=== PATIENT | male | born 1970 | race Caucasian/White ===

== ENCOUNTER 2021-05-11 09:50 | Inpatient (IN) | payer MEDICAID, SELFPAY ==
[2021-05-11] VITALS (11 sets, daily range): BP systolic 116; BP diastolic 61; PULSE 71–92; RESP 20–45; TEMP 37.8; O2SAT 86–95; BMI 36.6
--- NOTE | 2021-05-11 10:01 | XRR_ITS ---
PROCEDURE INFORMATION: Exam: XR Chest Exam date and time: 05/11/2021 10:01 AM Age: 50 years old Clinical indication: Dyspnea; Additional info: Resp distress TECHNIQUE: Imaging protocol: XR of the chest. Views: 1 view. Total images: 1 COMPARISON: No relevant prior studies available. FINDINGS: Lungs: Bilateral extensive patchy airspace densities, favoring pneumonia, possibly atypical pneumonia. Pleural spaces: Unremarkable. No pleural effusion. No pneumothorax. Heart/Mediastinum: Upper normal heart size noted. Bones/joints: Unremarkable. XR/XR chest 1V portable [id number] IMPRESSION: Bilateral extensive patchy airspace densities, favoring pneumonia, possibly atypical pneumonia.
[2021-05-11 10:15] LABS: Hematocrit 43.9 % (42.0-52.0); Hemoglobin 15.1 g/dL (11.7-16.6); Lymphocytes # 0.6 10^3/uL (0.8-4.8); Mean Corpuscular HGB Conc 34.4 g/dL (30.0-36.0); Mean Corpuscular Hemoglobin 29.6 pg (28.0-34.0); Mean Corpuscular Volume 86.1 fl (80-94); Mean Platelet Volume 10.2 fL (7.4-10.4); Monocytes # 0.3 10^3/uL (0.2-0.9); Monocytes % 4.6 %; Neutrophils # 5.42 10^3/uL (1.8-7.7); Neutrophils % 85.1 %; Nucleated Red Blood Cells % 0 %; Platelet Count 239 10^3/cmm (130-400); Red Cell Distribution Width 12.7 % (12.1-15.1); White Blood Count 6.4 10^3/uL (4.0-10.0)
--- NOTE | 2021-05-11 10:23 | W.ED.COVID ---
HPI - COVID General: Chief Complaint: ER Hold Stated Complaint: RESP DISTRESS Time Seen by Provider: 05/11/21 09:51 Triage information: Has fever, cough or shortness of breath. Exposure to COVID + person last 14 days History of Present Illness: HPI Narrative: 50-year-old male presents to the emergency room with complaint of shortness of breath with productive cough of yellow sputum. Is been going on for the last 7 days room [facility] reports he was having sats in the 60s. He is not previously been vaccinated for Covid nor is he known to have tested positive for Covid in the past. He denies any vomiting or diarrhea denies any chest pain or abdominal pain. Denies any anosmia he has had myalgias and subjective fever has a temp now of 100. He received IV Solu-Medrol and nebulized Decadron in route. Prior covid testing: no COVID 19 common symptoms: positive fever(s), chills, cough, productive cough, dyspnea, fatigue, body aches, headache(s), nasal congestion, nausea and chest tightness; negative non-productive cough, loss of sense of smell and/or taste, throat pain, vomiting or diarrhea COVID 19 other sytmptoms: positive requiring oxygen; negative chest pain Onset (ago): week(s) (1) Severity: severe Pertinent comorbid conditions: obesity Treatment prior to arrival: steroids, oxygen and breathing treatments COVID Results: SARS-CoV-2 Antigen (Rapid) Positive (Negative) H 05/11/21 10:36 05/11/21 Review of Systems Const: Reports: fever(s), chills, body aches and fatigue ENMT: Reports: nasal congestion; Denies: throat pain Card: Denies: chest pain, edema, dyspnea on exertion or orthopnea Resp: Reports: dyspnea and productive cough; Denies: non-productive cough GI: Reports: nausea; Denies: vomiting or diarrhea : Denies: flank pain, dysuria, urinary frequency or urinary urgency Skin/Breast: Denies: rash or pruritus Neuro: Reports: headache(s) [facility] ED PFSH: Medical History (Updated 05/13/21 @ 07:28 by Mateo Moore DO) CAD (coronary artery disease) Hypertension Surgical History No significant past surgical history Social History (Updated 05/11/21 @ 13:28 by Vicente Zapata MD) Smoking and tobacco status: former smoker Alcohol intake: never Substance/Drug Use: never Lives independently: Yes Household members: spouse Housing: House Marital status: Physical Exam Const: GENERAL APPEARANCE: cooperative ORIENTATION/CONSCIOUSNESS: Yes awake, Yes oriented to person, Yes oriented to place and Yes oriented to time HENMT: COMMON NORMALS: normocephalic, atraumatic and hearing grossly normal bilaterally HEAD & SCALP: normocephalic and atraumatic Resp: EFFORT & INSPECTION: Yes tachypneic AUSCULTATION: crackles and wheezes Cardio: COMMON NORMALS: regular rhythm RATE: tachycardic RHYTHM: regular rhythm GI: COMMON NORMALS: Soft to palpation and No hepatosplenomegaly present AUSCULTATION: Yes normoactive bowel sounds PALPATION: Yes Soft to palpation, No Tenderness to palpation present (GI), No Guarding due to palpation present (GI) and Yes No hepatosplenomegaly present Extremity: COMMON NORMALS: normal to inspection, capillary refill normal, no clubbing, cyanosis or edema, no calf tenderness and no pedal edema Neuro: SENSORIUM/ORIENTATION: Yes oriented to person, Yes oriented to place and Yes oriented to time Skin: COMMON NORMALS: no rashes or lesions noted GENERAL SKIN EXAM: no rashes or lesions noted Course Vital Signs: Vital signs: Vital Signs Temperature 99.5 F 05/13/21 04:00 Pulse Rate 105 H 05/13/21 06:22 Respiratory Rate 32 H 05/13/21 04:44 Blood Pressure 96/57 05/13/21 04:44 Pulse Oximetry 94 05/13/21 06:22 MDM - COVID MDM Narrative: Medical decision making narrative: Labs imaging EKG and ABGs reviewed as found in the chart. Patient presents in severe respiratory distress with rapidly transitioned to heated high flow which did improve his breathing he was also proned in the ER. [facility] did not have any available COVID beds. We will go ahead and admit here discussed with hospitalist orders written. Lab Data: Labs: Lab Results 05/11/21 05/11/21 05/11/21 10:00 10:00 10:00 WBC 6.4 10^3/uL 10^3/ uL (4.0-10.0) RBC 5.10 10^6/uL 10^6 /uL (4.1-5.3) Hgb 15.1 g/dL g/dL (11.7-16.6) Hct 43.9 % % (42.0-52.0) MCV 86.1 fl fl (80-94) MCH 29.6 pg pg (28.0-34.0) MCHC 34.4 g/dL g/dL (30.0-36.0) RDW 12.7 % % (12.1-15.1) Plt Count 239 10^3/cmm 10^3 /cmm (130-400) MPV 10.2 fL fL (7.4-10.4) Neut % (Auto) 85.1 % % Lymph % (Auto) 10.0 % % [place] % (Auto) 4.6 % % Eos % (Auto) 0.0 % % Baso % (Auto) 0.0 % % Neut # (Auto) 5.42 10^3/uL 10^3 /uL (1.8-7.7) Lymph # (Auto) 0.6 10^3/uL L 10^ 3/uL (0.8-4.8) [place] # (Auto) 0.3 10^3/uL 10^3/ uL (0.2-0.9) Eos # (Auto) 0.0 10^3/uL 10^3/ uL (0.0-0.8) Baso # (Auto) 0.0 10^3/uL 10^3/ uL (0.0-0.1) Nucleated RBC % (a uto) 0 % % Nucleated RBCs # 0.0 /100WBC /100W BC ESR D-Dimer 1.69 ug/mIFEU H u g/mIFEU (0-0.59) Sodium 132 mmol/L L mmol /L (136-145) Potassium 3.4 mmol/L L mmol /L (3.5-5.1) Chloride 92 mmol/L L mmol/ L (98-107) Carbon Dioxide 23 mmol/L mmol/L (22-29) Anion Gap 20.4 H (5-19) BUN 10 mg/dL mg/dL (6-20) Creatinine 0.8 mg/dL mg/dL (0.7-1.2) GFR Calculation 101.9 mL/min mL/m in (90-130) Glucose 121 mg/dL H mg/dL (65-115) Calculated Osmolal ity 274 mOsm/kg L mOs m/kg (285-295) Lactic Acid Calcium 7.8 mg/dL L mg/dL (8.5-10.5) Iron TIBC % Saturation Unsat Iron Binding Total Bilirubin 0.6 mg/dL mg/dL (0.15-1.2) AST 127 U/L H U/L (0-40) ALT 84 U/L H U/L (0-41) Alkaline Phosphata se 100 IU/L IU/L (40-130) C-Reactive Protein 107.4 mg/L H mg/L (0.0-4.9) NT-Pro-B Natriuret Pep Total Protein 6.9 g/dL g/dL (6.6-8.7) Albumin 3.2 g/dL L g/dL (3.5-5.2) Globulin 3.7 g/dL g/dL (1.3-4.6) Procalcitonin 0.21 ng/mL ng/mL (0-0.5) TSH SARS-CoV-2 Ag (Rap id) 05/11/21 05/11/21 05/11/21 10:00 10:00 10:00 WBC RBC Hgb Hct MCV MCH MCHC RDW Plt Count MPV Neut % (Auto) Lymph % (Auto) [place] % (Auto) Eos % (Auto) Baso % (Auto) Neut # (Auto) Lymph # (Auto) [place] # (Auto) Eos # (Auto) Baso # (Auto) Nucleated RBC % (a uto) Nucleated RBCs # ESR D-Dimer Sodium Potassium Chloride Carbon Dioxide Anion Gap BUN Creatinine GFR Calculation Glucose Calculated Osmolal ity Lactic Acid 1.3 mmol/L mmol/L (0.5-2.2) Calcium Iron 31 ug/dL L ug/dL (59-158) TIBC 156 mcg/dl mcg/dl % Saturation 19.8 % L % (20-50) Unsat Iron Binding 125 ug/dL ug/dL (112-347) Total Bilirubin AST ALT Alkaline Phosphata se C-Reactive Protein NT-Pro-B Natriuret Pep 264 pg/mL H pg/mL (0-125) Total Protein Albumin Globulin Procalcitonin 0.21 ng/mL ng/mL (0-0.5) TSH 2.08 uIU/mL uIU/m L (0.27-4.20) SARS-CoV-2 Ag (Rap id) 05/11/21 05/11/21 10:00 10:36 WBC RBC Hgb Hct MCV MCH MCHC RDW Plt Count MPV Neut % (Auto) Lymph % (Auto) [place] % (Auto) Eos % (Auto) Baso % (Auto) Neut # (Auto) Lymph # (Auto) [place] # (Auto) Eos # (Auto) Baso # (Auto) Nucleated RBC % (a uto) Nucleated RBCs # ESR 29 mm/hr H mm/hr (0-10) D-Dimer Sodium Potassium Chloride Carbon Dioxide Anion Gap BUN Creatinine GFR Calculation Glucose Calculated Osmolal ity Lactic Acid Calcium Iron TIBC % Saturation Unsat Iron Binding Total Bilirubin AST ALT Alkaline Phosphata se C-Reactive Protein NT-Pro-B Natriuret Pep Total Protein Albumin Globulin Procalcitonin TSH SARS-CoV-2 Ag (Rap id) Positive H (Negative) COVID Results: SARS-CoV-2 Antigen (Rapid) Positive (Negative) H 05/11/21 10:36 05/11/21 Discharge Plan Discharge Patient Disposition: Admitted As Inpatient Admit Provider: Vicente Zapata Clinical Impression: COVID-19, Respiratory failure with hypoxia, Hypertension, CAD (coronary artery disease), Transaminitis Condition: Stable Coding Level of Care Code ED Fuel Verification Technician for Chg Fwd Exam Detailed
[2021-05-11] MEDS: dexamethasone 10 mg/mL INJ 6 MG IVP (10:29)
[2021-05-11] MEDS: remdesivir 200 MG in sodium chloride 0.9% (100 ml) 60 ML 100 MG IV (10:30)
[2021-05-11 10:36] LABS: Lactic Sepsis W/Reflex 1.3 mmol/L (0.5-2.2)
[2021-05-11 10:38] LABS: Alanine Aminotransferase 84 U/L (0-41); Albumin Level 3.2 g/dL (3.5-5.2); Alkaline Phosphatase 100 IU/L (40-130); Anion Gap 20.4 (5-19); Aspartate Amino Transferase 127 U/L (0-40); Blood Urea Nitrogen 10 mg/dL (6-20); C Reactive Protein 107.4 mg/L (0.0-4.9); Calcium 7.8 mg/dL (8.5-10.5); Carbon Dioxide 23 mmol/L (22-29); Chloride 92 mmol/L (98-107); Globulin 3.7 g/dL (1.3-4.6); Glomerular Filtration Rate 101.9 mL/min (90-130); Glucose 121 mg/dL (65-115); Osmolality Calculated 274 mOsm/kg (285-295); Potassium 3.4 mmol/L (3.5-5.1); Sodium 132 mmol/L (136-145); Total Bilirubin 0.6 mg/dL (0.15-1.2); Total Protein 6.9 g/dL (6.6-8.7)
[2021-05-11 10:40] LABS: D Dimer 1.69 ug/mIFEU (0-0.59)
--- NOTE | 2021-05-11 10:42 | PC.NURSE ---
Continuous BP, SpO2 and cardiac monitoring initiated upon arrival into room.
[2021-05-11 10:45] LABS: Procalcitonin 0.21 ng/mL (0-0.5)
--- NOTE | 2021-05-11 10:55 | PC.NURSE ---
This nurse provided one hour of direct critical pt care.
--- NOTE | 2021-05-11 11:18 | ECG_ITS ---
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 Measurements Intervals [place] Rate: 92 P: 42 [place]: 148 QRS: 10 QRSD: 105 T: 3 QT: 366 QTc: 453 Interpretive Statements SINUS RHYTHM WITH OCCASIONAL SUPRAVENTRICULAR PREMATURE COMPLEXES NONSPECIFIC T-WAVE ABNORMALITY No previous ECG available for comparison Electronically Signed On 05-11-2021 14:58:51 [place] MATE by Diony Quarles M.D. [id number]
[2021-05-11 11:21] LABS: SARS Covid-2 Antigen Positive (Negative)
--- NOTE | 2021-05-11 12:18 | USCV_ITS ---
Mike Carvalho Age: 50 Gender: M : 1970 Exam Date: 05/11/2021 12:54 Ordering Phys: Vicente Zapata MD Technologist: HANNAH Exam Location: [facility] [place] Indication: CHF, covid BP: 116 / 61 HR: 80 Rhythm: Sinus Technical Quality: Technically difficult study MEASUREMENTS (Male / Female) Normal Values 2D ECHO LV Diastolic Diameter PLAX 4.9 cm 4.2 - 5.9 / 3.9 - 5.3 cm LV Systolic Diameter PLAX 3.3 cm IVS Diastolic Thickness 1.2 cm 0.6 - 1.0 / 0.6 - 0.9 cm IVS Systolic Thickness 1.6 cm LVPW Diastolic Thickness 1.3 cm 0.6 - 1.0 / 0.6 - 0.9 cm LVPW Systolic Thickness 1.5 cm RV Chamber Size 1.7 cm LVOT Diameter 2.1 cm LV Ejection Fraction 2D Teich 62.2 % LV Ejection Fraction MOD 2C 71.0 % LV Ejection Fraction 2C AL 72.1 % LA Diameter 3.3 cm LA Width 2.9 cm LA Height 5.9 cm RA Width 1.9 cm RA Height 4.9 cm Aorta at Sinotubular Diameter 2.4 cm M-MODE Aortic Annulus Diameter 3.0 cm LA Ao Ratio MM 1.4 MV E Point Septal Separation 0.4 cm DOPPLER AV Peak Velocity 100.0 cm/s LVOT Peak Velocity 67.0 cm/s AV Area Cont Eq vti 3.2 cm squared AV Area Cont Eq pk 2.3 cm squared MV Area PHT 5.0 cm squared Mitral E to A Ratio 1.2 MV E' Velocity 38.5 cm/s Mitral E to MV E' Ratio 7.2 Mitral E to LV E' Lateral Ratio 7.0 Mitral E to LV E' Septal Ratio 7.5 TR Peak Velocity 299.0 cm/s TR Peak Gradient 35.8 mmHg TV Peak E Velocity 73.0 cm/s Right Atrial Pressure 3.0 mmHg Pulmonary Artery Systolic Pressu 38.8 mmHg RV Acceleration Time 0.1 s RV Ejection Time 0.3 s RV AcT/ET 0.2 FINDINGS Left Ventricle Normal left ventricular size and systolic function, EF 69 %. No regional wall motion abnormalities. Mild left ventricular hypertrophy. Right Ventricle The right ventricle is normal in size and function. Right Atrium The right atrium is normal in size. Left Atrium The left atrium is normal in size. Mitral Valve No gross abnormalities noted Aortic Valve No gross abnormalities noted Tricuspid Valve No gross abnormalities noted Pulmonic Valve Not visualized well Pericardium Small pericardial effusion. Aorta Normal ascending aorta dimension. CONCLUSIONS Normal left ventricular size and systolic function, EF 69 %. No regional wall motion abnormalities. Mild left ventricular hypertrophy. Small pericardial effusion. Normal cardiac chamber sizes. No significant stenotic or regurgitant lesions, based on color flow Doppler examination No previous study is available for comparison. Dr Diony Quarles MD FACC (Electronically Signed) Final Date: 12 May 2021 09:36 S
[2021-05-11 13:25] LABS: Erythrocyte Sedimentation Rate 29 mm/hr (0-10)
--- NOTE | 2021-05-11 13:25 | P.HP_ITS ---
Providers/Chief Complaint Admitting Physician: Vicente Zapata MD Chief Complaint: RESP DISTRESS History of Present Illness Mike Carvalho is a 50 year old male with past medical history of hypertension, remote history of CAD no PCI presented to the ER today with having difficulty in breathing, myalgias, abdominal pain getting worse for last 4 days. In the ER was found to be COVID-19 positive. Other blood work showed a white count 6.4, hemoglobin 15,000, D-dimer 1.69, chemistry showing sodium 32, potassium of 3.4, creatinine 0.8, AST/ALT of 127/84, CRP of 107. Review of Systems General: Reports: 10 or more systems reviewed and unremarkable except in HPI and below Const: Denies: fever(s), chills, body aches, change in appetite, change in weight, malaise, night sweats, diaphoresis, change in sleep pattern, daytime sleepiness or snoring Eyes: Denies: change in vision, blurry vision, photophobia, eye discomfort or eye discharge ENMT: Denies: throat pain, enlarged tonsils, hoarseness, mouth pain, oral sores, dry mouth, tinnitus, nasal congestion or post nasal drip Card: Denies: chest pain, palpitations, irregular heart rhythm, edema, swelling of feet/ankles, lightheadedness, syncope, pre-syncope, dyspnea on exertion, orthopnea, leg pain with exertion or acrocyanosis Resp: Denies: dyspnea, productive cough, non-productive cough, wheezing, stridor, pain on inspiration, change in phlegm color, hemoptysis or chest congestion GI: Denies: abdominal pain, nausea, vomiting, hematemesis, coffee ground emesis, dysphagia, heartburn, diarrhea, constipation, bloating, GI cramping, change in bowel habits, pain on defecation, hematochezia or melena : Denies: flank pain, difficulty urinating, dysuria, urinary frequency, urinary urgency, urinary hesitancy, urinary dribbling, difficulty starting urination, change in urine stream, nocturia or hematuria Musc: Denies: neck pain, back pain, extremity pain, joint pain, joint swelling, joint redness, joint stiffness or limited range of motion Neuro: Denies: headache(s), numbness in extremities, weakness in extremities, sensory changes, lack of coordination, difficulty walking, frequent falls, dizziness, vertigo, confusion, Slurred speech present, difficulty communicating thoughts or seizure-like activity Psych: Denies: anxiety, depression, mood swings, panic attacks, hopelessness or irritability Endo: Denies: polyuria, polydipsia, tired all the time, cold intolerance, excessive sweating, flushing or heat intolerance [place]/Lymph: Denies: easy bruising or easy bleeding All/Imm: Denies: tongue swelling, facial swelling or acute wheezing Medications/Allergies Home Medications Medication Instructions Recorded Confirmed Last Taken Type aspirin 81 mg PO DAILY 05/11/21 05/11/21 05/11/21 History bumetanide 1 mg PO DAILY 05/11/21 05/11/21 05/07/21 History clindamycin HCl 300 mg PO TID 05/11/21 05/11/21 05/09/21 History lisinopril 20 mg PO BID 05/11/21 05/11/21 05/11/21 History omeprazole 20 mg PO DAILY 05/11/21 05/11/21 05/11/21 History Allergies Allergy/AdvReac Type Severity Reaction Status Date / Time sildenafil [From Viagra] Allergy ADR-Confusi Verified 05/11/21 10:03 on PFSH Acute PFSH: Medical History (Updated 05/11/21 @ 13:28 by Vicente Zapata MD) CAD (coronary artery disease) Hypertension Surgical History No significant past surgical history Social History (Updated 05/11/21 @ 13:28 by Vicente Zapata MD) Smoking and tobacco status: former smoker Alcohol intake: never Substance/Drug Use: never Lives independently: Yes Household members: spouse Housing: House Marital status: Vitals/I&O/Wt Last Vital Signs Temp 100.0 F H 05/11/21 09:57 Pulse 71 05/11/21 12:06 Resp 25 H 05/11/21 12:06 BP 116/61 05/11/21 12:06 Pulse Ox 94 05/11/21 12:06 Weight last 48 hrs Weight 122.47 kg Physical Exam Narrative: EXAM NARRATIVE: General: Acute distress secondary to difficulty in breathing, tachypneic, AOx3, on heated high flow HEENT: PERRLA, pupils bilaterally equal and reactive Chest: Bilateral bronchial breath sounds, coarse crackles present bilaterally, equal good air entry bilaterally CVS: S1-S2 regular, no murmurs, no tachycardia, no gallops, no rubs Abdomen: Soft, nontender, no organomegaly, bowel sounds present Neuro: No focal deficits, no facial deformity, AO x3, power 5/5 in all limbs Data : 05/11/21 10:00 05/11/21 10:00 Micro: Microbiology 05/11/21 10:19 Blood Culture - Preliminary Blood SPECIMEN COLLECTED 05/11/21 10:00 Blood Culture - Preliminary Blood SPECIMEN COLLECTED A&P Assessment and plan (1) Respiratory failure with hypoxia: Status: Acute (2) COVID-19: Status: Acute (3) Transaminitis: Status: Acute (4) Hypertension: Status: Acute (5) CAD (coronary artery disease): Status: Acute Additional A&P Information Hypoxic respiratory failure secondary to COVID-19 pneumonia: Severe disease. Oxygen supplementation keeping saturation over 88%. Dexamethasone 6 mg daily. Remdesivir to finish a 5-day course. Vitamin C, zinc. DuoNebs every 4 hour, budesonide twice daily. Pulmonary toilet with incentive spirometry flutter valve. We will monitor inflammatory markers including ESR, CRP, D-dimer every 48 hours. If getting elevated will dose Actemra. Patient was made aware of the same and he has given verbal consent. D-dimer elevated. Check CTA to rule out pulmonary embolism. For now we will start patient on full dose anticoagulation with Eliquis 5 mg twice daily as patient is requiring high oxygen supplementation. Will monitor for anemia or blood loss. Check sputum culture, procalcitonin, urine Legionella, bacterial antigen, blood culture. Low suspicion of bacterial pneumonia for now. Will start on Levaquin to finish a 5-day course. Given hypoxia will try to keep patient as negative as possible. Check echocardiogram. IV Lasix 80 mg stat. Strict input output charting, daily weights. Fluid restriction up to 1500 cc. [place] catheterization. Hypertension: Goal blood pressure less than 140/90 mmHg. Takes lisinopril 20 mg twice daily. For now we will hold off and will restart medication as per blood pressures going forward. History of CAD: Start on aspirin 81 mg daily. Check A1c, lipid panel. Full code. Discussed in detail with the patient that he is requiring high oxygen supplementation is at high risk of mechanical ventilation. Patient verbalized understanding and would like to avoid intubation as much as possible but if needed is okay with that. Mechanical soft cardiac diet. Eliquis will help with DVT prophylaxis. Famotidine for PUD prophylaxis. Severely guarded prognosis Attestations Medical Necessity Statement*: Admission for more than 2 midnights for management of respiratory failure secondary COVID-19 pneumonia Critical Care Time: The high probability of a clinically significant, sudden or life threatening deterioration of the patient's [respiratory] system(s) required my full and direct attention, intervention and personal management. The critical care time is as shown. This time is in addition to time spent performing any reported procedures but includes the following: [x] Data and vital sign review and interpretation [x] Patient assessment, examination and intervention [x] Documentation [x] Medication orders and management Critical Care Time (min): 90 Coding Level of Care Code Acute Linux System Administrator for [facility] Diagnoses Respiratory failure with hypoxia J96.91 COVID-19 U07.1 Transaminitis R74.01 Hypertension I10 CAD (coronary artery disease) I25.10
[2021-05-11 13:27] LABS: Thyroid Stimulating Hormone 2.08 uIU/mL (0.27-4.20)
[2021-05-11 13:29] LABS: NT Pro B Type Natriuretic Pept 264 pg/mL (0-125); Procalcitonin 0.21 ng/mL (0-0.5)
[2021-05-11] MEDS: levoFLOXacin 500 mg Tablet PO (13:35)
[2021-05-11] MEDS: potassium chloride ER 20 mEq Tablet 40 MEQ PO ×2 (13:35→19:51)
[2021-05-11] MEDS: zinc gluconate 50 mg Tablet PO (13:35)
[2021-05-11] MEDS: famotidine 20 mg/2 mL INJ IVP (13:36)
[2021-05-11] MEDS: FUROsemide 10 mg/mL SDV 10mL 80 MG IVP (13:37)
[2021-05-11 13:40] LABS: Iron 31 ug/dL (59-158); Percent Saturation 19.8 % (20-50); Total Iron Binding Capacity 156 mcg/dl; Unsaturated Iron Binding 125 ug/dL (112-347)
[2021-05-11 14:20] LABS: Bilirubin Urine Neg (Negative); Blood Urine 3+ (Negative); Glucose Urine UA Norm (Normal); Ketones Urine 1+ (Negative); Nitrate Urine Negative (Negative); Protein Urine 1+ (Negative); Urine Appearance Clear (CLEAR); Urine Color Yellow (Yellow); Urobilinogen Urine 1 mg/dL (Negative); pH Urine 6 (5-7)
[2021-05-11 14:21] LABS: Add Urine Microscopic? YES; Leukocyte Esterase Urine Negative (Negative)
[2021-05-11 14:22] LABS: Bacteria Urine TRACE /hpf; Squamous Epithelial Cell Urine RARE /hpf (0-5); WBC Urine RARE /hpf (0-5)
[2021-05-11 14:24] LABS: Add Urine Culture? No
[2021-05-11 14:45] LABS: ABG PCO2 33.5 mmHg (35-45); ABG PH Result 7.49 (7.35-7.45); Alveolar-Arterial Oxygen Gradi 51.7 mmHg (5-10); Arterial Blood Gas Hematocrit 47.7 % (42-52); Base Excess ABG 2.4 mmol/L (-2.0-2.0); Blood Gas Allen Test Pos; Blood Gas Operator Identificat MONRO; Blood Gas Sample Site Radial, right; Blood Gas Sample Type Arterial; Carboxyhemoglobin 0.4 %THgb (0.4-20.1); HCO3 ABG 25.3 mmol/L (22-26); HGB O2 Sat 96.2 % (95-100); Methemoglobin 0.7 % (0.4-1.5); Oxygen Device HAG; Oxygen Saturation ABG 97.3; PO2 ABG 85.2 mmHg (80.0-100.0); Potassium Level - ABG 3.1 mmol/L (3.5-5.0); Total Hemoglobin 15.6 g/dL (14-18)
[2021-05-11] MEDS: benzonatate 100 mg Capsule PO ×2 (15:26→21:05)
[2021-05-11] MEDS: ipratropium-albuterol 3 mL Neb INHALATION ×2 (15:57→20:03)
[2021-05-11 16:31] LABS: Potassium, Radom Urine 18 mmol/L
[2021-05-11 17:05] LABS: Urine Random Chloride < 10 mmol/L; Urine Random Sodium < 10 mmol/L
[2021-05-11] MEDS: ascorbic acid 500 mg Tablet PO (19:52)
[2021-05-11] MEDS: ferrous gluconate 324 mg Tablet PO (19:52)
[2021-05-11] MEDS: budesonide 0.5 mg/2 mL Neb INHALATION (20:03)
[2021-05-11] MEDS: apixaban 5 mg Tablet PO (21:56)
[2021-05-12] VITALS (23 sets, daily range): BP systolic 95–144; BP diastolic 53–89; PULSE 66–139; RESP 24–42; O2SAT 86–98
[2021-05-12 04:36] LABS: ABG PCO2 38.2 mmHg (35-45); ABG PH Result 7.48 (7.35-7.45); Arterial Blood Gas Hematocrit 46.4 % (42-52); Base Excess ABG 4.4 mmol/L (-2.0-2.0); Blood Gas Allen Test Pos; Blood Gas Sample Site Radial, left; Blood Gas Sample Type Arterial; HCO3 ABG 28.1 mmol/L (22-26); Oxygen Device BIPAP; PO2 ABG 98.6 mmHg (80.0-100.0)
--- NOTE | 2021-05-12 06:00 | XRR_ITS ---
PROCEDURE INFORMATION: Exam: XR Chest Exam date and time: 05/12/2021 6:00 AM Age: 50 years old Clinical indication: Shortness of breath; Additional info: Covid TECHNIQUE: Imaging protocol: XR of the chest. Views: 1 view. COMPARISON: CR (CHEST, ) 05/11/2021 10:09 AM FINDINGS: Lungs: Poor inspiration. Decreased lung volumes. Redemonstration of bilateral airspace disease compatible with COVID-19 pneumonia given the history. In general there has been some improvement of the airspace disease though there is still dominant consolidation with air bronchogram formation in the left lower lobe. Pleural spaces: No pleural effusion or pneumothorax. Heart/Mediastinum: The cardiac silhouette is not enlarged. The mediastinal contours are normal. Bones/joints: No acute osseous abnormality. XR/XR chest 1V portable [id number] IMPRESSION: Some improvement in bilateral, asymmetric pneumonia.
[2021-05-12] MEDS: famotidine 20 mg/2 mL INJ IVP ×2 (06:05→11:48)
[2021-05-12] MEDS: levoFLOXacin 500 mg Tablet PO (06:06)
[2021-05-12 06:47] LABS: C Reactive Protein 108.2 mg/L (0.0-4.9); Chol HDL Ratio 3.71 mg/dL (1.0-5.00); Cholesterol 130 mg/dL (0-200); HDL Cholesterol 35 mg/dL (60-100); LDL Cholesterol Calculated 79 mg/dL (50-129); Triglycerides 82 mg/dL (0-150); VLDL Cholestrol Calculation 16 mg/dL (0-30)
[2021-05-12 06:48] LABS: Alanine Aminotransferase 92 U/L (0-41); Alkaline Phosphatase 106 IU/L (40-130); Anion Gap 19.7 (5-19); Aspartate Amino Transferase 116 U/L (0-40); Blood Urea Nitrogen 16 mg/dL (6-20); Calcium 7.9 mg/dL (8.5-10.5); Carbon Dioxide 22 mmol/L (22-29); Chloride 96 mmol/L (98-107); Globulin 3.6 g/dL (1.3-4.6); Glucose 173 mg/dL (65-115); Osmolality Calculated 283 mOsm/kg (285-295); Potassium 3.7 mmol/L (3.5-5.1); Sodium 134 mmol/L (136-145); Total Bilirubin 0.4 mg/dL (0.15-1.2); Total Protein 6.6 g/dL (6.6-8.7)
[2021-05-12 07:15] LABS: Hematocrit 40.1 % (42.0-52.0); Hemoglobin 13.8 g/dL (11.7-16.6); Lymphocytes # 0.5 10^3/uL (0.8-4.8); Mean Corpuscular HGB Conc 34.4 g/dL (30.0-36.0); Mean Corpuscular Hemoglobin 29.3 pg (28.0-34.0); Mean Corpuscular Volume 85.1 fl (80-94); Mean Platelet Volume 10.3 fL (7.4-10.4); Monocytes # 0.6 10^3/uL (0.2-0.9); Monocytes % 7.8 %; Neutrophils # 6.38 10^3/uL (1.8-7.7); Neutrophils % 85.7 %; Nucleated Red Blood Cells % 0 %; Platelet Count 247 10^3/cmm (130-400); Red Blood Count 4.71 10^6/uL (4.1-5.3); Red Cell Distribution Width 12.8 % (12.1-15.1); White Blood Count 7.5 10^3/uL (4.0-10.0)
[2021-05-12 07:49] LABS: Estmated Average Glucose 137; Hemoglobin A1C 6.4 % (4.0-6.0)
[2021-05-12] MEDS: budesonide 0.5 mg/2 mL Neb INHALATION ×3 (07:56→20:00)
[2021-05-12] MEDS: ipratropium-albuterol 3 mL Neb INHALATION ×6 (07:56→23:31)
[2021-05-12] MEDS: aspirin 81 mg Chew Tablet PO (10:26)
[2021-05-12] MEDS: ferrous gluconate 324 mg Tablet PO ×2 (10:26→21:57)
[2021-05-12] MEDS: ascorbic acid 500 mg Tablet PO ×2 (10:27→21:58)
[2021-05-12] MEDS: zinc gluconate 50 mg Tablet PO (10:27)
[2021-05-12] MEDS: guaiFENesin-dextromethorphan UDC 10 mL 5 ML PO (11:30)
[2021-05-12] MEDS: FUROsemide 10 mg/mL SDV 2mL 20 MG IVP (11:30)
[2021-05-12] MEDS: tocilizumab 800 MG in sodium chloride 0.9% (100 ml) 100 ML 100 MG IV (11:30)
[2021-05-12] MEDS: apixaban 5 mg Tablet PO ×2 (11:30→21:59)
[2021-05-12] MEDS: dexamethasone 4 mg/mL INJ 6 MG IVP (11:48)
--- NOTE | 2021-05-12 12:13 | PM.PN ---
Subjective Subjective: Interval history: Overnight patient was on BiPAP. On examination today patient lying in semiprone position. Currently on therapy planning. 90% saturating 92%. States he is feeling better and more comfortable than yesterday. Still having bouts of cough when he desaturates but comes back up within next 10 minutes. Appetite appropriate. Good urine output overnight and today morning. Vitals/I&O/Wt Last Vital Signs Temp 100.0 F H 05/11/21 09:57 Pulse 97 05/12/21 07:57 Resp 33 H 05/12/21 07:57 BP 116/61 05/11/21 12:06 Pulse Ox 91 05/12/21 07:57 05/11/21 05/12/21 05/12/21 22:59 06:59 14:59 Output Total 3000 / 3000 Balance -3000 / -3000 Weight last 48 hrs Weight 122.47 kg Physical Exam Narrative: EXAM NARRATIVE: General: Acute distress secondary to difficulty in breathing, tachypneic, AOx3, on heated high flow HEENT: PERRLA, pupils bilaterally equal and reactive Chest: Bilateral bronchial breath sounds, coarse crackles present bilaterally, equal good air entry bilaterally CVS: S1-S2 regular, no murmurs, no tachycardia, no gallops, no rubs Abdomen: Soft, nontender, no organomegaly, bowel sounds present Neuro: No focal deficits, no facial deformity, AO x3, power 5/5 in all limbs Urinary Catheter Management^: [place]: Cath Placed During This Visit: yes Reason for Continuing Indwelling Catheter: Accurate Measurement of Urinary Output in Critically Ill Patients Urinary Catheter Date of Insertion: 05/11/21 Urinary Catheter Time of Insertion: 13:39 Data : 05/12/21 06:07 05/12/21 06:07 Micro: Microbiology 05/11/21 10:19 Blood Culture - Preliminary Blood NEGATIVE TO DATE 05/11/21 10:00 Blood Culture - Preliminary Blood NEGATIVE TO DATE 05/12/21 06:14 MRSA Culture - Final Nose 05/11/21 12:11 Legionella Urinary Antigen - Final Urine,Voided 05/11/21 12:11 Bacterial Antigens - Final Urine Kidney A&P Assessment and plan (1) Respiratory failure with hypoxia: Status: Acute (2) COVID-19: Status: Acute (3) Transaminitis: Status: Acute (4) Hypertension: Status: Acute (5) CAD (coronary artery disease): Status: Acute Additional A&P Information Hypoxic respiratory failure secondary to COVID-19 pneumonia: Severe disease. Oxygen supplementation keeping saturation over 88%. Dexamethasone 6 mg daily. Remdesivir to finish a 5-day course. Vitamin C, zinc. DuoNebs every 4 hour, budesonide twice daily. Pulmonary toilet with incentive spirometry flutter valve. Tessalon Perles and Robitussin to decrease barotrauma We will monitor inflammatory markers including ESR, CRP, D-dimer every 48 hours. As his inflammatory markers are worsening today with CRP of 108 from 107 yesterday we will give him 1 dose of Actemra. D-dimer elevated. CTA negative for pulmonary embolism. For now we will start patient on full dose anticoagulation with Eliquis 5 mg twice daily as patient is requiring high oxygen supplementation. Will monitor for anemia or blood loss. Sputum culture pending, MRSA swab, Legionella, bacterial antigen, procalcitonin negative. Blood cultures so far negative. Low suspicion of bacterial pneumonia. For now we will continue with Levaquin to finish a 5-day course. Given hypoxia will try to keep patient as negative as possible. Echocardiogram results appreciated. IV Lasix 20 mg stat. Strict input output charting. Fluid restriction up to 1500 cc. [place] catheterization. Hypertension: Goal blood pressure less than 140/90 mmHg. Takes lisinopril 20 mg twice daily. For now we will hold off and will restart medication as per blood pressures going forward. History of CAD: Aspirin 81 mg daily, A1c 6.4. Lipid panel appreciated. Full code. Discussed in detail with the patient that he is requiring high oxygen supplementation is at high risk of mechanical ventilation. Patient verbalized understanding and would like to avoid intubation as much as possible but if needed is okay with that. Mechanical soft cardiac diet. Eliquis will help with DVT prophylaxis. Famotidine for PUD prophylaxis. Severely guarded prognosis Plan for today: Continue with remdesivir, dexamethasone, add Actemra 1 dose. IV Lasix 20 mg. Transfer to ICU when bed available. Continue with aggressive I-S and Acapella, semiproning when possible. Attestations Medical Necessity Statement*: Requires further hospitalization for management of hypoxic respiratory failure secondary to COVID-19 pneumonia requiring high oxygen supplementation Critical Care Time: The high probability of a clinically significant, sudden or life threatening deterioration of the patient's [respiratory] system(s) required my full and direct attention, intervention and personal management. The critical care time is as shown. This time is in addition to time spent performing any reported procedures but includes the following: [x] Data and vital sign review and interpretation [x] Patient assessment, examination and intervention [x] Documentation [x] Medication orders and management Critical Care Time (min): 90 Coding Level of Care Code Acute Compliance Investigator for [facility] Fwd Diagnoses Respiratory failure with hypoxia J96.91 COVID-19 U07.1 Transaminitis R74.01 Hypertension I10 CAD (coronary artery disease) I25.10
[2021-05-12] MEDS: benzonatate 100 mg Capsule 200 MG PO ×2 (18:00→21:57)
[2021-05-12] MEDS: guaiFENesin-codeine UDC 10 mL 5 ML PO ×2 (18:31→21:59)
[2021-05-12] MEDS: lanolin oint 7 gm 1 APPLIC TOPICAL (21:59)
[2021-05-12] MEDS: remdesivir 100 MG in sodium chloride 0.9% (100 ml) 100 ML IV (22:00)
[2021-05-12] MEDS: metoprolol tartrate 1 mg/1 mL SDV 5 mL 5 MG IVP (23:07)
[2021-05-13] VITALS (53 sets, daily range): BP systolic 86–141; BP diastolic 57–102; PULSE 85–154; RESP 20–37; TEMP 37.1–37.5; O2SAT 86–98
[2021-05-13] MEDS: guaiFENesin-codeine UDC 10 mL 5 ML PO ×2 (02:20→08:13)
[2021-05-13] MEDS: famotidine 20 mg/2 mL INJ IVP ×2 (02:25→11:26)
[2021-05-13 04:13] LABS: Basophils % 0.1 %; Hematocrit 42.4 % (42.0-52.0); Hemoglobin 14.4 g/dL (11.7-16.6); Lymphocytes # 0.6 10^3/uL (0.8-4.8); Lymphocytes % 7.7 %; Mean Corpuscular Volume 85.5 fl (80-94); Mean Platelet Volume 9.8 fL (7.4-10.4); Monocytes # 0.8 10^3/uL (0.2-0.9); Monocytes % 9.8 %; Neutrophils # 6.75 10^3/uL (1.8-7.7); Neutrophils % 81.8 %; Nucleated Red Blood Cells % 0 %; Platelet Count 303 10^3/cmm (130-400); Red Blood Count 4.96 10^6/uL (4.1-5.3); White Blood Count 8.3 10^3/uL (4.0-10.0)
[2021-05-13 04:30] LABS: D Dimer 2.03 ug/mIFEU (0-0.59)
--- NOTE | 2021-05-13 04:39 | PC.NURSE ---
Patient arrived to ICU from ER at approximately 0430. Bipap 80%. Patient alert and orientated. No s/s of distress.
[2021-05-13 04:50] LABS: Alanine Aminotransferase 101 U/L (0-41); Albumin Level 3.1 g/dL (3.5-5.2); Alkaline Phosphatase 110 IU/L (40-130); Anion Gap 19.2 (5-19); Aspartate Amino Transferase 102 U/L (0-40); Blood Urea Nitrogen 13 mg/dL (6-20); Calcium 7.9 mg/dL (8.5-10.5); Carbon Dioxide 21 mmol/L (22-29); Chloride 98 mmol/L (98-107); Globulin 2.7 g/dL (1.3-4.6); Glomerular Filtration Rate 118.9 mL/min (90-130); Glucose 151 mg/dL (65-115); Osmolality Calculated 281 mOsm/kg (285-295); Potassium 4.2 mmol/L (3.5-5.1); Sodium 134 mmol/L (136-145); Total Bilirubin 0.4 mg/dL (0.15-1.2); Total Protein 5.8 g/dL (6.6-8.7)
[2021-05-13 04:57] LABS: Slide Review Slide Review Perform
[2021-05-13] MEDS: ferrous gluconate 324 mg Tablet PO ×2 (08:12→17:57)
[2021-05-13] MEDS: benzonatate 100 mg Capsule 200 MG PO ×3 (08:12→20:48)
[2021-05-13] MEDS: aspirin 81 mg Chew Tablet PO (08:13)
[2021-05-13] MEDS: ascorbic acid 500 mg Tablet PO ×2 (08:13→17:57)
[2021-05-13] MEDS: levoFLOXacin 500 mg Tablet PO (08:13)
[2021-05-13] MEDS: zinc gluconate 50 mg Tablet PO (08:13)
[2021-05-13] MEDS: apixaban 5 mg Tablet PO ×2 (08:14→20:48)
[2021-05-13] MEDS: budesonide 0.5 mg/2 mL Neb INHALATION ×2 (08:41→20:09)
[2021-05-13] MEDS: ipratropium-albuterol 3 mL Neb INHALATION ×6 (08:41→23:40)
--- NOTE | 2021-05-13 09:57 | PC.CHAP ---
Pastoral Care Encounter/Spiritual Assessment Type of Contact [] Declined belting cutter visit [] Patient/Family/Request visit [] Outpatient visit [] Follow-up visit [] Physician referral [] Code/Alert [x] Routine visit [] Staff referral [] Actively dying [] Patient sleeping [] Family support [] [] Out of room [] Palliative care [] [x] Receiving care in room [] Pre-surgical visit [] Trauma [] Long length of stay [x] ICU visit [x] Other: patient having great trouble breathing... Relational/Emotional Strength [] Patient feels connected with others/family/visitors/staff [] Distress [] Loneliness/isolation [] Abandonment Spirituality of Patient [] Person of Jessica [] Attends Buddhist of their Jessica [] Believes in Prayer [] Reads Bible or Hinduism materials [] There are Spiritual issues to be addressed Primary Therapist Interventions [x] Prayer [] Active listening [] Non-anxious presence [] Spiritual/emotional support [] Crisis/trauma care [] Spiritual counseling [] Bereavement support [] Provided bereavement packet [] Provided Bible/devotional materials [] Provided toy/stuffed animal, coloring book to patient or family member [] Provided Communion [] Anointing/[place] [] Salvation [x] Completed spiritual assessment [] Other: Impact on Illness or Injury [] Angry [] Fearful [] Anxious [] Often cries [] Exhaustion [] Unable to work [] Unable to attend judaism [] Unable to walk/stand [] Unable to read [] Unable to drive [] Unable to eat/drink [] Unable to sleep [] Unable to be with family [] Patient intubated [] Other: Summary Time spent with patient
[2021-05-13] MEDS: metoprolol tartrate 25 mg Tablet PO ×3 (11:25→20:50)
[2021-05-13] MEDS: dexamethasone 4 mg/mL INJ 6 MG IVP (11:26)
[2021-05-13] MEDS: guaiFENesin-codeine UDC 10 mL PO ×3 (14:26→20:48)
[2021-05-13] MEDS: bisacodyl 5 mg Tablet 10 MG PO (14:26)
[2021-05-13] MEDS: cetylpyridinium Lozenge 1 EACH MUCOUS MEM (16:24)
[2021-05-13] MEDS: fluticasone nasal spray 16gm Btl 2 SPRAY NASAL (17:57)
[2021-05-13] MEDS: remdesivir 100 MG in sodium chloride 0.9% (100 ml) 100 ML IV (17:59)
--- NOTE | 2021-05-13 18:02 | PM.PN ---
Subjective Subjective: Interval history: Denies chest pain or pressure. Has been coughing quite a bit. Coughing up some phlegm. Complains of postnasal drip. Vitals/I&O/Wt Last Vital Signs Temp 99.5 F 05/13/21 04:00 Pulse 122 H 05/13/21 16:00 Resp 30 H 05/13/21 16:00 BP 107/68 05/13/21 16:00 Pulse Ox 89 L 05/13/21 16:00 05/13/21 05/13/21 05/13/21 06:59 14:59 22:59 Intake Total 160 / 300 480 / 480 Output Total 100 / 100 Balance 60 / 200 480 / 480 Weight last 48 hrs Weight 120.372 kg Physical Exam Const: COMMON NORMALS: no acute distress and patient oriented x3 HENMT: COMMON NORMALS: oropharynx normal Neck/C-Spine: COMMON NORMALS: no JVD Resp: COMMON NORMALS: normal respiratory effort and clear to auscultation bilaterally AUSCULTATION: clear to auscultation bilaterally Cardio: COMMON NORMALS: no JVD, regular rhythm, S1 normal heart sound present, S2 normal heart sound present and No murmurs present (Cardio) RHYTHM: regular rhythm HEART SOUNDS: S1 normal heart sound present and S2 normal heart sound present GI: COMMON NORMALS: Normal to inspection, nondistended, normoactive bowel sounds present, Soft to palpation and non-tender PALPATION: Yes Soft to palpation Extremity: COMMON NORMALS: no joint enlargement and no pedal edema Neuro: COMMON NORMALS: patient oriented x3 and moves all extremities Skin: COMMON NORMALS: no rashes or lesions noted GENERAL SKIN EXAM: no rashes or lesions noted Urinary Catheter Management^: [place]: Cath Placed During This Visit: yes Reason for Continuing Indwelling Catheter: Accurate Measurement of Urinary Output in Critically Ill Patients Urinary Catheter Date of Insertion: 05/11/21 Urinary Catheter Time of Insertion: 13:39 Data : 05/13/21 04:05 05/13/21 04:05 Micro: Microbiology 05/11/21 19:30 Gram Stain - Final Sputum - Expectorated Sputum Sputum Culture - Preliminary A&P Assessment and plan (1) Respiratory failure with hypoxia: He is working with I-S. Recurrent episodes of cough. Increase Robitussin dose to 10 mg. Continue Tessalon as needed. Complains of postnasal drip, added Flonase. Continue to wean off oxygen as tolerating. Continue Decadron, remdesivir for severe COVID-19. Eliquis. Received Actemra Status: Acute (2) COVID-19: Status: Acute (3) Transaminitis: Secondary to COVID-19, monitor CMP. Status: Acute (4) Hypertension: Status: Acute (5) CAD (coronary artery disease): Status: Acute (6) Paroxysmal atrial fibrillation with RVR: New A. fib with RVR, heart rates 120s-130s. Responded well initially starting on metoprolol 500 twice daily. Additional dose 25 mg given. Continue treatment of hypoxic respiratory as above. Cough possibly contributing, as above. Continue Eliquis. Status: Acute Additional A&P Information D-dimer elevated. CTA negative for pulmonary embolism. Continue Eliquis 5 mg twice daily. Will monitor for anemia or blood loss. Sputum culture pending, so far. WBC, rare GPC in pairs, chains and clusters, rare GNR. MRSA swab negative, Legionella, bacterial antigen, procalcitonin negative. Blood cultures so far negative. Low suspicion of bacterial pneumonia. For now continue with Levaquin to finish a 5-day course. Hypertension: Started on metoprolol for atrial fibrillation as above. History of CAD: Aspirin 81 mg daily, A1c 6.4. Lipid panel appreciated. Full code. Severely guarded prognosis Attestations Medical Necessity Statement*: Continue admission for assessment management of hypoxic respiratory secondary to severe COVID-19 pressure Critical Care Time: The high probability of a clinically significant, sudden or life threatening deterioration of the patient's respiratory system(s) required my full and direct attention, intervention and personal management. The critical care time is as shown. This time is in addition to time spent performing any reported procedures but includes the following: x Data and vital sign review and interpretation x Patient assessment, examination and intervention x Documentation x Medication orders and management Critical Care Time (min): 35 Coding Level of Care Code Acute Machine Binder Stripper for [facility] Diagnoses Respiratory failure with hypoxia J96.91 COVID-19 U07.1 Transaminitis R74.01 Hypertension I10 CAD (coronary artery disease) I25.10 Paroxysmal atrial fibrillation with RVR I48.0
[2021-05-14] VITALS (64 sets, daily range): BP systolic 91–141; BP diastolic 60–86; PULSE 80–139; RESP 19–38; TEMP 36.6–37.1; O2SAT 82–99
[2021-05-14] MEDS: famotidine 20 mg/2 mL INJ IVP ×2 (00:53→11:57)
[2021-05-14] MEDS: guaiFENesin-codeine UDC 10 mL PO ×6 (04:18→20:50)
[2021-05-14 04:41] LABS: Alanine Aminotransferase 93 U/L (0-41); Albumin Level 3.1 g/dL (3.5-5.2); Alkaline Phosphatase 106 IU/L (40-130); Anion Gap 18.7 (5-19); Aspartate Amino Transferase 69 U/L (0-40); Blood Urea Nitrogen 12 mg/dL (6-20); C Reactive Protein 24.3 mg/L (0.0-4.9); Calcium 7.8 mg/dL (8.5-10.5); Carbon Dioxide 24 mmol/L (22-29); Chloride 95 mmol/L (98-107); Globulin 3.2 g/dL (1.3-4.6); Glomerular Filtration Rate 118.9 mL/min (90-130); Glucose 145 mg/dL (65-115); Osmolality Calculated 280 mOsm/kg (285-295); Potassium 3.7 mmol/L (3.5-5.1); Sodium 134 mmol/L (136-145); Total Bilirubin 0.4 mg/dL (0.15-1.2); Total Protein 6.3 g/dL (6.6-8.7)
[2021-05-14 04:52] LABS: Hematocrit 43.2 % (42.0-52.0); Hemoglobin 14.5 g/dL (11.7-16.6); Mean Corpuscular HGB Conc 33.6 g/dL (30.0-36.0); Mean Corpuscular Hemoglobin 29.2 pg (28.0-34.0); Mean Corpuscular Volume 86.9 fl (80-94); Mean Platelet Volume 10.2 fL (7.4-10.4); Platelet Count 327 10^3/cmm (130-400); Red Blood Count 4.97 10^6/uL (4.1-5.3)
[2021-05-14] MEDS: levoFLOXacin 500 mg Tablet PO (05:31)
--- NOTE | 2021-05-14 06:00 | XRR_ITS ---
PROCEDURE INFORMATION: Exam: XR Chest Exam date and time: 05/14/2021 6:00 AM Age: 50 years old Clinical indication: Condition or disease; Lung condition and disease; Pneumonia; Additional info: Covid TECHNIQUE: Imaging protocol: XR of the chest. Views: 1 view. COMPARISON: CR (CHEST, ) 05/12/2021 7:52 AM FINDINGS: Lungs: Persistent bilateral airspace opacities, left greater than right. No large pleural effusion or pneumothorax. Pleural spaces: See Lungs finding. Heart/Mediastinum: Stable cardiomediastinal silhouette. Bones/joints: No acute osseous injury identified. XR/XR chest 1V portable [id number] IMPRESSION: Persistent bilateral airspace opacities.
[2021-05-14 07:29] LABS: Slide Review Slide Review Perform
[2021-05-14 07:32] LABS: Lymphocytes 7 %; Platelet Estimate Normal (Normal); Segmented Neutrophils 81 %
[2021-05-14 07:33] LABS: Eosinophils 0 %
[2021-05-14 07:34] LABS: Total Cells Counted 100 (0-100)
[2021-05-14] MEDS: ascorbic acid 500 mg Tablet PO ×2 (07:37→17:28)
[2021-05-14] MEDS: apixaban 5 mg Tablet PO ×2 (07:37→20:48)
[2021-05-14] MEDS: metoprolol tartrate 25 mg Tablet PO ×2 (07:37→12:31)
[2021-05-14] MEDS: zinc gluconate 50 mg Tablet PO (07:37)
[2021-05-14] MEDS: fluticasone nasal spray 16gm Btl 2 SPRAY NASAL ×2 (07:38→17:29)
[2021-05-14] MEDS: benzonatate 100 mg Capsule 200 MG PO ×3 (07:38→20:48)
[2021-05-14] MEDS: ferrous gluconate 324 mg Tablet PO ×2 (07:38→17:28)
[2021-05-14] MEDS: aspirin 81 mg Chew Tablet PO (07:38)
[2021-05-14] MEDS: budesonide 0.5 mg/2 mL Neb INHALATION ×2 (08:32→20:25)
[2021-05-14] MEDS: ipratropium-albuterol 3 mL Neb INHALATION ×5 (08:32→20:25)
--- NOTE | 2021-05-14 10:05 | P.PN_ITS ---
Subjective Subjective: Interval history: Subjectively reports he is feeling much better today. Still having phlegm which he is having difficult time bringing up. Denies chest pain pressure. No headache, nausea vomiting or diarrhea. Vitals/I&O/Wt Last Vital Signs Temp 98.8 F 05/14/21 04:00 Pulse 110 H 05/14/21 08:41 Resp 24 H 05/14/21 08:41 BP 136/72 05/14/21 08:00 Pulse Ox 93 05/14/21 08:41 05/13/21 05/14/21 05/14/21 22:59 06:59 14:59 Intake Total 340 / 820 350 / 1170 240 / 240 Output Total 1999 / 1999 650 / 2650 Balance -1660 / -1180 -300 / -1480 240 / 240 Weight last 48 hrs Weight 122.47 kg Weight 120.372 kg Physical Exam Const: COMMON NORMALS: no acute distress and patient oriented x3 HENMT: COMMON NORMALS: oropharynx normal Neck/C-Spine: COMMON NORMALS: no JVD Resp: COMMON NORMALS: normal respiratory effort and clear to auscultation bilaterally AUSCULTATION: clear to auscultation bilaterally and rales (few LLL) Cardio: COMMON NORMALS: no JVD, S1 normal heart sound present, S2 normal heart sound present and No murmurs present (Cardio) RATE: tachycardic RHYTHM: abnormal rhythm irregularly irregular HEART SOUNDS: S1 normal heart sound present and S2 normal heart sound present GI: COMMON NORMALS: Normal to inspection, nondistended, normoactive bowel sounds present, Soft to palpation and non-tender PALPATION: Yes Soft to palpation Extremity: COMMON NORMALS: no joint enlargement and no pedal edema Neuro: COMMON NORMALS: patient oriented x3 and moves all extremities Skin: COMMON NORMALS: no rashes or lesions noted GENERAL SKIN EXAM: no rashes or lesions noted Urinary Catheter Management^: [place]: Cath Placed During This Visit: yes Reason for Continuing Indwelling Catheter: Accurate Measurement of Urinary Ou tput in Critically Ill Patients Urinary Catheter Date of Insertion: 05/11/21 Urinary Catheter Time of Insertion: 13:39 Data : 05/14/21 02:58 05/14/21 02:58 Micro: Microbiology 05/11/21 19:30 Gram Stain - Final Sputum - Expectorated Sputum Sputum Culture - Preliminary A&P Assessment and plan (1) Respiratory failure with hypoxia: Slight improvement in oxygenation, down to FiO2 80%, and subjectively he is feeling better. Recurrent A. fib with RVR episodes, slightly better, but could do with better control. Reports tenacious secretions. Add Mucinex. Encouraged him to work with flutter valve. Continue I-S. Antitussives. Empiric Levaquin. Complains of postnasal drip, added Flonase. Continue to wean off oxygen as tolerating. Continue Decadron, remdesivir for severe COVID-19. Eliquis. Received Actemra Status: Acute (2) COVID-19: Status: Acute (3) Transaminitis: Secondary to COVID-19, monitor CMP. Status: Acute (4) Hypertension: Status: Acute (5) CAD (coronary artery disease): Status: Acute (6) Paroxysmal atrial fibrillation with RVR: Slight improvement in A. fib with RVR, heart rate still going into 100 teens-120s. Increase metoprolol to 50 mg twice daily. Continue treatment of hypoxic respiratory failure as above. Cough possibly contributing, as above. Continue Eliquis. Status: Acute Additional A&P Information D-dimer elevated. CTA negative for pulmonary embolism. Continue Eliquis 5 mg twice daily. Will monitor for anemia or blood loss. Sputum culture pending, so far. WBC, rare GPC in pairs, chains and clusters, rare GNR. MRSA swab negative, Legionella, bacterial antigen, procalcitonin negative. Blood cultures so far negative. Low suspicion of bacterial pneumonia. For now continue with Levaquin to finish a 5-day course. Hypertension: Started on metoprolol for atrial fibrillation as above. History of CAD: Aspirin 81 mg daily, A1c 6.4. Lipid panel appreciated. Full code. Severely guarded prognosis Attestations Medical Necessity Statement*: Continue depression versus management of hypoxic respiratory secondary severe COVID-19. Coding Level of Care Code Acute [employer] for [facility] Fwd Diagnoses Respiratory failure with hypoxia J96.91 COVID-19 U07.1 Transaminitis R74.01 Hypertension I10 CAD (coronary artery disease) I25.10 Paroxysmal atrial fibrillation with RVR I48.0
[2021-05-14] MEDS: dexamethasone 4 mg/mL INJ 6 MG IVP (11:57)
--- NOTE | 2021-05-14 14:07 | PC.NURSE ---
Back to ICU at 1347 via bed, accompanied by OR staff. Patient alert and oriented. ETT in place. VSS.
[2021-05-14] MEDS: guaiFENesin 600 mg Tablet 1200 MG PO (17:28)
[2021-05-14] MEDS: remdesivir 100 MG in sodium chloride 0.9% (100 ml) 100 ML IV (17:29)
[2021-05-14] MEDS: metoprolol tartrate 50 mg Tablet PO (20:48)
[2021-05-14] MEDS: cetylpyridinium Lozenge 1 EACH MUCOUS MEM (23:21)
[2021-05-15] VITALS (41 sets, daily range): BP systolic 95–138; BP diastolic 65–92; PULSE 89–140; RESP 22–35; TEMP 36.6–36.8; O2SAT 80–98
[2021-05-15] MEDS: famotidine 20 mg/2 mL INJ IVP ×3 (00:18→23:50)
[2021-05-15] MEDS: ipratropium-albuterol 3 mL Neb INHALATION ×6 (00:36→20:07)
[2021-05-15] MEDS: guaiFENesin-codeine UDC 10 mL PO ×6 (01:33→21:03)
[2021-05-15 04:46] LABS: Basophils % 0.1 %; Hematocrit 44.3 % (42.0-52.0); Hemoglobin 14.9 g/dL (11.7-16.6); Lymphocytes # 0.9 10^3/uL (0.8-4.8); Lymphocytes % 8.4 %; Mean Corpuscular HGB Conc 33.6 g/dL (30.0-36.0); Mean Corpuscular Hemoglobin 29.2 pg (28.0-34.0); Mean Corpuscular Volume 86.7 fl (80-94); Mean Platelet Volume 9.7 fL (7.4-10.4); Monocytes # 0.9 10^3/uL (0.2-0.9); Monocytes % 8.8 %; Neutrophils # 8.79 10^3/uL (1.8-7.7); Neutrophils % 81.8 %; Nucleated Red Blood Cells % 0 %; Platelet Count 318 10^3/cmm (130-400); Red Blood Count 5.11 10^6/uL (4.1-5.3); White Blood Count 10.7 10^3/uL (4.0-10.0)
[2021-05-15 05:01] LABS: Alanine Aminotransferase 90 U/L (0-41); Albumin Level 3.1 g/dL (3.5-5.2); Alkaline Phosphatase 112 IU/L (40-130); Aspartate Amino Transferase 67 U/L (0-40); Blood Urea Nitrogen 11 mg/dL (6-20); Calcium 7.7 mg/dL (8.5-10.5); Carbon Dioxide 26 mmol/L (22-29); Chloride 95 mmol/L (98-107); Globulin 2.8 g/dL (1.3-4.6); Glomerular Filtration Rate 118.9 mL/min (90-130); Glucose 115 mg/dL (65-115); Osmolality Calculated 276 mOsm/kg (285-295); Sodium 133 mmol/L (136-145); Total Bilirubin 0.7 mg/dL (0.15-1.2); Total Protein 5.9 g/dL (6.6-8.7)
[2021-05-15 05:05] LABS: Magnesium 2.1 mg/dL (1.7-2.3)
[2021-05-15] MEDS: metoprolol tartrate 25 mg Tablet PO ×2 (05:11→12:06)
[2021-05-15] MEDS: levoFLOXacin 500 mg Tablet PO (05:12)
[2021-05-15 05:13] LABS: D Dimer >= 20.00 ug/mIFEU (0-0.59)
--- NOTE | 2021-05-15 05:14 | PC.NURSE ---
Addendum entered by Osmany Graham RN 05/15/21 05:20: MD notified of elevated ddimer and decreased o2 sats Original Note: Hr up to 159, metoprolol 25mg PO PRN given. Pt coughing up red tinged mucous and desatting into low 80's during coughing spells. Appears very anxious most of the time. Will monitor.
[2021-05-15 06:47] LABS: Glucose Point of Care 191 mg/dL (70-110)
--- NOTE | 2021-05-15 08:35 | USCV_ITS ---
Mike Carvalho Age: 50 Gender: M : 1970 Exam Date: 05/15/2021 08:52 Ordering Phys: Reynaldo Palmer MD Technologist: ELIE [place] [facility] [place]: Very elevated d-dimer, COVID positive, No Hx of DVT HISTORY: Very elevated d-dimer, COVID positive, No Hx of DVT PROCEDURES: The venous duplex Doppler examination of both lower extremities was performed in the standard fashion. The following venous structures were evaluated: common femoral vein, profunda vein, proximal portion of the greater saphenous vein, superficial femoral vein, and the popliteal vein. In addition, the posterior tibial veins were evaluated. FINDINGS: Normal 2-D Doppler and augmentation and compressibility throughout the lower extremity venous structures. Additional imaging through the proximal calf veins also reveals no thrombus. Limited evaluation of the greater saphenous vein is patent with no thrombus.. CONCLUSIONS No DVT bilateral lower extremities. Dr. Veronica Boone DO (Electronically Signed) Final Date: 15 May 2021 11:45 S
[2021-05-15] MEDS: budesonide 0.5 mg/2 mL Neb INHALATION ×2 (08:42→20:07)
[2021-05-15] MEDS: metoprolol tartrate 50 mg Tablet PO (09:12)
[2021-05-15] MEDS: ascorbic acid 500 mg Tablet PO ×2 (09:12→18:15)
[2021-05-15] MEDS: zinc gluconate 50 mg Tablet PO (09:12)
[2021-05-15] MEDS: aspirin 81 mg Chew Tablet PO (09:12)
[2021-05-15] MEDS: ferrous gluconate 324 mg Tablet PO ×2 (09:12→18:15)
[2021-05-15] MEDS: enoxaparin 120 mg/0.8 mL Syringe SUBCUT ×2 (09:13→20:03)
[2021-05-15] MEDS: guaiFENesin 600 mg Tablet 1200 MG PO ×2 (09:13→18:15)
[2021-05-15] MEDS: benzonatate 100 mg Capsule 200 MG PO ×3 (09:13→20:03)
--- NOTE | 2021-05-15 09:16 | PC.CHAP ---
Pastoral Care Encounter/Spiritual Assessment Type of Contact [] Declined card game operator visit [] Patient/Family/Request visit [] Outpatient visit [] Follow-up visit [] Physician referral [] Code/Alert [x] Routine visit [] Staff referral [] Actively dying [] Patient sleeping [] Family support [] [] Out of room [] Palliative care [] [x] Receiving care in room [] Pre-surgical visit [] Trauma [] Long length of stay [x] ICU visit [] Other: Relational/Emotional Strength [] Patient feels connected with others/family/visitors/staff [] Distress [] Loneliness/isolation [] Abandonment Spirituality of Patient [] Person of Jessica [] Attends Church of their Jessica [] Believes in Prayer [] Reads Bible or Temple materials [] There are Spiritual issues to be addressed Title Closer Interventions [x] Prayer [] Active listening [] Non-anxious presence [] Spiritual/emotional support [] Crisis/trauma care [] Spiritual counseling [] Bereavement support [] Provided bereavement packet [] Provided Bible/devotional materials [] Provided toy/stuffed animal, coloring book to patient or family member [] Provided Communion [] Anointing/[place] [] Salvation [x] Completed spiritual assessment [] Other: Impact on Illness or Injury [] Angry [] Fearful [] Anxious [] Often cries [] Exhaustion [] Unable to work [] Unable to attend catholic [] Unable to walk/stand [] Unable to read [] Unable to drive [] Unable to eat/drink [] Unable to sleep [] Unable to be with family [] Patient intubated [] Other: Summary Time spent with patient
[2021-05-15] MEDS: fluticasone nasal spray 16gm Btl 2 SPRAY NASAL ×2 (09:18→18:16)
[2021-05-15] MEDS: dexamethasone 4 mg/mL INJ 6 MG IVP (12:05)
[2021-05-15] MEDS: calcium carbonate 500 mg Chew Tablet PO ×2 (12:06→21:28)
--- NOTE | 2021-05-15 15:56 | PC.RESP ---
RT Shift Note Frequent safety and respiratory rounds continue. Orders completed as indicated. Patient monitored pre and post treatments throughout shift. Patient [Did.] tolerate treatments appropriately. Condition [Improved.]. Patient and/or textile machinery sales representative educated on respiratory treatment and medications. Patient and/or textile machinery sales representative [verbalized understanding]. Will continue to monitor patient progress.
--- NOTE | 2021-05-15 16:24 | P.PN_ITS ---
Subjective Subjective: Interval history: States he is doing about the same, feeling slightly better. Bringing up phlegm. Denies chest pain or pressure. No hemoptysis. No nausea vomiting or diarrhea. He is agreeable to continue arrangements for care continued at [facility]. Discussed with him also regarding significant elevation of D-dimer, discussed transition to Lovenox. Discussed additional assessment with colostomy duplex. Concern for possible VTE, concern for possible microthrombotic disease in setting of COVID-19. Discussed risks of significant deterioration. Vitals/I&O/Wt Last Vital Signs Temp 98.2 F 05/15/21 16:00 Pulse 114 H 05/15/21 16:00 Resp 24 H 05/15/21 16:00 BP 125/90 05/15/21 16:00 Pulse Ox 94 05/15/21 16:00 05/15/21 05/15/21 05/15/21 06:59 14:59 22:59 Intake Total 480 / 1540 1250 / 1250 Output Total 2425 / 5125 Balance -1945 / -3585 1250 / 1250 Weight last 48 hrs Weight 120.259 kg Weight 122.47 kg Physical Exam Narrative: EXAM NARRATIVE: Up in chair. Const: COMMON NORMALS: no acute distress and patient oriented x3 HENMT: COMMON NORMALS: oropharynx normal Neck/C-Spine: COMMON NORMALS: no JVD Resp: COMMON NORMALS: normal respiratory effort and clear to auscultation bilaterally AUSCULTATION: clear to auscultation bilaterally Cardio: COMMON NORMALS: no JVD, S1 normal heart sound present, S2 normal heart sound present and No murmurs present (Cardio) RATE: tachycardic RHYTHM: abnormal rhythm irregularly irregular HEART SOUNDS: S1 normal heart sound present and S2 normal heart sound present GI: COMMON NORMALS: Normal to inspection, nondistended, normoactive bowel sounds present, Soft to palpation and non-tender PALPATION: Yes Soft to palpation Extremity: COMMON NORMALS: no joint enlargement and no pedal edema Neuro: COMMON NORMALS: patient oriented x3 and moves all extremities Skin: COMMON NORMALS: no rashes or lesions noted GENERAL SKIN EXAM: no rashes or lesions noted Urinary Catheter Management^: [place]: Cath Placed During This Visit: yes Reason for Continuing Indwelling Catheter: Accurate Measurement of Urinary Output in Critically Ill Patients Urinary Catheter Date of Insertion: 05/11/21 Urinary Catheter Time of Insertion: 13:39 Data : 05/15/21 04:18 05/15/21 04:18 Micro: Microbiology 05/11/21 19:30 Gram Stain - Final Sputum - Expectorated Sputum Sputum Culture - Final A&P Assessment and plan (1) Respiratory failure with hypoxia: Some additional gradual improvement in oxygenation. FiO2 down to 70%, however, today significant increase in D-dimer, over 20. Discussed with him we are changing to Lovenox from Eliquis. Requested additional assessment but lower extremity duplex ultrasound. She denies chest pain. No worsening of cough. No hemoptysis. No DVT noted on lower extremity duplex. Continue therapeutic anticoagulation. Continue Decadron. Completes remdesivir today. Continue supportive care, assistance with clearing secretions. Empiric Levaquin. Flonase for postnasal drip. Continue to wean off oxygen as tolerating. Received Actemra Status: Acute (2) Paroxysmal atrial fibrillation with RVR: With mild improvement, but still needs better control. Increase dose to 75 mg twice daily. Continue treatment of hypoxic respiratory failure as above. Cough possibly contributing, as above. Continue Eliquis. Status: Acute (3) COVID-19: Status: Acute (4) Transaminitis: Secondary to COVID-19, monitor CMP. Status: Acute (5) Hypertension: Status: Acute (6) CAD (coronary artery disease): Status: Acute Additional A&P Information D-dimer elevated. As above. Sputum culture pending, with moderate normal teresa. MRSA swab negative, Legionella, bacterial antigen, procalcitonin negative. Blood cultures so far negative. Low suspicion of bacterial pneumonia. For now continue with Levaquin to finish a 5-day course. Hypertension: Started on metoprolol for atrial fibrillation as above. History of CAD: Aspirin 81 mg daily, A1c 6.4. Lipid panel appreciated. Full code. Severely guarded prognosis Attestations Medical Necessity Statement*: Continue admission for assessment of management of severe COVID-19 with hypoxic respiratory failure. Critical Care Time: The high probability of a clinically significant, sudden or life threatening deterioration of the patient's respiratory anticoagulation system(s) required my full and direct attention, intervention and personal management. The critical care time is as shown. This time is in addition to time spent performing any reported procedures but includes the following: x Data and vital sign review and interpretation x Patient assessment, examination and intervention x Documentation x Medication orders and management Critical Care Time (min): 37 Coding Level of Care Code Acute Starting Sheet Tank Operator for g Fwd Diagnoses Respiratory failure with hypoxia J96.91 Paroxysmal atrial fibrillation with RVR I48.0 COVID-19 U07.1 Transaminitis R74.01 Hypertension I10 CAD (coronary artery disease) I25.10
[2021-05-15] MEDS: polyethylene glycol 3350 Pkt 17 gm PO (18:15)
--- NOTE | 2021-05-15 19:05 | PC.NURSE ---
Shift Note; Pt sat up in chair throughout shift. He remains of heated high flow 50 liters reduced from 80% to 70%. Pt tolerating well. He does complain of I am getting choked because I can't get that stuff coughed up. He does received two cough medications that are scheduled. His appetite has been decent. he has had plenty of oral intake today. He has had 1175 ml of urine output. Frequent safety and comfort rounds continue. Orders and/or nursing care completed as indicated. Patient monitored for response to intervention and treatment(s). Education provided includes IS and flutter valve use, deep breathing, Atrial FIb, his cough medications. Patient varbalized understanding of plan of care, condition, and medications, Will continue to monitor.
[2021-05-15] MEDS: remdesivir 100 MG in sodium chloride 0.9% (100 ml) 100 ML IV (19:12)
[2021-05-15] MEDS: metoprolol tartrate 50 mg Tablet 75 MG PO (20:04)
[2021-05-16] VITALS (44 sets, daily range): BP systolic 95–162; BP diastolic 50–105; PULSE 90–142; RESP 14–38; TEMP 36.7–36.8; O2SAT 83–94
[2021-05-16] MEDS: ipratropium-albuterol 3 mL Neb INHALATION ×6 (00:21→23:29)
[2021-05-16] MEDS: LORazepam 2 mg/mL INJ 1 mL 0.5 MG IVP (00:26)
--- NOTE | 2021-05-16 00:35 | PC.NURSE ---
Pt appears extremely anxious. Assisted to BSC per staff. Desatted into low 80's. Assisted back to bed per staff, pulled up and HOB elevated. O2 sats in low to mid 80's. 100% o2 given per HF machine. NRB placed on pt to assist with recovery. O2 increased to 50L/80%. notified of anxiety and breathing. New orders given for lorazepam 0.5mg IVP x1 dose. Med given. O2 sats in upper 80's at this time. Will monitor.
--- NOTE | 2021-05-16 00:51 | PC.NURSE ---
O2 sats in low to mid 80's and not improving. NRB placed on pt as well as HHFNC. notified.
--- NOTE | 2021-05-16 01:53 | PC.NURSE ---
Encouraged pt to self prone. Pt turned to R side as far as was comfortable for him. O2 sat mildly improved without NRB. O2 sat 87-89%. aware of situation. Will monitor.
[2021-05-16] MEDS: guaiFENesin-codeine UDC 10 mL PO ×6 (01:58→21:15)
[2021-05-16] MEDS: metoprolol tartrate 25 mg Tablet PO ×2 (02:00→15:52)
[2021-05-16] MEDS: morphine 4 mg/mL SDV 1 mL 2 MG IVP (02:00)
--- NOTE | 2021-05-16 02:14 | PC.NURSE ---
2mg morphine IVP given per orders d/t increased work of breathing. New 20g PIV started to L wrist. Metoprolol 25mg PO PRN given d/t increased HR in 140's 150's. Pt tolerated well. Will monitor.
--- NOTE | 2021-05-16 04:00 | XR_ITS ---
WS: [id number] Portable AP semiupright chest, 05/16/2021 Clinical Data: covid, increasing FIO 2 need Comparison: Portable chest, 05/14/2021. Findings: The bilateral patchy pulmonary opacities remain the same. The heart is enlarged. Monitor le ads are on the chest wall. XR/XR chest 1V portable [id number] Impression: No change in patchy bilateral pulmonary opacities consistent with pneumonia.
[2021-05-16 05:05] LABS: Basophils % 0.1 %; Eosinophils % 0.3 %; Hematocrit 45.9 % (42.0-52.0); Hemoglobin 15.4 g/dL (11.7-16.6); Lymphocytes # 1.1 10^3/uL (0.8-4.8); Lymphocytes % 7.8 %; Mean Corpuscular HGB Conc 33.6 g/dL (30.0-36.0); Mean Corpuscular Hemoglobin 29.1 pg (28.0-34.0); Mean Corpuscular Volume 86.6 fl (80-94); Mean Platelet Volume 9.7 fL (7.4-10.4); Monocytes # 0.9 10^3/uL (0.2-0.9); Monocytes % 6.6 %; Neutrophils # 11.64 10^3/uL (1.8-7.7); Neutrophils % 83.7 %; Nucleated Red Blood Cells % 0 %; Platelet Count 360 10^3/cmm (130-400); Red Cell Distribution Width 12.9 % (12.1-15.1); White Blood Count 13.9 10^3/uL (4.0-10.0)
[2021-05-16 05:09] LABS: ABG PCO2 37.6 mmHg (35-45); ABG PH Result 7.49 (7.35-7.45); Arterial Blood Gas Hematocrit 48.4 % (42-52); Base Excess ABG 5.1 mmol/L (-2.0-2.0); Blood Gas Allen Test Pos; Blood Gas Operator Identificat JB; Blood Gas Sample Site Radial, right; Blood Gas Sample Type Arterial; HCO3 ABG 28.6 mmol/L (22-26); Oxygen Device HAG; PO2 ABG 61.4 mmHg (80.0-100.0)
[2021-05-16 05:30] LABS: Alanine Aminotransferase 84 U/L (0-41); Alkaline Phosphatase 132 IU/L (40-130); Anion Gap 18.3 (5-19); Aspartate Amino Transferase 63 U/L (0-40); Blood Urea Nitrogen 12 mg/dL (6-20); Calcium 8.7 mg/dL (8.5-10.5); Carbon Dioxide 23 mmol/L (22-29); Chloride 97 mmol/L (98-107); Globulin 2.7 g/dL (1.3-4.6); Glucose 108 mg/dL (65-115); Osmolality Calculated 278 mOsm/kg (285-295); Potassium 4.3 mmol/L (3.5-5.1); Sodium 134 mmol/L (136-145); Total Bilirubin 0.7 mg/dL (0.15-1.2); Total Protein 5.7 g/dL (6.6-8.7)
[2021-05-16] MEDS: levoFLOXacin 500 mg Tablet PO (05:56)
--- NOTE | 2021-05-16 06:09 | PC.NURSE ---
Pt resting in bed on R side. O2 sats improved slightly then with any coughing or movement becomes worse. Remains in afib. Makes all needs known. AAOx4. Will monitor.
[2021-05-16 06:34] LABS: D Dimer 13.75 ug/mIFEU (0-0.59)
[2021-05-16] MEDS: guaiFENesin 600 mg Tablet 1200 MG PO ×2 (08:04→17:38)
[2021-05-16] MEDS: aspirin 81 mg Chew Tablet PO (08:04)
[2021-05-16] MEDS: zinc gluconate 50 mg Tablet PO (08:04)
[2021-05-16] MEDS: benzonatate 100 mg Capsule 200 MG PO ×3 (08:04→20:44)
[2021-05-16] MEDS: ferrous gluconate 324 mg Tablet PO ×2 (08:04→17:38)
[2021-05-16] MEDS: ascorbic acid 500 mg Tablet PO ×2 (08:04→17:38)
[2021-05-16] MEDS: enoxaparin 120 mg/0.8 mL Syringe SUBCUT ×2 (08:04→20:44)
[2021-05-16] MEDS: polyethylene glycol 3350 Pkt 17 gm PO (08:04)
[2021-05-16] MEDS: fluticasone nasal spray 16gm Btl 2 SPRAY NASAL ×2 (08:05→17:38)
[2021-05-16] MEDS: metoprolol tartrate 50 mg Tablet 75 MG PO ×2 (08:05→20:44)
[2021-05-16] MEDS: budesonide 0.5 mg/2 mL Neb INHALATION ×2 (08:38→20:01)
--- NOTE | 2021-05-16 11:03 | PC.RESP ---
RT Shift Note Frequent safety and respiratory rounds continue. Orders completed as indicated. Patient monitored pre and post treatments throughout shift. Patient [Did.] tolerate treatments appropriately. Condition [.DidNotChange]. Patient and/or special service representative educated on respiratory treatment and medications. Patient and/or special service representative [verbalized understanding]. Will continue to monitor patient progress.
[2021-05-16] MEDS: dexamethasone 4 mg/mL INJ 6 MG IVP (12:00)
[2021-05-16] MEDS: famotidine 20 mg/2 mL INJ IVP (12:01)
--- NOTE | 2021-05-16 12:42 | PM.PN ---
Subjective Subjective: Interval history: Continues with productive cough. Coughing up thick tenacious sputum. Denies coughing with food or drink. No nausea vomiting or diarrhea. Vitals/I&O/Wt Last Vital Signs Temp 97.8 F 05/15/21 20:00 Pulse 94 05/16/21 11:37 Resp 26 H 05/16/21 11:37 BP 118/79 05/16/21 09:00 Pulse Ox 90 05/16/21 11:37 05/15/21 05/16/21 05/16/21 22:59 06:59 14:59 Intake Total 900 / 2150 360 / 2510 240 / 240 Output Total 1175 / 1175 1200 / 2375 Balance -275 / 975 -840 / 135 240 / 240 Weight last 48 hrs Weight 119.408 kg Weight 120.259 kg Physical Exam Narrative: EXAM NARRATIVE: Up in bed. Const: COMMON NORMALS: no acute distress and patient oriented x3 HENMT: COMMON NORMALS: oropharynx normal Neck/C-Spine: COMMON NORMALS: no JVD Resp: COMMON NORMALS: normal respiratory effort and clear to auscultation bilaterally AUSCULTATION: clear to auscultation bilaterally Cardio: COMMON NORMALS: no JVD, S1 normal heart sound present, S2 normal heart sound present and No murmurs present (Cardio) RATE: tachycardic RHYTHM: abnormal rhythm irregularly irregular HEART SOUNDS: S1 normal heart sound present and S2 normal heart sound present GI: COMMON NORMALS: Normal to inspection, nondistended, normoactive bowel sounds present, Soft to palpation and non-tender PALPATION: Yes Soft to palpation Extremity: COMMON NORMALS: no joint enlargement and no pedal edema Neuro: COMMON NORMALS: patient oriented x3 and moves all extremities Skin: COMMON NORMALS: no rashes or lesions noted GENERAL SKIN EXAM: no rashes or lesions noted Urinary Catheter Management^: [place]: Cath Placed During This Visit: yes Reason for Continuing Indwelling Catheter: Accurate Measurement of Urinary Output in Critically Ill Patients Urinary Catheter Date of Insertion: 05/11/21 Urinary Catheter Time of Insertion: 13:39 Data : 05/16/21 04:21 05/16/21 04:21 Micro: Microbiology 05/11/21 10:19 Blood Culture - Final Blood NO GROWTH AFTER 5 DAYS 05/11/21 10:00 Blood Culture - Final Blood NO GROWTH AFTER 5 DAYS A&P Assessment and plan (1) Respiratory failure with hypoxia: Coughing up very thick sputum. Today completed Levaquin course. Will extend antibiotic course with Zosyn for now given persistent leukocytosis, thick tenacious secretions. Sputum culture today collected. One of the sputum globules appear to contain some eggs, these may have come from his mouth, but we will also get him assessed by speech therapy. D-dimer slightly today down to 13.75. Continue Lovenox. No DVT noted on lower extremity duplex. Continue therapeutic anticoagulation. Continue Decadron. Completed remdesivir. Continue supportive care, assistance with clearing secretions. Completed 5 days of empiric Levaquin. Flonase for postnasal drip. Continue to wean off oxygen as tolerating. Received Actemra Status: Acute (2) Paroxysmal atrial fibrillation with RVR: With mild improvement, but still needs better control. Increase dose to 75 mg twice daily.This morning as well as 103/62. Will give a dose of digoxin. Discussed with him. Continue anticoagulation. Telemetry monitoring. Status: Acute (3) COVID-19: Status: Acute (4) Transaminitis: Secondary to COVID-19, monitor CMP. Improving. Status: Acute (5) Hypertension: Status: Chronic (6) CAD (coronary artery disease): Status: Chronic Additional A&P Information D-dimer elevated. As above. With improvement. Hypertension: Started on metoprolol for atrial fibrillation as above. History of CAD: Aspirin 81 mg daily, A1c 6.4. Lipid panel appreciated. Full code. Severely guarded prognosis Attestations Medical Necessity Statement*: Continue admission for hypoxic respite failure with severe COVID-19, A. fib with RVR. Coding Level of Care Code Acute Graphics Intern for [facility] Diagnoses Respiratory failure with hypoxia J96.91 Paroxysmal atrial fibrillation with RVR I48.0 COVID-19 U07.1 Transaminitis R74.01 Hypertension I10 CAD (coronary artery disease) I25.10
[2021-05-16] MEDS: digoxin 250 mcg/ml INJ 2 mL IVP ×3 (14:29→19:44)
[2021-05-16] MEDS: piperacillin-tazobactam 3.375 GM in sodium chloride 0.9% (plus) 50 ML IV ×2 (14:29→20:44)
[2021-05-16] MEDS: ondansetron 2 mg/ML SDV 2 mL 4 MG IVP (18:23)
[2021-05-16] MEDS: calcium carbonate 500 mg Chew Tablet PO (21:16)
--- NOTE | 2021-05-16 23:20 | PC.NURSE ---
Cough Patient experiencing persistent cough, oxygen saturation decreasing to high 70s-low 80s. Once cough subsided, oxygen saturation remaining at 82-83%. RT at bedside. Patient repositioned onto side. FIO2 increased to 90%. Oxygen saturation increased to 87-92%. All other vitals stable.
[2021-05-17] VITALS (59 sets, daily range): BP systolic 78–150; BP diastolic 43–92; PULSE 75–123; RESP 0–34; TEMP 36.6–37.1; O2SAT 70–96; BMI 35.6
[2021-05-17] MEDS: famotidine 20 mg/2 mL INJ IVP ×2 (00:13→12:32)
[2021-05-17] MEDS: guaiFENesin-codeine UDC 10 mL PO ×6 (01:23→22:39)
--- NOTE | 2021-05-17 03:19 | PC.NURSE ---
BIPAP Use Patient coughing continuously, oxygen saturation getting as low as 73%. RT at bedside. BIPAP mask placed on patient with 100% FIO2. Dr. Flores aware of BIPAP use and of patient change. With BIPAP, oxygen saturation maintaining in the low-mid 90s.
[2021-05-17] MEDS: ipratropium-albuterol 3 mL Neb INHALATION ×6 (03:21→20:51)
[2021-05-17 05:42] LABS: Basophils % 0.2 %; Eosinophils # 0.2 10^3/uL (0.0-0.8); Eosinophils % 1.2 %; Hemoglobin 15.3 g/dL (11.7-16.6); Lymphocytes % 6.2 %; Mean Corpuscular HGB Conc 33.3 g/dL (30.0-36.0); Mean Corpuscular Hemoglobin 29.1 pg (28.0-34.0); Mean Corpuscular Volume 87.6 fl (80-94); Mean Platelet Volume 9.5 fL (7.4-10.4); Monocytes # 0.9 10^3/uL (0.2-0.9); Monocytes % 5.8 %; Neutrophils # 13.07 10^3/uL (1.8-7.7); Neutrophils % 84.8 %; Nucleated Red Blood Cells % 0 %; Platelet Count 383 10^3/cmm (130-400); Red Blood Count 5.25 10^6/uL (4.1-5.3); Red Cell Distribution Width 12.9 % (12.1-15.1); White Blood Count 15.4 10^3/uL (4.0-10.0)
[2021-05-17] MEDS: piperacillin-tazobactam 3.375 GM in sodium chloride 0.9% (plus) 50 ML IV ×3 (05:45→20:01)
[2021-05-17] MEDS: metoprolol tartrate 25 mg Tablet PO (05:46)
[2021-05-17 05:53] LABS: Alanine Aminotransferase 75 U/L (0-41); Albumin Level 3.1 g/dL (3.5-5.2); Alkaline Phosphatase 127 IU/L (40-130); Anion Gap 18.4 (5-19); Aspartate Amino Transferase 58 U/L (0-40); Blood Urea Nitrogen 11 mg/dL (6-20); Calcium 8.4 mg/dL (8.5-10.5); Carbon Dioxide 23 mmol/L (22-29); Chloride 98 mmol/L (98-107); Globulin 2.4 g/dL (1.3-4.6); Glucose 137 mg/dL (65-115); Osmolality Calculated 282 mOsm/kg (285-295); Potassium 4.4 mmol/L (3.5-5.1); Sodium 135 mmol/L (136-145); Total Bilirubin 0.7 mg/dL (0.15-1.2); Total Protein 5.5 g/dL (6.6-8.7)
[2021-05-17 05:55] LABS: Digoxin 0.7 ng/mL (0.6-1.2)
[2021-05-17 05:57] LABS: D Dimer 7.88 ug/mIFEU (0-0.59)
--- NOTE | 2021-05-17 07:06 | PC.NURSE ---
Anxiety Patient asks questions regarding BIPAP use and states he doesn't understand why he is not on HHF anymore in addition to asking multiple times when the BIPAP will come off. Education provided on bodily oxygen requirements, the differences between oxygen therapies of HHF and BIPAP, and treatment plan/goals. Patient verbalized understanding, but continues to ask the same questions. Patient also stated that he needs something for anxiety because he can't stand it. Dr. Flores notified of anxiety. No new orders received.
[2021-05-17] MEDS: LORazepam 2 mg/mL INJ 1 mL 0.5 MG IVP (07:18)
[2021-05-17] MEDS: morphine 4 mg/mL SDV 1 mL 2 MG IVP (07:18)
[2021-05-17] MEDS: ferrous gluconate 324 mg Tablet PO ×2 (07:52→16:55)
[2021-05-17] MEDS: budesonide 0.5 mg/2 mL Neb INHALATION ×2 (08:23→20:51)
[2021-05-17] MEDS: enoxaparin 120 mg/0.8 mL Syringe SUBCUT ×2 (08:56→19:59)
[2021-05-17] MEDS: zinc gluconate 50 mg Tablet PO (08:56)
[2021-05-17] MEDS: ascorbic acid 500 mg Tablet PO ×2 (08:56→16:56)
[2021-05-17] MEDS: benzonatate 100 mg Capsule 200 MG PO ×3 (08:57→20:01)
[2021-05-17] MEDS: aspirin 81 mg Chew Tablet PO (08:57)
[2021-05-17] MEDS: guaiFENesin 600 mg Tablet 1200 MG PO ×2 (08:57→16:55)
[2021-05-17] MEDS: metoprolol tartrate 50 mg Tablet 75 MG PO ×2 (08:59→20:01)
[2021-05-17] MEDS: dexmedeTOMIDine 0.9 % NaCL 400 MCG/100 ML PREMIX IV ×2 (09:00→17:47)
[2021-05-17] MEDS: fluticasone nasal spray 16gm Btl 2 SPRAY NASAL ×2 (09:22→17:06)
--- NOTE | 2021-05-17 10:34 | PC.NURSE ---
placed back on highflow this am after sedation given per pt request.. remains very dyspnic with any activity and frequent cough. position to prone position to assist with ventilation at this time.
--- NOTE | 2021-05-17 11:32 | PC.SLP ---
Attempted to see patient to determine if dietary downgrade of textures was helpful. Patient has had a change in respiratory status and nursing reports patient may be intubated. Will continue to monitor.
--- NOTE | 2021-05-17 12:14 | P.PN_ITS ---
Subjective Subjective: Interval history: Condition worsened overnight, late in the evening FiO2 increased to 90%, then overnight to 100% and had to be started on BiPAP support. Discussed with him worsening oxygenation. On chest x-ray persistent bilateral patchy opacities without improvement with ARDS/mechanical lung lamination secondary to severe Covid pneumonia. Recommended proceeding with intubation, lung protective ventilation including sedation, paralytics, proning. He is adamant does not want at this time intubation mechanical inhalation. Discussed with him alternative with continuation of BiPAP, although would like to avoid prolonged BiPAP therapy given risk of lung injury, especially in case of worsening hypoxia, tachypnea, consideration of returning to heated high flow, although this was not effective enough, so would foresee difficulties with maintaining oxygenation with this alone. Discussed there is no guarantee that he may recover with intubation either, discussed risks of intubation, difficulties with intubation in terms of level of hypoxia, other complications i ncluding pneumothorax, pneumonia, productive encephalopathy, mononeuropathy, difficulties with weaning, other complications. Discussed, however, continuation on noninvasive measures may be either inadequate as in case of heated high flow, or risking further injury in case of an IV, and discussed risk of delaying intubation and lung protective ventilation increasing risk of intubation at the time, and further decreasing effectiveness of mechanical ventilation and inability to maintain saturations in case of worsened lung injury. He states that he will think about proceeding. Discussed all the above also with his daughter Camelia who had requested a phone call, and she will be trying to get a hold of her mother to further discuss with family. We are also pursuing pulmonary critical care consultation. As per his request he was switched over to heated high flow cannula, saturations 88-89%. Proned. On 100 and FiO2, with proning saturations with some improvement to low 90s. Vitals/I&O/Wt Last Vital Signs Temp 97.8 F 05/17/21 04:00 Pulse 95 05/17/21 11:34 Resp 16 05/17/21 11:34 BP 87/62 05/17/21 10:30 Pulse Ox 92 05/17/21 11:34 05/16/21 05/17/21 05/17/21 22:59 06:59 14:59 Intake Total 1090 / 1570 50 / 1620 300 / 300 Output Total 1200 / 1200 1625 / 2825 Balance -110 / 370 -1575 / -1205 300 / 300 Weight last 48 hrs Weight 119.408 kg Weight 119.408 kg Physical Exam Const: COMMON NORMALS: no acute distress and patient oriented x3 HENMT: COMMON NORMALS: oropharynx normal Neck/C-Spine: COMMON NORMALS: no JVD Resp: COMMON NORMALS: normal respiratory effort and clear to auscultation bilaterally AUSCULTATION: clear to auscultation bilaterally Cardio: COMMON NORMALS: no JVD, S1 normal heart sound present, S2 normal heart sound present and No murmurs present (Cardio) RATE: tachycardic RHYTHM: abnormal rhythm irregularly irregular HEART SOUNDS: S1 normal heart sound present and S2 normal heart sound present GI: COMMON NORMALS: Normal to inspection, nondistended, normoactive bowel sounds present, Soft to palpation and non-tender PALPATION: Yes Soft to palpation Extremity: COMMON NORMALS: no joint enlargement and no pedal edema Neuro: COMMON NORMALS: patient oriented x3 and moves all extremities Skin: COMMON NORMALS: no rashes or lesions noted GENERAL SKIN EXAM: no rashes or lesions noted Urinary Catheter Management^: [place]: Cath Placed During This Visit: yes Reason for Continuing Indwelling Catheter: Accurate Measurement of Urinary Output in Critically Ill Patients Urinary Catheter Date of Insertion: 05/11/21 Urinary Catheter Time of Insertion: 13:39 Data : 05/17/21 05:04 05/17/21 05:04 Micro: Microbiology 05/16/21 12:15 Gram Stain - Final Sputum - Expectorated Sputum Sputum Culture - Preliminary 05/11/21 10:19 Blood Culture - Final Blood NO GROWTH AFTER 5 DAYS 05/11/21 10:00 Blood Culture - Final Blood NO GROWTH AFTER 5 DAYS A&P Assessment and plan (1) Respiratory failure with hypoxia: Worsening hypoxia and respiratory failure overnight, requiring increasing FiO2 and subsequently switching to BiPAP. As per extensive detailed discussion with him and his family regarding further options of treatment and recommendation for intubation mechanical ventilation with sedation comfortably skin proning, he declines currently, but agrees to think about it, and family will discuss further. He understands that delaying this may reduce his chances of successful recovery even with intubation mechanical ventilation, understands there is not a guarantee that he will recover even with mechanical ventilatory support, but this would provide a better chance for recovery if done currently rather than waiting until it becomes an emergent procedure. He is going to think about things further, and his daughter is going to further discuss with her mother once she is able to get in contact. We are also pursuing pulmonary critical care consultation to further assess his condition and provide recommendations and additional source of information for him and family. Discussed with him we will proceed according to his goals of care and preference but want him and family to be aware of the likely optimal course of action for the current time. As per his request he is on heated high flow cannula currently, proned, continue supportive care, oxygen support. Monitoring saturation. Completed Levaquin course. Extended antibiotic course with Zosyn for now given persistent leukocytosis, thick tenacious secretions. Sputum culture collected. MRSA PCR negative. ST evaluation has been requested. Diet downgraded to dysphagia level III to see if softer textures could help reduce cough. Cough with or without food, would benefit from assessment by FEES or MBS once able. D-dimer decreasing from over 20 on 05/15, today down further. Continue therapeutic anticoagulation with Lovenox. No DVT noted on lower extremity duplex. Continue Decadron. Completed remdesivir. Continue supportive care, assistance with clearing secretions. Completed 5 days of empiric Levaquin. Flonase for postnasal drip. Received Actemra Status: Acute (2) Paroxysmal atrial fibrillation with RVR: With improvement. Received digoxin IV yesterday. This morning the dose 0.7. Will give 0.125 IV. Once little bit easier to take oral medications, continue on oral maintenance dose. Continue anticoagulation. Telemetry monitoring. Status: Acute (3) COVID-19: Status: Acute (4) Transaminitis: Secondary to COVID-19, monitor CMP. Improving. Status: Acute (5) Hypertension: Status: Chronic (6) CAD (coronary artery disease): Status: Chronic Additional A&P Information D-dimer elevated. As above. With improvement. Hypertension: Started on metoprolol for atrial fibrillation as above. History of CAD: Aspirin 81 mg daily, A1c 6.4. Lipid panel appreciated. Full code. Severely guarded prognosis Attestations Medical Necessity Statement*: Continue admission for assessment of management of hypoxic respite failure and severe COVID-19. Critical Care Time: The high probability of a clinically significant, sudden or life threatening deterioration of the patient's worsening respiratory failure, respiratory system(s) required my full and direct attention, intervention and personal management. The critical care time is as shown. This time is in addition to time spent performing any reported procedures but includes the following: x Data and vital sign review and interpretation x Patient assessment, examination and intervention x Documentation x Medication orders and management Critical Care Time (min): 65 Coding Level of Care Code Acute Candy Cutter Hand for [facility] Fwd Diagnoses Respiratory failure with hypoxia J96.91 Paroxysmal atrial fibrillation with RVR I48.0 COVID-19 U07.1 Transaminitis R74.01 Hypertension I10 CAD (coronary artery disease) I25.10
[2021-05-17] MEDS: dexamethasone 4 mg/mL INJ 6 MG IVP (12:31)
[2021-05-17] MEDS: digoxin 250 mcg/ml INJ 2 mL 125 MCG IVP (13:41)
--- NOTE | 2021-05-17 15:00 | PC.NURSE ---
while attempting to stand to switch out beds, became hypoxic and passing out lowered to floor by staff and physical therapy assist with total lift back to bed . very long recovery time to recover o2 sat above 92
--- NOTE | 2021-05-17 17:05 | P.CONIM_ITS ---
Providers/Reason For Consult Consulting Physician/Specialty*: Kj Mckinnon MD /Pulmonary Critical Care Reason for Consult*: Acute hypoxic respiratory failure secondary to ARDS due to COVID-19 pneumonia Requesting Physician: Reynaldo Palmer Attending Physician: Reynaldo Palmer History of Present Illness History of Present Illness Upon review of chart,Mike Carvalho is a 50 year old male past medical history of hypertension, remote history of CAD no PCI presented to the ER 05/11/2021 with having difficulty in breathing, myalgias, abdominal pain getting worse for last 4 days. In the ER was found to be COVID-19 positive. Patient was admitted to ICU and was closely monitored for respiratory deterioration. He was started onScheduled nebulizations, remdesivir, dexamethasone 6 mg daily, Zosyn.Yesterday overnight patient deteriorated and was requiring BiPAP 100%. Pulmonary critical care consult requested for impending respiratory failure and patient refusing intubation at this point of time Patient seen at bedside and reviewed his chart Currently on high flow nasal cannula 55 L 100% saturating 88 to 92% while lying in lateral position He is worried about intubation and mechanical ventilation and would want to defer as much as possible Fully understanding that it could turn into an emergency life-threatening situation Denied any respiratory distress and appeared calm on Precedex Other labs and imaging reviewed Review of Systems General: Reports: 10 or more systems reviewed and unremarkable except in HPI and below Meds/Allergies Home Medications and Allergies Home Medications Medication Instructions Recorded Confirmed Last Taken Type aspirin 81 mg PO DAILY 05/11/21 05/11/21 05/11/21 History bumetanide 1 mg PO DAILY 05/11/21 05/11/21 05/07/21 History clindamycin HCl 300 mg PO TID 05/11/21 05/11/21 05/09/21 History lisinopril 20 mg PO BID 05/11/21 05/11/21 05/11/21 History omeprazole 20 mg PO DAILY 05/11/21 05/11/21 05/11/21 History Allergies Allergy/AdvReac Type Severity Reaction Status Date / Time sildenafil [From Viagra] Allergy ADR-Confusi Verified 05/11/21 10:03 on Current Medications Current Medications Generic Name Dose Route Start Last Admin Trade Name Freq PRN Reason Stop Dose Admin Albuterol/Ipratropium 3 ml 05/11/21 16:00 05/17/21 15:05 Ipratropium-Albuterol 3 Ml Neb INHALATION 3 ml Q4H.RESPIRATORY AASHISH Administration Ascorbic Acid 500 mg 05/11/21 18:00 05/17/21 08:56 Ascorbic Acid 500 Mg Tablet PO 500 mg BID AASHISH Administration Aspirin 81 mg 05/12/21 09:00 05/17/21 08:57 Aspirin 81 Mg Chew Tablet PO 81 mg DAILY AASHISH Administration Benzocaine 1 each 05/12/21 16:10 05/14/21 23:21 Cetylpyridinium Lozenge MUCOUS MEM 1 each Q2H PRN Administration SORE THROAT Benzonatate 200 mg 05/12/21 15:00 05/17/21 13:47 Benzonatate 100 Mg Capsule PO 200 mg TID AASHISH Administration Bisacodyl 10 mg 05/11/21 22:20 05/13/21 14:26 Bisacodyl 5 Mg Tablet PO 10 mg DAILY PRN Administration Constipation (see protocol) Protocol Calcium Carbonate 500 mg 05/15/21 11:27 05/16/21 21:16 Calcium Carbonate 500 Mg Chew Tablet PO 500 mg BID PRN Administration INDIGESTION Dexamethasone 6 mg 05/11/21 12:30 05/17/21 12:31 Dexamethasone 4 Mg/Ml Inj IVP 6 mg Q24H AASHISH Administration Enoxaparin Sodium 120 mg 05/15/21 09:00 05/17/21 08:56 Enoxaparin 120 Mg/0.8 Ml Syringe SUBCUT 120 mg Q12H AASHISH Administration Famotidine 20 mg 05/11/21 12:30 05/17/21 12:32 Famotidine 20 Mg/2 Ml Inj IVP 20 mg Q12H AASHISH Administration Ferrous Gluconate 324 mg 05/11/21 18:00 05/17/21 07:52 Ferrous Gluconate 324 Mg Tablet PO 324 mg BIDWM AASHISH Administration Fluticasone Propionate 2 spray 05/13/21 18:00 05/17/21 09:22 Fluticasone Nasal [place] 16gm Btl NASAL 2 spray BID AASHISH Administration Guaifenesin 1,200 mg 05/14/21 18:00 05/17/21 08:57 Guaifenesin 600 Mg Tablet PO 1,200 mg BID AASHISH Administration Guaifenesin/Codeine Phosphate 10 ml 05/13/21 14:00 05/17/21 13:47 Guaifenesin-Codeine Udc 10 Ml PO 10 ml Q4H AASHISH Administration Piperacillin Sod/Tazobactam 50 mls @ 12.5 mls/hr 05/16/21 13:00 05/17/21 12:32 Sod 3.375 gm/ Sodium Chloride IV 12.5 mls/hr Q8H AASHISH Administration Protocol dexmedeTOMIDine 0.9 % NaCL 400 mcg in 100 mls @ 0 mls/hr 05/17/21 08:30 05/17/21 10:15 Precedex IV 0.04 mcg/kg/hr .Q0M AASHISH 1.19 mls/hr Titration Protocol Per Protocol Lanolin 1 applic 05/12/21 10:54 05/12/21 21:59 Lanolin Oint 7 Gm TOPICAL 1 tube PRN PRN Administration DRYNESS Metoprolol Tartrate 25 mg 05/13/21 17:19 05/17/21 05:46 Metoprolol Tartrate 25 Mg Tablet PO 25 mg Q8H PRN Administration HEART RATE-HIGH Metoprolol Tartrate 75 mg 05/15/21 21:00 05/17/21 08:59 Metoprolol Tartrate 50 Mg Tablet PO 75 mg BID@0900,2100 AASHISH Administration Morphine Sulfate 2 mg 05/11/21 14:47 05/16/21 02:00 Morphine 4 Mg/Ml Sdv 1 Ml IVP 2 mg Q4H PRN Administration SEVERE PAIN Ondansetron HCl 4 mg 05/11/21 12:25 05/16/21 18:23 Ondansetron 2 Mg/Ml Sdv 2 Ml IVP 4 mg Q6H PRN Administration NAUSEA AND VOMITING Polyethylene Glycol 17 gm 05/15/21 18:00 05/17/21 16:44 Polyethylene Glycol 3350 Pkt 17 Gm PO Not Given BID AASHISH Zinc Gluconate 50 mg 05/11/21 12:30 05/17/21 08:56 Zinc Gluconate 50 Mg Tablet PO 50 mg DAILY AASHISH Administration PFSH Acute PFSH: Medical History CAD (coronary artery disease) Hypertension Surgical History No significant past surgical history Social History Smoking and tobacco status: former smoker Alcohol intake: never Substance/Drug Use: never Lives independently: Yes Household members: spouse Housing: House Marital status: Vitals/I&O/Wt Last Vital Signs Temp 97.8 F 05/17/21 04:00 Pulse 96 05/17/21 15:30 Resp 28 H 05/17/21 15:30 BP 86/61 05/17/21 15:00 Pulse Ox 87 L 05/17/21 15:30 05/17/21 05/17/21 05/17/21 06:59 14:59 22:59 Intake Total 50 / 1620 301.523 / 301.523 Output Total 1625 / 2825 Balance -1575 / -1205 301.523 / 301.523 Weight last 48 hrs Weight 263 lb 4 oz Weight 263 lb 4 oz Physical Exam Narrative: EXAM NARRATIVE: General: alert,Mild respiratory distress HEENT: conj clear, EOMI, PERRL, mmm, Neck: supple, no meningismus Heme: no cervical LAP Pulmonary: Mild bilateral Crepitations Cardiovascular: rrr, nl s1s2, no mrg Abdomen: soft, nt, nd, no r/g, bs+ Extremities: pulses +, no edema, no c/c : no CVA tenderness Skin: intact, no rash MSK: no back or neck pain Neurologic: grossly intact Urinary Catheter Management^: [place]: Cath Placed During This Visit: yes Reason for Continuing Indwelling Catheter: Accurate Measurement of Urinary Output in Critically Ill Patients Urinary Catheter Date of Insertion: 05/11/21 Urinary Catheter Time of Insertion: 13:39 Data Labs: Other Labs: Radiology Impressions Chest X-Ray 05/16/21 04:00 Impression: No change in patchy bilateral pulmonary opacities consistent with pneumonia. Laboratory Results WBC 15.4 10^3/uL (4.0 -10.0) H 05/17/21 05:04 RBC 5.25 10^6/uL (4.1 -5.3) 05/17/21 05:04 Hgb 15.3 g/dL (11.7-1 6.6) 05/17/21 05:04 Hct 46.0 % (42.0-52.0 ) 05/17/21 05:04 MCV 87.6 fl (80-94) 05/17/21 05:04 MCH 29.1 pg (28.0-34. 0) 05/17/21 05:04 MCHC 33.3 g/dL (30.0-3 6.0) 05/17/21 05:04 RDW 12.9 % (12.1-15.1 ) 05/17/21 05:04 Plt Count 383 10^3/cmm (130 -400) 05/17/21 05:04 MPV 9.5 fL (7.4-10.4) 05/17/21 05:04 Neut % (Auto) 84.8 % 05/17/21 05:04 Lymph % (Auto) 6.2 % 05/17/21 05:04 [place] % (Auto) 5.8 % 05/17/21 05:04 Eos % (Auto) 1.2 % 05/17/21 05:04 Baso % (Auto) 0.2 % 05/17/21 05:04 Neut # (Auto) 13.07 10^3/uL (1. 8-7.7) H 05/17/21 05:04 Lymph # (Auto) 1.0 10^3/uL (0.8- 4.8) 05/17/21 05:04 [place] # (Auto) 0.9 10^3/uL (0.2- 0.9) 05/17/21 05:04 Eos # (Auto) 0.2 10^3/uL (0.0- 0.8) 05/17/21 05:04 Baso # (Auto) 0.0 10^3/uL (0.0- 0.1) 05/17/21 05:04 Nucleated RBC % (a uto) 0 % 05/17/21 05:04 Total Counted 100 (0-100) 05/14/21 02:58 Atypical Lymphs % 2.0 % (0-5) 05/14/21 02:58 Segmented Neutroph ils 81 % 05/14/21 02:58 Band Neutrophils 1.0 % 05/14/21 02:58 Lymphocytes (Man[place] l) 7 % 05/14/21 02:58 Monocytes (Manual) 9.0 % 05/14/21 02:58 Eosinophils (Manua l) 0 % 05/14/21 02:58 Basophils (Manual) 0.0 % 05/14/21 02:58 Nucleated RBCs Lithographic Proofer Apprentice 05/14/21 02:58 Nucleated RBCs # 0.0 /100WBC 05/17/21 05:04 Platelet Estimate Normal (Normal) 05/14/21 02:58 ESR 29 mm/hr (0-10) H 05/11/21 10:00 D-Dimer 7.88 ug/mIFEU (0- 0.59) H 05/17/21 05:04 Specimen Type Arterial 05/16/21 04:40 Sample Site Radial, right 05/16/21 04:40 ABG pH 7.49 (7.35-7.45) H 05/16/21 04:40 ABG pCO2 37.6 mmHg (35-45) 05/16/21 04:40 ABG pO2 61.4 mmHg (80.0-1 00.0) L 05/16/21 04:40 ABG HCO3 28.6 mmol/L (22-2 6) H 05/16/21 04:40 ABG O2 Saturation 97.3 05/11/21 14:33 ABG Base Excess 5.1 mmol/L (-2.0- 2.0) H 05/16/21 04:40 Maurice Test Pos 05/16/21 04:40 A-a O2 Gradient 51.7 mmHg (5-10) H 05/11/21 14:33 Hematocrit 48.4 % (42-52) 05/16/21 04:40 Hgb O2 Saturation 96.2 % (95-100) 05/11/21 14:33 Carboxyhemoglobin 0.4 %THgb (0.4-20 .1) 05/11/21 14:33 Methemoglobin 0.7 % (0.4-1.5) 05/11/21 14:33 Total Hemoglobin 15.6 g/dL (14-18) 05/11/21 14:33 Sodium 135.0 mmol/L (131 -143) 05/11/21 14:33 Potassium 3.1 mmol/L (3.5-5 .0) L 05/11/21 14:33 Glucose 182.0 mg/dL (70-1 15) H 05/11/21 14:33 Ionized Calcium 1.0 mmol/L (1.1-1 .4) L 05/11/21 14:33 O2 Delivery Device Hag 05/16/21 04:40 O2 Liters/Min 50.0 % 05/16/21 04:40 FiO2 85.0 % 05/16/21 04:40 Codifier ID Rashard 05/16/21 04:40 Sodium 135 mmol/L (136-1 45) L 05/17/21 05:04 Potassium 4.4 mmol/L (3.5-5 .1) 05/17/21 05:04 Chloride 98 mmol/L (98-107 ) 05/17/21 05:04 Carbon Dioxide 23 mmol/L (22-29) 05/17/21 05:04 Anion Gap 18.4 (5-19) 05/17/21 05:04 BUN 11 mg/dL (6-20) 05/17/21 05:04 Creatinine 0.6 mg/dL (0.7-1. 2) L 05/17/21 05:04 GFR Calculation 142.0 mL/min (90- 130) H 05/17/21 05:04 Glucose 137 mg/dL (65-115 ) H 05/17/21 05:04 POC Glucose 191 mg/dL (70-110 ) H 05/14/21 18:09 Estimat Average Gl ucose 137 05/12/21 06:07 Hemoglobin A1c 6.4 % (4.0-6.0) H 05/12/21 06:07 Calculated Osmolal ity 282 mOsm/kg (285- 295) L 05/17/21 05:04 Lactic Acid 1.3 mmol/L (0.5-2 .2) 05/11/21 10:00 Calcium 8.4 mg/dL (8.5-10 .5) L 05/17/21 05:04 Magnesium 2.1 mg/dL (1.7-2. 3) 05/15/21 04:18 Iron 31 ug/dL (59-158) L 05/11/21 10:00 TIBC 156 mcg/dl 05/11/21 10:00 % Saturation 19.8 % (20-50) L 05/11/21 10:00 Unsat Iron Binding 125 ug/dL (112-34 7) 05/11/21 10:00 Total Bilirubin 0.7 mg/dL (0.15-1 .2) 05/17/21 05:04 AST 58 U/L (0-40) H 05/17/21 05:04 ALT 75 U/L (0-41) H 05/17/21 05:04 Alkaline Phosphata se 127 IU/L (40-130) 05/17/21 05:04 C-Reactive Protein 24.3 mg/L (0.0-4. 9) H 05/14/21 02:58 NT-Pro-B Natriuret Pep 264 pg/mL (0-125) H 05/11/21 10:00 Total Protein 5.5 g/dL (6.6-8.7 ) L 05/17/21 05:04 Albumin 3.1 g/dL (3.5-5.2 ) L 05/17/21 05:04 Globulin 2.4 g/dL (1.3-4.6 ) 05/17/21 05:04 Triglycerides 82 mg/dL (0-150) 05/12/21 06:07 Cholesterol 130 mg/dL (0-200) 05/12/21 06:07 LDL Cholesterol, C alc 79 mg/dL (50-129) 05/12/21 06:07 Total VLDL Cholest barbara 16 mg/dL (0-30) 05/12/21 06:07 HDL Cholesterol 35 mg/dL (60-100) L 05/12/21 06:07 Cholesterol/HDL Ra hernán 3.71 mg/dL (1.0-5 .00) 05/12/21 06:07 Procalcitonin 0.21 ng/mL (0-0.5 ) 05/11/21 10:00 Procalcitonin 0.21 ng/mL (0-0.5 ) 05/11/21 10:00 TSH 2.08 uIU/mL (0.27 -4.20) 05/11/21 10:00 Urine Color Yellow (Yellow) 05/11/21 12:11 Urine Appearance Clear (CLEAR) 05/11/21 12:11 Urine pH 6 (5-7) 05/11/21 12:11 Ur Specific Gravit y 1.010 (1.005-1.0 30) 05/11/21 12:11 Urine Protein 1+ (Negative) H 05/11/21 12:11 Urine Glucose (UA) Norm (Normal) 05/11/21 12:11 Urine Ketones 1+ (Negative) H 05/11/21 12:11 Urine Blood 3+ (Negative) H 05/11/21 12:11 Urine Nitrate Negative (Negati ve) 05/11/21 12:11 Urine Bilirubin Neg (Negative) 05/11/21 12:11 Urine Urobilinogen 1 mg/dL (Negative ) H 05/11/21 12:11 Ur Leukocyte [place] ase Negative (Negati ve) 05/11/21 12:11 Urine RBC None /hpf (0-2) 05/11/21 12:11 Urine WBC Rare /hpf (0-5) 05/11/21 12:11 Ur Squamous Epith Cells Rare /hpf (0-5) 05/11/21 12:11 Amorphous Sediment Not Reportable 05/11/21 12:11 Urine Bacteria Trace /hpf (NONE) 05/11/21 12:11 Ur Random Sodium < 10 mmol/L 05/11/21 12:11 Ur Random Potassiu m 18 mmol/L 05/11/21 12:11 Ur Random Chloride < 10 mmol/L 05/11/21 12:11 Digoxin 0.7 ng/mL (0.6-1. 2) 05/17/21 05:04 SARS-CoV-2 Ag (Rap id) Positive (Negati ve) H 05/11/21 10:36 Micro: Micro: Microbiology 05/16/21 12:15 Gram Stain - Final Sputum - Expector ated Sputum Sputum Culture - P reliminary A&P Assessment and plan (1) Acute respiratory failure with hypoxia: Status: Acute (2) Acute respiratory distress syndrome (ARDS) due to 2019 novel coronavirus: Status: Acute (3) Paroxysmal atrial fibrillation with RVR: Status: Acute (4) Transaminitis: Status: Acute (5) CAD (coronary artery disease): Status: Chronic Qualifiers: Coronary Disease-Associated Artery/Lesion type: [place] artery [place] vs. transplanted heart: [place] heart Associated angina: unspecified whether angina present Qualified Code(s): I25.10 - Atherosclerotic heart disease of [place] coronary artery without angina pectoris #Acute hypoxic respiratory failure secondary to ARDS due to COVID-19 pneumonia #A. fib RVR #Deranged LFTs-secondary to COVID-19 pneumonitis -Admitted 05/11/2021, COVID-19 positive test 05/11/2021 -ABG 7.4 9/37/61/28 On 50 liters and 85% -Chest x-ray persistent bilateral patchy opacities -Currently on high flow nasal cannula 55 L 100% saturating 88 to 92% -Completed 5-day remdesivir, currently on dexamethasone 6 mg IV daily -So far blood cultures, urine Legionella, urine bacterial antigens-are negative -Completed 5-day course of Levaquin-currently on Zosyn for persistent leukocyto sis and tenacious secretions -Mucinex p.o. twice daily for thick secretions and Robitussin every 4 hours for cough -MRSA PCR negative -Lower extremity Doppler negative for DVT but with significantly elevated D-dimers-on therapeutic Lovenox -Currently on Metoprolol 75 Mg p.o. twice daily for hypertension and Paroxysmal A. fib RVR -Echo 05/11/2021: Normal LV size and systolic function with EF 69%. Mild LVH. Small pericardial effusion. -MiraLAX for bowel regimen;- Level 3 dysphagia diet -Deranged LFTs-secondary to COVID-19 pneumonitis-monitor -Last 24 hours -1.2 L And since admission -8 L-We will try to keep negative to even -Sugars well controlled -DVT prophylaxis: Lovenox -Prognosis guarded -Family updated Patient is at high risk for intubation. Currently on 55 L 100% FiO2 on high flow nasal cannula and explained patient that this is the maximum noninvasive support and the next day would be intubation. Explained to him that, even though intubation and mechanical ventilation will not guarantee 100% recovery, at least it will give us time to see if lungs recover from ARDS due to COVID-19 pneumonia and at this point of time there are no other options left if he deteriorates or becomes even more hypoxic.Rather than postponing intubation until it becomes an emergency and increasing risk of it would be preferable to do intubation in a controlled setting is recommended. But patient reported his breathing is not labored and would want to wait until it becomes worse. He verbalized understanding of the risk of being intubated in an emergent situation and also that intubation and mechanical ventilation is a more of supportive care to give more time for lung recovery but itself would not heal COVID-19 pneumonia. At this point of time-Based on patient wishes, we Will closely monitor patient's respiratory status and hold off intubation for now. Recommendations conveyed to hospitalist, RT, RN taking care of the patient Consult Attestations Medical Necessity Statement: Acute hypoxic respiratory failure secondary to ARDS due to COVID-19 pneumonia requiring high flow nasal cannula-impending respiratory failure-need close ICU monitoring for possible intubation and mechanical ventilation Time Spent in Patient Care: Greater than 35 minutes (>than 50% of time spent in counselling and/or direct pt care on unit) . Critical Care Time: The high probability of a clinically significant, sudden or life threatening deterioration of the patient's [Pulmonary, cardiac] system(s) required my full and direct attention, intervention and personal management. The critical care time is as shown. This time is in addition to time spent performing any reported procedures but includes the following: [x] Data and vital sign review and interpretation [x] Patient assessment, examination and intervention [x] Documentation [x] Medication orders and management Critical Care Time (min): 45 Coding Level of Care Code New Pt Acute Production Maintenance Technician for Chg Fwd Patient Type New History Comprehensive Exam Comprehensive Medical Decision Making High Complexity Diagnoses Acute respiratory failure with hypoxia J96.01 Acute respiratory distress syndrome (ARDS) due to 2019 novel coronavirus U07.1; J80 Paroxysmal atrial fibrillation with RVR I48.0 Transaminitis R74.01 CAD (coronary artery disease) I25.10 Coronary Disease-Associated Artery/Lesion type: [place] artery [place] vs. transplanted heart: [place] heart Associated angina: unspecified whether angina present Time Spent (min) 45
--- NOTE | 2021-05-17 18:46 | NUR.SHIFT ---
Shift Note Frequent safety and comfort rounds continue. Orders and/or nursing care completed as indicated. Patient monitored for response to intervention and treatment(s). Education provided includes[keeping oxygen on today and severe lung function ]. Patient and/or entry level account representative Will continue to monitor.
--- NOTE | 2021-05-17 20:00 | PC.NURSE ---
Rounding/Education; Report received. Care assumed. Report received that MD's aware of pt current status/condition and refusal for Bipap and Intubation at this time. Gtt for sedation initiated during . Multiple reminders from this RN rounding on pt, and reminding to take slow deep breaths before 1900 this evening. Spo2 fluctuating between 80-86% at times. During track laminating machine tender, pt found to have continued decreased spo2 in mid 80% range. RR between 35-45. RN educated on need to take slow deep breaths. Pt currently on HHF at 100% and 45L with non rebreather applied on top of HHF NC. Precedex gtt found running @0.6, RN increased to 0.7, with verbal deescalation attempts made to decrease anxiety. Repositioned for comfort. Education given on need to trial Bipap at this time. Pt states that he does not want Bipap mask because it is not as good as the mask that's on my face, where I can feel the air hitting my face . RN educated on differences in routes of O2 applications, and general consensus of HHF vs Bipap vs Intubation. As of now, pt resting somewhat more comfortable. SPO2 continuing to sustain around 86-87%. Pt states we may try Bipap later this evening, but is refusing intervention as of now. MD notified.
[2021-05-17] MEDS: dexmedeTOMIDine 0.9 % NaCL 400 MCG/100 ML PREMIX 20.9 MCG IV (22:39)
--- NOTE | 2021-05-17 22:57 | PC.NURSE ---
Family Updated; Pt gave verbal consent to update his sister, Irina Carvalho, on his status going forth. Irina Carvalho updated on his current condition and treatment plan of care. Sister verbalized understandment of severity in pt's condition. All questions answered by RN.
[2021-05-18] VITALS (49 sets, daily range): BP systolic 83–127; BP diastolic 53–85; PULSE 75–117; RESP 19–33; TEMP 36.6–37.3; O2SAT 80–95
[2021-05-18] MEDS: ipratropium-albuterol 3 mL Neb INHALATION ×7 (00:54→23:24)
[2021-05-18] MEDS: famotidine 20 mg/2 mL INJ IVP ×2 (00:56→12:50)
[2021-05-18] MEDS: guaiFENesin-codeine UDC 10 mL PO ×6 (01:51→21:36)
[2021-05-18] MEDS: dexmedeTOMIDine 0.9 % NaCL 400 MCG/100 ML PREMIX 20.9 MCG IV ×4 (03:31→19:36)
[2021-05-18 04:19] LABS: Basophils % 0.2 %; Eosinophils # 0.1 10^3/uL (0.0-0.8); Eosinophils % 0.7 %; Hematocrit 45.3 % (42.0-52.0); Hemoglobin 15.5 g/dL (11.7-16.6); Lymphocytes # 0.6 10^3/uL (0.8-4.8); Lymphocytes % 3.8 %; Mean Corpuscular HGB Conc 34.2 g/dL (30.0-36.0); Mean Corpuscular Hemoglobin 29.6 pg (28.0-34.0); Mean Corpuscular Volume 86.6 fl (80-94); Mean Platelet Volume 9.7 fL (7.4-10.4); Monocytes # 0.6 10^3/uL (0.2-0.9); Monocytes % 4.2 %; Neutrophils # 13.41 10^3/uL (1.8-7.7); Neutrophils % 88.8 %; Nucleated Red Blood Cells % 0 %; Platelet Count 354 10^3/cmm (130-400); Red Blood Count 5.23 10^6/uL (4.1-5.3); Red Cell Distribution Width 12.6 % (12.1-15.1); White Blood Count 15.1 10^3/uL (4.0-10.0)
[2021-05-18 04:30] LABS: D Dimer 6.22 ug/mIFEU (0-0.59)
[2021-05-18 04:37] LABS: Alanine Aminotransferase 66 U/L (0-41); Albumin Level 3.2 g/dL (3.5-5.2); Alkaline Phosphatase 132 IU/L (40-130); Anion Gap 15.4 (5-19); Aspartate Amino Transferase 52 U/L (0-40); Blood Urea Nitrogen 13 mg/dL (6-20); Calcium 7.6 mg/dL (8.5-10.5); Carbon Dioxide 25 mmol/L (22-29); Chloride 97 mmol/L (98-107); Globulin 2.1 g/dL (1.3-4.6); Glucose 130 mg/dL (65-115); Osmolality Calculated 278 mOsm/kg (285-295); Potassium 4.4 mmol/L (3.5-5.1); Sodium 133 mmol/L (136-145); Total Bilirubin 0.7 mg/dL (0.15-1.2); Total Protein 5.3 g/dL (6.6-8.7)
[2021-05-18] MEDS: piperacillin-tazobactam 3.375 GM in sodium chloride 0.9% (plus) 50 ML IV ×3 (05:03→21:35)
[2021-05-18] MEDS: guaiFENesin 600 mg Tablet 1200 MG PO ×2 (09:21→17:09)
[2021-05-18] MEDS: zinc gluconate 50 mg Tablet PO (09:22)
[2021-05-18] MEDS: enoxaparin 120 mg/0.8 mL Syringe SUBCUT ×2 (09:22→21:35)
[2021-05-18] MEDS: aspirin 81 mg Chew Tablet PO (09:22)
[2021-05-18] MEDS: ascorbic acid 500 mg Tablet PO ×2 (09:22→17:09)
[2021-05-18] MEDS: benzonatate 100 mg Capsule 200 MG PO ×3 (09:22→21:35)
[2021-05-18] MEDS: ferrous gluconate 324 mg Tablet PO (09:22)
[2021-05-18] MEDS: fluticasone nasal spray 16gm Btl 2 SPRAY NASAL ×2 (09:23→17:10)
[2021-05-18] MEDS: metoprolol tartrate 50 mg Tablet 75 MG PO ×2 (09:25→21:45)
[2021-05-18 09:28] LABS: ABG PCO2 41.1 mmHg (35-45); ABG PH Result 7.46 (7.35-7.45); Alveolar-Arterial Oxygen Gradi 77.2 mmHg (5-10); Arterial Blood Gas Hematocrit 49.3 % (42-52); Base Excess ABG 5.1 mmol/L (-2.0-2.0); Blood Gas Allen Test Pos; Blood Gas Operator Identificat CAK; Blood Gas Sample Site Radial, right; Blood Gas Sample Type Arterial; Carboxyhemoglobin 0.4 %THgb (0.4-20.1); HCO3 ABG 29.4 mmol/L (22-26); HGB O2 Sat 93.9 % (95-100); Ionized Calcium Level - ABG 1.1 mmol/L (1.1-1.4); Methemoglobin 0.8 % (0.4-1.5); Oxygen Device BIPAP; PO2 ABG 71.2 mmHg (80.0-100.0); Potassium Level - ABG 4.2 mmol/L (3.5-5.0); Total Hemoglobin 16.1 g/dL (14-18)
[2021-05-18] MEDS: budesonide 0.5 mg/2 mL Neb INHALATION ×2 (09:36→20:05)
--- NOTE | 2021-05-18 10:50 | PC.NURSE ---
talked with multiple family members , daughter and son and brother and mother ... explained at lenght pt refused to be intubated at this time but will be as very last option . Had apparently text family member wanting transfer offered at this time refused when doctor informed of have to be intubated for transfer. and limited bed available in area. explained that he need to wear bipap and to stop taking it off all appear to understand at this time .pt remains alert and oriented able to make own decisions
[2021-05-18] MEDS: dexamethasone 4 mg/mL INJ 6 MG IVP (12:50)
--- NOTE | 2021-05-18 15:03 | PC.NURSE ---
facetime with mother over his phone blood clots blown from nose , water given at this time with bipap mask off for brief time sats dropped to 72 %
--- NOTE | 2021-05-18 17:37 | PM.PN ---
Subjective Subjective: Interval history: -Patient seen at bedside -On BiPAP 14/600% saturating 94%; ABG reviewed showed PaO2 72 -Patient still does not want intubation and would want to defer it -Labs and imaging reviewed Medications: Reviewed: Yes Vitals/I&O/Wt Last Vital Signs Temp 98 F 05/18/21 14:00 Pulse 96 05/18/21 16:33 Resp 23 H 05/18/21 16:33 BP 99/63 05/18/21 16:00 Pulse Ox 93 05/18/21 16:33 05/18/21 05/18/21 05/18/21 06:59 14:59 22:59 Intake Total 250 / 1746.331 450 / 450 50 / 500 Output Total 600 / 1200 450 / 450 Balance -350 / 546.331 450 / 450 -400 / 50 Weight last 48 hrs Weight 264 lb 4.007 oz Weight 263 lb 4 oz Physical Exam Narrative: EXAM NARRATIVE: General: alert,Mild respiratory distress HEENT: conj clear, EOMI, PERRL, mmm, Neck: supple, no meningismus Heme: no cervical LAP Pulmonary: Mild bilateral Crepitations Cardiovascular: rrr, nl s1s2, no mrg Abdomen: soft, nt, nd, no r/g, bs+ Extremities: pulses +, no edema, no c/c : no CVA tenderness Skin: intact, no rash MSK: no back or neck pain Neurologic: grossly intact Urinary Catheter Management^: [place]: Cath Placed During This Visit: yes Reason for Continuing Indwelling Catheter: Accurate Measurement of Urinary Output in Critically Ill Patients Urinary Catheter Date of Insertion: 05/11/21 Urinary Catheter Time of Insertion: 13:39 Data : 05/18/21 03:28 05/18/21 03:28 Other Labs: Radiology Impressions Chest X-Ray 05/16/21 04:00 Impression: No change in patchy bilateral pulmonary opacities consistent with pneumonia. Laboratory Results WBC 15.1 10^3/uL (4.0-10.0) H 05/18/21 03:28 RBC 5.23 10^6/uL (4.1-5.3) 05/18/21 03:28 Hgb 15.5 g/dL (11.7-16.6) 05/18/21 03:28 Hct 45.3 % (42.0-52.0) 05/18/21 03:28 MCV 86.6 fl (80-94) 05/18/21 03:28 MCH 29.6 pg (28.0-34.0) 05/18/21 03:28 MCHC 34.2 g/dL (30.0-36.0) 05/18/21 03:28 RDW 12.6 % (12.1-15.1) 05/18/21 03:28 Plt Count 354 10^3/cmm (130-400) 05/18/21 03:28 MPV 9.7 fL (7.4-10.4) 05/18/21 03:28 Neut % (Auto) 88.8 % 05/18/21 03:28 Lymph % (Auto) 3.8 % 05/18/21 03:28 [place] % (Auto) 4.2 % 05/18/21 03:28 Eos % (Auto) 0.7 % 05/18/21 03:28 Baso % (Auto) 0.2 % 05/18/21 03:28 Neut # (Auto) 13.41 10^3/uL (1.8-7.7) H 05/18/21 03:28 Lymph # (Auto) 0.6 10^3/uL (0.8-4.8) L 05/18/21 03:28 [place] # (Auto) 0.6 10^3/uL (0.2-0.9) 05/18/21 03:28 Eos # (Auto) 0.1 10^3/uL (0.0-0.8) 05/18/21 03:28 Baso # (Auto) 0.0 10^3/uL (0.0-0.1) 05/18/21 03:28 Nucleated RBC % (auto) 0 % 05/18/21 03:28 Total Counted 100 (0-100) 05/14/21 02:58 Atypical Lymphs % 2.0 % (0-5) 05/14/21 02:58 Segmented Neutrophils 81 % 05/14/21 02:58 Band Neutrophils 1.0 % 05/14/21 02:58 Lymphocytes (Manual) 7 % 05/14/21 02:58 Monocytes (Manual) 9.0 % 05/14/21 02:58 Eosinophils (Manual) 0 % 05/14/21 02:58 Basophils (Manual) 0.0 % 05/14/21 02:58 Nucleated RBCs Health Care Analyst 05/14/21 02:58 Nucleated RBCs # 0.0 /100WBC 05/18/21 03:28 Platelet Estimate Normal (Normal) 05/14/21 02:58 ESR 29 mm/hr (0-10) H 05/11/21 10:00 D-Dimer 6.22 ug/mIFEU (0-0.59) H 05/18/21 03:28 Specimen Type Arterial 05/18/21 09:17 Sample Site Radial, right 05/18/21 09:17 ABG pH 7.46 (7.35-7.45) H 05/18/21 09:17 ABG pCO2 41.1 mmHg (35-45) 05/18/21 09:17 ABG pO2 71.2 mmHg (80.0-100.0) L 05/18/21 09:17 ABG HCO3 29.4 mmol/L (22-26) H 05/18/21 09:17 ABG O2 Saturation 95.0 05/18/21 09:17 ABG Base Excess 5.1 mmol/L (-2.0-2.0) H 05/18/21 09:17 [place] Test Pos 05/18/21 09:17 A-a O2 Gradient 77.2 mmHg (5-10) H 05/18/21 09:17 Hematocrit 49.3 % (42-52) 05/18/21 09:17 Hgb O2 Saturation 93.9 % (95-100) L 05/18/21 09:17 Carboxyhemoglobin 0.4 %THgb (0.4-20.1) 05/18/21 09:17 Methemoglobin 0.8 % (0.4-1.5) 05/18/21 09:17 Total Hemoglobin 16.1 g/dL (14-18) 05/18/21 09:17 Sodium 134.0 mmol/L (131-143) 05/18/21 09:17 Potassium 4.2 mmol/L (3.5-5.0) 05/18/21 09:17 Glucose 123.0 mg/dL (70-115) H 05/18/21 09:17 Ionized Calcium 1.1 mmol/L (1.1-1.4) 05/18/21 09:17 O2 Delivery Device Bipap 05/18/21 09:17 O2 Liters/Min 50.0 % 05/16/21 04:40 FiO2 100.0 % 05/18/21 09:17 Hang Gliding Instructor ID Cak 05/18/21 09:17 Sodium 133 mmol/L (136-145) L 05/18/21 03:28 Potassium 4.4 mmol/L (3.5-5.1) 05/18/21 03:28 Chloride 97 mmol/L (98-107) L 05/18/21 03:28 Carbon Dioxide 25 mmol/L (22-29) 05/18/21 03:28 Anion Gap 15.4 (5-19) 05/18/21 03:28 BUN 13 mg/dL (6-20) 05/18/21 03:28 Creatinine 0.6 mg/dL (0.7-1.2) L 05/18/21 03:28 GFR Calculation 142.0 mL/min (90-130) H 05/18/21 03:28 Glucose 130 mg/dL (65-115) H 05/18/21 03:28 POC Glucose 191 mg/dL (70-110) H 05/14/21 18:09 Estimat Average Glucose 137 05/12/21 06:07 Hemoglobin A1c 6.4 % (4.0-6.0) H 05/12/21 06:07 Calculated Osmolality 278 mOsm/kg (285-295) L 05/18/21 03:28 Lactic Acid 1.3 mmol/L (0.5-2.2) 05/11/21 10:00 Calcium 7.6 mg/dL (8.5-10.5) L 05/18/21 03:28 Magnesium 2.1 mg/dL (1.7-2.3) 05/15/21 04:18 Iron 31 ug/dL (59-158) L 05/11/21 10:00 TIBC 156 mcg/dl 05/11/21 10:00 % Saturation 19.8 % (20-50) L 05/11/21 10:00 Unsat Iron Binding 125 ug/dL (112-347) 05/11/21 10:00 Total Bilirubin 0.7 mg/dL (0.15-1.2) 05/18/21 03:28 AST 52 U/L (0-40) H 05/18/21 03:28 ALT 66 U/L (0-41) H 05/18/21 03:28 Alkaline Phosphatase 132 IU/L (40-130) H 05/18/21 03:28 C-Reactive Protein 24.3 mg/L (0.0-4.9) H 05/14/21 02:58 NT-Pro-B Natriuret Pep 264 pg/mL (0-125) H 05/11/21 10:00 Total Protein 5.3 g/dL (6.6-8.7) L 05/18/21 03:28 Albumin 3.2 g/dL (3.5-5.2) L 05/18/21 03:28 Globulin 2.1 g/dL (1.3-4.6) 05/18/21 03:28 Triglycerides 82 mg/dL (0-150) 05/12/21 06:07 Cholesterol 130 mg/dL (0-200) 05/12/21 06:07 LDL Cholesterol, Calc 79 mg/dL (50-129) 05/12/21 06:07 Total VLDL Cholesterol 16 mg/dL (0-30) 05/12/21 06:07 HDL Cholesterol 35 mg/dL (60-100) L 05/12/21 06:07 Cholesterol/HDL Ratio 3.71 mg/dL (1.0-5.00) 05/12/21 06:07 Procalcitonin 0.21 ng/mL (0-0.5) 05/11/21 10:00 Procalcitonin 0.21 ng/mL (0-0.5) 05/11/21 10:00 TSH 2.08 uIU/mL (0.27-4.20) 05/11/21 10:00 Urine Color Yellow (Yellow) 05/11/21 12:11 Urine Appearance Clear (CLEAR) 05/11/21 12:11 Urine pH 6 (5-7) 05/11/21 12:11 Ur Specific [place] 1.010 (1.005-1.030) 05/11/21 12:11 Urine Protein 1+ (Negative) H 05/11/21 12:11 Urine Glucose (UA) Norm (Normal) 05/11/21 12:11 Urine Ketones 1+ (Negative) H 05/11/21 12:11 Urine Blood 3+ (Negative) H 05/11/21 12:11 Urine Nitrate Negative (Negative) 05/11/21 12:11 Urine Bilirubin Neg (Negative) 05/11/21 12:11 Urine Urobilinogen 1 mg/dL (Negative) H 05/11/21 12:11 Ur Leukocyte Esterase Negative (Negative) 05/11/21 12:11 Urine RBC None /hpf (0-2) 05/11/21 12:11 Urine WBC Rare /hpf (0-5) 05/11/21 12:11 Ur Squamous Epith Cells Rare /hpf (0-5) 05/11/21 12:11 Amorphous Sediment Not Reportable 05/11/21 12:11 Urine Bacteria Trace /hpf (NONE) 05/11/21 12:11 Ur Random Sodium < 10 mmol/L 05/11/21 12:11 Ur Random Potassium 18 mmol/L 05/11/21 12:11 Ur Random Chloride < 10 mmol/L 05/11/21 12:11 Digoxin 0.7 ng/mL (0.6-1.2) 05/17/21 05:04 SARS-CoV-2 Ag (Rapid) Positive (Negative) H 05/11/21 10:36 Micro: Microbiology 05/16/21 12:15 Gram Stain - Final Sputum - Expectorated Sputum Sputum Culture - Final A&P Assessment and plan (1) Acute respiratory failure with hypoxia: Status: Acute (2) Acute respiratory distress syndrome (ARDS) due to 2019 novel coronavirus: Status: Acute (3) Paroxysmal atrial fibrillation with RVR: Status: Acute (4) Transaminitis: Status: Acute (5) CAD (coronary artery disease): Status: Chronic Qualifiers: Associated angina: unspecified whether angina present Coronary Disease-Associated Artery/Lesion type: [place] artery [place] vs. transplanted heart: [place] heart Qualified Code(s): I25.10 - Atherosclerotic heart disease of [place] coronary artery without angina pectoris #Acute hypoxic respiratory failure secondary to ARDS due to COVID-19 pneumonia #A. fib RVR #Deranged LFTs-secondary to COVID-19 pneumonitis -Admitted 05/11/2021, COVID-19 positive test 05/11/2021 -ABG 7.4 6/41/71/29 on BiPAP 14/6 100%-saturating 95% -Chest x-ray persistent bilateral patchy opacities -Completed 5-day remdesivir, currently on dexamethasone 6 mg IV daily -So far blood cultures, urine Legionella, urine bacterial antigens-are negative -Completed 5-day course of Levaquin-currently on Zosyn for persistent leukocytosis and tenacious secretions -Mucinex p.o. twice daily for thick secretions and Robitussin every 4 hours for cough -MRSA PCR negative -Lower extremity Doppler negative for DVT but with significantly elevated D-dimers-on therapeutic Lovenox -Currently on Metoprolol 75 Mg p.o. twice daily for hypertension and Paroxysmal A. fib RVR -Echo 05/11/2021: Normal LV size and systolic function with EF 69%. Mild LVH. Small pericardial effusion. -MiraLAX for bowel regimen;- Level 3 dysphagia diet -Deranged LFTs-secondary to COVID-19 pneumonitis-monitor -Last 24 hours -1.2 L And since admission -8 L-We will try to keep negative to even -Sugars well controlled -DVT prophylaxis: Lovenox -Prognosis guarded -Family updated Patient is at high risk for intubation. Currently on BIPAP 22/10 100% FiO2 on BiPAP and explained patient that this is the maximum noninvasive support and the next Step would be intubation. Explained to him that, even though intubation and mechanical ventilation will not guarantee 100% recovery, at least it will give us time to see if lungs recover from ARDS due to COVID-19 pneumonia and at this point of time there are no other options left if he deteriorates or becomes even more hypoxic.Rather than postponing intubation until it becomes an emergency and increasing risk of it would be preferable to do intubation in a controlled setting is recommended. But patient reported his breathing is not labored and would want to wait until it becomes worse. He wanted me to convey to his daughter, who in turn wanted to discuss with her mom (patient's ). Everything explained on video call to patient's daughter and ex- in the patient's presence. They all verbalized understanding of the risk of being intubated in an emergent situation and also that intubation and mechanical ventilation is a more of supportive care to give more time for lung recovery but itself would not heal COVID-19 pneumonia. At this point of time-Based on patient wishes, we Will closely monitor patient's respiratory status and hold off intubation for now. Recommendations conveyed to hospitalist, RT, RN taking care of the patient Attestations Medical Necessity Statement*: Continue admission for assessment of management of hypoxic respite failure and severe COVID-19. Critical Care Time: The high probability of a clinically significant, sudden or life threatening deterioration of the patient's worsening respiratory failure, respiratory system(s) required my full and direct attention, intervention and personal management. The critical care time is as shown. This time is in addition to time spent performing any reported procedures but includes the following: x Data and vital sign review and interpretation x Patient assessment, examination and intervention x Documentation x Medication orders and management Critical Care Time (min): 65 Coding Level of Care Code Established Pt Acute Geophysical Computer for Chg Fwd Patient Type Established History Comprehensive Exam Comprehensive Medical Decision Making High Complexity Diagnoses Acute respiratory failure with hypoxia J96.01 Acute respiratory distress syndrome (ARDS) due to 2019 novel coronavirus U07.1; J80 Paroxysmal atrial fibrillation with RVR I48.0 Transaminitis R74.01 CAD (coronary artery disease) I25.10 Associated angina: unspecified whether angina present Coronary Disease-Associated Artery/Lesion type: [place] artery [place] vs. transplanted heart: [place] heart Time Spent (min) 65
--- NOTE | 2021-05-18 17:49 | PC.SLP ---
WASTEWATER PROJECT MANAGER on hold today due to the pt's condition. WASTEWATER PROJECT MANAGER will attempt to follow-up with the pt tomorrow, depending on status.
--- NOTE | 2021-05-18 19:05 | PC.NURSE ---
Received report from rob GOODWIN. Patient is restless and agitated. He is requesting more medication to help him relax. Precedex gtt increased per policy. Please see mar for details. Patient is on the bipap at 100%. SpO2 remains between 85-92%. [place] catheter in place and draining well. Will monitor the patient closely.
--- NOTE | 2021-05-18 19:21 | PM.PN ---
Subjective Subjective: Interval history: This morning reports he is doing so-so, gesturing by waving his hand in the air. Denies chest pain or pressure, no changes with no headache, no nausea vomiting or diarrhea. When asked about his breathing also gestures so-so while on BiPAP. Asking to switch over to nasal cannula. Discussed with him to see if he reconsiders regarding intubation and mechanical ventilatory support given poor respiratory status, he adamantly states no intubation. Requests to switch to nasal cannula. Discussed with him that it is not likely to be adequately providing him with oxygen, but we may try likely with nonrebreather on top. Vitals/I&O/Wt Last Vital Signs Temp 98 F 05/18/21 14:00 Pulse 88 05/18/21 18:00 Resp 21 H 05/18/21 18:00 BP 100/55 05/18/21 18:00 Pulse Ox 91 05/18/21 18:00 05/18/21 05/18/21 05/18/21 06:59 14:59 22:59 Intake Total 250 / 1746.331 450 / 450 50 / 500 Output Total 600 / 1200 450 / 450 Balance -350 / 546.331 450 / 450 -400 / 50 Weight last 48 hrs Weight 119.862 kg Weight 119.408 kg Physical Exam Narrative: EXAM NARRATIVE: Reclined in bed. Const: COMMON NORMALS: no acute distress and patient oriented x3 HENMT: COMMON NORMALS: oropharynx normal Neck/C-Spine: COMMON NORMALS: no JVD Resp: COMMON NORMALS: normal respiratory effort and clear to auscultation bilaterally AUSCULTATION: clear to auscultation bilaterally Cardio: COMMON NORMALS: no JVD, S1 normal heart sound present, S2 normal heart sound present and No murmurs present (Cardio) RATE: tachycardic RHYTHM: abnormal rhythm irregularly irregular HEART SOUNDS: S1 normal heart sound present and S2 normal heart sound present GI: COMMON NORMALS: Normal to inspection, nondistended, normoactive bowel sounds present, Soft to palpation and non-tender PALPATION: Yes Soft to palpation Extremity: COMMON NORMALS: no joint enlargement and no pedal edema Neuro: COMMON NORMALS: patient oriented x3 and moves all extremities Skin: COMMON NORMALS: no rashes or lesions noted GENERAL SKIN EXAM: no rashes or lesions noted Urinary Catheter Management^: [place]: Cath Placed During This Visit: yes Reason for Continuing Indwelling Catheter: Accurate Measurement of Urinary Output in Critically Ill Patients Urinary Catheter Date of Insertion: 05/11/21 Urinary Catheter Time of Insertion: 13:39 Data : 05/18/21 03:28 05/18/21 03:28 Micro: Microbiology 05/16/21 12:15 Gram Stain - Final Sputum - Expectorated Sputum Sputum Culture - Final A&P Assessment and plan (1) Respiratory failure with hypoxia: Continue oxygen support to the extent as he will permit in accordance with his goals of care. Continues to decline escalation to mechanical ventilatory support. Continue BiPAP support, brief trial of nasal cannula with nonrebreather, but switched back to BiPAP. Completed Levaquin course. Extended antibiotic course with Zosyn. MRSA PCR negative. ST evaluation has been requested. Diet downgraded to dysphagia in case additional aspiration as cannot be reliably assessed due to level of hypoxia. Cough with or without food, would benefit from assessment by FEES or MBS once able. D-dimer decreasing from over 20 on 05/15, today down further. Continue therapeutic anticoagulation with Lovenox. No DVT noted on lower extremity duplex. Continue Decadron. Precedex drip for anxiety. Completed remdesivir. Continue supportive care, assistance with clearing secretions. Completed 5 days of empiric Levaquin. Flonase for postnasal drip. Received Actemra Status: Acute (2) Paroxysmal atrial fibrillation with RVR: With improvement. Received digoxin IV yesterday. This morning the dose 0.7. Will give 0.125 IV. Once little bit easier to take oral medications, continue on oral maintenance dose. Continue anticoagulation. Telemetry monitoring. Status: Acute (3) COVID-19: Status: Acute (4) Transaminitis: Secondary to COVID-19, monitor CMP. Improving. Status: Acute (5) Hypertension: Status: Chronic (6) CAD (coronary artery disease): Status: Chronic Qualifiers: Associated angina: unspecified whether angina present Coronary Disease-Associated Artery/Lesion type: [place] artery [place] vs. transplanted heart: [place] heart Qualified Code(s): I25.10 - Atherosclerotic heart disease of [place] coronary artery without angina pectoris Additional A&P Information D-dimer elevated. As above. With improvement. Hypertension: Started on metoprolol for atrial fibrillation as above. History of CAD: Aspirin 81 mg daily, A1c 6.4. Lipid panel appreciated. Full code. Severely guarded prognosis Attestations Medical Necessity Statement*: Continue care for hypoxic respiratory failure with severe COVID-19. Coding Level of Care Code Acute Feed Grinder for Chg Fwd Exam Comprehensive Diagnoses Respiratory failure with hypoxia J96.91 Paroxysmal atrial fibrillation with RVR I48.0 COVID-19 U07.1 Transaminitis R74.01 Hypertension I10 CAD (coronary artery disease) I25.10 Associated angina: unspecified whether angina present Coronary Disease-Associated Artery/Lesion type: [place] artery [place] vs. transplanted heart: [place] heart
[2021-05-18] MEDS: LORazepam 2 mg/mL INJ 1 mL 0.5 MG IVP (22:59)
[2021-05-18] MEDS: dexmedeTOMIDine 0.9 % NaCL 400 MCG/100 ML PREMIX 29.85 MCG IV (23:57)
[2021-05-19] VITALS (68 sets, daily range): BP systolic 74–127; BP diastolic 57–85; PULSE 75–159; RESP 16–38; TEMP 35.9–37.3; O2SAT 78–99; BMI 35.8
[2021-05-19] MEDS: famotidine 20 mg/2 mL INJ IVP ×2 (02:54→12:36)
[2021-05-19] MEDS: guaiFENesin-codeine UDC 10 mL PO ×5 (02:54→22:50)
[2021-05-19] MEDS: dexmedeTOMIDine 0.9 % NaCL 400 MCG/100 ML PREMIX 35.82 MCG IV ×3 (02:54→09:02)
[2021-05-19] MEDS: ipratropium-albuterol 3 mL Neb INHALATION ×6 (03:03→23:41)
[2021-05-19 05:22] LABS: Basophils % 0.2 %; Eosinophils # 0.5 10^3/uL (0.0-0.8); Eosinophils % 2.7 %; Hematocrit 47.7 % (42.0-52.0); Hemoglobin 15.9 g/dL (11.7-16.6); Lymphocytes # 0.6 10^3/uL (0.8-4.8); Lymphocytes % 3.5 %; Mean Corpuscular HGB Conc 33.3 g/dL (30.0-36.0); Mean Corpuscular Hemoglobin 28.9 pg (28.0-34.0); Mean Corpuscular Volume 86.7 fl (80-94); Mean Platelet Volume 9.5 fL (7.4-10.4); Monocytes # 0.6 10^3/uL (0.2-0.9); Monocytes % 3.1 %; Neutrophils # 16.09 10^3/uL (1.8-7.7); Neutrophils % 88.8 %; Nucleated Red Blood Cells % 0 %; Platelet Count 349 10^3/cmm (130-400); White Blood Count 18.1 10^3/uL (4.0-10.0)
[2021-05-19 05:37] LABS: Alanine Aminotransferase 60 U/L (0-41); Alkaline Phosphatase 174 IU/L (40-130); Anion Gap 15.6 (5-19); Aspartate Amino Transferase 76 U/L (0-40); Blood Urea Nitrogen 14 mg/dL (6-20); Calcium 7.6 mg/dL (8.5-10.5); Carbon Dioxide 25 mmol/L (22-29); Chloride 98 mmol/L (98-107); Globulin 2.3 g/dL (1.3-4.6); Glucose 110 mg/dL (65-115); Osmolality Calculated 279 mOsm/kg (285-295); Potassium 4.6 mmol/L (3.5-5.1); Sodium 134 mmol/L (136-145); Total Bilirubin 0.7 mg/dL (0.15-1.2); Total Protein 5.3 g/dL (6.6-8.7)
[2021-05-19 05:47] LABS: ABG PCO2 35.9 mmHg (35-45); ABG PH Result 7.49 (7.35-7.45); Arterial Blood Gas Hematocrit 48.4 % (42-52); Base Excess ABG 3.9 mmol/L (-2.0-2.0); Blood Gas Allen Test Pos; Blood Gas Sample Site Radial, right; Blood Gas Sample Type Arterial; HCO3 ABG 27.2 mmol/L (22-26); Oxygen Device BIPAP; PO2 ABG 46.3 mmHg (80.0-100.0)
[2021-05-19] MEDS: piperacillin-tazobactam 3.375 GM in sodium chloride 0.9% (plus) 50 ML IV ×3 (05:56→20:34)
--- NOTE | 2021-05-19 06:52 | PC.NURSE ---
Shift Note Patient has remained anxious and agitated throughout the night. Patient pulled of his bipap mask multiple times and his SpO2 quickly dropped into the low 70's each time. Once bipap was reapplied, the patient would take several minutes to recover. When wearing his bipap, his SpO2 would remain 85-88%. At this time, patient is resting on his L side and denies any pain, needs, or requests.
[2021-05-19] MEDS: budesonide 0.5 mg/2 mL Neb INHALATION ×2 (08:00→20:01)
[2021-05-19] MEDS: morphine 4 mg/mL SDV 1 mL 2 MG IVP (08:14)
--- NOTE | 2021-05-19 09:08 | PC.NURSE ---
Mother called per patient's request. Dr. Tillman preparing to intubate patient. Visitors allowed due to critical condition.
[2021-05-19] MEDS: enoxaparin 120 mg/0.8 mL Syringe SUBCUT ×2 (09:32→20:33)
[2021-05-19] MEDS: rocuronium 10 mg/mL INJ 5mL 100 MG IVP ×2 (10:36→12:08)
[2021-05-19] MEDS: propofol 1,000 MG/100 ML INJ 14.33 MG IV (10:37)
--- NOTE | 2021-05-19 10:57 | XRR_ITS ---
PROCEDURE INFORMATION: Exam: XR Chest Exam date and time: 05/19/2021 10:57 AM Age: 50 years old Clinical indication: Device placement; Other: Central line placement on RT side TECHNIQUE: Imaging protocol: XR of the chest. Views: 1 view. COMPARISON: CR XR chest 1V portable [id number] 05/16/2021 4:46 AM FINDINGS: Tubes, catheters and devices: Tip of the ET tube projects 5.6 cm superior to the regina. Right jugular approach central venous catheter tip projects over the superior vena cava. G-tube partially visualized. Lungs: Diffuse bilateral airspace opacities are similar to the prior study. Pleural spaces: Costophrenic angles are obscured and pleural effusions cannot be excluded. Heart/Mediastinum: Unremarkable. No cardiomegaly. Bones/joints: Unremarkable. XR/XR chest 1V portable [id number] IMPRESSION: 1. Right jugular approach central venous catheter tip projects over the superior vena cava. 2. Diffuse bilateral airspace opacities are similar to the prior study.
--- NOTE | 2021-05-19 11:04 | P.PN_ITS ---
Subjective Subjective: Interval history: -Seen patient multiple times at bedside today -No change in clinical status-PaO2 on ABG is down to 52 and he still on 100% FiO2 on BiPAP 22/10 -He understands the next step is intubation and mechanical ventilation and agrees to that but he wanted to talk to his parents; his parents came to bedside in the next couple of hours and we all had extensive discussion about the risks of intubation and agreed to proceed -Subsequently patient was intubated, sedated and mechanically ventilated -Left internal jugular line was placed -Plan is to sedated, paralyzed and prone the patient Medications: Reviewed: Yes Vitals/I&O/Wt Last Vital Signs Temp 99.1 F 05/18/21 20:00 Pulse 99 05/19/21 09:17 Resp 36 H 05/19/21 09:14 BP 111/71 05/19/21 08:00 Pulse Ox 89 L 05/19/21 09:16 05/18/21 05/19/21 05/19/21 22:59 06:59 14:59 Intake Total 690.853 / 1140.853 769.147 / 1910.000 100 / 100 Output Total 500 / 500 550 / 1050 Balance 190.853 / 640.853 219.147 / 860.000 100 / 100 Weight last 48 hrs Weight 264 lb 4.007 oz Weight 264 lb 4.007 oz Physical Exam Narrative: EXAM NARRATIVE: PHYSICAL EXAM: General: lying in bed, sedated and intubated. HEENT:NCAT, PERRLA, EOMI Neck: Supple Lungs: Very very minimal crepitations, bilateral air entry present Heart: s1/s2, RRR Abd: soft, NT, ND, BS + Normoactive Extremities: No edema PULP AND PAPER TESTER: sedated and limited PULP AND PAPER TESTER exam possible. SKIN: no rash LDA: # CVC: Left internal jugular 05/19/2021 Urinary Catheter Management^: [place]: Cath Placed During This Visit: yes Reason for Continuing Indwelling Catheter: Accurate Measurement of Urinary Output in Critically Ill Patients Urinary Catheter Date of Insertion: 05/11/21 Urinary Catheter Time of Insertion: 13:39 Data : 05/19/21 04:45 05/19/21 04:45 Other Labs: Radiology Impressions Chest X-Ray 05/16/21 04:00 Impression: No change in patchy bilateral pulmonary opacities consistent with pneumonia. Laboratory Results WBC 18.1 10^3/uL (4.0-10.0) H 05/19/21 04:45 RBC 5.50 10^6/uL (4.1-5.3) H 05/19/21 04:45 Hgb 15.9 g/dL (11.7-16.6) 05/19/21 04:45 Hct 47.7 % (42.0-52.0) 05/19/21 04:45 MCV 86.7 fl (80-94) 05/19/21 04:45 MCH 28.9 pg (28.0-34.0) 05/19/21 04:45 MCHC 33.3 g/dL (30.0-36.0) 05/19/21 04:45 RDW 13.0 % (12.1-15.1) 05/19/21 04:45 Plt Count 349 10^3/cmm (130-400) 05/19/21 04:45 MPV 9.5 fL (7.4-10.4) 05/19/21 04:45 Neut % (Auto) 88.8 % 05/19/21 04:45 Lymph % (Auto) 3.5 % 05/19/21 04:45 [place] % (Auto) 3.1 % 05/19/21 04:45 Eos % (Auto) 2.7 % 05/19/21 04:45 Baso % (Auto) 0.2 % 05/19/21 04:45 Neut # (Auto) 16.09 10^3/uL (1.8-7.7) H 05/19/21 04:45 Lymph # (Auto) 0.6 10^3/uL (0.8-4.8) L 05/19/21 04:45 [place] # (Auto) 0.6 10^3/uL (0.2-0.9) 05/19/21 04:45 Eos # (Auto) 0.5 10^3/uL (0.0-0.8) 05/19/21 04:45 Baso # (Auto) 0.0 10^3/uL (0.0-0.1) 05/19/21 04:45 Nucleated RBC % (auto) 0 % 05/19/21 04:45 Total Counted 100 (0-100) 05/14/21 02:58 Atypical Lymphs % 2.0 % (0-5) 05/14/21 02:58 Segmented Neutrophils 81 % 05/14/21 02:58 Band Neutrophils 1.0 % 05/14/21 02:58 Lymphocytes (Manual) 7 % 05/14/21 02:58 Monocytes (Manual) 9.0 % 05/14/21 02:58 Eosinophils (Manual) 0 % 05/14/21 02:58 Basophils (Manual) 0.0 % 05/14/21 02:58 Nucleated RBCs Ledger Poster 05/14/21 02:58 Nucleated RBCs # 0.0 /100WBC 05/19/21 04:45 Platelet Estimate Normal (Normal) 05/14/21 02:58 ESR 29 mm/hr (0-10) H 05/11/21 10:00 D-Dimer 6.22 ug/mIFEU (0-0.59) H 05/18/21 03:28 Specimen Type Arterial 05/19/21 04:00 Sample Site Radial, right 05/19/21 04:00 ABG pH 7.49 (7.35-7.45) H 05/19/21 04:00 ABG pCO2 35.9 mmHg (35-45) 05/19/21 04:00 ABG pO2 46.3 mmHg (80.0-100.0) L 05/19/21 04:00 ABG HCO3 27.2 mmol/L (22-26) H 05/19/21 04:00 ABG O2 Saturation 95.0 05/18/21 09:17 ABG Base Excess 3.9 mmol/L (-2.0-2.0) H 05/19/21 04:00 Maurice Test Pos 05/19/21 04:00 A-a O2 Gradient 77.2 mmHg (5-10) H 05/18/21 09:17 Hematocrit 48.4 % (42-52) 05/19/21 04:00 Hgb O2 Saturation 93.9 % (95-100) L 05/18/21 09:17 Carboxyhemoglobin 0.4 %THgb (0.4-20.1) 05/18/21 09:17 Methemoglobin 0.8 % (0.4-1.5) 05/18/21 09:17 Total Hemoglobin 16.1 g/dL (14-18) 05/18/21 09:17 Sodium 134.0 mmol/L (131-143) 05/18/21 09:17 Potassium 4.2 mmol/L (3.5-5.0) 05/18/21 09:17 Glucose 123.0 mg/dL (70-115) H 05/18/21 09:17 Ionized Calcium 1.1 mmol/L (1.1-1.4) 05/18/21 09:17 O2 Delivery Device Bipap 05/19/21 04:00 O2 Liters/Min 50.0 % 05/16/21 04:40 FiO2 100.0 % 05/19/21 04:00 Architectural Examiner ID [email or web address] 05/19/21 04:00 Sodium 134 mmol/L (136-145) L 05/19/21 04:45 Potassium 4.6 mmol/L (3.5-5.1) 05/19/21 04:45 Chloride 98 mmol/L (98-107) 05/19/21 04:45 Carbon Dioxide 25 mmol/L (22-29) 05/19/21 04:45 Anion Gap 15.6 (5-19) 05/19/21 04:45 BUN 14 mg/dL (6-20) 05/19/21 04:45 Creatinine 0.6 mg/dL (0.7-1.2) L 05/19/21 04:45 GFR Calculation 142.0 mL/min (90-130) H 05/19/21 04:45 Glucose 110 mg/dL (65-115) 05/19/21 04:45 POC Glucose 191 mg/dL (70-110) H 05/14/21 18:09 Estimat Average Glucose 137 05/12/21 06:07 Hemoglobin A1c 6.4 % (4.0-6.0) H 05/12/21 06:07 Calculated Osmolality 279 mOsm/kg (285-295) L 05/19/21 04:45 Lactic Acid 1.3 mmol/L (0.5-2.2) 05/11/21 10:00 Calcium 7.6 mg/dL (8.5-10.5) L 05/19/21 04:45 Magnesium 2.1 mg/dL (1.7-2.3) 05/15/21 04:18 Iron 31 ug/dL (59-158) L 05/11/21 10:00 TIBC 156 mcg/dl 05/11/21 10:00 % Saturation 19.8 % (20-50) L 05/11/21 10:00 Unsat Iron Binding 125 ug/dL (112-347) 05/11/21 10:00 Total Bilirubin 0.7 mg/dL (0.15-1.2) 05/19/21 04:45 AST 76 U/L (0-40) H 05/19/21 04:45 ALT 60 U/L (0-41) H 05/19/21 04:45 Alkaline Phosphatase 174 IU/L (40-130) H 05/19/21 04:45 C-Reactive Protein 24.3 mg/L (0.0-4.9) H 05/14/21 02:58 NT-Pro-B Natriuret Pep 264 pg/mL (0-125) H 05/11/21 10:00 Total Protein 5.3 g/dL (6.6-8.7) L 05/19/21 04:45 Albumin 3.0 g/dL (3.5-5.2) L 05/19/21 04:45 Globulin 2.3 g/dL (1.3-4.6) 05/19/21 04:45 Triglycerides 82 mg/dL (0-150) 05/12/21 06:07 Cholesterol 130 mg/dL (0-200) 05/12/21 06:07 LDL Cholesterol, Calc 79 mg/dL (50-129) 05/12/21 06:07 Total VLDL Cholesterol 16 mg/dL (0-30) 05/12/21 06:07 HDL Cholesterol 35 mg/dL (60-100) L 05/12/21 06:07 Cholesterol/HDL Ratio 3.71 mg/dL (1.0-5.00) 05/12/21 06:07 Procalcitonin 0.21 ng/mL (0-0.5) 05/11/21 10:00 Procalcitonin 0.21 ng/mL (0-0.5) 05/11/21 10:00 TSH 2.08 uIU/mL (0.27-4.20) 05/11/21 10:00 Urine Color Yellow (Yellow) 05/11/21 12:11 Urine Appearance Clear (CLEAR) 05/11/21 12:11 Urine pH 6 (5-7) 05/11/21 12:11 Ur Specific [place] 1.010 (1.005-1.030) 05/11/21 12:11 Urine Protein 1+ (Negative) H 05/11/21 12:11 Urine Glucose (UA) Norm (Normal) 05/11/21 12:11 Urine Ketones 1+ (Negative) H 05/11/21 12:11 Urine Blood 3+ (Negative) H 05/11/21 12:11 Urine Nitrate Negative (Negative) 05/11/21 12:11 Urine Bilirubin Neg (Negative) 05/11/21 12:11 Urine Urobilinogen 1 mg/dL (Negative) H 05/11/21 12:11 Ur Leukocyte Esterase Negative (Negative) 05/11/21 12:11 Urine RBC None /hpf (0-2) 05/11/21 12:11 Urine WBC Rare /hpf (0-5) 05/11/21 12:11 Ur Squamous Epith Cells Rare /hpf (0-5) 05/11/21 12:11 Amorphous Sediment Not Reportable 05/11/21 12:11 Urine Bacteria Trace /hpf (NONE) 05/11/21 12:11 Ur Random Sodium < 10 mmol/L 05/11/21 12:11 Ur Random Potassium 18 mmol/L 05/11/21 12:11 Ur Random Chloride < 10 mmol/L 05/11/21 12:11 Digoxin 0.7 ng/mL (0.6-1.2) 05/17/21 05:04 SARS-CoV-2 Ag (Rapid) Positive (Negative) H 05/11/21 10:36 Micro: Microbiology 05/16/21 12:15 Gram Stain - Final Sputum - Expectorated Sputum Sputum Culture - Final A&P Assessment and plan (1) Acute respiratory failure with hypoxia: Status: Acute (2) Acute respiratory distress syndrome (ARDS) due to 2019 novel coronavirus: Status: Acute (3) Paroxysmal atrial fibrillation with RVR: Status: Acute (4) Transaminitis: Status: Acute (5) CAD (coronary artery disease): Status: Chronic Qualifiers: Associated angina: unspecified whether angina present Coronary Disease- Associated Artery/Lesion type: [place] artery [place] vs. transplanted heart: [place] heart Qualified Code(s): I25.10 - Atherosclerotic heart disease of [place] coronary artery without angina pectoris #Acute hypoxic respiratory failure secondary to ARDS due to COVID-19 pneumonia-intubated 05/19/2021 #A. fib RVR-given 1 dose of amiodarone 150 mg #Deranged LFTs-secondary to COVID-19 pneumonitis -Admitted 05/11/2021, COVID-19 positive test 05/11/2021 -ABG 7.49/35/46/27/88% on BiPAP 14/6 100%-saturating 88% -intubated today 05/19/2021-currently on CMV 500/100%/18 PEEP-saturating 85% -We will obtain chest x-ray to confirm position -We will continue sedation with fentanyl, propofol, Versed and paralyzed with Nimbex and prone -Follow ARDS lung protective strategies-low tidal volume and high PEEP -As saturation improves-slowly taper down PEEP -Completed 5-day remdesivir, currently on dexamethasone 6 mg IV daily -So far blood cultures, urine Legionella, urine bacterial antigens-are negative -Completed 5-day course of Levaquin-currently on Zosyn for persistent leukocytosis and tenacious secretions -Mucinex p.o. twice daily for thick secretions and Robitussin every 4 hours for cough -MRSA PCR negative -Lower extremity Doppler negative for DVT but with significantly elevated D-dimers-on therapeutic Lovenox -Currently on Metoprolol 75 Mg p.o. twice daily for hypertension and Paroxysmal A. fib RVR - s/p 1 dose amiodarone 150 mg bolus -Echo 05/11/2021: Normal LV size and systolic function with EF 69%. Mild LVH. Small pericardial effusion. -MiraLAX for bowel regimen;- -hold feeding for today -Deranged LFTs-secondary to COVID-19 pneumonitis-monitor -Last 24 hours -860cc And since admission -7 L-We will try to keep negative to even -Sugars well controlled -DVT prophylaxis: Lovenox -Prognosis guarded -Family updated-patient wants his mom and ex- to make decisions for him Patient's mom and father at bedside and everything explained in detail to them. They verbalized understanding and agreed with the plan of care. Recommendations conveyed to hospitalist, RT, RN taking care of the patient Attestations Medical Necessity Statement*: Continue admission for assessment of management of hypoxic respite failure and severe COVID-19. Currently intubated currently intubated and mechanically ventilated Critical Care Time: The high probability of a clinically significant, sudden or life threatening deterioration of the patient's worsening respiratory failure, respiratory system(s) required my full and direct attention, intervention and personal management. The critical care time is as shown. This time is in addition to time spent performing any reported procedures but includes the following: x Data and vital sign review and interpretation x Patient assessment, examination and intervention x Documentation x Medication orders and management Critical Care Time (min): 96 Coding Level of Care Code Established Pt Acute Microbiological Laboratory Technician for Chg Fwd Patient Type Established Medical Decision Making High Complexity Diagnoses Acute respiratory failure with hypoxia J96.01 Acute respiratory distress syndrome (ARDS) due to 2019 novel coronavirus U07.1; J80 Paroxysmal atrial fibrillation with RVR I48.0 Transaminitis R74.01 CAD (coronary artery disease) I25.10 Associated angina: unspecified whether angina present Coronary Disease-Associated Artery/Lesion type: [place] artery [place] vs. transplanted heart: [place] heart Time Spent (min) 96
--- NOTE | 2021-05-19 11:15 | P.PCN_ITS ---
Procedure/Consent Time out: Time Out Performed: Yes Consent: Consent for Procedure: Consent obtained from other (indicate) (Verbal consent from kin), Emergency procedure, Risks & Benefits reviewed and Agrees to proceed with procedure Procedure Narrative: Procedure time: 10:45 AM Procedure: Ultrasound-guided identification of the left internal jugular vein and placement of Central venous line Indication: Multiple medications including paralytics as patient is intubated and plan is to prone for acute hypoxemic respiratory failure Asbestos Pipe Supervisor(s): Kj Mckinnon MD Consent: Emergent Yes Time out called. [place] precautions applied. Site: Left internal jugular vein Catheter:7 Fr 20cm, Triple Lumen Sutured at: 20 cm Anesthesia: Patient already sedated with fentanyl 100 MCG/hour, propofol gtt. and Versed Description: Area prepped with chlorhexidine and draped in a universal sterile manner. The vessel anatomy and patency was examined by ultrasound probe which was covered with sterile probe cover. The needle was inserted into the vessel under ultrasound guidance, after venous blood aspirated the guidewire was inserted through the needle and kept in situ while the needle was removed. Placement of guidewire in the vein and in relation to the adjacent artery was verified by ultrasound. Catheter was then advanced over the guidewire after dilation and guidewire successfully removed.The catheter was sutured to the skin and sterile dressing with chlorhexidine patch placed. Number of attempts:1 Dilator applied: 1, number of Dilations: 1 Placement Verified by: Blood draw from all ports and Ultrasound exam and Chest Xray EBL: 5-10 cc Immediate complications: None Ultrasound guidance used: Yes. Acute Procedures Epistaxis Control: Time out performed: Yes
--- NOTE | 2021-05-19 11:15 | PM.ACPR ---
Procedure/Consent Time out: Time Out Performed: Yes Consent: Consent for Procedure: Consent obtained from patient, Consent obtained from other (indicate), Emergency procedure and Risks & Benefits reviewed Procedure Narrative: Endotracheal Intubation Procedure Note Indication for endotracheal intubation: Acute hypoxic respiratory failure secondary to ARDS due to COVID-19 pneumonia Time of the procedure: 1030 AM Consent: There was not time to obtain consent. The patient was in immediate danger, and required the procedure emergently. Sedation: Fentanyl 50 mcg , Etomidate 20 mg Paralytic: Rocuronium 100 mg Equipment: Glidoscope blade 3 View: Grade 1 Cricoid Pressure: No Number of attempts: 1 ETT location confirmed by direct visulization, ET fogging, Capnometer, bilateral breath sounds, Chest x ray Kj DatarMD Pulm/Critical Care Medicine Acute Procedures Epistaxis Control: Time out performed: Yes
--- NOTE | 2021-05-19 11:58 | PM.ACPR ---
Procedure/Consent Time out: Time Out Performed: Yes Consent: Consent for Procedure: Consent obtained from other (indicate) (Verbal consent from mother), Emergency procedure, Risks & Benefits reviewed and Agrees to proceed with procedure Procedure Narrative: Procedure time: 11:15 AM Procedure: Ultrasound-guided identification of the right internal jugular vein and placement of Central venous line Indication: Multiple medications including paralytics as patient is intubated and plan is to prone for acute hypoxemic respiratory failure; earlier left internal jugular was placed using Seldinger technique, confirmed with blood draw from all ports and Ultrasound exam-but chest x-ray showed distal tip of catheter curled at the junction of left internal jugular and innominate vein. so decided to place right Internal jugular CVC and remove left IJ line. Heating Fixture Tender(s): Kj Mckinnon MD Consent: Emergent Yes Time out called. [place] precautions applied. Site: right internal jugular vein Catheter:7 Fr 20cm, Triple Lumen Sutured at: 18 cm Anesthesia: 5 cc 1% lidocaine without epinephrine Description: Area prepped with chlorhexidine and draped in a universal sterile manner. The vessel anatomy and patency was examined by ultrasound probe which was covered with sterile probe cover. The needle was inserted into the vessel under ultrasound guidance, after venous blood aspirated the guidewire was inserted through the needle and kept in situ while the needle was removed. Placement of guidewire in the vein and in relation to the adjacent artery was verified by ultrasound. Catheter was then advanced over the guidewire after dilation and guidewire successfully removed.The catheter was sutured to the skin and sterile dressing with chlorhexidine patch placed. Number of attempts:1 Dilator applied: 1, number of Dilations: 1 Placement Verified by: Blood draw from all ports and Ultrasound exam and Chest Xray EBL: 5-10 cc Complications: None Ultrasound guidance used: Yes. Informed RN to use Right Internal Jugular Central line and remove Left internal Jugular line Acute Procedures Epistaxis Control: Time out performed: Yes
[2021-05-19] MEDS: cisatracurium 100 MG in sodium chloride 0.9% 50 ML IV (12:24)
[2021-05-19] MEDS: dexamethasone 4 mg/mL INJ 6 MG IVP (12:36)
[2021-05-19] MEDS: metoprolol tartrate 25 mg Tablet PO (12:36)
--- NOTE | 2021-05-19 13:02 | P.PN_ITS ---
Subjective Subjective: Interval history: Oxygenation low to high 80s, occasionally decreasing to 70s with BiPAP dependence, on additional discussion with him and family, and him discussing with his family, he requested to proceed with intubation, mechanical ventilatory support given continued deterioration in respiratory status. Discussed again risks of intubation, mechanical ventilation, with his mother and father, all questions answered. He names his mother or ex-, both as surrogate decision makers while he is unable to make decisions for himself. Vitals/I&O/Wt Last Vital Signs Temp 99.1 F 05/18/21 20:00 Pulse 153 H 05/19/21 12:30 Resp 20 H 05/19/21 12:30 BP 91/67 05/19/21 12:30 Pulse Ox 82 L 05/19/21 12:30 05/18/21 05/19/21 05/19/21 22:59 06:59 14:59 Intake Total 690.853 / 1140.853 769.147 / 1910.000 315.417 / 315.417 Output Total 500 / 500 550 / 1050 Balance 190.853 / 640.853 219.147 / 860.000 315.417 / 315.417 Weight last 48 hrs Weight 119.862 kg Weight 119.862 kg Physical Exam Narrative: EXAM NARRATIVE: Reclined in bed. Const: COMMON NORMALS: no acute distress and patient oriented x3 GENERAL APPEARANCE: ill appearing HENMT: COMMON NORMALS: oropharynx normal Neck/C-Spine: COMMON NORMALS: no JVD Resp: COMMON NORMALS: normal respiratory effort and clear to auscultation bilaterally AUSCULTATION: clear to auscultation bilaterally Cardio: COMMON NORMALS: no JVD, S1 normal heart sound present, S2 normal heart sound present and No murmurs present (Cardio) RATE: tachycardic RHYTHM: abnormal rhythm irregularly irregular HEART SOUNDS: S1 normal heart sound present and S2 normal heart sound present GI: COMMON NORMALS: Normal to inspection, nondistended, normoactive bowel sounds present, Soft to palpation and non-tender PALPATION: Yes Soft to palpation Extremity: COMMON NORMALS: no joint enlargement and no pedal edema Neuro: COMMON NORMALS: patient oriented x3 and moves all extremities Skin: COMMON NORMALS: no rashes or lesions noted GENERAL SKIN EXAM: no rashes or lesions noted Urinary Catheter Management^: [place]: Cath Placed During This Visit: yes Reason for Continuing Indwelling Catheter: Accurate Measurement of Urinary Output in Critically Ill Patients Urinary Catheter Date of Insertion: 05/11/21 Urinary Catheter Time of Insertion: 13:39 Data : 05/19/21 04:45 05/19/21 04:45 Micro: Microbiology 05/16/21 12:15 Gram Stain - Final Sputum - Expectorated Sputum Sputum Culture - Final A&P Assessment and plan (1) Respiratory failure with hypoxia: Progressive respiratory failure, worsening oxygenation, even with BiPAP therapy. After extensive discussion with pulmonology, with his family he has agreed to proceed with intubation, mechanical ventilation given continually worsening condition. Today intubated, sedated, proceeding with paralysis, proning. Received right IJ CVC. Completed Levaquin course. Extended antibiotic course with Zosyn. MRSA PCR negative. ST evaluation has been requested. Diet downgraded to dysphagia in case additional aspiration as cannot be reliably assessed due to level of hypoxia. Cough with or without food, would benefit from assessment by FEES or MBS once able. D-dimer decreasing from over 20 on 05/15, today down further. Continue therapeuti c anticoagulation with Lovenox. No DVT noted on lower extremity duplex. Continue Decadron. Precedex drip for anxiety. Completed remdesivir. Continue supportive care, assistance with clearing secretions. Completed 5 days of empiric Levaquin. Flonase for postnasal drip. Received Actemra Status: Acute (2) Paroxysmal atrial fibrillation with RVR: Received amio bolus. Continue metoprolol. If heart rate not controlled will give additional IV digoxin. Continue anticoagulation. Telemetry monitoring. Status: Acute (3) COVID-19: Status: Acute (4) Transaminitis: Secondary to COVID-19, monitor CMP. Improving. Status: Acute (5) Hypertension: Status: Chronic (6) CAD (coronary artery disease): Status: Chronic Qualifiers: Associated angina: unspecified whether angina present Coronary Disease- Associated Artery/Lesion type: [place] artery [place] vs. transplanted heart: [place] heart Qualified Code(s): I25.10 - Atherosclerotic heart disease of [place] coronary artery without angina pectoris Additional A&P Information D-dimer elevated. As above. With improvement. Hypertension History of CAD: Aspirin 81 mg daily, A1c 6.4. Lipid panel appreciated. Full code. Severely guarded prognosis Attestations Medical Necessity Statement*: Continue admission for hypoxic respiratory failure with severe COVID-19. Coding Level of Care Code Acute Lease Attendant for Chg Fwd Diagnoses Respiratory failure with hypoxia J96.91 Paroxysmal atrial fibrillation with RVR I48.0 COVID-19 U07.1 Transaminitis R74.01 Hypertension I10 CAD (coronary artery disease) I25.10 Associated angina: unspecified whether angina present Coronary Disease-Associated Artery/Lesion type: [place] artery [place] vs. transplanted heart: [place] heart
[2021-05-19 13:22] LABS: Base Excess ABG -3.6 mmol/L (-2.0-2.0); Blood Gas Allen Test Pos; Blood Gas Operator Identificat CAK; Blood Gas Sample Type Arterial; Carboxyhemoglobin 0.7 %THgb (0.4-20.1); Oxygen Device VENT
[2021-05-19] MEDS: digoxin 250 mcg/ml INJ 2 mL IVP (13:27)
[2021-05-19 13:41] LABS: Blood Gas Sample Site Radial, right
[2021-05-19 13:45] LABS: HCO3 ABG 26.8 mmol/L (22-26); Oxygen Saturation ABG 92.9; PO2 ABG 79.3 mmHg (80.0-100.0); Potassium Level - ABG 4.9 mmol/L (3.5-5.0)
[2021-05-19 13:46] LABS: Blood Gas Vent Mode CMV
[2021-05-19 13:47] LABS: Arterial Blood Gas Hematocrit 54.2 % (42-52)
[2021-05-19 13:48] LABS: Alveolar-Arterial Oxygen Gradi 549.2 mmHg (5-10); HGB O2 Sat 92.1 % (95-100); Methemoglobin 0.2 % (0.4-1.5); Total Hemoglobin 17.7 g/dL (14-18)
[2021-05-19] MEDS: propofol 1,000 MG/100 ML INJ 21.49 MG IV ×3 (14:21→23:09)
--- NOTE | 2021-05-19 15:37 | PC.NURSE ---
NSR 1504 Patient converted to NSR at 1504.
[2021-05-19 16:19] LABS: Alveolar-Arterial Oxygen Gradi 72.7 mmHg (5-10); Base Excess ABG -2.8 mmol/L (-2.0-2.0); Blood Gas Allen Test Pos; Blood Gas Operator Identificat CAK; Blood Gas Sample Site Radial, left; Blood Gas Sample Type Arterial; Blood Gas Tidal Volume 0.48; Carboxyhemoglobin 0.8 %THgb (0.4-20.1); HCO3 ABG 24.5 mmol/L (22-26); HGB O2 Sat 96.5 % (95-100); Ionized Calcium Level - ABG 1.1 mmol/L (1.1-1.4); Methemoglobin 0.5 % (0.4-1.5); Oxygen Device VENT; Oxygen Saturation ABG 97.8; Potassium Level - ABG 5.2 mmol/L (3.5-5.0); Total Hemoglobin 17.3 g/dL (14-18)
--- NOTE | 2021-05-19 17:30 | PC.NURSE ---
First proning session started at 1700. No complications.
[2021-05-19] MEDS: ferrous gluconate 324 mg Tablet PO (17:45)
[2021-05-19] MEDS: guaiFENesin 600 mg Tablet 1200 MG PO (17:45)
[2021-05-19] MEDS: ascorbic acid 500 mg Tablet PO (17:45)
[2021-05-19] MEDS: FUROsemide 10 mg/mL SDV 4mL 40 MG IVP (17:45)
[2021-05-19] MEDS: polyethylene glycol 3350 Pkt 17 gm PO (17:45)
[2021-05-20] VITALS (78 sets, daily range): BP systolic 89–135; BP diastolic 52–81; PULSE 67–84; RESP 16–30; TEMP 37–37.6; O2SAT 84–96; BMI 35.8
[2021-05-20] MEDS: famotidine 20 mg/2 mL INJ IVP ×2 (00:35→12:11)
[2021-05-20] MEDS: cisatracurium 100 MG in sodium chloride 0.9% 50 ML 7.19 MG IV (01:33)
[2021-05-20] MEDS: guaiFENesin-codeine UDC 10 mL PO ×4 (01:37→13:24)
[2021-05-20] MEDS: ipratropium-albuterol 3 mL Neb INHALATION ×5 (03:14→19:51)
[2021-05-20] MEDS: propofol 1,000 MG/100 ML INJ 21.49 MG IV ×3 (03:45→13:24)
[2021-05-20 04:17] LABS: ABG PCO2 52.1 mmHg (35-45); ABG PH Result 7.35 (7.35-7.45); Arterial Blood Gas Hematocrit 48.6 % (42-52); Base Excess ABG 1.8 mmol/L (-2.0-2.0); Blood Gas Allen Test Pos; Blood Gas Sample Site Radial, right; Blood Gas Sample Type Arterial; Blood Gas Tidal Volume 0.48; HCO3 ABG 28.7 mmol/L (22-26); Oxygen Device VENT; PO2 ABG 59.1 mmHg (80.0-100.0)
[2021-05-20] MEDS: piperacillin-tazobactam 3.375 GM in sodium chloride 0.9% (plus) 50 ML IV ×3 (05:21→20:46)
[2021-05-20 05:25] LABS: Basophils % 0.2 %; Eosinophils % 0.2 %; Hematocrit 46.3 % (42.0-52.0); Hemoglobin 15.3 g/dL (11.7-16.6); Lymphocytes # 0.6 10^3/uL (0.8-4.8); Lymphocytes % 3.3 %; Mean Corpuscular Hemoglobin 29.5 pg (28.0-34.0); Mean Corpuscular Volume 89.2 fl (80-94); Mean Platelet Volume 9.4 fL (7.4-10.4); Monocytes # 0.8 10^3/uL (0.2-0.9); Monocytes % 4.3 %; Neutrophils # 16.83 10^3/uL (1.8-7.7); Neutrophils % 90.6 %; Nucleated Red Blood Cells % 0 %; Platelet Count 316 10^3/cmm (130-400); Red Blood Count 5.19 10^6/uL (4.1-5.3); Red Cell Distribution Width 13.4 % (12.1-15.1); White Blood Count 18.6 10^3/uL (4.0-10.0)
[2021-05-20 05:35] LABS: D Dimer 3.94 ug/mIFEU (0-0.59)
[2021-05-20 05:47] LABS: Alanine Aminotransferase 56 U/L (0-41); Alkaline Phosphatase 159 IU/L (40-130); Anion Gap 19.5 (5-19); Aspartate Amino Transferase 58 U/L (0-40); Blood Urea Nitrogen 22 mg/dL (6-20); Calcium 8.4 mg/dL (8.5-10.5); Carbon Dioxide 24 mmol/L (22-29); Chloride 98 mmol/L (98-107); Globulin 2.7 g/dL (1.3-4.6); Glomerular Filtration Rate 101.9 mL/min (90-130); Glucose 127 mg/dL (65-115); Osmolality Calculated 289 mOsm/kg (285-295); Potassium 4.5 mmol/L (3.5-5.1); Sodium 137 mmol/L (136-145); Total Bilirubin 0.5 mg/dL (0.15-1.2); Total Protein 5.7 g/dL (6.6-8.7)
--- NOTE | 2021-05-20 06:00 | XR_ITS ---
WS: [id number] CHEST XRAY TECHNIQUE: Portable chest. CLINICAL INFORMATION: Hypoxia COMPARISON: May 19, 2021 FINDINGS: Endotracheal tube with tip 4.5 cm above the [place]. Right central venous catheter with tip in distal SVC. Enteric tube with tip below the diaphragm. Heart: Cardiomegaly. Lungs: Diffuse bilateral pulmonary infiltrates unchanged since May 19, 2021. Small bilateral pleu ral effusions. Bones: Normal visualized bony structures. XR/XR chest 1V portable [id number] IMPRESSION: 1. Diffuse bilateral pulmonary infiltrates unchanged since May 19, 2021. 2. Small bilateral pleural effusions.
--- NOTE | 2021-05-20 06:51 | PC.NURSE ---
Patient remained stable overnight. Increased some sedation and paralytic per patient condition and vent compliance. Weaned levo off. Urine output was 1050ml overnight, no bowel movement. Patient remained prone overnight with intermittent swimming/turning of the arms and head. Partial bath given on the backside.
[2021-05-20] MEDS: ferrous gluconate 324 mg Tablet PO ×2 (07:33→17:50)
[2021-05-20] MEDS: aspirin 81 mg Chew Tablet PO (07:34)
[2021-05-20] MEDS: ascorbic acid 500 mg Tablet PO ×2 (07:34→17:50)
[2021-05-20] MEDS: budesonide 0.5 mg/2 mL Neb INHALATION (08:47)
--- NOTE | 2021-05-20 09:30 | PC.CHAP ---
Pastoral Care Encounter/Spiritual Assessment Type of Contact [] Declined senior it recruiter visit [] Patient/Family/Request visit [] Outpatient visit [] Follow-up visit [] Physician referral [] Code/Alert [x] Routine visit [] Staff referral [] Actively dying [] Patient sleeping [] Family support [] [] Out of room [] Palliative care [] [] Receiving care in room [] Pre-surgical visit [] Trauma [] Long length of stay [x] ICU visit [x] Other: vent- on tummy... Relational/Emotional Strength [] Patient feels connected with others/family/visitors/staff [] Distress [] Loneliness/isolation [] Abandonment Spirituality of Patient [] Person of Jessica [] Attends Orthodoxy of their Jessica [] Believes in Prayer [] Reads Bible or Latter-Day materials [] There are Spiritual issues to be addressed Recep Interventions [x] Prayer [] Active listening [] Non-anxious presence [] Spiritual/emotional support [] Crisis/trauma care [] Spiritual counseling [] Bereavement support [] Provided bereavement packet [] Provided Bible/devotional materials [] Provided toy/stuffed animal, coloring book to patient or family member [] Provided Communion [] Anointing/[place] [] Salvation [x] Completed spiritual assessment [] Other: Impact on Illness or Injury [] Angry [] Fearful [] Anxious [] Often cries [] Exhaustion [] Unable to work [] Unable to attend orthodox [] Unable to walk/stand [] Unable to read [] Unable to drive [] Unable to eat/drink [] Unable to sleep [] Unable to be with family [] Patient intubated [] Other: Summary Time spent with patient
[2021-05-20 09:53] LABS: ABG PH Result 7.37 (7.35-7.45); Alveolar-Arterial Oxygen Gradi 45.2 mmHg (5-10); Base Excess ABG 3.2 mmol/L (-2.0-2.0); Blood Gas Allen Test Pos; Blood Gas Operator Identificat BD; Blood Gas Sample Site Radial, left; Blood Gas Sample Type Arterial; Blood Gas Tidal Volume 0.48; Carboxyhemoglobin 0.8 %THgb (0.4-20.1); HCO3 ABG 29.9 mmol/L (22-26); HGB O2 Sat 91.1 % (95-100); Ionized Calcium Level - ABG 1.2 mmol/L (1.1-1.4); Methemoglobin 0.4 % (0.4-1.5); Oxygen Device VENT; Oxygen Saturation ABG 92.2; PO2 ABG 62.6 mmHg (80.0-100.0); Potassium Level - ABG 4.1 mmol/L (3.5-5.0)
[2021-05-20] MEDS: zinc gluconate 50 mg Tablet PO (09:56)
[2021-05-20] MEDS: levoFLOXacin 500 mg Tablet PO (09:56)
[2021-05-20] MEDS: polyethylene glycol 3350 Pkt 17 gm PO ×2 (09:56→17:50)
[2021-05-20] MEDS: sennosides-docusate Tablet 1 TAB PO (09:56)
[2021-05-20] MEDS: enoxaparin 120 mg/0.8 mL Syringe SUBCUT ×2 (09:56→20:45)
[2021-05-20] MEDS: metoprolol tartrate 50 mg Tablet 75 MG PO (09:56)
[2021-05-20 10:21] LABS: NT Pro B Type Natriuretic Pept 567 pg/mL (0-125); Procalcitonin 0.31 ng/mL (0-0.5)
--- NOTE | 2021-05-20 11:22 | PC.NURSE ---
first round of proning complete. Patient supine at 1100.
[2021-05-20] MEDS: amiodarone 200 mg Tablet PO ×2 (12:11→17:50)
[2021-05-20] MEDS: dexamethasone 4 mg/mL INJ 6 MG IVP (12:11)
--- NOTE | 2021-05-20 15:35 | P.PN_ITS ---
Subjective Subjective: Interval history: The patient was seen and examined. The patient was on 65% oxygen when he was in prone position. Currently he is on 80% oxygen and in supine position. The patient had undergone 1 session of prone positioning so far. He was intubated yesterday. The patient is undergoing low tidal volume mechanical ventilation. Medications: Reviewed: Yes Vitals/I&O/Wt Last Vital Signs Temp 97.3 F L 05/19/21 23:00 Pulse 68 05/20/21 13:00 Resp 24 H 05/20/21 13:00 BP 96/60 05/20/21 13:00 Pulse Ox 90 05/20/21 13:00 05/20/21 05/20/21 05/20/21 06:59 14:59 22:59 Intake Total 554.860 / 1676.343 681.173 / 681.173 97.167 / 778.340 Output Total 600 / 1750 Balance -45.140 / -73.657 681.173 / 681.173 97.167 / 778.340 Weight last 48 hrs Weight 264 lb 4.007 oz Weight 264 lb 4.007 oz Physical Exam Narrative: EXAM NARRATIVE: General: Patient is intubated and sedated Respiratory: Auscultation: Crackles at bilateral lung bases, no wheezing or rhonchi Cardiovascular: Regular rate and rhythm, S1-S2 present, no murmur, no peripheral edema. Abdomen: Soft, distended from obesity, positive bowel sound Skin: No rash Neuro: Unable to assess Urinary Catheter Management^: [place]: Cath Placed During This Visit: yes Reason for Continuing Indwelling Catheter: Accurate Measurement of Urinary Output in Critically Ill Patients Urinary Catheter Date of Insertion: 05/11/21 Urinary Catheter Time of Insertion: 13:39 Data : 05/20/21 04:59 05/20/21 04:59 Micro: Microbiology 05/19/21 12:03 Gram Stain - Final Sputum - Endotracheal Tube Aspirate Sputum Culture - Preliminary Attestation for Other Data: I personally reviewed and interpreted the following: Other data: I have reviewed the patient's laboratory, microbiologic and radiologic data A&P Assessment and plan (1) Acute respiratory distress syndrome (ARDS) due to 2019 novel coronavirus: This is a 50-year-old gentleman severe COVID-19. Patient is intubated, sedated and was paralyzed yesterday for prone positioning. His oxygen requirement was 65% when he was in prone position, currently in supine position he is on 80% oxygen. His oxygenation is acceptable. The goal PO2 is 60-90. The pH is also acceptable. As long as the PCO2 remains below 60 that will be optimal. We will adjust the PEEP if the patient becomes hypoxic. He will receive second prone positioning today. The patient does not need to get off of paralytics in between sessions of prone positioning. If the patient is not compliant with the vent he will likely cough and gag and lose functional residual capacity which may precipitate hypoxia. However if the patient is ventilator compliant without paralytics, he can be maintained without paralytics even during prone positioning. Status: Acute (2) COVID-19: The patient is currently on dexamethasone. He has received remdesivir. He is covered with broad-spectrum antibiotic. Status: Acute (3) A-fib: Patient is on oral amiodarone. He is currently in sinus rhythm. He is anticoagulated with Lovenox. Status: Acute Attestations Medical Necessity Statement*: Will defer to the primary team Coding Level of Care Code Acute Extension Educator for [facility] Fwd Diagnoses Acute respiratory distress syndrome (ARDS) due to 2019 novel coronavirus U07.1; J80 COVID-19 U07.1 A-fib I48.91 Time Spent (min) 34
--- NOTE | 2021-05-20 16:25 | P.PN_ITS ---
Subjective Subjective: Interval history: Hospital course, labs appreciated. Patient undergoing first session of proning today. Supine at around 12:00. ABG from today morning appreciated. Currently sedated and paralyzed. Urine output in last 24 hours 1700 cc, hemodynamically stable off pressors. Afebrile. Medications: Reviewed: Yes Vitals/I&O/Wt Last Vital Signs Temp 97.3 F L 05/19/21 23:00 Pulse 81 05/20/21 16:00 Resp 26 H 05/20/21 16:04 BP 100/63 05/20/21 15:30 Pulse Ox 93 05/20/21 16:04 05/20/21 05/20/21 05/20/21 06:59 14:59 22:59 Intake Total 554.860 / 1676.343 681.173 / 681.173 161.373 / 842.546 Output Total 600 / 1750 Balance -45.140 / -73.657 681.173 / 681.173 161.373 / 842.546 Weight last 48 hrs Weight 119.862 kg Weight 119.862 kg Physical Exam Narrative: EXAM NARRATIVE: General: Intubated, paralyzed, proned HEENT: PERRLA, pupils bilaterally equal and reactive Chest: Bilateral bronchial breath sounds, coarse crackles present bilaterally, equal good air entry bilaterally CVS: S1-S2 regular, no murmurs, no tachycardia, no gallops, no rubs Abdomen: Soft, nontender, no organomegaly, bowel sounds present Neuro: Intubated, paralyzed, proned Urinary Catheter Management^: [place]: Cath Placed During This Visit: yes Reason for Continuing Indwelling Catheter: Accurate Measurement of Urinary Output in Critically Ill Patients Urinary Catheter Date of Insertion: 05/11/21 Urinary Catheter Time of Insertion: 13:39 Data : 05/20/21 04:59 05/20/21 04:59 Micro: Microbiology 05/19/21 12:03 Gram Stain - Final Sputum - Endotracheal Tube Aspirate Sputum Culture - Preliminary A&P Assessment and plan (1) Respiratory failure with hypoxia: Status: Acute (2) Paroxysmal atrial fibrillation with RVR: Status: Acute (3) COVID-19: Status: Acute (4) Transaminitis: Secondary to COVID-19, monitor CMP. Improving. Status: Acute (5) Hypertension: Status: Chronic (6) CAD (coronary artery disease): Status: Chronic Qualifiers: Associated angina: unspecified whether angina present Coronary Disease- Associated Artery/Lesion type: [place] artery [place] vs. transplanted heart: [place] heart Qualified Code(s): I25.10 - Atherosclerotic heart disease of [place] coronary artery without angina pectoris Additional A&P Information Hypoxic respiratory failure secondary to severe COVID-19 pneumonia: Intubated, undergoing 1st session of proning. Oxygen supplementation keeping saturation over 88%. Dexamethasone 6 mg daily. Finished remdesivir course remdesivir of 5 days. Vitamin C, zinc. DuoNebs every 4 hour, budesonide twice daily We will monitor inflammatory markers including CRP, D-dimer every 48 hourly. Post 1 dose of Actemra. D-dimer elevated. CTA negative for pulmonary embolism. Continue with full dose of Lovenox 1 mg/kg body weight every 12 hourly. Will monitor for anemia or blood loss. MRSA, urine Legionella, bacterial antigen from admission negative. Sputum culture post intubation results pending. Blood cultures so far negative. Repeat procalcitonin. Continue with Zosyn to finish a 5-day course. Finish 5-day course of Levaquin. Given hypoxia will try to keep patient as negative as possible. Strict input output charting, daily weights. [place] catheterization. Repeat 40 mg of IV Lasix. History of CAD: Aspirin 81 mg daily, A1c 6.4. Lipid panel appreciated. Full code. Severely guarded prognosis Attestations Medical Necessity Statement*: Requires further hospitalization for management of hypoxic respiratory failure second to COVID-19 pneumonia, intubated, first session of proning Critical Care Time: The high probability of a clinically significant, sudden or life threatening deterioration of the patient's [respiratory] system(s) required my full and direct attention, intervention and personal management. The critical care time is as shown. This time is in addition to time spent p erforming any reported procedures but includes the following: [x] Data and vital sign review and interpretation [x] Patient assessment, examination and intervention [x] Documentation [x] Medication orders and management Critical Care Time (min): 70 Coding Level of Care Code Acute Fish And Wildlife Warden for [facility] Diagnoses Respiratory failure with hypoxia J96.91 Paroxysmal atrial fibrillation with RVR I48.0 COVID-19 U07.1 Transaminitis R74.01 Hypertension I10 CAD (coronary artery disease) I25.10 Associated angina: unspecified whether angina present Coronary Disease-Associated Artery/Lesion type: [place] artery [place] vs. transplanted heart: [place] heart
[2021-05-20] MEDS: FUROsemide 10 mg/mL SDV 4mL 40 MG IVP (17:50)
[2021-05-20] MEDS: propofol 1,000 MG/100 ML INJ 32.24 MG IV ×3 (17:53→23:03)
[2021-05-20] MEDS: cisatracurium 100 MG in sodium chloride 0.9% 50 ML 14.38 MG IV (19:50)
[2021-05-21] VITALS (85 sets, daily range): BP systolic 99–149; BP diastolic 50–98; PULSE 56–82; RESP 16–25; TEMP 36.4–37.1; O2SAT 89–99; BMI 36.0
[2021-05-21] MEDS: famotidine 20 mg/2 mL INJ IVP ×2 (00:50→11:30)
[2021-05-21] MEDS: propofol 1,000 MG/100 ML INJ 32.24 MG IV ×8 (02:21→22:44)
[2021-05-21] MEDS: cisatracurium 100 MG in sodium chloride 0.9% 50 ML 14.38 MG IV ×2 (03:13→21:02)
[2021-05-21] MEDS: ipratropium-albuterol 3 mL Neb INHALATION ×6 (03:17→23:24)
[2021-05-21 04:04] LABS: ABG PCO2 52.3 mmHg (35-45); ABG PH Result 7.39 (7.35-7.45); Alveolar-Arterial Oxygen Gradi 57.5 mmHg (5-10); Arterial Blood Gas Hematocrit 44.7 % (42-52); Base Excess ABG 5.5 mmol/L (-2.0-2.0); Blood Gas Allen Test Pos; Blood Gas Sample Site Radial, left; Blood Gas Sample Type Arterial; Blood Gas Tidal Volume 0.48; Carboxyhemoglobin 0.7 %THgb (0.4-20.1); HCO3 ABG 31.9 mmol/L (22-26); HGB O2 Sat 95.2 % (95-100); Ionized Calcium Level - ABG 1.1 mmol/L (1.1-1.4); Oxygen Device VENT; Oxygen Saturation ABG 95.9; PO2 ABG 74.4 mmHg (80.0-100.0); Potassium Level - ABG 4.5 mmol/L (3.5-5.0); Total Hemoglobin 14.6 g/dL (14-18)
[2021-05-21 04:54] LABS: Basophils # 0.1 10^3/uL (0.0-0.1); Basophils % 0.2 %; Hematocrit 43.2 % (42.0-52.0); Hemoglobin 14.2 g/dL (11.7-16.6); Lymphocytes # 0.8 10^3/uL (0.8-4.8); Lymphocytes % 3.9 %; Mean Corpuscular HGB Conc 32.9 g/dL (30.0-36.0); Mean Corpuscular Hemoglobin 29.5 pg (28.0-34.0); Mean Corpuscular Volume 89.8 fl (80-94); Mean Platelet Volume 9.7 fL (7.4-10.4); Monocytes % 4.6 %; Neutrophils # 18.34 10^3/uL (1.8-7.7); Neutrophils % 89.4 %; Nucleated Red Blood Cells % 0 %; Platelet Count 315 10^3/cmm (130-400); Red Blood Count 4.81 10^6/uL (4.1-5.3); Red Cell Distribution Width 13.5 % (12.1-15.1); White Blood Count 20.5 10^3/uL (4.0-10.0)
[2021-05-21] MEDS: piperacillin-tazobactam 3.375 GM in sodium chloride 0.9% (plus) 50 ML IV ×3 (05:04→22:21)
[2021-05-21 05:10] LABS: D Dimer 2.76 ug/mIFEU (0-0.59)
[2021-05-21 05:16] LABS: Alanine Aminotransferase 51 U/L (0-41); Albumin Level 2.9 g/dL (3.5-5.2); Alkaline Phosphatase 130 IU/L (40-130); Aspartate Amino Transferase 59 U/L (0-40); Blood Urea Nitrogen 30 mg/dL (6-20); Calcium 8.7 mg/dL (8.5-10.5); Carbon Dioxide 25 mmol/L (22-29); Chloride 97 mmol/L (98-107); Globulin 2.7 g/dL (1.3-4.6); Glomerular Filtration Rate 78.8 mL/min (90-130); Glucose 121 mg/dL (65-115); Osmolality Calculated 287 mOsm/kg (285-295); Sodium 135 mmol/L (136-145); Total Bilirubin 0.4 mg/dL (0.15-1.2); Total Protein 5.6 g/dL (6.6-8.7)
[2021-05-21 05:19] LABS: Anion Gap 17.4 (5-19); Potassium 4.4 mmol/L (3.5-5.1)
[2021-05-21] MEDS: levoFLOXacin 500 mg Tablet PO (05:57)
--- NOTE | 2021-05-21 06:23 | PC.NURSE ---
Patient remained stable overnight. Flipped patient prone around 1930. Patient remained normal sinus. Briefly turned levo on after proning, and then able to wean it back off throughout the night. No bowel movement. Adequate urine output throughout the night. Gave the patient a bath to his back side and washed his hair. Swam and turned the patient throughout the night while prone. No further concerns at this time.
[2021-05-21] MEDS: amiodarone 200 mg Tablet PO ×2 (08:12→16:58)
[2021-05-21] MEDS: aspirin 81 mg Chew Tablet PO (08:12)
[2021-05-21] MEDS: sennosides-docusate Tablet 1 TAB PO (08:12)
[2021-05-21] MEDS: ferrous gluconate 324 mg Tablet PO ×2 (08:12→16:58)
[2021-05-21] MEDS: zinc gluconate 50 mg Tablet PO (08:12)
[2021-05-21] MEDS: metoprolol tartrate 50 mg Tablet 75 MG PO ×2 (08:12→22:20)
[2021-05-21] MEDS: ascorbic acid 500 mg Tablet PO ×2 (08:12→16:58)
[2021-05-21] MEDS: polyethylene glycol 3350 Pkt 17 gm PO ×2 (08:12→16:58)
[2021-05-21] MEDS: fluticasone nasal spray 16gm Btl 2 SPRAY NASAL (08:19)
--- NOTE | 2021-05-21 08:45 | PC.NURSE ---
Moderate amount of oozing blood noted to l side of pt neck. 4x4's applied. Will supine pt markos in order to visualize site better.
--- NOTE | 2021-05-21 09:10 | PC.NUTR ---
MD consult order for TF: Pulmocare 1.5 @ 10 ml/hr with FW flushes 100 ml Q4H. If continue w/Pulmocare, recommend increasing 10 ml/hr as tolerated til goal rate of 35 ml/hr reached. If medically appropriate, recommend FW flushes 150 ml Q4H. However, since Pt has not had BM since 05/18, recommend consideration of Jevity 1.2 with goal rate of 45 mls/hr and FW flushes 150 ml Q4H or per MD discretion. See RD assessment for details.
--- NOTE | 2021-05-21 10:47 | PC.NURSE ---
Pt supined, Moderate amount of blood noted to L neck area. Area cleaned. Dressing applied. MD notified. Will monitor.
[2021-05-21] MEDS: dexamethasone 4 mg/mL INJ 6 MG IVP (11:30)
[2021-05-21 12:14] LABS: INR 1.07 (0.8-1.2)
[2021-05-21 12:18] LABS: Partial Thromboplastin Time 29.3 SECONDS (23.9-36.7)
[2021-05-21 12:19] LABS: Fibrinogen 415 mg/dL (174-498)
[2021-05-21 12:22] LABS: D Dimer 2.38 ug/mIFEU (0-0.59)
--- NOTE | 2021-05-21 13:31 | P.PN_ITS ---
Subjective Subjective: Interval history: Overnight patient was proned again facet infection. Today morning he is on higher FiO2 requiring as high as 80% coming down to 75% when supine. Has remained hemodynamically stable and afebrile. Seen to have mild oozing of blood from central line site. Documented urine output of around 2 L yesterday net negative of 450. Ventilator settings reviewed Medications: Reviewed: Yes Vitals/I&O/Wt Last Vital Signs Temp 98.1 F 05/21/21 12:00 Pulse 63 05/21/21 12:00 Resp 24 H 05/21/21 11:11 BP 115/70 05/21/21 12:00 Pulse Ox 95 05/21/21 12:00 05/20/21 05/21/21 05/21/21 22:59 06:59 14:59 Intake Total 467.593 / 1148.766 550.619 / 1699.385 457.140 / 457.140 Output Total 1100 / 1100 1050 / 2150 0 / 0 Balance -632.407 / 48.766 -499.381 / -450.615 457.140 / 457.140 Weight last 48 hrs Weight 120.429 kg Weight 119.862 kg Physical Exam Narrative: EXAM NARRATIVE: General: Intubated, paralyzed, proned HEENT: PERRLA, pupils bilaterally equal and reactive Chest: Bilateral bronchial breath sounds, coarse crackles present bilaterally, e qual good air entry bilaterally CVS: S1-S2 regular, no murmurs, no tachycardia, no gallops, no rubs Abdomen: Soft, nontender, no organomegaly, bowel sounds present Neuro: Intubated, paralyzed, proned Urinary Catheter Management^: [place]: Cath Placed During This Visit: yes Reason for Continuing Indwelling Catheter: Accurate Measurement of Urinary Output in Critically Ill Patients Urinary Catheter Date of Insertion: 05/11/21 Urinary Catheter Time of Insertion: 13:39 Data : 05/21/21 04:18 05/21/21 04:18 Micro: Microbiology 05/19/21 12:03 Gram Stain - Final Sputum - Endotracheal Tube Aspirate Sputum Culture - Preliminary A&P Assessment and plan (1) Respiratory failure with hypoxia: Status: Acute (2) Paroxysmal atrial fibrillation with RVR: Status: Acute (3) COVID-19: Status: Acute (4) Transaminitis: Secondary to COVID-19, monitor CMP. Improving. Status: Acute (5) Hypertension: Status: Chronic (6) CAD (coronary artery disease): Status: Chronic Qualifiers: Associated angina: unspecified whether angina present Coronary Disease- Associated Artery/Lesion type: [place] artery [place] vs. transplanted heart: [place] heart Qualified Code(s): I25.10 - Atherosclerotic heart disease of [place] coronary artery without angina pectoris Additional A&P Information Hypoxic respiratory failure secondary to severe COVID-19 pneumonia: Intubated, undergoing 1st session of proning. Oxygen supplementation keeping saturation over 88%. Dexamethasone 6 mg daily. Finished remdesivir course remdesivir of 5 days. Post 1 dose of Actemra. Vitamin C, zinc. DuoNebs every 4 hour, budesonide twice daily We will monitor inflammatory markers including CRP, D-dimer every 48 hourly. D-dimer elevated but coming down from more than 20 to 2.38. CTA negative for pulmonary embolism. Found to have slight oozing of blood from central line site. Hold off on Lovenox for now. Check DIC panel. If hemoglobin remains stable and oozing stops can restart Lovenox. MRSA, urine Legionella, bacterial antigen from admission negative. Sputum cult ure post intubation results pending. Blood cultures so far negative. Repeat procalcitonin normal. Continue with Zosyn to finish a 5-day course. Finish 5-day course of Levaquin. Given hypoxia will try to keep patient as negative as possible. Strict input output charting, daily weights. [place] catheterization. Hold off on Lasix for today given slightly elevation in BUN. History of CAD: Aspirin 81 mg daily, A1c 6.4. Lipid panel appreciated. Full code. Start on tube feeds?Pulmocare at 10 cc/h, free water flush 100 cc every 6 hours. Protonix OPD prophylaxis Severely guarded prognosis Appreciate pulmonary recommendations. Plan for day: Hold Lovenox because of oozing blood from central line. Check DIC panel. Repeat proning session 8 hours after supine. Continue dexamethasone, inhalation treatment, antibiotics Attestations Medical Necessity Statement*: Requires further hospitalization for management of respiratory failure secondary to COVID-19 pneumonia, intubated, proning Critical Care Time: The high probability of a clinically significant, sudden or life threatening deterioration of the patient's [respiratory] system(s) required my full and direct attention, intervention and personal management. The critical care time is as shown. This time is in addition to time spent performing any reported procedures but includes the following: [x] Data and vital sign review and interpretation [x] Patient assessment, examination and intervention [x] Documentation [x] Medication orders and management Critical Care Time (min): 60 Coding Level of Care Code Acute Structural Technician for [facility] Fwd Diagnoses Respiratory failure with hypoxia J96.91 Paroxysmal atrial fibrillation with RVR I48.0 COVID-19 U07.1 Transaminitis R74.01 Hypertension I10 CAD (coronary artery disease) I25.10 Associated angina: unspecified whether angina present Coronary Disease-Associated Artery/Lesion type: [place] artery [place] vs. transplanted heart: [place] heart
--- NOTE | 2021-05-21 14:05 | PM.PN ---
Subjective Subjective: Interval history: The patient was seen and examined. Continues to require high amount of oxygen. He has undergone to prone positioning. Bleeding around the central line insertion site today. No evidence of DIC. Medications: Reviewed: Yes Vitals/I&O/Wt Last Vital Signs Temp 98.1 F 05/21/21 12:00 Pulse 57 L 05/21/21 13:52 Resp 24 H 05/21/21 14:00 BP 115/70 05/21/21 12:00 Pulse Ox 91 05/21/21 14:00 05/20/21 05/21/21 05/21/21 22:59 06:59 14:59 Intake Total 467.593 / 1148.766 550.619 / 1699.385 457.140 / 457.140 Output Total 1100 / 1100 1050 / 2150 0 / 0 Balance -632.407 / 48.766 -499.381 / -450.615 457.140 / 457.140 Weight last 48 hrs Weight 265 lb 8 oz Weight 264 lb 4.007 oz Physical Exam Narrative: EXAM NARRATIVE: General: Patient is intubated and sedated Respiratory: Auscultation: Crackles at bilateral lung bases, no wheezing or rhonchi Cardiovascular: Regular rate and rhythm, S1-S2 present, no murmur, no peripheral edema. Abdomen: Soft, distended from obesity, positive bowel sound Skin: No rash Neuro: Unable to assess Urinary Catheter Management^: [place]: Cath Placed During This Visit: yes Reason for Continuing Indwelling Catheter: Accurate Measurement of Urinary Output in Critically Ill Patients Urinary Catheter Date of Insertion: 05/11/21 Urinary Catheter Time of Insertion: 13:39 Data : 05/21/21 04:18 05/21/21 04:18 Micro: Microbiology 05/19/21 12:03 Gram Stain - Final Sputum - Endotracheal Tube Aspirate Sputum Culture - Final Attestation for Other Data: I personally reviewed and interpreted the following: Other data: I have reviewed the patient's laboratory, microbiology cardiology data. The patient has stable leukocytosis. Tracheal aspirate culture was negative. A&P Assessment and plan (1) Acute respiratory distress syndrome (ARDS) due to 2019 novel coronavirus: This is a 50-year-old gentleman severe COVID-19. Patient is intubated, sedated and was paralyzed yesterday for prone positioning. The patient is currently on 70% oxygen. We will proceed with the third proning session today. Status: Acute (2) COVID-19: The patient is currently on dexamethasone. He has received remdesivir. He is covered with broad-spectrum antibiotic. Tracheal aspirate culture has been negative. Status: Acute (3) A-fib: Patient is on oral amiodarone. He is currently in sinus rhythm. He is anticoagulated with Lovenox which is being held in the setting of bleeding through the central line insertion site. No evidence of DIC. Status: Acute Attestations Medical Necessity Statement*: Will defer to the primary team Coding Level of Care Code Acute Wild Life Photographer for [facility] Diagnoses Acute respiratory distress syndrome (ARDS) due to 2019 novel coronavirus U07.1; J80 COVID-19 U07.1 A-fib I48.91 Time Spent (min) 33
--- NOTE | 2021-05-21 15:34 | PC.RESP ---
RT Shift Note Frequent safety and respiratory rounds continue. Orders completed as indicated. Patient monitored pre and post treatments throughout shift. Patient [Did.] tolerate treatments appropriately. Condition [.DidNotChange]. Patient and/or clearance representative educated on respiratory treatment and medications. Patient and/or clearance representative [unable to comprehend]. Will continue to monitor patient progress.
--- NOTE | 2021-05-21 17:59 | PC.NURSE ---
Shift Note Frequent safety and comfort rounds continue. Orders and/or nursing care completed as indicated. Patient monitored for response to intervention and treatment(s). Education provided includes treatment plan, medications, oxygen demands. Family verbalies understanding. VSS. Blood noted to be oozing from CVL site throughout the day. Surgicell obtained by house sup and at bedside if needed. Oozing has stopped at this time. Vent settings per RT. Gtts infusing per orders. Repositioned and oral care performed q2h and prn. [place] cath draining freely to BSD. Will continue to monitor.
[2021-05-22] VITALS (66 sets, daily range): BP systolic 107–143; BP diastolic 53–80; PULSE 49–71; RESP 24–28; TEMP 36.6–36.8; O2SAT 87–100; BMI 34.2
[2021-05-22] MEDS: famotidine 20 mg/2 mL INJ IVP ×2 (01:27→13:09)
[2021-05-22] MEDS: propofol 1,000 MG/100 ML INJ 32.24 MG IV ×5 (01:46→13:37)
[2021-05-22] MEDS: ipratropium-albuterol 3 mL Neb INHALATION ×5 (03:41→20:24)
[2021-05-22 04:03] LABS: ABG PCO2 50.5 mmHg (35-45); ABG PH Result 7.41 (7.35-7.45); Alveolar-Arterial Oxygen Gradi 51.4 mmHg (5-10); Base Excess ABG 6.1 mmol/L (-2.0-2.0); Blood Gas Allen Test Pos; Blood Gas Sample Site Radial, left; Blood Gas Sample Type Arterial; Blood Gas Tidal Volume 0.48; Carboxyhemoglobin 0.8 %THgb (0.4-20.1); HGB O2 Sat 95.4 % (95-100); Ionized Calcium Level - ABG 1.1 mmol/L (1.1-1.4); Methemoglobin 0.6 % (0.4-1.5); Oxygen Device VENT; Oxygen Saturation ABG 96.7; PO2 ABG 81.3 mmHg (80.0-100.0); Potassium Level - ABG 4.4 mmol/L (3.5-5.0); Total Hemoglobin 13.7 g/dL (14-18)
[2021-05-22 04:04] LABS: Basophils # 0.1 10^3/uL (0.0-0.1); Basophils % 0.3 %; Eosinophils % 0.1 %; Hematocrit 40.5 % (42.0-52.0); Hemoglobin 13.3 g/dL (11.7-16.6); Lymphocytes # 0.9 10^3/uL (0.8-4.8); Lymphocytes % 4.9 %; Mean Corpuscular HGB Conc 32.8 g/dL (30.0-36.0); Mean Corpuscular Hemoglobin 29.7 pg (28.0-34.0); Mean Corpuscular Volume 90.4 fl (80-94); Mean Platelet Volume 9.9 fL (7.4-10.4); Monocytes # 1.1 10^3/uL (0.2-0.9); Monocytes % 6.1 %; Neutrophils # 16.17 10^3/uL (1.8-7.7); Neutrophils % 86.7 %; Nucleated Red Blood Cells % 0 %; Platelet Count 272 10^3/cmm (130-400); Red Blood Count 4.48 10^6/uL (4.1-5.3); Red Cell Distribution Width 13.6 % (12.1-15.1); White Blood Count 18.7 10^3/uL (4.0-10.0)
[2021-05-22 04:29] LABS: Alanine Aminotransferase 45 U/L (0-41); Alkaline Phosphatase 104 IU/L (40-130); Anion Gap 16.6 (5-19); Aspartate Amino Transferase 41 U/L (0-40); Blood Urea Nitrogen 33 mg/dL (6-20); Calcium 8.7 mg/dL (8.5-10.5); Carbon Dioxide 26 mmol/L (22-29); Chloride 96 mmol/L (98-107); Globulin 2.6 g/dL (1.3-4.6); Glomerular Filtration Rate 101.9 mL/min (90-130); Glucose 121 mg/dL (65-115); Osmolality Calculated 287 mOsm/kg (285-295); Potassium 4.6 mmol/L (3.5-5.1); Sodium 134 mmol/L (136-145); Total Bilirubin 0.4 mg/dL (0.15-1.2); Total Protein 5.6 g/dL (6.6-8.7)
[2021-05-22 04:31] LABS: Slide Review Slide Review Perform
[2021-05-22] MEDS: cisatracurium 100 MG in sodium chloride 0.9% 50 ML 14.38 MG IV (04:45)
[2021-05-22] MEDS: piperacillin-tazobactam 3.375 GM in sodium chloride 0.9% (plus) 50 ML IV ×3 (05:08→20:00)
[2021-05-22] MEDS: levoFLOXacin 500 mg Tablet PO (05:08)
[2021-05-22] MEDS: amiodarone 200 mg Tablet PO ×2 (08:14→17:15)
[2021-05-22] MEDS: ascorbic acid 500 mg Tablet PO ×2 (08:14→17:14)
[2021-05-22] MEDS: aspirin 81 mg Chew Tablet PO (08:14)
[2021-05-22] MEDS: zinc gluconate 50 mg Tablet PO (08:14)
[2021-05-22] MEDS: sennosides-docusate Tablet 1 TAB PO (08:14)
[2021-05-22] MEDS: polyethylene glycol 3350 Pkt 17 gm PO ×2 (08:14→17:15)
[2021-05-22] MEDS: ferrous gluconate 324 mg Tablet PO ×2 (08:14→17:15)
[2021-05-22] MEDS: metoprolol tartrate 50 mg Tablet 75 MG PO (08:14)
--- NOTE | 2021-05-22 10:06 | PC.CHAP ---
Pastoral Care Encounter/Spiritual Assessment Type of Contact [] Declined temporary data entry clerk visit [] Patient/Family/Request visit [] Outpatient visit [] Follow-up visit [] Physician referral [] Code/Alert [x] Routine visit [] Staff referral [] Actively dying [] Patient sleeping [] Family support [] [] Out of room [] Palliative care [] [] Receiving care in room [] Pre-surgical visit [] Trauma [] Long length of stay [x] ICU visit [x] Other: vent... tummy Relational/Emotional Strength [] Patient feels connected with others/family/visitors/staff [] Distress [] Loneliness/isolation [] Abandonment Spirituality of Patient [] Person of Jessica [] Attends Confucianism of their Jessica [] Believes in Prayer [] Reads Bible or Bahai materials [] There are Spiritual issues to be addressed Steam Press Operator Interventions [x] Prayer [] Active listening [] Non-anxious presence [] Spiritual/emotional support [] Crisis/trauma care [] Spiritual counseling [] Bereavement support [] Provided bereavement packet [] Provided Bible/devotional materials [] Provided toy/stuffed animal, coloring book to patient or family member [] Provided Communion [] Anointing/[place] [] Salvation [x] Completed spiritual assessment [] Other: Impact on Illness or Injury [] Angry [] Fearful [] Anxious [] Often cries [] Exhaustion [] Unable to work [] Unable to attend jew [] Unable to walk/stand [] Unable to read [] Unable to drive [] Unable to eat/drink [] Unable to sleep [] Unable to be with family [] Patient intubated [] Other: Summary Time spent with patient
[2021-05-22] MEDS: dexamethasone 4 mg/mL INJ 6 MG IVP (13:08)
[2021-05-22] MEDS: FUROsemide 10 mg/mL SDV 2mL 20 MG IVP (13:10)
--- NOTE | 2021-05-22 14:15 | PC.NURSE ---
report given to parag GOODWIN
--- NOTE | 2021-05-22 16:57 | P.PN_ITS ---
Subjective Subjective: Interval history: No events overnight. Has remained hemodynamically stable. Underwent third session of proning today. Supine in afternoon. Has maintain saturation over 90%. Medications: Reviewed: Yes Vitals/I&O/Wt Last Vital Signs Temp 97.8 F 05/22/21 16:00 Pulse 63 05/22/21 16:00 Resp 24 H 05/22/21 16:00 BP 134/75 05/22/21 16:00 Pulse Ox 92 05/22/21 16:00 05/22/21 05/22/21 05/22/21 06:59 14:59 22:59 Intake Total 419.179 / 1710.558 731.954 / 731.954 Output Total 500 / 1350 350 / 350 Balance -80.821 / 360.558 381.954 / 381.954 Weight last 48 hrs Weight 114.305 kg Weight 113.455 kg Weight 120.429 kg Physical Exam Narrative: EXAM NARRATIVE: General: Intubated, paralyzed, proned HEENT: PERRLA, pupils bilaterally equal and reactive Chest: Bilateral bronchial breath sounds, coarse crackles present bilaterally, equal good air entry bilaterally CVS: S1-S2 regular, no murmurs, no tachycardia, no gallops, no rubs Abdomen: Soft, nontender, no organomegaly, bowel sounds present Neuro: Intubated, paralyzed, proned Urinary Catheter Management^: [place]: Cath Placed During This Visit: yes, but has since been removed by the nurse Reason for Continuing Indwelling Catheter: Decision to DC Catheter Urinary Catheter Date of Insertion: 05/11/21 Urinary Catheter Time of Insertion: 13:39 Date Urinary Catheter Removed: 05/22/21 Time Urinary Catheter Discontinued: 11:20 Data : 05/22/21 03:33 05/22/21 03:33 Micro: Microbiology 05/19/21 12:03 Gram Stain - Final Sputum - Endotracheal Tube Aspirate Sputum Culture - Final A&P Assessment and plan (1) Respiratory failure with hypoxia: Status: Acute (2) Paroxysmal atrial fibrillation with RVR: Status: Acute (3) COVID-19: Status: Acute (4) Transaminitis: Secondary to COVID-19, monitor CMP. Improving. Status: Acute (5) Hypertension: Status: Chronic (6) CAD (coronary artery disease): Status: Chronic Qualifiers: Associated angina: unspecified whether angina present Coronary Disease- Associated Artery/Lesion type: [place] artery [place] vs. transplanted heart: [place] heart Qualified Code(s): I25.10 - Atherosclerotic heart disease of [place] coronary artery without angina pectoris Additional A&P Information Hypoxic respiratory failure secondary to severe COVID-19 pneumonia: Intubated, undergoing 1st session of proning. Oxygen supplementation keeping saturation over 88%. Dexamethasone 6 mg daily. Finished remdesivir course remdesivir of 5 days. Post 1 dose of Actemra. Vitamin C, zinc. DuoNebs every 4 hour, budesonide twice daily We will monitor inflammatory markers including CRP, D-dimer every 48 hourly. D-dimer elevated but coming down from more than 20 to 2.38. CTA negative for pulmonary embolism. DIC panel negative. Hemoglobin stable. No further oozing from central line. Restart Lovenox at 1 mg/kg body weight. MRSA, urine Legionella, bacterial antigen from admission negative. Sputum culture post intubation results pending. Blood cultures so far negative. Repeat procalcitonin normal. [place] catheter changed on 05/22. Continue with Zosyn to finish a 5-day course. Finish 5-day course of Levaquin. Given hypoxia will try to keep patient as negative as possible. Strict input output charting, daily weights. [place] catheterization. Atrial fibrillation: Sinus rhythm. Continue with amiodarone 200 mg twice daily, metoprolol 75 mg twice daily. Lovenox will help with stroke prevention as well. History of CAD: Aspirin 81 mg daily, A1c 6.4. Lipid panel appreciated. Full code. Start on tube feeds?Pulmocare at 10 cc/h, free water flush 100 cc every 6 hours. Protonix OPD prophylaxis Severely guarded prognosis Appreciate pulmonary recommendations. Plan for day: Restart Lovenox. Monitor for bleeding. Lasix 20 mg IV. 1 more session of proning later in the day today. Continue dexamethasone, antibiotics. Wean oxygen supplementation keeping saturation over 90%. Attestations Medical Necessity Statement*: Further hospitalization for management of acute hypoxic respiratory failure secondary COVID-19, intubated, undergoing proning sessions. Critical Care Time: The high probability of a clinically significant, sudden or life threatening deterioration of the patient's [respiratory, cardiac] system(s) required my full and direct attention, intervention and personal management. The critical care time is as shown. 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 transplanted heart: [place] heart
[2021-05-22] MEDS: propofol 1,000 MG/100 ML INJ 35.82 MG IV ×3 (17:14→23:08)
[2021-05-22] MEDS: enoxaparin 120 mg/0.8 mL Syringe SUBCUT (20:00)
--- NOTE | 2021-05-22 21:08 | PC.NURSE ---
Metoprolol 75mg held due to low heart rate. Heart rate 47-55.
[2021-05-23] VITALS (74 sets, daily range): BP systolic 104–141; BP diastolic 52–79; PULSE 52–84; RESP 20–27; TEMP 36.3–37.4; O2SAT 86–97
[2021-05-23] MEDS: famotidine 20 mg/2 mL INJ IVP ×2 (00:31→11:38)
[2021-05-23] MEDS: propofol 1,000 MG/100 ML INJ 35.82 MG IV ×8 (01:38→22:09)
[2021-05-23] MEDS: ipratropium-albuterol 3 mL Neb INHALATION ×6 (03:01→20:31)
[2021-05-23 03:44] LABS: Basophils % 0.2 %; Hematocrit 39.6 % (42.0-52.0); Hemoglobin 13.3 g/dL (11.7-16.6); Mean Corpuscular HGB Conc 33.6 g/dL (30.0-36.0); Mean Corpuscular Hemoglobin 30.1 pg (28.0-34.0); Mean Corpuscular Volume 89.6 fl (80-94); Mean Platelet Volume 9.9 fL (7.4-10.4); Monocytes # 1.7 10^3/uL (0.2-0.9); Monocytes % 8.6 %; Neutrophils # 16.65 10^3/uL (1.8-7.7); Neutrophils % 83.8 %; Nucleated Red Blood Cells % 0 %; Platelet Count 260 10^3/cmm (130-400); Red Blood Count 4.42 10^6/uL (4.1-5.3); Red Cell Distribution Width 13.6 % (12.1-15.1); White Blood Count 19.9 10^3/uL (4.0-10.0)
[2021-05-23 04:01] LABS: D Dimer 1.52 ug/mIFEU (0-0.59)
[2021-05-23 04:06] LABS: Alanine Aminotransferase 48 U/L (0-41); Albumin Level 3.2 g/dL (3.5-5.2); Alkaline Phosphatase 111 IU/L (40-130); Anion Gap 18.4 (5-19); Aspartate Amino Transferase 48 U/L (0-40); Blood Urea Nitrogen 31 mg/dL (6-20); Calcium 7.7 mg/dL (8.5-10.5); Carbon Dioxide 26 mmol/L (22-29); Chloride 97 mmol/L (98-107); Globulin 2.5 g/dL (1.3-4.6); Glomerular Filtration Rate 118.9 mL/min (90-130); Glucose 110 mg/dL (65-115); Osmolality Calculated 291 mOsm/kg (285-295); Potassium 4.4 mmol/L (3.5-5.1); Sodium 137 mmol/L (136-145); Total Bilirubin 0.4 mg/dL (0.15-1.2); Total Protein 5.7 g/dL (6.6-8.7)
[2021-05-23] MEDS: piperacillin-tazobactam 3.375 GM in sodium chloride 0.9% (plus) 50 ML IV (04:25)
[2021-05-23 04:53] LABS: ABG PCO2 45.2 mmHg (35-45); ABG PH Result 7.46 (7.35-7.45); Alveolar-Arterial Oxygen Gradi 50.1 mmHg (5-10); Arterial Blood Gas Hematocrit 44.6 % (42-52); Base Excess ABG 7.3 mmol/L (-2.0-2.0); Blood Gas Allen Test Pos; Blood Gas Operator Identificat JB; Blood Gas Sample Site Radial, right; Blood Gas Sample Type Arterial; HCO3 ABG 32.2 mmol/L (22-26); HGB O2 Sat 90.2 % (95-100); Ionized Calcium Level - ABG 1.1 mmol/L (1.1-1.4); Methemoglobin 0.8 % (0.4-1.5); Oxygen Device VENT; Oxygen Saturation ABG 91.7; PO2 ABG 57.7 mmHg (80.0-100.0); Potassium Level - ABG 4.1 mmol/L (3.5-5.0); Total Hemoglobin 14.6 g/dL (14-18)
[2021-05-23 04:54] LABS: Blood Gas Tidal Volume 0.48
[2021-05-23] MEDS: levoFLOXacin 500 mg Tablet PO (05:24)
[2021-05-23] MEDS: polyethylene glycol 3350 Pkt 17 gm PO (09:24)
[2021-05-23] MEDS: ferrous gluconate 324 mg Tablet PO (09:24)
[2021-05-23] MEDS: ascorbic acid 500 mg Tablet PO (09:24)
[2021-05-23] MEDS: aspirin 81 mg Chew Tablet PO (09:24)
[2021-05-23] MEDS: amiodarone 200 mg Tablet PO (09:24)
[2021-05-23] MEDS: zinc gluconate 50 mg Tablet PO (09:24)
[2021-05-23] MEDS: enoxaparin 120 mg/0.8 mL Syringe 110 MG SUBCUT ×2 (09:27→22:11)
[2021-05-23] MEDS: sennosides-docusate Tablet 1 TAB PO (09:27)
[2021-05-23] MEDS: dexamethasone 4 mg/mL INJ 6 MG IVP (11:36)
--- NOTE | 2021-05-23 11:47 | PC.NUTR ---
Current TF order is Pulmocare 1.5 @ 10 ml/hr with FWF 100 mls Q6H. Recommend advancing as tolerated until goal rate of 45 ml/hr is reached, with higher FW flushes of 150 ml Q4H or per MD discretion. If concerned about Pt's irregularity with BM's, Jevity 1.2 with goal rate of 45 ml/hr would provide same amount of protein/calories/fluid but also additional fiber. Details in RD assessment.
--- NOTE | 2021-05-23 12:59 | PC.NURSE ---
NUrse observed that patient is becoming increasingly restless and heart rate has increased form the mid 50's to the mid 90's. Nurse increased fentanyl and repositioned patient. Patient has become less restless and heart rate is now in the mid 70's.
--- NOTE | 2021-05-23 14:03 | XR_ITS ---
WS: [id number] XR chest 1V portable [id number] REASON FOR EXAM: Increased work of breathing FINDINGS: Endotracheal tube, right internal jugular central venous line, and nasogastric tube remain in proper position. Compared to the previous examination of 05/20/2021, the diffuse bilateral lateral pulmonary opacities may be mildly improved. There are no new findings. XR/XR chest 1V portable [id number] IMPRESSION: Possibly some improvement in the bilateral lung disease. No other interval change.
[2021-05-23] MEDS: dexmedeTOMIDine 0.9 % NaCL 400 MCG/100 ML PREMIX IV (14:20)
[2021-05-23] MEDS: cisatracurium 100 MG in sodium chloride 0.9% 50 ML IV (14:47)
--- NOTE | 2021-05-23 15:53 | PM.PN ---
Subjective Subjective: Interval history: The patient was seen and examined. The patient continues to require 70% oxygen. Ventilator waveform analysis revealed entrainment and reverse triggering. After optimization of the respiratory rate and inspiratory time the entrainment was better. Chest x-ray revealed improvement of bilateral opacities. The patient had been on dexamethasone for 13 days. He had also received Zosyn for a total of 7 days and was discontinued on May 23. Currently he is on Levaquin. The bleeding from the right internal jugular vein catheter insertion site has stopped. Medications: Reviewed: Yes Vitals/I&O/Wt Last Vital Signs Temp 98.4 F 05/23/21 12:30 Pulse 57 L 05/23/21 15:52 Resp 20 H 05/23/21 15:48 BP 126/62 05/23/21 14:30 Pulse Ox 89 L 05/23/21 15:48 05/23/21 05/23/21 05/23/21 06:59 14:59 22:59 Intake Total 858.249 / 1969.305 610.952 / 610.952 Output Total 1300 / 1650 400 / 400 Balance -441.751 / 319.305 210.952 / 210.952 Weight last 48 hrs Weight 246 lb 12.8 oz Weight 252 lb Physical Exam Narrative: EXAM NARRATIVE: General: Patient is intubated and sedated Respiratory: Auscultation: Crackles at bilateral lung bases, no wheezing or rhonchi Cardiovascular: Regular rate and rhythm, S1-S2 present, no murmur, no peripheral edema. Abdomen: Soft, distended from obesity, positive bowel sound Skin: No rash Neuro: Unable to assess Urinary Catheter Management^: [place]: Cath Placed During This Visit: yes, but has since been removed by the nurse Reason for Continuing Indwelling Catheter: Decision to DC Catheter Urinary Catheter Date of Insertion: 05/11/21 Urinary Catheter Time of Insertion: 13:39 Date Urinary Catheter Removed: 05/22/21 Time Urinary Catheter Discontinued: 11:20 2-way Urethral: Cath Placed During This Visit: yes Reason for Continuing Indwelling Catheter: Accurate Measurement of Urinary Output in Critically Ill Patients Urinary Catheter Date of Insertion: 05/22/21 Data : 05/23/21 03:25 05/23/21 03:25 Attestation for Other Data: I personally reviewed and interpreted the following: Other data: I have reviewed the patient's lab work and microbiology radiologic data. The patient has relatively stable leukocytosis. A&P Assessment and plan (1) Acute respiratory distress syndrome (ARDS) due to 2019 novel coronavirus: This is a 50-year-old gentleman severe COVID-19. Patient is intubated, sedated . He has undergone 3 proning session so far. Still continues to need 70% oxygen. We are going to proceed with another session of prone positioning today. The patient will need paralytics to keep him compliant with the ventilator. Will obtain an arterial blood gas after an hour after the patient is in prone position. For now we will continue with the volume control mechanical ventilation. I have optimized his I time and respiratory rate and hoping to prevent the recurrence of the entrainment once the patient is taken off of paralytics in the future. Status: Acute (2) COVID-19: I am going to discontinue the dexamethasone. He has received it for 13 days. He had received remdesivir in the past. Will continue with Levaquin for the time being. There is no evidence of a secondary bacterial infection at this time. However, there is always a risk with a new infection developing as long as the patient remains intubated. We will be very vigilant about this. Status: Acute (3) A-fib: I have discontinued the metoprolol. We will continue the amiodarone for the time being. The patient is anticoagulated for the A. fib. I am hoping that after discontinuation of the metoprolol, will be able to use Precedex and hopefully come off of paralytics to keep him compliant with the vent as well as come down on the Versed in the future. 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
--- NOTE | 2021-05-23 17:38 | PM.PN ---
Subjective Subjective: Interval history: Patient continues to be sedated and intubated. FIO2 of 70 percent CXR with some improvement Other parameters remain same. On tube feeds Vitals/I&O/Wt Last Vital Signs Temp 98.7 F 05/23/21 15:30 Pulse 78 05/23/21 17:15 Resp 20 H 05/23/21 16:33 BP 111/61 05/23/21 17:15 Pulse Ox 92 05/23/21 17:15 05/23/21 05/23/21 05/23/21 06:59 14:59 22:59 Intake Total 858.249 / 1969.305 610.952 / 610.952 97.311 / 708.263 Output Total 1300 / 1650 400 / 400 200 / 600 Balance -441.751 / 319.305 210.952 / 210.952 -102.689 / 108.263 Weight last 48 hrs Weight 111.947 kg Weight 114.305 kg Physical Exam Narrative: EXAM NARRATIVE: Patient ventilated, sedated HENMT: COMMON NORMALS: normocephalic and atraumatic HEAD & SCALP: normocephalic and atraumatic Eye: COMMON NORMALS: conjunctivae normal and no scleral icterus CONJUNCTIVA: Yes conjunctivae normal Neck/C-Spine: COMMON NORMALS: supple and no JVD Chest: COMMONS NORMALS: normal inspection of the chest Resp: COMMON NORMALS: clear to auscultation bilaterally AUSCULTATION: clear to auscultation bilaterally Cardio: COMMON NORMALS: no JVD, regular rate and regular rhythm RATE: regular rate RHYTHM: regular rhythm GI: COMMON NORMALS: Soft to palpation and No hepatosplenomegaly present AUSCULTATION: Yes normoactive bowel sounds PALPATION: Yes Soft to palpation and Yes No hepatosplenomegaly present Extremity: COMMON NORMALS: normal to inspection, no calf tenderness and no pedal edema Skin: COMMON NORMALS: no rashes or lesions noted, no wounds and no jaundice GENERAL SKIN EXAM: no rashes or lesions noted Urinary Catheter Management^: [place]: Cath Placed During This Visit: yes, but has since been removed by the nurse Reason for Continuing Indwelling Catheter: Decision to DC Catheter Urinary Catheter Date of Insertion: 05/11/21 Urinary Catheter Time of Insertion: 13:39 Date Urinary Catheter Removed: 05/22/21 Time Urinary Catheter Discontinued: 11:20 2-way Urethral: Cath Placed During This Visit: yes Reason for Continuing Indwelling Catheter: Accurate Measurement of Urinary Output in Critically Ill Patients Urinary Catheter Date of Insertion: 05/22/21 Data : 05/23/21 03:25 05/23/21 03:25 A&P Assessment and plan (1) Respiratory failure with hypoxia: Ptient admitted with severe COVID and respiratory failure with hypoxia- remains on ventilator with FIO2 requirements of 70 percent, PEEP 10 CTA no PE Has received 1 dose of actemra, and 5 days of remdesivir Decadron 6 mg daily- received 13 days- discontinued Proning and vent protocol as managed by pulmonary Blood cultures no growth Sputum culture no growth Continue levaquin - no evidence of bacterial infection however, remains at high risk for secondary pneumonia with prolonged ventilation CXR with some improvement in bilateral infiltrates Continue ARDS net dry lung startegy Tube feeds Status: Acute (2) Paroxysmal atrial fibrillation with RVR: Now in sinus rhythm Continue amiodarone and metoprolol Status: Acute (3) COVID-19: as noted above Status: Acute (4) Transaminitis: Secondary to COVID-19, monitor CMP. Improving. Status: Acute (5) Hypertension: stable On metoprolol Status: Chronic (6) CAD (coronary artery disease): no acute issues- on aspirin Status: Chronic Qualifiers: Associated angina: unspecified whether angina present Coronary Disease-Associated Artery/Lesion type: [place] artery [place] vs. transplanted heart: [place] heart Qualified Code(s): I25.10 - Atherosclerotic heart disease of [place] coronary artery without angina pectoris Additional A&P Information Full code. tolerating tube feeds?Pulmocare at 10 cc/h, free water flush 100 cc every 6 hours. Protonix OPD prophylaxis Severely guarded prognosis Appreciate pulmonary recommendations. Plan for day: Lovenox resumed. 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 transplanted heart: [place] heart
[2021-05-23 17:49] LABS: ABG PH Result 7.35 (7.35-7.45); Alveolar-Arterial Oxygen Gradi 47.7 mmHg (5-10); Arterial Blood Gas Hematocrit 39.3 % (42-52); Base Excess ABG 6.1 mmol/L (-2.0-2.0); Blood Gas Allen Test Pos; Blood Gas Operator Identificat CAK; Blood Gas Sample Site Radial, left; Blood Gas Sample Type Arterial; Blood Gas Tidal Volume 0.48; HCO3 ABG 33.5 mmol/L (22-26); Ionized Calcium Level - ABG 1.2 mmol/L (1.1-1.4); Methemoglobin 0.3 % (0.4-1.5); Oxygen Device VENT; Oxygen Saturation ABG 89.1; PO2 ABG 59.7 mmHg (80.0-100.0); Potassium Level - ABG 4.4 mmol/L (3.5-5.0); Total Hemoglobin 12.8 g/dL (14-18)
[2021-05-23 17:56] LABS: ABG PCO2 60.5 mmHg (35-45)
--- NOTE | 2021-05-23 19:24 | PC.NURSE ---
SHIft SUmmary: Overall, uneventful shift. Patient rested in bed throughout the day. Was proned at 1700 and is due to be placed supine at 0900 on 05/24/2021. PAtient had 600mL of urine output during day shift, and had 1 large bowel movement. Family has been updated.
--- NOTE | 2021-05-23 20:44 | PC.NURSE ---
1899 -- Fentanyl infusing at 200mcg/hr as directed per Dr. Mills. Titrated on EMAR to reflect current rate. 1914 -- Video call with .
[2021-05-24] VITALS (34 sets, daily range): BP systolic 105–131; BP diastolic 60–72; PULSE 51–611; RESP 20–27; TEMP 36.5–37.4; O2SAT 83–98
[2021-05-24] MEDS: famotidine 20 mg/2 mL INJ IVP ×2 (00:06→12:19)
[2021-05-24] MEDS: ipratropium-albuterol 3 mL Neb INHALATION ×7 (00:28→23:32)
[2021-05-24] MEDS: propofol 1,000 MG/100 ML INJ 35.82 MG IV ×3 (00:56→23:22)
[2021-05-24] MEDS: cisatracurium 100 MG in sodium chloride 0.9% 50 ML 8.06 MG IV (02:01)
[2021-05-24] MEDS: propofol 1,000 MG/100 ML INJ 28.66 MG IV ×6 (04:08→17:12)
[2021-05-24 04:41] LABS: ABG PCO2 48.3 mmHg (35-45); ABG PH Result 7.46 (7.35-7.45); Alveolar-Arterial Oxygen Gradi 46.2 mmHg (5-10); Arterial Blood Gas Hematocrit 40.1 % (42-52); Base Excess ABG 9.1 mmol/L (-2.0-2.0); Blood Gas Allen Test Pos; Blood Gas Operator Identificat JB; Blood Gas Sample Site Radial, left; Blood Gas Sample Type Arterial; Blood Gas Tidal Volume 0.48; Carboxyhemoglobin 0.8 %THgb (0.4-20.1); HCO3 ABG 34.3 mmol/L (22-26); HGB O2 Sat 95.2 % (95-100); Ionized Calcium Level - ABG 1.2 mmol/L (1.1-1.4); Methemoglobin 0.9 % (0.4-1.5); Oxygen Device VENT; Oxygen Saturation ABG 96.9; PO2 ABG 84.2 mmHg (80.0-100.0); Potassium Level - ABG 4.1 mmol/L (3.5-5.0); Total Hemoglobin 13.1 g/dL (14-18)
[2021-05-24] MEDS: levoFLOXacin 500 mg Tablet PO (05:44)
[2021-05-24] MEDS: aspirin 81 mg Chew Tablet PO (09:18)
[2021-05-24] MEDS: sennosides-docusate Tablet 1 TAB PO (09:18)
[2021-05-24] MEDS: amiodarone 200 mg Tablet PO ×2 (09:18→17:12)
[2021-05-24] MEDS: enoxaparin 120 mg/0.8 mL Syringe 110 MG SUBCUT ×2 (09:18→21:45)
--- NOTE | 2021-05-24 11:54 | PM.PN ---
Subjective Subjective: Interval history: Patient remains sedated on mechanical ventilation Medications: Reviewed: Yes Vitals/I&O/Wt Last Vital Signs Temp 97.7 F 05/24/21 10:00 Pulse 54 L 05/24/21 10:00 Resp 23 H 05/24/21 10:31 BP 131/70 05/24/21 10:00 Pulse Ox 94 05/24/21 10:31 05/23/21 05/24/21 05/24/21 22:59 06:59 14:59 Intake Total 455.381 / 1066.333 530.354 / 1596.687 338.767 / 338.767 Output Total 500 / 900 625 / 1525 Balance -44.619 / 166.333 -94.646 / 71.687 338.767 / 338.767 Weight last 48 hrs Weight 116.483 kg Weight 111.947 kg Physical Exam Narrative: EXAM NARRATIVE: Patient chronically ill appearing, on mechanical ventilation, sedated Const: OTHER: sedated HENMT: COMMON NORMALS: normocephalic and atraumatic HEAD & SCALP: normocephalic and atraumatic Eye: COMMON NORMALS: conjunctivae normal and no scleral icterus CONJUNCTIVA: Yes conjunctivae normal Neck/C-Spine: COMMON NORMALS: supple and no JVD GENERAL: Yes normal visual inspection and Yes trachea midline Chest: COMMONS NORMALS: normal inspection of the chest Resp: COMMON NORMALS: clear to auscultation bilaterally AUSCULTATION: clear to auscultation bilaterally OTHER: few scattered rhonchi noted Cardio: COMMON NORMALS: no JVD, regular rate, regular rhythm, S1 normal heart sound present, S2 normal heart sound present and No murmurs present (Cardio) RATE: regular rate RHYTHM: regular rhythm HEART SOUNDS: S1 normal heart sound present and S2 normal heart sound present GI: COMMON NORMALS: Soft to palpation, No hepatosplenomegaly present and no masses PALPATION: Yes Soft to palpation and Yes No hepatosplenomegaly present Extremity: COMMON NORMALS: capillary refill normal, no joint enlargement, no clubbing, cyanosis or edema and no pedal edema Neuro: FOREIGN COMA SCALE: GCS not evaluated GAIT: Yes Unable to assess gait Skin: COMMON NORMALS: no rashes or lesions noted, no wounds, turgor normal, no jaundice, no petechiae and no mottling GENERAL SKIN EXAM: no rashes or lesions noted and turgor normal Urinary Catheter Management^: [place]: Cath Placed During This Visit: yes, but has since been removed by the nurse Reason for Continuing Indwelling Catheter: Decision to DC Catheter Urinary Catheter Date of Insertion: 05/11/21 Urinary Catheter Time of Insertion: 13:39 Date Urinary Catheter Removed: 05/22/21 Time Urinary Catheter Discontinued: 11:20 2-way Urethral: Cath Placed During This Visit: yes Reason for Continuing Indwelling Catheter: Accurate Measurement of Urinary Output in Critically Ill Patients Urinary Catheter Date of Insertion: 05/22/21 Data : 05/23/21 03:25 05/23/21 03:25 A&P Assessment and plan (1) Respiratory failure with hypoxia: Ptient admitted with severe COVID and respiratory failure with hypoxia- remains on ventilator with current settings of VT 480, RR 22, PEEP 10 , and FIO2 of 60 percent CTA no PE Has received 1 dose of actemra, and 5 days of remdesivir Completed 13 days of decadron and stopped on 05/23/21 Proning and vent protocol as managed by pulmonary Blood cultures no growth Sputum culture no growth Continue levaquin - no evidence of bacterial infection however, remains at high risk for secondary pneumonia with prolonged ventilation CXR with some improvement in bilateral infiltrates on 05/23/21 Continue ARDS net dry lung startegy Tube feeds Status: Acute (2) Paroxysmal atrial fibrillation with RVR: Now in sinus rhythm Continue amiodarone and metoprolol Status: Acute (3) COVID-19: as noted above Status: Acute (4) Transaminitis: Secondary to COVID-19, monitor CMP. Improving. Status: Acute (5) Hypertension: stable On metoprolol Status: Chronic (6) CAD (coronary artery disease): no acute issues- on aspirin Status: Chronic Qualifiers: Associated angina: unspecified whether angina present Coronary Disease-Associated Artery/Lesion type: [place] artery [place] vs. transplanted heart: [place] heart Qualified Code(s): I25.10 - Atherosclerotic heart disease of [place] coronary artery without angina pectoris Additional A&P Information Full code. tolerating tube feeds?Pulmocare at 10 cc/h, free water flush 100 cc every 6 hours. Protonix OPD prophylaxis Prognosis guarded. Appreciate pulmonary recommendations. Plan for day: Lovenox resumed. 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 transplanted heart: [place] heart
[2021-05-24 14:53] LABS: Basophils # 0.1 10^3/uL (0.0-0.1); Basophils % 0.3 %; Eosinophils # 0.1 10^3/uL (0.0-0.8); Eosinophils % 0.3 %; Hemoglobin 12.7 g/dL (11.7-16.6); Lymphocytes # 1.3 10^3/uL (0.8-4.8); Lymphocytes % 7.2 %; Mean Corpuscular HGB Conc 32.6 g/dL (30.0-36.0); Mean Corpuscular Hemoglobin 30.2 pg (28.0-34.0); Mean Corpuscular Volume 92.6 fl (80-94); Mean Platelet Volume 9.8 fL (7.4-10.4); Monocytes # 1.5 10^3/uL (0.2-0.9); Monocytes % 8.7 %; Neutrophils # 14.12 10^3/uL (1.8-7.7); Neutrophils % 81.1 %; Nucleated Red Blood Cells % 0 %; Platelet Count 225 10^3/cmm (130-400); Red Blood Count 4.21 10^6/uL (4.1-5.3); White Blood Count 17.4 10^3/uL (4.0-10.0)
[2021-05-24 15:16] LABS: Chloride 99 mmol/L (98-107); Potassium 3.7 mmol/L (3.5-5.1); Sodium 136 mmol/L (136-145)
[2021-05-24 15:24] LABS: Anion Gap 12.7 (5-19); Blood Urea Nitrogen 20 mg/dL (6-20); Calcium 7.8 mg/dL (8.5-10.5); Carbon Dioxide 28 mmol/L (22-29); Glomerular Filtration Rate 226.8 mL/min (90-130); Glucose 91 mg/dL (65-115); Osmolality Calculated 284 mOsm/kg (285-295)
--- NOTE | 2021-05-24 16:05 | PM.PN ---
Subjective Subjective: Interval history: The patient was seen and examined. Earlier today, the patient was able to follow simple commands. His oxygen requirement has also slowly come down. When the patient is coughing and losing lung volumes he desaturates but overall I believe the oxygen requirement is better than before. He had undergone prone positioning yesterday. Currently he is in supine position and not paralyzed. Medications: Reviewed: Yes Vitals/I&O/Wt Last Vital Signs Temp 97.7 F 05/24/21 10:00 Pulse 56 L 05/24/21 15:04 Resp 20 H 05/24/21 15:04 BP 122/71 05/24/21 14:00 Pulse Ox 91 05/24/21 15:04 05/24/21 05/24/21 05/24/21 06:59 14:59 22:59 Intake Total 530.354 / 1596.687 431.912 / 431.912 Output Total 625 / 1525 10 Balance -94.646 / 71.687 421.912 / 421.912 Weight last 48 hrs Weight 256 lb 12.8 oz Weight 246 lb 12.8 oz Physical Exam Narrative: EXAM NARRATIVE: General: Patient is intubated and sedated Respiratory: Auscultation: Crackles at bilateral lung bases, no wheezing or rhonchi Cardiovascular: Regular rate and rhythm, S1-S2 present, no murmur, no peripheral edema. Abdomen: Soft, distended from obesity, positive bowel sound Skin: No rash Neuro: The patient was sedated and not able to respond when I evaluated him Urinary Catheter Management^: [place]: Cath Placed During This Visit: yes, but has since been removed by the nurse Reason for Continuing Indwelling Catheter: Decision to DC Catheter Urinary Catheter Date of Insertion: 05/11/21 Urinary Catheter Time of Insertion: 13:39 Date Urinary Catheter Removed: 05/22/21 Time Urinary Catheter Discontinued: 11:20 2-way Urethral: Cath Placed During This Visit: yes Reason for Continuing Indwelling Catheter: Accurate Measurement of Urinary Output in Critically Ill Patients Urinary Catheter Date of Insertion: 05/22/21 Data : 05/24/21 14:33 05/24/21 14:33 Attestation for Other Data: I personally reviewed and interpreted the following: Other data: I have reviewed the patient's laboratory microbiology neurologic data. A&P Assessment and plan (1) Acute respiratory distress syndrome (ARDS) due to 2019 novel coronavirus: This is a 50-year-old gentleman severe COVID-19. Patient is intubated, sedated. He has undergone 4 proning session so far. His oxygen requirement has actually improved. He was earlier on 60% oxygen. The patient is on volume control mechanical ventilation with lung protective strategies. He is on 10 of PEEP He is currently not paralyzed anymore. We do not have to prone the patient again today. I believe the patient is going to start making recovery in the next 48 hours. The primary decision is going to be whether to perform tracheostomy for this patient. The patient will likely need a while before he recovers, if he recovers. Currently the patient is on Levaquin. His white count seems to be stable. Am hoping in the next 48 hours her oxygen requirement will come down to around 40%. The patient has a mental status which is a good sign. I am hopeful that the patient may be able to survive. Status: Acute (2) COVID-19: The dexamethasone has been discontinued on 05/23. He has received it for 13 days. He had received remdesivir in the past. Will continue with Levaquin for the time being. There is no evidence of a secondary bacterial infection at this time. However, there is always a risk with a new infection developing as long as the patient remains intubated. We will be very vigilant about this. Status: Acute (3) A-fib: I have discontinued the metoprolol. We will continue the amiodarone for the time being. The patient is anticoagulated for the A. fib. Status: Acute Attestations Medical Necessity Statement*: Will defer to the primary team Coding Level of Care Code Acute Vp Care Management for [facility] Diagnoses Acute respiratory distress syndrome (ARDS) due to 2019 novel coronavirus U07.1; J80 COVID-19 U07.1 A-fib I48.91 Time Spent (min) 33
[2021-05-25] VITALS (36 sets, daily range): BP systolic 98–131; BP diastolic 60–73; PULSE 56–78; RESP 21–28; TEMP 36.3–37.2; O2SAT 77–91
[2021-05-25] MEDS: famotidine 20 mg/2 mL INJ IVP ×2 (01:58→12:31)
[2021-05-25] MEDS: propofol 1,000 MG/100 ML INJ 35.82 MG IV ×10 (02:33→23:20)
[2021-05-25] MEDS: ipratropium-albuterol 3 mL Neb INHALATION ×6 (04:18→23:50)
[2021-05-25] MEDS: levoFLOXacin 500 mg Tablet PO (05:25)
[2021-05-25 05:58] LABS: Basophils % 0.2 %; Eosinophils % 0.1 %; Hematocrit 39.8 % (42.0-52.0); Lymphocytes # 1.1 10^3/uL (0.8-4.8); Lymphocytes % 6.2 %; Mean Corpuscular HGB Conc 32.7 g/dL (30.0-36.0); Mean Corpuscular Hemoglobin 30.4 pg (28.0-34.0); Mean Platelet Volume 10.1 fL (7.4-10.4); Monocytes # 1.6 10^3/uL (0.2-0.9); Monocytes % 8.8 %; Neutrophils # 14.97 10^3/uL (1.8-7.7); Neutrophils % 82.6 %; Nucleated Red Blood Cells % 0 %; Platelet Count 223 10^3/cmm (130-400); Red Blood Count 4.28 10^6/uL (4.1-5.3); Red Cell Distribution Width 14.5 % (12.1-15.1); White Blood Count 18.1 10^3/uL (4.0-10.0)
[2021-05-25 06:19] LABS: Anion Gap 12.9 (5-19); Blood Urea Nitrogen 19 mg/dL (6-20); Carbon Dioxide 30 mmol/L (22-29); Chloride 99 mmol/L (98-107); Glomerular Filtration Rate 175.3 mL/min (90-130); Glucose 103 mg/dL (65-115); Osmolality Calculated 289 mOsm/kg (285-295); Potassium 3.9 mmol/L (3.5-5.1); Sodium 138 mmol/L (136-145)
[2021-05-25] MEDS: aspirin 81 mg Chew Tablet PO (08:10)
[2021-05-25] MEDS: amiodarone 200 mg Tablet PO ×2 (08:10→17:01)
--- NOTE | 2021-05-25 08:35 | PC.NURSE ---
oral care done with any activity o2 sats do decrease .. has had loose bm laxative not given
[2021-05-25] MEDS: enoxaparin 120 mg/0.8 mL Syringe 110 MG SUBCUT (10:56)
--- NOTE | 2021-05-25 16:45 | PM.PN ---
Subjective Subjective: Interval history: Patient remains on mechanical ventilation, sedated Medications: Reviewed: Yes Vitals/I&O/Wt Last Vital Signs Temp 99 F 05/25/21 16:00 Pulse 74 05/25/21 16:00 Resp 28 H 05/25/21 16:00 BP 123/72 05/25/21 16:00 Pulse Ox 88 L 05/25/21 16:00 05/25/21 05/25/21 05/25/21 06:59 14:59 22:59 Intake Total 978.4 / 1578.928 245.367 / 245.367 Output Total 725 / 1510 Balance 253.4 / 68.928 245.367 / 245.367 Weight last 48 hrs Weight 108.998 kg Weight 116.483 kg Physical Exam Resp: COMMON NORMALS: clear to auscultation bilaterally AUSCULTATION: clear to auscultation bilaterally Cardio: COMMON NORMALS: regular rate, regular rhythm and S1 normal heart sound present RATE: regular rate RHYTHM: regular rhythm HEART SOUNDS: S1 normal heart sound present GI: COMMON NORMALS: Soft to palpation and no masses PALPATION: Yes Soft to palpation Extremity: COMMON NORMALS: no clubbing, cyanosis or edema Neuro: FOREIGN COMA SCALE: other (sedated on vent) Skin: COMMON NORMALS: no rashes or lesions noted GENERAL SKIN EXAM: no rashes or lesions noted Urinary Catheter Management^: [place]: Cath Placed During This Visit: yes, but has since been removed by the nurse Reason for Continuing Indwelling Catheter: Decision to DC Catheter Urinary Catheter Date of Insertion: 05/11/21 Urinary Catheter Time of Insertion: 13:39 Date Urinary Catheter Removed: 05/22/21 Time Urinary Catheter Discontinued: 11:20 2-way Urethral: Cath Placed During This Visit: yes Reason for Continuing Indwelling Catheter: Accurate Measurement of Urinary Output in Critically Ill Patients Urinary Catheter Date of Insertion: 05/22/21 Data : 05/25/21 05:32 05/25/21 05:32 A&P Assessment and plan (1) Respiratory failure with hypoxia: Ptient admitted with severe COVID and respiratory failure with hypoxia- remains on ventilator unfortunately requiring high FIO2 of 90 percent CTA no PE Has received 1 dose of actemra, and 5 days of remdesivir Completed 13 days of decadron and stopped on 05/23/21 Proning and vent protocol as managed by pulmonary- has proned last 4 days Blood cultures no growth Sputum culture no growth Continue levaquin - no evidence of bacterial infection however, remains at high risk for secondary pneumonia with prolonged ventilation CXR with some improvement in bilateral infiltrates on 05/23/21- will repeat CXR Continue ARDS net dry lung startegy Tube feeds Status: Acute (2) Paroxysmal atrial fibrillation with RVR: Now in sinus rhythm Continue amiodarone and metoprolol Status: Acute (3) COVID-19: as noted above Status: Acute (4) Transaminitis: Secondary to COVID-19, monitor CMP. Improving. Status: Acute (5) Hypertension: stable On metoprolol Status: Chronic (6) CAD (coronary artery disease): no acute issues- on aspirin Status: Chronic Qualifiers: Associated angina: unspecified whether angina present Coronary Disease-Associated Artery/Lesion type: [place] artery [place] vs. transplanted heart: [place] heart Qualified Code(s): I25.10 - Atherosclerotic heart disease of [place] coronary artery without angina pectoris Additional A&P Information Full code. tolerating tube feeds?Pulmocare at 10 cc/h, free water flush 100 cc every 6 hours. Protonix OPD prophylaxis Prognosis extremely poor Appreciate pulmonary recommendations. Plan for day: Lovenox Continue vent support per pulmn Proning Sedation Attestations Medical Necessity Statement*: Patient requires ongoing hospitalization and critical care support for acute respiratory failure with hypoxia secondary to COVID Coding Level of Care Code Acute Repair Welder for [facility] Fwd Exam Detailed Medical Decision Making Moderate Complexity Diagnoses Respiratory failure with hypoxia J96.91 Paroxysmal atrial fibrillation with RVR I48.0 COVID-19 U07.1 Transaminitis R74.01 Hypertension I10 CAD (coronary artery disease) I25.10 Associated angina: unspecified whether angina present Coronary Disease-Associated Artery/Lesion type: [place] artery [place] vs. transplanted heart: [place] heart
--- NOTE | 2021-05-25 17:06 | XRR_ITS ---
PROCEDURE INFORMATION: Exam: XR Chest Exam date and time: 05/25/2021 5:06 PM Age: 50 years old Clinical indication: Device placement; Ett placement (vent status); Shortness of breath; Additional info: Respiratory failure TECHNIQUE: Imaging protocol: XR of the chest. Views: 1 view. COMPARISON: CR XR chest 1V portable [id number] 05/23/2021 2:09 PM FINDINGS: Tubes, catheters and devices: Right IJ central line with tip over the distal SVC. Intubation with tip 5.4 cm above the regina. NG tube extends into the mid stomach. Lungs: Diffuse ground-glass opacities in both lungs have worsened slightly. Pleural spaces: Unremarkable. No pleural effusion. No pneumothorax. Heart/Mediastinum: Unremarkable. No cardiomegaly. Bones/joints: Unremarkable. XR/XR chest 1V portable [id number] IMPRESSION: 1. Slightly worsened pulmonary edema versus pneumonia or ARDS.
--- NOTE | 2021-05-25 17:08 | PM.PN ---
Subjective Subjective: Interval history: There has been no significant change in the patient's condition. His oxygen requirement continues to be high. Now he is having blood-tinged increased secretions through the endotracheal tube. Medications: Reviewed: Yes Vitals/I&O/Wt Last Vital Signs Temp 99 F 05/25/21 16:00 Pulse 74 05/25/21 16:00 Resp 28 H 05/25/21 16:00 BP 123/72 05/25/21 16:00 Pulse Ox 77 L 05/25/21 16:54 05/25/21 05/25/21 05/25/21 06:59 14:59 22:59 Intake Total 978.4 / 1578.928 245.367 / 245.367 185.667 / 431.034 Output Total 725 / 1510 Balance 253.4 / 68.928 245.367 / 245.367 185.667 / 431.034 Weight last 48 hrs Weight 240 lb 4.8 oz Weight 256 lb 12.8 oz Physical Exam Narrative: EXAM NARRATIVE: General: Patient is intubated and sedated Respiratory: Auscultation: Crackles at bilateral lung bases, no wheezing or rhonchi Cardiovascular: Regular rate and rhythm, S1-S2 present, no murmur, no peripheral edema. Abdomen: Soft, distended from obesity, positive bowel sound Skin: No rash Neuro: The patient moves all extremities when he gets agitated but no meaningful communication Urinary Catheter Management^: [place]: Cath Placed During This Visit: yes, but has since been removed by the nurse Reason for Continuing Indwelling Catheter: Decision to DC Catheter Urinary Catheter Date of Insertion: 05/11/21 Urinary Catheter Time of Insertion: 13:39 Date Urinary Catheter Removed: 05/22/21 Time Urinary Catheter Discontinued: 11:20 2-way Urethral: Cath Placed During This Visit: yes Reason for Continuing Indwelling Catheter: Accurate Measurement of Urinary Output in Critically Ill Patients Urinary Catheter Date of Insertion: 05/22/21 Data : 05/25/21 05:32 05/25/21 05:32 Attestation for Other Data: I personally reviewed and interpreted the following: Other data: I have reviewed the patient's laboratory, microbiology and radiologic data A&P Assessment and plan (1) Acute respiratory distress syndrome (ARDS) due to 2019 novel coronavirus: This is a 50-year-old gentleman severe COVID-19. Patient is intubated, sedated. He has undergone 4 proning session so far. Unfortunately, the patient is back on 90% oxygen. I believe whenever the patient is getting agitated and coughing, he is losing his lung volumes resulting in worsening hypoxemia. The patient is on a high amount of sedative medications. At this point, if the family is agreeable, the plan is going to be proceeding with tracheostomy which I will perform on Thursday. In the meantime, the patient is having blood-tinged ET tube secretions. We will hold off on the therapeutic Lovenox. The patient has been in normal sinus rhythm over the past week. Will obtain endotracheal tube aspirate. I am going to empirically start the patient on cefepime for 7 days. If the patient continues to have blood-tinged ET tube secretion, I will consider performing a bronchoscopy tomorrow. Status: Acute (2) COVID-19: The dexamethasone has been discontinued on 05/23. He has received it for 13 days. He had received remdesivir in the past. Will reinitiate with cefepime. Status: Acute (3) A-fib: I have discontinued the metoprolol. We will continue the amiodarone for the time being. Will hold off full dose anticoagulation due to pulmonary hemorrhage. Overall, for the patient to get better, will need to reduce his sedation which could only be performed once the patient has a tracheostomy. This is likely our best approach. Status: Acute Attestations Medical Necessity Statement*: Will defer to the primary team Coding Level of Care Code Acute Administrative Office Specialist for [facility] Diagnoses Acute respiratory distress syndrome (ARDS) due to 2019 novel coronavirus U07.1; J80 COVID-19 U07.1 A-fib I48.91
[2021-05-25] MEDS: cefepime 2,000 MG in sodium chloride 0.9% (plus) 50 ML 100 MG IV (17:36)
--- NOTE | 2021-05-25 18:11 | NUR.SHIFT ---
Shift Note Frequent safety and comfort rounds continue. Orders and/or nursing care completed as indicated. Patient monitored for response to intervention and treatment(s). Education provided includes[possible bronch and trach pending ]. and family did facetime with understanding . Will continue to monitor. oral care and repositioned freq..
[2021-05-26] VITALS (50 sets, daily range): BP systolic 95–128; BP diastolic 48–72; PULSE 73–88; RESP 19–25; TEMP 36.4–37.6; O2SAT 85–95
[2021-05-26] MEDS: famotidine 20 mg/2 mL INJ IVP ×2 (00:10→13:44)
[2021-05-26] MEDS: propofol 1,000 MG/100 ML INJ 35.82 MG IV ×8 (01:30→23:17)
[2021-05-26] MEDS: ipratropium-albuterol 3 mL Neb INHALATION ×6 (03:02→23:38)
[2021-05-26 03:22] LABS: Basophils # 0.1 10^3/uL (0.0-0.1); Basophils % 0.4 %; Eosinophils # 0.2 10^3/uL (0.0-0.8); Eosinophils % 0.8 %; Hematocrit 38.7 % (42.0-52.0); Hemoglobin 12.6 g/dL (11.7-16.6); Lymphocytes # 1.1 10^3/uL (0.8-4.8); Lymphocytes % 6.2 %; Mean Corpuscular HGB Conc 32.6 g/dL (30.0-36.0); Mean Corpuscular Hemoglobin 30.4 pg (28.0-34.0); Mean Corpuscular Volume 93.3 fl (80-94); Mean Platelet Volume 9.9 fL (7.4-10.4); Monocytes # 1.5 10^3/uL (0.2-0.9); Monocytes % 8.2 %; Neutrophils % 82.8 %; Nucleated Red Blood Cells % 0 %; Platelet Count 217 10^3/cmm (130-400); Red Blood Count 4.15 10^6/uL (4.1-5.3); Red Cell Distribution Width 14.5 % (12.1-15.1); White Blood Count 18.4 10^3/uL (4.0-10.0)
[2021-05-26 03:43] LABS: Anion Gap 12.3 (5-19); Blood Urea Nitrogen 21 mg/dL (6-20); Calcium 8.1 mg/dL (8.5-10.5); Carbon Dioxide 30 mmol/L (22-29); Chloride 98 mmol/L (98-107); Glomerular Filtration Rate 118.9 mL/min (90-130); Glucose 104 mg/dL (65-115); Osmolality Calculated 285 mOsm/kg (285-295); Potassium 4.3 mmol/L (3.5-5.1); Sodium 136 mmol/L (136-145)
[2021-05-26] MEDS: cefepime 2,000 MG in sodium chloride 0.9% (plus) 50 ML 100 MG IV ×2 (05:32→17:35)
[2021-05-26] MEDS: amiodarone 200 mg Tablet PO ×2 (08:54→17:35)
[2021-05-26] MEDS: aspirin 81 mg Chew Tablet PO (08:54)
--- NOTE | 2021-05-26 11:39 | PC.NUTR ---
Current TF order is Pulmocare 1.5 @ 10 ml/hr with FWF 100 mls Q6H. When/if medically appropriate, recommend advancing 10 ml Q8H as tolerated until goal rate of 45 ml/hr is reached, with higher FW flushes of 150 ml Q4H or per MD discretion. Details in RD assessment.
--- NOTE | 2021-05-26 12:11 | XRR_ITS ---
PROCEDURE INFORMATION: Exam: XR Chest Exam date and time: 05/26/2021 12:11 PM Age: 50 years old Clinical indication: Device placement; Ett placement (vent status); Shortness of breath; Additional info: Respiratory failure TECHNIQUE: Imaging protocol: XR of the chest. Views: 1 view. COMPARISON: CR (CHEST, ) 05/25/2021 5:31 PM FINDINGS: Tubes, catheters and devices: Endotracheal tube in place 5 cm above the regina. Right central line terminates at the cavoatrial junction. Lungs: Similar ill-defined opacities noted within both lungs. Pleural spaces: Unremarkable. No pleural effusion. No pneumothorax. Heart/Mediastinum: Unremarkable. No cardiomegaly. Bones/joints: Unremarkable. XR/XR chest 1V portable [id number] IMPRESSION: 1. Stable positioning of lines and tubes. 2. Similar ill-defined opacities within both lungs.
--- NOTE | 2021-05-26 12:27 | PM.PN ---
Subjective Subjective: Interval history: The patient was seen and examined. Unfortunately the patient has taken a turn for the worse. Currently he is on PEEP of 15 and an FiO2 of 100% saturating in the high 80s to low 90s. His endotracheal aspirate quantity has lessened, the bloodiness has mostly resolved and the endotracheal aspirate culture did not grow any microorganism. I had an extensive discussion with his mom and his son. Legally, they are the healthcare proxy. The plan is to proceed with ongoing care. The family does not want any chest compressions performed if his heart were to stop. Medications: Reviewed: Yes Vitals/I&O/Wt Last Vital Signs Temp 99.6 F 05/26/21 09:00 Pulse 86 05/26/21 11:27 Resp 25 H 05/26/21 11:23 BP 112/62 05/26/21 10:00 Pulse Ox 90 05/26/21 11:23 05/25/21 05/26/21 05/26/21 22:59 06:59 14:59 Intake Total 630.196 / 875.563 693.139 / 1568.702 150 / 150 Output Total 675 / 675 525 / 1200 Balance -44.804 / 200.563 168.139 / 368.702 150 / 150 Weight last 48 hrs Weight 246 lb 14.4 oz Weight 240 lb 4.8 oz Physical Exam Narrative: EXAM NARRATIVE: General: Patient is intubated and sedated Respiratory: Auscultation: Crackles at bilateral lung bases, no wheezing, occasional rhonchi Cardiovascular: Regular rate and rhythm, S1-S2 present, no murmur, no peripheral edema. Abdomen: Soft, distended from obesity, positive bowel sound Skin: No rash Neuro: Unable to assess Urinary Catheter Management^: [place]: Cath Placed During This Visit: yes, but has since been removed by the nurse Reason for Continuing Indwelling Catheter: Decision to DC Catheter Urinary Catheter Date of Insertion: 05/11/21 Urinary Catheter Time of Insertion: 13:39 Date Urinary Catheter Removed: 05/22/21 Time Urinary Catheter Discontinued: 11:20 2-way Urethral: Cath Placed During This Visit: yes Reason for Continuing Indwelling Catheter: Accurate Measurement of Urinary Output in Critically Ill Patients Urinary Catheter Date of Insertion: 05/22/21 Data : 05/26/21 03:10 01/16/22 03:10 Attestation for Other Data: I personally reviewed and interpreted the following: Other data: I have reviewed the patient's laboratory, microbiologic and radiologic data A&P Assessment and plan (1) Acute respiratory distress syndrome (ARDS) due to 2019 novel coronavirus: This is a 50-year-old gentleman severe COVID-19. Patient is intubated, sedated. He has undergone 4 proning session so far. Unfortunately his oxygen requirement now is 100% and he is on 15 of PEEP. He is still saturating in the high 80s to low 90s. The endotracheal aspirate did not grow any microorganism. The quantity of endotracheal aspirate on the bloodiness has gone down after discontinuation of the Lovenox. The patient was also started on cefepime yesterday empirically. After discussion with the healthcare proxy, his mother and son the plan is to continue the current therapy. The patient will be DO NOT RESUSCITATE. If the patient does not show signs of any improvement in the next 48 hours, will discuss about focusing on comfort as his goal of care. Status: Acute (2) COVID-19: The dexamethasone has been discontinued on 05/23. He has received it for 13 days. He had received remdesivir in the past. Will continue the empiric antibiotic for 7 days. Status: Acute (3) A-fib: I have discontinued the metoprolol. We will continue the amiodarone for the time being. We will just continue with subcu prophylactic dose Lovenox. Status: Acute Attestations Medical Necessity Statement*: Will defer to the primary team Coding Level [facility] Care [facility] Diagnoses Acute respiratory distress syndrome (ARDS) due to 2019 novel coronavirus U07.1; J80 COVID-19 U07.1 A-fib I48.91 Time Spent (min) 37
--- NOTE | 2021-05-26 13:02 | PM.PN ---
Subjective Subjective: Interval history: Patient has worsened overnight- now requiring FIO2 of 100 percent and PEEP of 15 with desaturations still noted. Vitals/I&O/Wt Last Vital Signs Temp 99.6 F 05/26/21 09:00 Pulse 86 05/26/21 11:27 Resp 25 H 05/26/21 11:23 BP 112/62 05/26/21 10:00 Pulse Ox 90 05/26/21 11:23 05/25/21 05/26/21 05/26/21 22:59 06:59 14:59 Intake Total 630.196 / 875.563 693.139 / 1568.702 150 / 150 Output Total 675 / 675 525 / 1200 Balance -44.804 / 200.563 168.139 / 368.702 150 / 150 Weight last 48 hrs Weight 111.992 kg Weight 108.998 kg Physical Exam Narrative: EXAM NARRATIVE: sedated, on ventilator, ill appearing HENMT: COMMON NORMALS: normocephalic and atraumatic HEAD & SCALP: normocephalic and atraumatic Resp: AUSCULTATION: wheezes throughout Cardio: COMMON NORMALS: regular rate and regular rhythm RATE: regular rate RHYTHM: regular rhythm GI: COMMON NORMALS: Soft to palpation and no masses PALPATION: Yes Soft to palpation Extremity: COMMON NORMALS: normal to inspection Urinary Catheter Management^: [place]: Cath Placed During This Visit: yes, but has since been removed by the nurse Reason for Continuing Indwelling Catheter: Decision to DC Catheter Urinary Catheter Date of Insertion: 05/11/21 Urinary Catheter Time of Insertion: 13:39 Date Urinary Catheter Removed: 05/22/21 Time Urinary Catheter Discontinued: 11:20 2-way Urethral: Cath Placed During This Visit: yes Reason for Continuing Indwelling Catheter: Accurate Measurement of Urinary Output in Critically Ill Patients Urinary Catheter Date of Insertion: 05/22/21 Data : 05/26/21 03:10 05/26/21 03:10 A&P Assessment and plan (1) Respiratory failure with hypoxia: Ptient admitted with severe COVID and respiratory failure with hypoxia- remains on ventilator unfortunately now worsened and on maximum ventilator support with FIO2 of 100 percent and PEEP of 15. Patient still desaturating into 80s. He has received maximum medical therapy at this point. On cefepime for possible bacterial infection. Already recd decadron x 13 days, remdesivir and actemra CTA no PE Proning and vent protocol as managed by pulmonary- has proned last 4 days Blood cultures no growth Sputum culture no growth CXR with worsening infiltrates consistent with ARDS due to severe COVID. Continue ARDS net dry lung startegy Tube feeds Dr Mills has discussed with patient's mother Kayla Carvalho and son and informed them about patient's extremely poor prognosis. They were given the option of comfort care/terminal weaning and extubation- they changed him to DNR- and would like to wait another 24-48 hours before making decision on comfort care Status: Acute (2) Paroxysmal atrial fibrillation with RVR: Now in sinus rhythm Amiodarone Status: Acute (3) COVID-19: as noted above Status: Acute (4) Transaminitis: Secondary to COVID-19 Status: Acute (5) Hypertension: Status: Chronic (6) CAD (coronary artery disease): Status: Chronic Qualifiers: Associated angina: unspecified whether angina present Coronary Disease-Associated Artery/Lesion type: [place] artery [place] vs. transplanted heart: [place] heart Qualified Code(s): I25.10 - Atherosclerotic heart disease of [place] coronary artery without angina pectoris Additional A&P Information Appreciate pulmonary recommendations as well as updating family. Patient changed to DNR as noted above Attestations Medical Necessity Statement*: Patient requires ongoing hospitalization for critical medical problems of ARDS due to severe COVID Coding Level of Care Code Acute Sidewalk Inspector for [facility] Fwd Diagnoses Respiratory failure with hypoxia J96.91 Paroxysmal atrial fibrillation with RVR I48.0 COVID-19 U07.1 Transaminitis R74.01 Hypertension I10 CAD (coronary artery disease) I25.10 Associated angina: unspecified whether angina present Coronary Disease-Associated Artery/Lesion type: [place] artery [place] vs. transplanted heart: [place] heart
[2021-05-26] MEDS: enoxaparin 40 mg/0.4 mL Syringe SUBCUT (13:46)
[2021-05-27] VITALS (44 sets, daily range): BP systolic 89–134; BP diastolic 46–69; PULSE 77–94; RESP 20–27; TEMP 36.8–37.7; O2SAT 86–94
[2021-05-27] MEDS: famotidine 20 mg/2 mL INJ IVP ×2 (00:20→13:43)
[2021-05-27] MEDS: propofol 1,000 MG/100 ML INJ 35.82 MG IV ×8 (01:41→22:26)
[2021-05-27] MEDS: ipratropium-albuterol 3 mL Neb INHALATION ×6 (03:11→23:56)
[2021-05-27 04:55] LABS: Basophils % 0.3 %; Eosinophils # 0.1 10^3/uL (0.0-0.8); Eosinophils % 0.8 %; Hematocrit 36.3 % (42.0-52.0); Hemoglobin 11.6 g/dL (11.7-16.6); Lymphocytes # 1.1 10^3/uL (0.8-4.8); Lymphocytes % 7.3 %; Mean Corpuscular Hemoglobin 30.3 pg (28.0-34.0); Mean Corpuscular Volume 94.8 fl (80-94); Mean Platelet Volume 10.2 fL (7.4-10.4); Monocytes # 1.5 10^3/uL (0.2-0.9); Monocytes % 10.1 %; Neutrophils # 11.83 10^3/uL (1.8-7.7); Neutrophils % 80.1 %; Nucleated Red Blood Cells % 0 %; Platelet Count 191 10^3/cmm (130-400); Red Blood Count 3.83 10^6/uL (4.1-5.3); Red Cell Distribution Width 14.6 % (12.1-15.1); White Blood Count 14.8 10^3/uL (4.0-10.0)
[2021-05-27 05:19] LABS: Anion Gap 15.3 (5-19); Blood Urea Nitrogen 24 mg/dL (6-20); Calcium 7.8 mg/dL (8.5-10.5); Carbon Dioxide 27 mmol/L (22-29); Chloride 96 mmol/L (98-107); Glomerular Filtration Rate 118.9 mL/min (90-130); Glucose 89 mg/dL (65-115); Osmolality Calculated 282 mOsm/kg (285-295); Potassium 4.3 mmol/L (3.5-5.1); Sodium 134 mmol/L (136-145)
[2021-05-27] MEDS: cefepime 2,000 MG in sodium chloride 0.9% (plus) 50 ML 100 MG IV ×2 (05:20→17:47)
[2021-05-27] MEDS: amiodarone 200 mg Tablet PO ×2 (09:54→17:47)
[2021-05-27] MEDS: aspirin 81 mg Chew Tablet PO (09:54)
[2021-05-27] MEDS: acetaminophen 325 mg Tablet 650 MG PO (09:58)
[2021-05-27] MEDS: enoxaparin 40 mg/0.4 mL Syringe SUBCUT (13:43)
[2021-05-27] MEDS: fluconazole premix 200 MG/100 ML PREMIX 50 MG IV (13:44)
--- NOTE | 2021-05-27 15:04 | PM.PN ---
Subjective Subjective: Interval history: Intubated, sedated. Vitals/I&O/Wt Last Vital Signs Temp 98.8 F 05/27/21 13:00 Pulse 80 05/27/21 13:00 Resp 22 H 05/27/21 14:42 BP 101/51 05/27/21 13:00 Pulse Ox 91 05/27/21 14:42 05/27/21 05/27/21 05/27/21 06:59 14:59 22:59 Intake Total 706.334 / 1858.084 196.117 / 196.117 Output Total 750 / 1200 Balance -43.666 / 658.084 196.117 / 196.117 Weight last 48 hrs Weight 113.398 kg Weight 111.992 kg Physical Exam Const: COMMON NORMALS: no acute distress HENMT: COMMON NORMALS: oropharynx normal Neck/C-Spine: COMMON NORMALS: no JVD Resp: COMMON NORMALS: normal respiratory effort AUSCULTATION: crackles Laterality: bilateral Cardio: COMMON NORMALS: no JVD, regular rhythm, S1 normal heart sound present, S2 normal heart sound present and No murmurs present (Cardio) RHYTHM: regular rhythm HEART SOUNDS: S1 normal heart sound present and S2 normal heart sound present GI: COMMON NORMALS: Normal to inspection, nondistended, normoactive bowel sounds present and Soft to palpation PALPATION: Yes Soft to palpation Extremity: COMMON NORMALS: no joint enlargement and no pedal edema Skin: COMMON NORMALS: no rashes or lesions noted GENERAL SKIN EXAM: no rashes or lesions noted Urinary Catheter Management^: [place]: Cath Placed During This Visit: yes, but has since been removed by the nurse Reason for Continuing Indwelling Catheter: Decision to DC Catheter Urinary Catheter Date of Insertion: 05/11/21 Urinary Catheter Time of Insertion: 13:39 Date Urinary Catheter Removed: 05/22/21 Time Urinary Catheter Discontinued: 11:20 2-way Urethral: Cath Placed During This Visit: yes Reason for Continuing Indwelling Catheter: Accurate Measurement of Urinary Output in Critically Ill Patients Urinary Catheter Date of Insertion: 05/22/21 Data : 05/27/21 04:00 05/27/21 04:00 Micro: Microbiology 05/25/21 20:08 Gram Stain - Final Sputum - Endotracheal Tube Aspirate Sputum Culture - Preliminary A&P Assessment and plan (1) Respiratory failure with hypoxia: Slightly better in terms of FiO2 requirements. Down to 90%. Continue sedation, avoid restlessness/dyssynchrony. Contacted [facility], but no beds available for COVID-19/ECMO. Similarly at [facility]. Placed on waiting list for ECMO at [facility]. career based intervention coordinator reaching out to further facilities. Add Diflucan due to some white oropharyngeal discharge noted. Replace NGT. On cefepime for possible bacterial infection. Already recd decadron x 13 days, remdesivir and actemra CTA no PE D-dimer level came down. Prophylactic Lovenox. Status: Acute (2) Paroxysmal atrial fibrillation with RVR: Now in sinus rhythm Amiodarone Status: Acute (3) COVID-19: as noted above Status: Acute (4) Transaminitis: Secondary to COVID-19 Status: Acute (5) Hypertension: Status: Chronic (6) CAD (coronary artery disease): Status: Chronic Qualifiers: Associated angina: unspecified whether angina present Coronary Disease-Associated Artery/Lesion type: false pass artery [place] vs. transplanted heart: false pass heart Qualified Code(s): I25.10 - Atherosclerotic heart disease of [place] coronary artery without angina pectoris Additional A&P Information Discussed with pulm/great, appreciate recommendations. Attestations Medical Necessity Statement*: Continue admission for hypoxic respiratory failure with severe COVID-19. Critical Care Time: The high probability of a clinically significant, sudden or life threatening deterioration of the patient's respiratory system(s) required my full and direct attention, intervention and personal management. The critical care time is as shown. This time is in addition to time spent performing any reported procedures but includes the following: x Data and vital sign review and interpretation x Patient assessment, examination and intervention x Documentation x Medication orders and management Critical Care Time (min): 40 Coding Level of Care Code Acute Cat Driver for [facility] Fwd Diagnoses Respiratory failure with hypoxia J96.91 Paroxysmal atrial fibrillation with RVR I48.0 COVID-19 U07.1 Transaminitis R74.01 Hypertension I10 CAD (coronary artery disease) I25.10 Associated angina: unspecified whether angina present Coronary Disease-Associated Artery/Lesion type: [place] pass artery [place] vs. transplanted heart: false pass heart
--- NOTE | 2021-05-27 15:32 | XR_ITS ---
WS: [id number] Exam: XR chest 1V portable [id number] Date/Time of Exam: 05/27/2021 3:32 PM Reason For Exam: Replaced OG tube Comparison 05/26/2021 An enteric tube has been placed and appears to be looped in the gastric fundus. ET tube in place in s atisfactory position ending about 6 cm above the regina. Right IJ central line ends at the expected r egion of the cavoatrial junction. Widespread interstitial and airspace infiltrates throughout both casi ng slightly improved. Right-sided pleural effusion. No pneumothorax. Heart size is normal. The medias tinum is not widened. Monitoring leads superimpose the chest. XR/XR chest 1V portable [id number] IMPRESSION: 1. Widespread bilateral pulmonary infiltrates slightly improved. Small right-si ded pleural effusion. 2. Enteric tube looped in the fundus of the stomach. 3. ET tube and right IJ central line both appear to be in satisfactory position without change.
[2021-05-27] MEDS: polyethylene glycol 3350 Pkt 17 gm PO (17:47)
[2021-05-28] VITALS (50 sets, daily range): BP systolic 82–126; BP diastolic 45–80; PULSE 79–131; RESP 22–28; TEMP 36.9–37.9; O2SAT 86–93
[2021-05-28] MEDS: famotidine 20 mg/2 mL INJ IVP ×2 (00:23→11:42)
[2021-05-28] MEDS: propofol 1,000 MG/100 ML INJ 35.82 MG IV ×9 (01:17→22:02)
[2021-05-28] MEDS: ipratropium-albuterol 3 mL Neb INHALATION ×5 (03:19→19:36)
[2021-05-28] MEDS: cefepime 2,000 MG in sodium chloride 0.9% (plus) 50 ML 100 MG IV ×2 (05:05→17:03)
[2021-05-28 05:08] LABS: Basophils % 0.3 %; Eosinophils # 0.2 10^3/uL (0.0-0.8); Eosinophils % 1.3 %; Hemoglobin 11.2 g/dL (11.7-16.6); Lymphocytes # 0.8 10^3/uL (0.8-4.8); Lymphocytes % 5.1 %; Mean Corpuscular HGB Conc 31.1 g/dL (30.0-36.0); Mean Corpuscular Hemoglobin 29.6 pg (28.0-34.0); Mean Platelet Volume 10.1 fL (7.4-10.4); Monocytes # 2.2 10^3/uL (0.2-0.9); Monocytes % 14.7 %; Neutrophils # 11.45 10^3/uL (1.8-7.7); Neutrophils % 77.5 %; Nucleated Red Blood Cells % 0 %; Platelet Count 200 10^3/cmm (130-400); Red Blood Count 3.79 10^6/uL (4.1-5.3); White Blood Count 14.8 10^3/uL (4.0-10.0)
[2021-05-28 05:29] LABS: Alanine Aminotransferase 65 U/L (0-41); Albumin Level 2.9 g/dL (3.5-5.2); Alkaline Phosphatase 118 IU/L (40-130); Anion Gap 13.5 (5-19); Aspartate Amino Transferase 95 U/L (0-40); Blood Urea Nitrogen 30 mg/dL (6-20); Calcium 8.2 mg/dL (8.5-10.5); Carbon Dioxide 29 mmol/L (22-29); Chloride 96 mmol/L (98-107); Globulin 2.7 g/dL (1.3-4.6); Glomerular Filtration Rate 118.9 mL/min (90-130); Glucose 96 mg/dL (65-115); Osmolality Calculated 284 mOsm/kg (285-295); Potassium 4.5 mmol/L (3.5-5.1); Sodium 134 mmol/L (136-145); Total Bilirubin 0.5 mg/dL (0.15-1.2); Total Protein 5.6 g/dL (6.6-8.7)
--- NOTE | 2021-05-28 06:05 | PC.NURSE ---
No acute changes overnight. patient does have a moderate amount of pus drainage from mouth, oral care performed every 2 hours per protocol. patient remains on vent and sedated.
[2021-05-28] MEDS: amiodarone 200 mg Tablet PO ×2 (08:07→17:03)
[2021-05-28] MEDS: aspirin 81 mg Chew Tablet PO (08:07)
--- NOTE | 2021-05-28 10:33 | PM.PN ---
Subjective Subjective: Interval history: Intubated, sedated, not restless. Vitals/I&O/Wt Last Vital Signs Temp 98.5 F 05/28/21 07:00 Pulse 84 05/28/21 10:00 Resp 26 H 05/28/21 08:43 BP 114/71 05/28/21 10:00 Pulse Ox 92 05/28/21 10:00 05/27/21 05/28/21 05/28/21 22:59 06:59 14:59 Intake Total 992.789 / 1438.906 905.968 / 2344.874 100 / 100 Output Total 700 / 700 650 / 1350 Balance 292.789 / 738.906 255.968 / 994.874 100 / 100 Weight last 48 hrs Weight 113.398 kg Physical Exam Const: COMMON NORMALS: no acute distress GENERAL APPEARANCE: ill appearing HENMT: COMMON NORMALS: oropharynx normal OTHER: No oral secretions today Neck/C-Spine: COMMON NORMALS: no JVD Resp: COMMON NORMALS: normal respiratory effort AUSCULTATION: crackles Laterality: left (lower) Cardio: COMMON NORMALS: no JVD, regular rhythm, S1 normal heart sound present, S2 normal heart sound present and No murmurs present (Cardio) RATE: tachycardic RHYTHM: regular rhythm HEART SOUNDS: S1 normal heart sound present and S2 normal heart sound present GI: COMMON NORMALS: Normal to inspection, nondistended, normoactive bowel sounds present and Soft to palpation PALPATION: Yes Soft to palpation Extremity: COMMON NORMALS: no joint enlargement and no pedal edema Neuro: COMMON NORMALS: moves all extremities Skin: COMMON NORMALS: no rashes or lesions noted GENERAL SKIN EXAM: no rashes or lesions noted Urinary Catheter Management^: [place]: Cath Placed During This Visit: yes, but has since been removed by the nurse Reason for Continuing Indwelling Catheter: Decision to DC Catheter Urinary Catheter Date of Insertion: 05/11/21 Urinary Catheter Time of Insertion: 13:39 Date Urinary Catheter Removed: 05/22/21 Time Urinary Catheter Discontinued: 11:20 2-way Urethral: Cath Placed During This Visit: yes Reason for Continuing Indwelling Catheter: Accurate Measurement of Urinary Output in Critically Ill Patients Urinary Catheter Date of Insertion: 05/22/21 Data : 05/28/21 04:41 05/28/21 04:41 Micro: Microbiology 05/25/21 20:08 Gram Stain - Final Sputum - Endotracheal Tube Aspirate Sputum Culture - Preliminary A&P Assessment and plan (1) Respiratory failure with hypoxia: Oxygenation somewhat worse today. FiO2 up to 100%. Search continues for possible ECMO if he would be candidate/if bed opening becomes available. Some puffiness noted in extremities. Crackles noted, although these are most likely secondary to inflammation. We will give a small dose of Lasix as he appears to be in positive balance. Seems for some time PEEP was decreased overnight. Please maintain PEEP 12-15 mmHg. Continue Diflucan due to some white oropharyngeal discharge noted. Replace NGT. Empiric cefepime for possible bacterial infection. Already recd decadron x 13 days, remdesivir and actemra CTA no PE D-dimer level came down. Prophylactic Lovenox. Status: Acute (2) Paroxysmal atrial fibrillation with RVR: Now in sinus rhythm Amiodarone Status: Acute (3) COVID-19: as noted above Status: Acute (4) Transaminitis: Secondary to COVID-19 Status: Acute (5) Hypertension: Status: Chronic (6) CAD (coronary artery disease): Status: Chronic Qualifiers: Associated angina: unspecified whether angina present Coronary Disease-Associated Artery/Lesion type: [place] artery [place] vs. transplanted heart: [place] heart Qualified Code(s): I25.10 - Atherosclerotic heart disease of [place] coronary artery without angina pectoris Additional A&P Information Discussed with pulm/great, appreciate recommendations. Attestations Medical Necessity Statement*: Continue admission for hypoxic respite failure secondary to severe COVID-19 Critical Care Time: The high probability of a clinically significant, sudden or life threatening deterioration of the patient's volume status, respiratory system(s) required my full and direct attention, intervention and personal management. The critical care time is as shown. This time is in addition to time spent performing any reported procedures but includes the following: x Data and vital sign review and interpretation x Patient assessment, examination and intervention x Documentation x Medication orders and management Critical Care Time (min): 35 Coding Level of Care Code Acute Silk Screen Etcher for [facility] Fwd Exam Comprehensive Diagnoses Respiratory failure with hypoxia J96.91 Paroxysmal atrial fibrillation with RVR I48.0 COVID-19 U07.1 Transaminitis R74.01 Hypertension I10 CAD (coronary artery disease) I25.10 Associated angina: unspecified whether angina present Coronary Disease-Associated Artery/Lesion type: [place] artery [place] vs. transplanted heart: [place] heart
[2021-05-28] MEDS: morphine 4 mg/mL SDV 1 mL IVP ×2 (11:39→17:26)
[2021-05-28] MEDS: enoxaparin 40 mg/0.4 mL Syringe SUBCUT (11:40)
[2021-05-28] MEDS: fluconazole premix 100 MG in empty flexible container 1 EACH 50 MG IV (11:57)
[2021-05-28 14:49] LABS: ABG PH Result 7.28 (7.35-7.45); Alveolar-Arterial Oxygen Gradi 64.7 mmHg (5-10); Arterial Blood Gas Hematocrit 36.2 % (42-52); Base Excess ABG 4.7 mmol/L (-2.0-2.0); Blood Gas Allen Test Pos; Blood Gas Operator Identificat CAK; Blood Gas Sample Site Brachial, left; Blood Gas Sample Type Arterial; Blood Gas Tidal Volume 0.46; Carboxyhemoglobin 1.9 %THgb (0.4-20.1); HCO3 ABG 33.3 mmol/L (22-26); HGB O2 Sat 87.7 % (95-100); Ionized Calcium Level - ABG 1.2 mmol/L (1.1-1.4); Methemoglobin 0.2 % (0.4-1.5); Oxygen Device VENT; Oxygen Saturation ABG 89.6; PO2 ABG 57.6 mmHg (80.0-100.0); Potassium Level - ABG 4.8 mmol/L (3.5-5.0); Total Hemoglobin 11.8 g/dL (14-18)
[2021-05-28] MEDS: cisatracurium 100 MG in sodium chloride 0.9% 50 ML IV (15:52)
[2021-05-28] MEDS: FUROsemide 10 mg/mL SDV 2mL 20 MG IVP (17:03)
[2021-05-29] VITALS (77 sets, daily range): BP systolic 70–122; BP diastolic 46–71; PULSE 81–132; RESP 24–28; TEMP 37.7–40.2; O2SAT 86–97
[2021-05-29] MEDS: ipratropium-albuterol 3 mL Neb INHALATION ×6 (00:12→20:31)
[2021-05-29] MEDS: propofol 1,000 MG/100 ML INJ 35.82 MG IV ×2 (00:46→03:16)
[2021-05-29] MEDS: famotidine 20 mg/2 mL INJ IVP ×3 (00:46→23:39)
[2021-05-29] MEDS: cisatracurium 100 MG in sodium chloride 0.9% 50 ML 6.8 MG IV ×2 (05:14→21:57)
[2021-05-29] MEDS: cefepime 2,000 MG in sodium chloride 0.9% (plus) 50 ML 100 MG IV (05:16)
[2021-05-29 05:18] LABS: D Dimer 2.64 ug/mIFEU (0-0.59)
--- NOTE | 2021-05-29 05:53 | PC.NURSE ---
Patient less compliant with vent throughout the night. Increasing end tidal CO2 levels. PIP levels very high. Notified Dr. Castro. No new orders received at this time.
--- NOTE | 2021-05-29 05:57 | PC.NURSE ---
Patient's family notified of patient not being compliant with vent and increased V/S
[2021-05-29 08:27] LABS: ABG PCO2 70.6 mmHg (35-45)
[2021-05-29 09:28] LABS: Basophils # 0.1 10^3/uL (0.0-0.1); Basophils % 0.4 %; Eosinophils % 0.2 %; Hematocrit 39.4 % (42.0-52.0); Hemoglobin 12.1 g/dL (11.7-16.6); Lymphocytes # 0.6 10^3/uL (0.8-4.8); Lymphocytes % 3.3 %; Mean Corpuscular HGB Conc 30.7 g/dL (30.0-36.0); Mean Corpuscular Hemoglobin 30.4 pg (28.0-34.0); Mean Platelet Volume 10.3 fL (7.4-10.4); Monocytes # 3.1 10^3/uL (0.2-0.9); Monocytes % 16.5 %; Neutrophils # 14.38 10^3/uL (1.8-7.7); Neutrophils % 76.2 %; Nucleated Red Blood Cells % 0.2 %; Platelet Count 243 10^3/cmm (130-400); Red Blood Count 3.98 10^6/uL (4.1-5.3); Red Cell Distribution Width 15.2 % (12.1-15.1); White Blood Count 18.9 10^3/uL (4.0-10.0)
[2021-05-29] MEDS: amiodarone 200 mg Tablet PO ×2 (09:49→18:55)
[2021-05-29] MEDS: aspirin 81 mg Chew Tablet PO (09:49)
[2021-05-29 09:50] LABS: Alkaline Phosphatase 198 IU/L (40-130); Anion Gap 22.3 (5-19); Blood Urea Nitrogen 43 mg/dL (6-20); Calcium 8.3 mg/dL (8.5-10.5); Carbon Dioxide 22 mmol/L (22-29); Chloride 92 mmol/L (98-107); Globulin 3.6 g/dL (1.3-4.6); Glomerular Filtration Rate 49.3 mL/min (90-130); Glucose 123 mg/dL (65-115); Osmolality Calculated 282 mOsm/kg (285-295); Potassium 6.3 mmol/L (3.5-5.1); Sodium 130 mmol/L (136-145); Total Bilirubin 0.9 mg/dL (0.15-1.2); Total Protein 6.6 g/dL (6.6-8.7)
[2021-05-29 10:04] LABS: Alanine Aminotransferase 1571 U/L (0-41)
[2021-05-29 10:15] LABS: Aspartate Amino Transferase 1564 U/L (0-40)
--- NOTE | 2021-05-29 10:19 | XR_ITS ---
WS: [id number] Exam: XR chest 1V portable [id number] Date/Time of Exam: 05/29/2021 10:33 AM Reason For Exam: hypoxia, hypotension Comparison 05/27/2021. Widespread diffuse pulmonary infiltrates throughout both lungs show little change. The heart is enlar ged but unchanged in size. No pleural effusion or pneumothorax seen. ET tube ends about 3 cm above th e regina in good position. Right-sided IJ catheter ends at the cavoatrial junction. An enteric tube i s positioned in the stomach. Monitoring leads superimpose the chest. XR/XR chest 1V portable [id number] IMPRESSION: 1. Extensive bilateral pulmonary infiltrates unchanged. Cardiomegaly unchanged. 2. ET tube, central line and enteric tube all in satisfactory position.
[2021-05-29 10:40] LABS: Triglycerides 386 mg/dL (0-150)
--- NOTE | 2021-05-29 10:51 | P.PN_ITS ---
Subjective Subjective: Interval history: Intubated, sedated, not in distress. Vitals/I&O/Wt Last Vital Signs Temp 100.2 F H 05/28/21 20:00 Pulse 108 H 05/29/21 07:31 Resp 28 H 05/29/21 07:32 BP 87/48 05/29/21 06:00 Pulse Ox 95 05/29/21 07:32 05/28/21 05/29/21 05/29/21 22:59 06:59 14:59 Intake Total 583.425 / 994.203 820.585 / 1814.788 Output Total 300 / 300 450 / 750 Balance 283.425 / 694.203 370.585 / 1064.788 Weight last 48 hrs Weight 117.962 kg Physical Exam Const: COMMON NORMALS: no acute distress GENERAL APPEARANCE: ill appearing HENMT: COMMON NORMALS: oropharynx normal OTHER: No oral secretions Neck/C-Spine: COMMON NORMALS: no JVD Resp: COMMON NORMALS: normal respiratory effort AUSCULTATION: crackles Laterality: left (lower) Cardio: COMMON NORMALS: no JVD, regular rhythm, S1 normal heart sound present, S2 normal heart sound present and No murmurs present (Cardio) RATE: tachycar dic RHYTHM: regular rhythm HEART SOUNDS: S1 normal heart sound present and S2 normal heart sound present GI: COMMON NORMALS: Normal to inspection, nondistended, normoactive bowel sounds present and Soft to palpation PALPATION: Yes Soft to palpation Extremity: COMMON NORMALS: no joint enlargement and no pedal edema Neuro: COMMON NORMALS: moves all extremities Skin: COMMON NORMALS: no rashes or lesions noted GENERAL SKIN EXAM: no rashes or lesions noted Urinary Catheter Management^: [place]: Cath Placed During This Visit: yes, but has since been removed by the nurse Reason for Continuing Indwelling Catheter: Decision to DC Catheter Urinary Catheter Date of Insertion: 05/11/21 Urinary Catheter Time of Insertion: 13:39 Date Urinary Catheter Removed: 05/22/21 Time Urinary Catheter Discontinued: 11:20 2-way Urethral: Cath Placed During This Visit: yes Reason for Continuing Indwelling Catheter: Accurate Measurement of Urinary Output in Critically Ill Patients Urinary Catheter Date of Insertion: 05/22/21 Data : 05/29/21 10:45 05/29/21 08:51 Micro: Microbiology 05/25/21 20:08 Gram Stain - Final Sputum - Endotracheal Tube Aspirate Sputum Culture - Final A&P Assessment and plan (1) Respiratory failure with hypoxia: Worsening condition in terms of hemodynamics, although oxygenation is somewhat better, down to 70% FiO2 requirement. Continue supportive care with mechanical ventilation. Ongoing search for possible ECMO if he would be candidate/if bed opening becomes available. CM reaching out to multiple facilities including out of state so far without luck. Empiric antibiotics changed as below. Received decadron x 13 days, remdesivir and actemra CTA no PE D-dimer level came down. Prophylactic Lovenox. Status: Acute (2) Hypotension: Blood pressures lower overnight, and hypotensive this morning. Propofol overnight was discontinued. Blood pressures initially better, but still requiring Levophed later this morning. Low-grade fever, 100.2 Fahrenheit. Possible secondary infection, sepsis, septic shock, possible medication effect in setting of acute kidney injury. Chest x- ray. Check lipase. Requested blood culture, urine and sputum cultures. Change [place]. Change antibiotic coverage, empirically Primaxin, linezolid. Continue Diflucan. Check serum cortisol. Maintain mean arterial pressures. Notified his mother of change in condition. Status: Acute (3) SONIA (acute kidney injury): Possible SONIA, creatinine 1.5. Potassium appears possibly elevated as well 6.3. Repeat labs were requested pending. Change [place]. Change tube feeds to nepro. Status: Acute (4) Transaminitis: Worsened. Secondary to COVID-19, currently possibly also secondary to shock liver. Recheck labs requested. Status: Acute (5) Paroxysmal atrial fibrillation with RVR: Now in sinus rhythm Amiodarone Status: Acute (6) COVID-19: as noted above Status: Acute (7) Hypertension: Status: Chronic (8) CAD (coronary artery disease): Status: Chronic Qualifiers: Associated angina: unspecified whether angina present Coronary Disease- Associated Artery/Lesion type: [place] artery [place] vs. transplanted heart: [place] heart Qualified Code(s): I25.10 - Atherosclerotic heart disease of [place] coronary artery without angina pectoris Additional A&P Information Discussed with pulm/dago, appreciate recommendations. Attestations Medical Necessity Statement*: Continue admission for assessment management of hypoxic respiratory failure with severe COVID-19, hypotension, possible septic shock. Possible acute kidney injury, possible shock liver. Critical Care Time: The high probability of a clinically significant, sudden or life threatening deterioration of the patient's Hemodynamic system(s) with hypotension, possible septic shock, acute kidney injury, hyperkalemia, required my full and direct attention, intervention and personal management. The critical care time is as shown. This time is in addition to time spent performing any reported procedures but includes the following: [x] Data and vital sign review and interpretation [x] Patient assessment, examination and intervention [x] Documentation [x] Medication orders and management Critical Care Time (min): 55 Coding Level of Care Code Acute Plant Controls Specialist for g Fwd Exam Comprehensive Diagnoses Respiratory failure with hypoxia J96.91 Hypotension I95.9 SONIA (acute kidney injury) N17.9 Transaminitis R74.01 Paroxysmal atrial fibrillation with RVR I48.0 COVID-19 U07.1 Hypertension I10 CAD (coronary artery disease) I25.10 Associated angina: unspecified whether angina present Coronary Disease-Associated Artery/Lesion type: [place] artery [place] vs. transplanted heart: lumbee heart
[2021-05-29 11:11] LABS: Basophils # 0.1 10^3/uL (0.0-0.1); Basophils % 0.5 %; Hematocrit 39.6 % (42.0-52.0); Hemoglobin 11.8 g/dL (11.7-16.6); Lymphocytes # 0.7 10^3/uL (0.8-4.8); Lymphocytes % 3.4 %; Mean Corpuscular HGB Conc 29.8 g/dL (30.0-36.0); Mean Corpuscular Hemoglobin 29.3 pg (28.0-34.0); Mean Corpuscular Volume 98.3 fl (80-94); Mean Platelet Volume 10.4 fL (7.4-10.4); Monocytes # 2.9 10^3/uL (0.2-0.9); Monocytes % 14.9 %; Neutrophils # 15.12 10^3/uL (1.8-7.7); Neutrophils % 78.1 %; Nucleated Red Blood Cells % 0.1 %; Platelet Count 231 10^3/cmm (130-400); Red Blood Count 4.03 10^6/uL (4.1-5.3); Red Cell Distribution Width 15.2 % (12.1-15.1); White Blood Count 19.4 10^3/uL (4.0-10.0)
[2021-05-29] MEDS: linezolid premix 600 MG/300 ML PREMIX 300 MG IV ×2 (11:32→23:40)
[2021-05-29 11:58] LABS: Anion Gap 23.5 (5-19); Blood Urea Nitrogen 45 mg/dL (6-20); Calcium 8.7 mg/dL (8.5-10.5); Carbon Dioxide 22 mmol/L (22-29); Chloride 94 mmol/L (98-107); Glomerular Filtration Rate 45.8 mL/min (90-130); Glucose 125 mg/dL (65-115); Osmolality Calculated 289 mOsm/kg (285-295); Sodium 133 mmol/L (136-145)
[2021-05-29 12:07] LABS: Potassium 6.5 mmol/L (3.5-5.1)
[2021-05-29 12:08] LABS: Lipase 20 U/L (13-60)
[2021-05-29 12:09] LABS: Cortisol Random 51.93 ug/dL (2.47-19.5)
[2021-05-29] MEDS: dextrose 50% syringe 50 mL 25 ML IVP (12:14)
[2021-05-29] MEDS: calcium gluconate 0.9% NaCL 1 GM/50 ML PREMIX IV (12:14)
[2021-05-29] MEDS: sodium polystyrene sulfonate 15 gm/60 mL Btl PO (12:14)
[2021-05-29] MEDS: enoxaparin 40 mg/0.4 mL Syringe SUBCUT (12:15)
[2021-05-29] MEDS: insulin regular-human 10 UNIT in SYRINGE 1 EACH IVP (12:15)
[2021-05-29] MEDS: fluconazole premix 100 MG in empty flexible container 1 EACH 50 MG IV (12:17)
[2021-05-29 12:44] LABS: Glucose Point of Care 201 mg/dL (70-110)
[2021-05-29 13:33] LABS: Blood Urine 3+ (Negative); Glucose Urine UA Norm (Normal); Ketones Urine 1+ (Negative); Nitrate Urine Negative (Negative); Protein Urine 2+ (Negative); Specific Gravity, Urine 1.025 (1.005-1.030); Urine Appearance Cloudy (CLEAR); Urine Color Yellow (Yellow); pH Urine 5 (5-7)
[2021-05-29 13:34] LABS: Add Urine Culture? Yes; Add Urine Microscopic? YES; Amorphous Sediment Urine 1+ /hpf; Bacteria Urine 3+ /hpf; Bilirubin Urine 1+ (Negative); Calcium Oxalate Crystals Urine 20 /hpf; Leukocyte Esterase Urine 2+ (Negative); Mucus Urine 2+ /hpf; Squamous Epithelial Cell Urine 0-4 /hpf (0-5); Urobilinogen Urine 4 mg/dL (Negative); WBC Urine 25-40 /hpf (0-5)
--- NOTE | 2021-05-29 14:04 | P.PN_ITS ---
Subjective Subjective: Interval history: The patient has unfortunately gotten worse. He has developed septic shock and currently on Levophed. He has also developed multiorgan dysfunction. His urine output is minimal with development of new hyperkalemia. The liver enzymes are going up. The patient is currently sedated and paralyzed. He has developed hypercapnia. His antibiotic coverage has been broadened today. He is febrile. Chest x-ray obtained today looks similar to before. Medications: Reviewed: Yes Vitals/I&O/Wt Last Vital Signs Temp 100.2 F H 05/28/21 20:00 Pulse 109 H 05/29/21 11:42 Resp 28 H 05/29/21 13:07 BP 87/48 05/29/21 06:00 Pulse Ox 90 05/29/21 13:07 05/28/21 05/29/21 05/29/21 22:59 06:59 14:59 Intake Total 583.425 / 994.203 820.585 / 1814.788 400 / 400 Output Total 300 / 300 450 / 750 Balance 283.425 / 694.203 370.585 / 1064.788 400 / 400 Weight last 48 hrs Weight 260 lb 1 oz Physical Exam Narrative: EXAM NARRATIVE: General: Patient is intubated, sedated and paralyze d Respiratory: Auscultation: Crackles at bilateral lung bases, no wheezing, occasional rhonchi Cardiovascular: Regular rate and rhythm, S1-S2 present, no murmur, no peripheral edema. Abdomen: Soft, distended from obesity, positive bowel sound Skin: No rash Neuro: Unable to assess Urinary Catheter Management^: [place]: Cath Placed During This Visit: yes, but has since been removed by the nurse Reason for Continuing Indwelling Catheter: Decision to DC Catheter Urinary Catheter Date of Insertion: 05/11/21 Urinary Catheter Time of Insertion: 13:39 Date Urinary Catheter Removed: 05/22/21 Time Urinary Catheter Discontinued: 11:20 2-way Urethral: Cath Placed During This Visit: yes Reason for Continuing Indwelling Catheter: Accurate Measurement of Urinary Output in Critically Ill Patients Urinary Catheter Date of Insertion: 05/22/21 Data : 05/29/21 10:45 05/29/21 10:45 Micro: Microbiology 05/29/21 10:57 Blood Culture - Preliminary Blood SPECIMEN COLLECTED 05/29/21 10:52 Blood Culture - Preliminary Blood SPECIMEN COLLECTED 05/25/21 20:08 Gram Stain - Final Sputum - Endotracheal Tube Aspirate Sputum Culture - Final Attestation for Other Data: I personally reviewed and interpreted the following: Other data: I have reviewed the patient's laboratory microbiologic and radiologic data. The patient has leukocytosis which is mildly worse than before. He has started to develop hyponatremia, hyperkalemia developing metabolic acidosis and worsening BUN/creatinine. Chest x-ray reveals bilateral infiltrates similar to before. A&P Assessment and plan (1) Acute respiratory distress syndrome (ARDS) due to 2019 novel coronavirus: This is a 50-year-old gentleman severe COVID-19. Patient is intubated, sedated and paralyzed. Unfortunately, the patient has not made any significant recovery in the past 3 days. In fact, he has developed septic shock, ATN, hyperkalemia, signs of multiorgan dysfunction with elevated liver enzymes. At this point, given his ATN and minimal urine output, the patient would not be a candidate for lung transplant as well as ECMO. He is broadly covered with antibiotic now for this new septic shock. He is on 80% oxygen. At this point, the chances of his recovery are minimal. The patient is DNR. Status: Acute (2) COVID-19: The dexamethasone has been discontinued on 05/23. He has received it for 13 days. He had received remdesivir in the past. Antibiotic coverage was increased for septic shock. Status: Acute (3) A-fib: We will continue the amiodarone for the time being. We will just continue with subcu prophylactic dose Lovenox. Status: Acute Attestations Medical Necessity Statement*: Will defer to the primary team Coding Level of Care Code Acute Ceramics Test Engineer for [facility] Diagnoses Acute respiratory distress syndrome (ARDS) due to 2019 novel coronavirus U07.1; J80 COVID-19 U07.1 A-fib I48.91
[2021-05-29] MEDS: acetaminophen 325 mg Tablet 650 MG PO (20:09)
--- NOTE | 2021-05-29 20:42 | PC.NURSE ---
1025 Reported low BP to Dr. Palmer. Orders to call Dr. Mills. Called Dr. Mills to report low BP. Orders to start Levo drip. Discussed lab results. Orders to repeat labs to confirm results. Medication orders to treat high K received. Orders per Dr. Bynum to replace marsh and send urine specimen. Marsh replaced.
--- NOTE | 2021-05-29 21:36 | PC.NURSE ---
Nimbex dose decreased due to not having another bag on the unit. Pharmacist is involved in an ongoing emergency elsewhere in the hospital.
--- NOTE | 2021-05-29 21:42 | PC.NURSE ---
Bed tilted 6 degrees to the pt's left at 20:00.
[2021-05-29] MEDS: adenosine 3 mg/mL SDV 2mL 6 MG IVP (22:00)
--- NOTE | 2021-05-29 22:04 | XRR_ITS ---
PROCEDURE INFORMATION: Exam: XR Chest Exam date and time: 05/29/2021 10:04 PM Age: 50 years old Clinical indication: Device placement; Ett placement (vent status) TECHNIQUE: Imaging protocol: XR of the chest. Views: 1 view. COMPARISON: CR XR chest 1V portable [id number] 05/29/2021 10:36 AM FINDINGS: Tubes, catheters and devices: A right internal jugular vein central venous line is placed with its tip at the level of the superior vena cava. An endotracheal tube is placed with its tip approximately 4.9 cm from the regina. A nasogastric tube is present with its tip coiled in the proximal stomach. EKG leads overlie the chest. Lungs: There are diffuse bilateral interstitial infiltrates again seen, left slightly worse than right. There appears to be a mild improvement in aeration compared with 05/29/2021. Pleural spaces: Unremarkable. No pleural effusion. No pneumothorax. Heart/Mediastinum: Unremarkable. No cardiomegaly. Bones/joints: Unremarkable. XR/XR chest 1V portable [id number] IMPRESSION: 1. Endotracheal tube tip 4.9 cm from the regina. Stable placement of the right internal jugular vein central venous line and nasogastric tube. 2. Diffuse bilateral interstitial infiltrates are again seen, left worse than right but appearing mildly improved compared with 05/29/2021.
[2021-05-29] MEDS: adenosine 3 mg/mL SDV 2mL 12 MG IVP (22:05)
[2021-05-29] MEDS: metoprolol tartrate 1 mg/1 mL SDV 5 mL 5 MG IVP (22:10)
--- NOTE | 2021-05-29 22:36 | PC.NURSE ---
Pt noted to be in a narrow complex tachycardia with a rate of 190. Attempted to suction ETT to initiate a vagal response. Dr. Castro at bedside. See MAR.
--- NOTE | 2021-05-29 23:26 | PC.NURSE ---
At 22:00 pt laid supine with bed tilt off. At 2225, bed tilted to the right 10 degrees. At 2315, bed tilt off, HOB remains at 30 degees.
[2021-05-29 23:35] LABS: Potassium 6.2 mmol/L (3.5-5.1)
[2021-05-30] VITALS (76 sets, daily range): BP systolic 63–124; BP diastolic 42–83; PULSE 82–186; RESP 26–29; TEMP 36.6–38; O2SAT 87–97
--- NOTE | 2021-05-30 00:05 | PC.NURSE ---
Bed tilted 6 degrees to patient's right
[2021-05-30] MEDS: metoprolol tartrate 1 mg/1 mL SDV 5 mL 5 MG IVP ×2 (00:37→10:58)
[2021-05-30 01:01] LABS: Magnesium 3.2 mg/dL (1.7-2.3)
[2021-05-30] MEDS: insulin regular-human 10 UNIT in SYRINGE 1 EACH IVP (01:43)
[2021-05-30 01:44] LABS: Glucose Point of Care 199 mg/dL (70-110)
[2021-05-30] MEDS: dextrose 50% syringe 50 mL 25 ML IVP (01:44)
[2021-05-30] MEDS: sodium polystyrene sulfonate 15 gm/60 mL Btl PO ×4 (01:44→20:01)
[2021-05-30] MEDS: calcium gluconate 0.9% NaCL 1 GM/50 ML PREMIX IV (01:44)
--- NOTE | 2021-05-30 02:04 | PC.NURSE ---
# 18 started with u/s guidance by Dr. Castro.
--- NOTE | 2021-05-30 02:06 | PC.NURSE ---
Spoke w Family Called patient mother Kayla, updated her about patient current condition and answered all questions.
--- NOTE | 2021-05-30 02:06 | PC.NURSE ---
Family contacted via iPad at [phone], so that they could speak to him and see him. Pt's ex- and several other family members present.
--- NOTE | 2021-05-30 02:08 | PC.NURSE ---
Spoke with Family Have spoke with patient ex-, Isabella on multiple occasions throughout the night keeping her informed with current updates and changes in patient condition. Answered all questions asked by family and educated about medications administered.
--- NOTE | 2021-05-30 02:17 | PC.NURSE ---
Pt in narrow complex tachycardia with frequent PVCs. See MAR.
--- NOTE | 2021-05-30 02:20 | PC.NURSE ---
Pt appears to be in NSR after several rhythm and medication changes. Pulses are now stronger. Dr. Castro remains at bedside.
--- NOTE | 2021-05-30 02:23 | PC.NURSE ---
Pt in irregular narrow complex tachycardia. Dr. Castro at bedside.
--- NOTE | 2021-05-30 02:29 | PC.NURSE ---
Dr. Castro aware that pt has had no urinary output since 0000.
[2021-05-30 02:31] LABS: Glucose Point of Care 206 mg/dL (70-110)
[2021-05-30 03:46] LABS: Basophils # 0.1 10^3/uL (0.0-0.1); Basophils % 0.5 %; Hematocrit 37.8 % (42.0-52.0); Hemoglobin 11.8 g/dL (11.7-16.6); Lymphocytes % 4.2 %; Mean Corpuscular HGB Conc 31.2 g/dL (30.0-36.0); Mean Corpuscular Hemoglobin 30.2 pg (28.0-34.0); Mean Corpuscular Volume 96.7 fl (80-94); Mean Platelet Volume 10.3 fL (7.4-10.4); Monocytes # 3.2 10^3/uL (0.2-0.9); Monocytes % 13.3 %; Neutrophils # 18.73 10^3/uL (1.8-7.7); Neutrophils % 78.7 %; Nucleated Red Blood Cells # 0.1 /100WBC; Nucleated Red Blood Cells % 0.3 %; Platelet Count 216 10^3/cmm (130-400); Red Blood Count 3.91 10^6/uL (4.1-5.3); Red Cell Distribution Width 15.3 % (12.1-15.1); White Blood Count 23.8 10^3/uL (4.0-10.0)
[2021-05-30 04:06] LABS: Albumin Level 2.7 g/dL (3.5-5.2); Alkaline Phosphatase 234 IU/L (40-130); Anion Gap 21.5 (5-19); Blood Urea Nitrogen 65 mg/dL (6-20); Calcium 8.4 mg/dL (8.5-10.5); Carbon Dioxide 21 mmol/L (22-29); Chloride 92 mmol/L (98-107); Globulin 3.7 g/dL (1.3-4.6); Glomerular Filtration Rate 21.3 mL/min (90-130); Glucose 191 mg/dL (65-115); Osmolality Calculated 292 mOsm/kg (285-295); Potassium 5.5 mmol/L (3.5-5.1); Sodium 129 mmol/L (136-145); Total Bilirubin 0.9 mg/dL (0.15-1.2); Total Protein 6.4 g/dL (6.6-8.7)
[2021-05-30 04:19] LABS: Alanine Aminotransferase 4381 U/L (0-41)
[2021-05-30 04:22] LABS: Aspartate Amino Transferase 5101 U/L (0-40)
--- NOTE | 2021-05-30 04:33 | PC.NURSE ---
Pt continues to go in and out of narrow complex tachycardia/NSR.
--- NOTE | 2021-05-30 04:35 | PC.NURSE ---
Pt's bed not tilted, HOB 30 degrees, Pillow under left hip and arms elevated on pillows. Heels off of bed with heel protectors in place.
--- NOTE | 2021-05-30 04:36 | PC.NURSE ---
Bed not tilted. Pillows under right hip, arms elevated, heels off of bed, heel protectors in place.
--- NOTE | 2021-05-30 05:26 | PC.NURSE ---
Dr. Castro at bedside to complete an echo. Orders received, see MAR.
[2021-05-30] MEDS: FUROsemide 10 mg/mL SDV 10mL 80 MG IVP (05:30)
--- NOTE | 2021-05-30 06:07 | PC.NURSE ---
Bed tilted to pt's right 8 degrees, pillow under left hip, arms and heels on pillows.
--- NOTE | 2021-05-30 06:10 | PC.NURSE ---
Dr. Castro left floor due to emergency, and did not perform bedside echo, to this nurse's knowledge.
--- NOTE | 2021-05-30 06:36 | PC.NURSE ---
No urine output following Lasix administration.
[2021-05-30] MEDS: ipratropium-albuterol 3 mL Neb INHALATION ×5 (07:43→23:50)
[2021-05-30] MEDS: norepinephrine 8 MG in dextrose 5 % 500 ML 45.72 MG IV (07:44)
[2021-05-30] MEDS: aspirin 81 mg Chew Tablet PO (08:05)
[2021-05-30] MEDS: polyethylene glycol 3350 Pkt 17 gm PO (08:05)
[2021-05-30] MEDS: sennosides-docusate Tablet 1 TAB PO (08:05)
--- NOTE | 2021-05-30 08:45 | PC.NURSE ---
0700 Report received, assessment completed as charted. VSS. ETT in place, vent settings per RT. OGT in place, tube feedings per orders. 420 residual noted. Tube feeds paused. Amio, fentanyl, versed, norepinephrine, and nimbex all infusing per orders to RIJ CVL. [place] cath in place, draining small amount of urine to BSD. Pt repositioned and oral care performed q2h and PRN. HOB and extremities elevated. Will monitor.
[2021-05-30] MEDS: linezolid premix 600 MG/300 ML PREMIX 300 MG IV ×2 (10:59→23:57)
[2021-05-30] MEDS: fluconazole premix 100 MG in empty flexible container 1 EACH 50 MG IV (12:10)
[2021-05-30] MEDS: enoxaparin 40 mg/0.4 mL Syringe SUBCUT (12:10)
[2021-05-30] MEDS: famotidine 20 mg/2 mL INJ IVP ×2 (12:11→23:57)
[2021-05-30] MEDS: cisatracurium 100 MG in sodium chloride 0.9% 50 ML 6.8 MG IV (12:57)
--- NOTE | 2021-05-30 16:01 | PM.PN ---
Subjective Subjective: Interval history: The patient has not made any significant recovery after past 24 hours. His oxygen demand has come down mildly. However, his pressor requirement has gone up. The patient has worsening leukocytosis, liver enzymes and very minimal urine output. The patient had developed cardiac arrhythmia again and is on amiodarone. Currently in sinus rhythm. I had met with his mother and son at bedside. The plan is to continue with supportive care at this time. The patient is DNR. Medications: Reviewed: Yes Vitals/I&O/Wt Last Vital Signs Temp 99.0 F 05/30/21 14:00 Pulse 84 05/30/21 15:07 Resp 28 H 05/30/21 15:04 BP 114/66 05/30/21 14:00 Pulse Ox 91 05/30/21 15:04 05/30/21 05/30/21 05/30/21 06:59 14:59 22:59 Intake Total 1894.046 / 3262.009 1177.313 / 1177.313 Output Total 40 / 140 420 / 420 Balance 1854.046 / 3122.009 757.313 / 757.313 Weight last 48 hrs Weight 259 lb 14.4 oz Weight 260 lb 1 oz Physical Exam Narrative: EXAM NARRATIVE: General: Patient is intubated, sedated and paralyzed Respiratory: Auscultation: Crackles at bilateral lung bases, no wheezing, occasional rhonchi Cardiovascular: Regular rate and rhythm, S1-S2 present, no murmur, no peripheral edema. Abdomen: Soft, distended from obesity, positive bowel sound Skin: No rash Neuro: Unable to assess Urinary Catheter Management^: [place]: Cath Placed During This Visit: yes, but has since been removed by the nurse Reason for Continuing Indwelling Catheter: Decision to DC Catheter Urinary Catheter Date of Insertion: 05/11/21 Urinary Catheter Time of Insertion: 13:39 Date Urinary Catheter Removed: 05/22/21 Time Urinary Catheter Discontinued: 11:20 2-way Urethral: Cath Placed During This Visit: yes Reason for Continuing Indwelling Catheter: Accurate Measurement of Urinary Output in Critically Ill Patients Urinary Catheter Date of Insertion: 05/22/21 Data : 05/30/21 03:05 05/30/21 03:05 Micro: Microbiology 05/29/21 12:40 Urine Culture - Preliminary Urine,Clean Catch 05/29/21 10:57 Blood Culture - Preliminary Blood NEGATIVE TO DATE 05/29/21 10:52 Blood Culture - Preliminary Blood NEGATIVE TO DATE Attestation for Other Data: I personally reviewed and interpreted the following: Other data: I have reviewed the patient's laboratory, microbiology cardiology data. A&P Assessment and plan (1) Acute respiratory distress syndrome (ARDS) due to 2019 novel coronavirus: This is a 50-year-old gentleman severe COVID-19. Patient is intubated, sedated and paralyzed. Unfortunately, the patient has continued to deteriorate. The patient has developed hemodynamic instability and on increasing dose of the pressors. He has ATN with minimal urine output and developing worsening metabolic acidosis and hyponatremia. The patient will likely require CRRT support in the near future. Overall, I believe the patient's prognosis is poor. For now as per the family's wishes we will continue with full supportive care. The patient is DNR. Status: Acute (2) COVID-19: The dexamethasone has been discontinued on 05/23. He has received it for 13 days. He had received remdesivir in the past. Patient is currently on broad-spectrum antibiotic Status: Acute (3) A-fib: The patient has gone back into A. fib. He is on amiodarone and currently in sinus rhythm. Status: Acute Attestations Medical Necessity Statement*: Will defer to the primary team Coding Level of Care Code Acute Regional Vice President [employer] Sales for carissa Fwvioleta Diagnoses Acute respiratory distress syndrome (ARDS) due to 2019 novel coronavirus U07.1; J80 COVID-19 U07.1 A-fib I48.91
--- NOTE | 2021-05-30 17:25 | P.CONIM_ITS ---
Providers/Reason For Consult Consulting Physician/Specialty*: Rachell Burks DO, telenephrology Reason for Consult*: SONIA Attending Physician: Reynaldo Palmer History of Present Illness History of Present Illness Mike Carvalho is a 50 year old male admitted 05/11/21 with COVID, multiorgan failure, on ventilator since 05/19/21. Review of Systems General: Reports: ROS unobtainable due to medical condition Medications/Allergies Home Medications Medication Instructions Recorded Confirmed Last Taken Type aspirin 81 mg PO DAILY 05/11/21 05/11/21 05/11/21 History bumetanide 1 mg PO DAILY 05/11/21 05/11/21 05/07/21 History clindamycin HCl 300 mg PO TID 05/11/21 05/11/21 05/09/21 History lisinopril 20 mg PO BID 05/11/21 05/11/21 05/11/21 History omeprazole 20 mg PO DAILY 05/11/21 05/11/21 05/11/21 History Allergies Allergy/AdvReac Type Severity Reaction Status Date / Time sildenafil [From Viagra] Allergy ADR-Confusi Verified 05/11/21 10:03 on Current Medications Generic Name Dose Route Start Last Admin Trade Name Freq PRN Reason Stop Dose Admin Acetaminophen 650 mg 05/11/21 22:20 05/29/21 20:09 Acetaminophen 325 Mg Tablet PO 650 mg Q6H PRN Administration Mild/Mod Pain Or Temp >/= 101 Albuterol/Ipratropium 3 ml 05/11/21 16:00 05/30/21 15:04 Ipratropium-Albuterol 3 Ml Neb INHALATION 3 ml Q4H.RESPIRATORY AASHISH Administration Aspirin 81 mg 05/12/21 09:00 05/30/21 08:05 Aspirin 81 Mg Chew Tablet PO 81 mg DAILY AASHISH Administration Enoxaparin Sodium 40 mg 05/26/21 12:30 05/30/21 12:10 Enoxaparin 40 Mg/0.4 Ml Syringe SUBCUT 40 mg Q24H AASHISH Administration Famotidine 20 mg 05/11/21 12:30 05/30/21 12:11 Famotidine 20 Mg/2 Ml Inj IVP 20 mg Q12H AASHISH Administration Propofol 1,000 mg in 100 mls @ 0 mls/hr 05/17/21 22:00 05/30/21 09:38 Diprivan IV Infused .Q0M PRN Titration ALCOHOL WITHDRAWAL Protocol Per Protocol Midazolam HCl 100 mg/ Sodium 100 mls @ 0 mls/hr 05/19/21 07:45 05/30/21 01:17 Chloride IV 5 mg/hr .Q0M AASHISH 5 mls/hr Titration Protocol Per Protocol Fentanyl 2,500 mcg/ Sodium 250 mls @ 0 mls/hr 05/22/21 05:30 05/30/21 10:15 Chloride IV 100 mcg/hr .Q0M AASHISH 10 mls/hr Administration Protocol Per Protocol dexmedeTOMIDine 0.9 % NaCL 400 mcg in 100 mls @ 0 mls/hr 05/23/21 14:15 05/23/21 19:25 Precedex IV 0 mcg/kg/hr .Q0M AASHISH 0 mls/hr Titration Protocol Per Protocol Fluconazole 100 mg/ N/A 50 mls @ 50 mls/hr 05/28/21 12:30 05/30/21 12:57 IV Infused Q24H AASHISH Infusion Cisatracurium Besylate 100 mg/ 100 mls @ 0 mls/hr 05/28/21 15:15 05/30/21 12:57 Sodium Chloride IV 1 mcg/kg/min .Q0M AASHISH 6.8 mls/hr Administration Protocol Per Protocol Norepinephrine Bitartrate 4 mg 254 mls @ 0 mls/hr 05/29/21 10:30 05/30/21 07:14 / Dextrose IV Infused .Q0M AASHISH Titration Protocol Per Protocol Linezolid 600 mg in 300 mls @ 300 mls/hr 05/29/21 12:00 05/30/21 12:24 Zyvox Premix IV Infused Q12H AASHISH Infusion Protocol Amiodarone HCl 900 mg/ 518 mls @ 17.267 mls/hr 05/30/21 06:30 05/30/21 06:31 Dextrose/ IV Miscellaneous IV Not Given Supplies CONT AASHSIH 0.5 MG/MIN Norepinephrine Bitartrate 8 mg 508 mls @ 0 mls/hr 05/30/21 06:30 05/30/21 13:01 / Dextrose IV 8 mcg/min .Q0M AASHISH 30.48 mls/hr Titration Protocol Per Protocol Imipenem/Cilastatin Sodium 250 100 mls @ 200 mls/hr 05/30/21 17:00 05/30/21 17:14 mg/ Sodium Chloride IV Infused Q6H AASHISH Infusion Protocol Lanolin 1 applic 05/12/21 10:54 05/12/21 21:59 Lanolin Oint 7 Gm TOPICAL 1 tube PRN PRN Administration DRYNESS Morphine Sulfate 4 mg 05/23/21 14:04 05/28/21 17:26 Morphine 4 Mg/Ml Sdv 1 Ml IVP 4 mg Q4H PRN Administration SEVERE PAIN Polyethylene Glycol 17 gm 05/15/21 18:00 05/30/21 17:14 Polyethylene Glycol 3350 Pkt 17 Gm PO Not Given BID AASHISH Senna/Docusate Sodium 1 tab 05/20/21 09:00 05/30/21 08:05 Sennosides-Docusate Tablet PO 1 tab DAILY AASHISH Administration Sodium Polystyrene Sulfonate 15 gm 05/30/21 01:00 05/30/21 12:11 Sodium Polystyrene Sulfonate 15 Gm/60 Ml Btl PO 15 gm Q6H AASHISH Administration PFSH Acute PFSH: Medical History CAD (coronary artery disease) Hypertension Surgical History No significant past surgical history Social History Smoking and tobacco status: former smoker Alcohol intake: never Substance/Drug Use: never Lives independently: Yes Household members: spouse Housing: House Marital status: Vitals/I&O/Wt Last Vital Signs Temp 98.2 F 05/30/21 16:00 Pulse 87 05/30/21 16:00 Resp 28 H 05/30/21 16:16 BP 105/62 05/30/21 16:00 Pulse Ox 92 05/30/21 16:16 Vent AC 28/460/75% + 12 PEEP on levophed 6 mcg 05/30/21 05/30/21 05/30/21 06:59 14:59 22:59 Intake Total 1894.046 / 3262.009 1177.313 / 1177.313 268 / 1445.313 Output Total 40 / 140 420 / 420 50 / 470 Balance 1854.046 / 3122.009 757.313 / 757.313 218 / 975.313 Weight last 48 hrs Weight 117.889 kg Weight 117.962 kg Physical Exam Extremity: GENERAL: Yes edema (arms, legs) Urinary Catheter Management^: [place]: Cath Placed During This Visit: yes, but has since been removed by the nurse Reason for Continuing Indwelling Catheter: Decision to DC Catheter Urinary Catheter Date of Insertion: 05/11/21 Urinary Catheter Time of Insertion: 13:39 Date Urinary Catheter Removed: 05/22/21 Time Urinary Catheter Discontinued: 11:20 2-way Urethral: Cath Placed During This Visit: yes Reason for Continuing Indwelling Catheter: Accurate Measurement of Urinary Output in Critically Ill Patients Urinary Catheter Date of Insertion: 05/22/21 Data Micro: Micro: Microbiology 05/29/21 12:40 Urine Culture - Pr eliminary Urine,Clean Catch 05/29/21 10:57 Blood Culture - Pr eliminary Blood NEGATIVE TO LINDA E 05/29/21 10:52 Blood Culture - Pr eliminary Blood NEGATIVE TO LINDA E Imaging^: CXR: Radiologist's impression: bilateral interstitial infiltrates A&P Additional A&P Information 1. Acute oligoanuric kidney injury, volume overload, hyperkalemia requiring kayexylate 2. VDRF, COVID ARDS 3. Shock Liver 4. Hypervolemic hyponatremia Rec: Prognosis poor. Family is agreeable to dialysis. Will try CVVHD tomorrow. Pt/Ptt ordered prior to line placement. Consult Attestations Medical Necessity Statement: see above Time Spent in Patient Care: 16 - 35 minutes Coding Level of Care Code Acute Independent Beauty Consultant for Manuel Lu
[2021-05-30 17:33] LABS: Potassium 5.4 mmol/L (3.5-5.1)
--- NOTE | 2021-05-30 18:12 | PC.NURSE ---
Shift Note Frequent safety and comfort rounds continue. Orders and/or nursing care completed as indicated. Patient monitored for response to intervention and treatment(s). Education provided includes treatment plan, medications, and future possible dialysis. Fmaily verbalizes understanding but does not appear to fully understand the brevity of pt condition. Spoke with mother and father at bedside. Facetimed with ex and some family this AM. VSS at this time. Fentanyl, versed, nimbex, amio and levophed infusoing per orders. Pt required one time dose of IVP metoprolol for rate control. Several large, watery bowel movements today. Will continue to monitor.
--- NOTE | 2021-05-30 19:34 | PM.PN ---
Subjective Subjective: Interval history: Intubated, sedated, not in distress. Vitals/I&O/Wt Last Vital Signs Temp 98.2 F 05/30/21 16:00 Pulse 85 05/30/21 18:00 Resp 28 H 05/30/21 17:48 BP 106/66 05/30/21 18:00 Pulse Ox 95 05/30/21 18:00 05/30/21 05/30/21 05/30/21 06:59 14:59 22:59 Intake Total 1894.046 / 3262.009 1177.313 / 1177.313 268 / 1445.313 Output Total 40 / 140 420 / 420 50 / 470 Balance 1854.046 / 3122.009 757.313 / 757.313 218 / 975.313 Weight last 48 hrs Weight 117.889 kg Weight 117.962 kg Physical Exam Const: COMMON NORMALS: no acute distress GENERAL APPEARANCE: ill appearing HENMT: COMMON NORMALS: oropharynx normal OTHER: No oral secretions Neck/C-Spine: COMMON NORMALS: no JVD Resp: COMMON NORMALS: normal respiratory effort AUSCULTATION: crackles Laterality: left (lower. Mild) Cardio: COMMON NORMALS: no JVD, regular rhythm, S1 normal heart sound present, S2 normal heart sound present and No murmurs present (Cardio) RATE: tachycardic RHYTHM: regular rhythm HEART SOUNDS: S1 normal heart sound present and S2 normal heart sound present GI: COMMON NORMALS: Normal to inspection, nondistended, normoactive bowel sounds present and Soft to palpation PALPATION: Yes Soft to palpation Extremity: COMMON NORMALS: no joint enlargement and no pedal edema Neuro: COMMON NORMALS: moves all extremities Skin: COMMON NORMALS: no rashes or lesions noted GENERAL SKIN EXAM: no rashes or lesions noted Urinary Catheter Management^: [place]: Cath Placed During This Visit: yes, but has since been removed by the nurse Reason for Continuing Indwelling Catheter: Decision to DC Catheter Urinary Catheter Date of Insertion: 05/11/21 Urinary Catheter Time of Insertion: 13:39 Date Urinary Catheter Removed: 05/22/21 Time Urinary Catheter Discontinued: 11:20 2-way Urethral: Cath Placed During This Visit: yes Reason for Continuing Indwelling Catheter: Accurate Measurement of Urinary Output in Critically Ill Patients Urinary Catheter Date of Insertion: 05/22/21 Data : 05/30/21 03:05 05/30/21 16:00 Micro: Microbiology 05/29/21 12:40 Urine Culture - Preliminary Urine,Clean Catch 05/29/21 10:57 Blood Culture - Preliminary Blood NEGATIVE TO DATE 05/29/21 10:52 Blood Culture - Preliminary Blood NEGATIVE TO DATE A&P Assessment and plan (1) Hypotension: Had a very difficult night, with a number of arrhythmia episodes, including reported wide-complex tachycardia. Was started on amiodarone. This morning doing better, during the day required additional dose of 5 mg IV metoprolol due to additional episode of A. fib with RVR into 120s, responded well. Worsened shock overnight, now requiring infusion of Levophed 14 mcg/min. This morning and through the day minimal urine output, but 50 cc. Worsened renal function significantly as well as worsened liver parameters with multiorgan injury. No bed for ECMO could be found, and currently would not be candidate to transfer for this. Repeatedly getting answers also that he is no longer a candidate for ECMO. Discussed his condition and all of the above with his mother today. Discussed overall prognosis is very poor with very high risk of mortality in the near future. His mother and son came for visit today to see him. At this time would like to continue current care. Discussed options for switching to comfort measures, discussed on more aggressive side consideration of RHEUMATOLOGY SPECIALIST, although they understood, and as per discussion that he does not guarantee that he will respond favorably, as well that this does not address the main underlying issues. Nephrology consultation appreciated. Continue empiric antibiotic coverage with Primaxin, linezolid. Diflucan. Maintain mean arterial pressures. Wean off pressors tolerating. Continue to revisit goals of care. Status: Acute (2) SONIA (acute kidney injury): As above. Status: Acute (3) Paroxysmal atrial fibrillation with RVR: Amiodarone. During today required additional push of 5 mg metoprolol due to A. fib with RVR. Hyperkalemia has been improving with Kayexalate. Status: Acute (4) Respiratory failure with hypoxia: Continued requirement for mechanical ventilatory support. FiO2 75%. Continue sedation, continue paralytic at this time given in case of loss of pressures takes him a very long time to recover resulting in severe hypoxia and near maximum oxygen requirements. No ECMO beds have been available, although his situation would longer allow for this, and he would also be out of the window. Empiric antimicrobials agents as above. For severe COVID-19 received decadron x 13 days, remdesivir and actemra CTA no PE D-dimer level came down. Prophylactic Lovenox. Status: Acute (5) Transaminitis: Shock liver. Worsening transaminitis. Check INR. Worsened. Secondary to COVID-19, currently possibly also secondary to shock liver. Recheck labs requested. Status: Acute (6) COVID-19: as noted above Status: Acute (7) Hypertension: Status: Chronic (8) CAD (coronary artery disease): Status: Chronic Qualifiers: Associated angina: unspecified whether angina present Coronary Disease-Associated Artery/Lesion type: [place] artery [place] vs. transplanted heart: [place] heart Qualified Code(s): I25.10 - Atherosclerotic heart disease of [place] coronary artery without angina pectoris (9) Hyperkalemia: Improving with Kayexalate, additional dose tonight, recheck in the morning. Likely RHEUMATOLOGY SPECIALIST tomorrow. Status: Acute Additional A&P Information Discussed with pulm/crit, nursing staff, family. Attestations Medical Necessity Statement*: Continue admission for assessment and management of septic shock, respiratory failure, multiorgan injury. Critical Care Time: The high probability of a clinically significant, sudden or life threatening deterioration of the patient's hemodynamic, respiratory system(s) with septic shock, progressive renal failure, liver injury, severe COVID-19 required my full and direct attention, intervention and personal management. The critical care time is as shown. This time is in addition to time spent performing any reported procedures but includes the following: x Data and vital sign review and interpretation x Patient assessment, examination and intervention x Documentation x Medication orders and management Critical Care Time (min): 55 Coding Level of Care Code Acute Fabric Sourcer for g Fwd Diagnoses Hypotension I95.9 SONIA (acute kidney injury) N17.9 Paroxysmal atrial fibrillation with RVR I48.0 Respiratory failure with hypoxia J96.91 Transaminitis R74.01 COVID-19 U07.1 Hypertension I10 CAD (coronary artery disease) I25.10 Associated angina: unspecified whether angina present Coronary Disease-Associated Artery/Lesion type: [place] artery [place] vs. transplanted heart: [place] heart Hyperkalemia E87.5
[2021-05-31] VITALS (81 sets, daily range): BP systolic 81–129; BP diastolic 51–73; PULSE 90–132; RESP 17–37; TEMP 36.6–37.8; O2SAT 87–99
[2021-05-31] MEDS: sodium polystyrene sulfonate 15 gm/60 mL Btl PO ×4 (00:13→18:37)
[2021-05-31] MEDS: ipratropium-albuterol 3 mL Neb INHALATION ×6 (04:18→23:25)
[2021-05-31] MEDS: cisatracurium 100 MG in sodium chloride 0.9% 50 ML 6.8 MG IV (04:28)
[2021-05-31 04:38] LABS: Basophils # 0.1 10^3/uL (0.0-0.1); Basophils % 0.4 %; Eosinophils % 0.1 %; Hematocrit 36.5 % (42.0-52.0); Hemoglobin 11.4 g/dL (11.7-16.6); Lymphocytes # 1.1 10^3/uL (0.8-4.8); Lymphocytes % 4.2 %; Mean Corpuscular HGB Conc 31.2 g/dL (30.0-36.0); Mean Corpuscular Hemoglobin 29.8 pg (28.0-34.0); Mean Corpuscular Volume 95.5 fl (80-94); Mean Platelet Volume 10.5 fL (7.4-10.4); Monocytes # 2.4 10^3/uL (0.2-0.9); Monocytes % 9.4 %; Neutrophils # 20.85 10^3/uL (1.8-7.7); Neutrophils % 82.4 %; Nucleated Red Blood Cells # 0.1 /100WBC; Nucleated Red Blood Cells % 0.4 %; Platelet Count 164 10^3/cmm (130-400); Red Blood Count 3.82 10^6/uL (4.1-5.3); Red Cell Distribution Width 15.3 % (12.1-15.1); White Blood Count 25.3 10^3/uL (4.0-10.0)
[2021-05-31 05:02] LABS: Albumin Level 2.7 g/dL (3.5-5.2); Alkaline Phosphatase 245 IU/L (40-130); Anion Gap 24.7 (5-19); Calcium 7.8 mg/dL (8.5-10.5); Carbon Dioxide 18 mmol/L (22-29); Chloride 86 mmol/L (98-107); Globulin 3.6 g/dL (1.3-4.6); Glomerular Filtration Rate 13.2 mL/min (90-130); Glucose 137 mg/dL (65-115); Osmolality Calculated 283 mOsm/kg (285-295); Potassium 5.7 mmol/L (3.5-5.1); Sodium 123 mmol/L (136-145); Total Bilirubin 0.8 mg/dL (0.15-1.2); Total Protein 6.3 g/dL (6.6-8.7)
[2021-05-31 05:04] LABS: Blood Urea Nitrogen 82 mg/dL (6-20)
[2021-05-31 05:15] LABS: Alanine Aminotransferase 2988 U/L (0-41)
[2021-05-31 05:21] LABS: Aspartate Amino Transferase 2716 U/L (0-40)
--- NOTE | 2021-05-31 07:15 | PC.NURSE ---
0700 Report received, assessment completed. ETT in place, vent settings per RT. Gtts infusing per orders. No response to stimuli. Tube feedings per orders to OGT, minimal residual noted. VSS. [place] cath draining small amount of tea colored urine to BSD. Edema noted to upper and lower extremities. Repositioned and oral care performed q2h and prn. Will monitor.
[2021-05-31] MEDS: aspirin 81 mg Chew Tablet PO (08:25)
[2021-05-31] MEDS: sennosides-docusate Tablet 1 TAB PO (08:26)
[2021-05-31 09:50] LABS: INR 1.26 (0.8-1.2)
[2021-05-31 09:51] LABS: Partial Thromboplastin Time 29.3 SECONDS (23.9-36.7)
[2021-05-31] MEDS: linezolid premix 600 MG/300 ML PREMIX 300 MG IV (11:17)
[2021-05-31] MEDS: famotidine 20 mg/2 mL INJ IVP (11:37)
[2021-05-31] MEDS: enoxaparin 30 mg/0.3 mL Syringe SUBCUT (11:37)
[2021-05-31] MEDS: fluconazole premix 100 MG in empty flexible container 1 EACH 50 MG IV (12:11)
--- NOTE | 2021-05-31 13:29 | P.PN_ITS ---
Subjective Subjective: Interval history: seen via telehealth with assistance of RN at bedside family desires continued aggressive care including dialysis Medications: Reviewed: Yes Medication Review Details: levophed now 2 mcg/min. no response to IV lasix yesterday Vitals/I&O/Wt Last Vital Signs Temp 99.0 F 05/31/21 08:00 Pulse 99 05/31/21 12:00 Resp 28 H 05/31/21 11:11 BP 107/60 05/31/21 12:00 Pulse Ox 91 05/31/21 12:00 05/30/21 05/31/21 05/31/21 22:59 06:59 14:59 Intake Total 632.855 / 1810.168 785.951 / 2596.119 937.734 / 937.734 Output Total 50 / 470 Balance 582.855 / 1340.168 785.951 / 2126.119 937.734 / 937.734 Weight last 48 hrs Weight 120.882 kg Weight 117.889 kg Physical Exam Const: COMMON NORMALS: no acute distress Extremity: GENERAL: Yes edema Urinary Catheter Management^: [place]: Cath Placed During This Visit: yes, but has since been removed by the nurse Reason for Continuing Indwelling Catheter: Decision to DC Catheter Urinary Catheter Date of Insertion: 05/11/21 Urinary Catheter Time of Insertion: 13:39 Date Urinary Catheter Removed: 05/22/21 Time Urinary Catheter Discontinued: 11:20 2-way Urethral: Cath Placed During This Visit: yes Reason for Continuing Indwelling Catheter: Accurate Measurement of Urinary Output in Critically Ill Patients Urinary Catheter Date of Insertion: 05/22/21 Data : 05/31/21 04:18 05/31/21 04:18 Micro: Microbiology 05/29/21 12:40 Urine Culture - Preliminary Urine,Clean Catch 05/29/21 10:57 Blood Culture - Preliminary Blood NEGATIVE TO DATE 05/29/21 10:52 Blood Culture - Preliminary Blood NEGATIVE TO DATE A&P Additional A&P Information 1. Acute oligoanuric kidney injury, volume overload, hyperkalemia requiring kayexylate, metabolic acidosis 2. VDRF, COVID ARDS 3. Shock Liver 4. Hypervolemic hyponatremia Rec: Prognosis poor. Family is agreeable to dialysis. Will try intermittent HD, if intolerant, change to CVVHD. Attestations Medical Necessity Statement*: critically ill with multiorgan failure in ICU Coding Level of Care Code Acute Fruit Picker Machine Operator for Manuel Lu
--- NOTE | 2021-05-31 13:58 | XR_ITS ---
WS: [id number] Exam: XR chest 1V portable [id number] Date/Time of Exam: 05/31/2021 2:11 PM Reason For Exam: cnetral line and dialysis catheter placement Comparison 05/29/2021. Diffuse infiltrates seen throughout both lungs showing little change since the previous exam. Mild ca rdiac enlargement. ET tube in place in satisfactory position ending about 6 cm above the regina. A le ft-sided subclavian central line is in place ending in the lower one third of the SVC. A second right IJ catheter which appears to have an opaque tip ends at the cavoatrial junction. The lungs are fully expanded. There may be small left pleural effusion. The mediastinum is normal in contour. Regional b rossana elements are intact. An enteric tube is noted probably ending in the fundus of the stomach. XR/XR chest 1V portable [id number] IMPRESSION: 1. Diffuse infiltrates throughout both lungs showing little change. 2. Mild cardiac enlargement unchanged. 3. There may be small left pleural effusion. 4. ET tube, left subclavian catheter and right IJ catheter all in satisfactory position. An enteric tube ends in the fundus of the stomach.
[2021-05-31 14:30] LABS: Hepatitis B Surface Antigen Non-Reactive (Nonreactive); Hepatitis C Virus Antibody Non-Reactive (Nonreactive)
--- NOTE | 2021-05-31 16:00 | P.PCN_ITS ---
Procedure/Consent Time out: Time Out Performed: Yes Consent: Consent for Procedure: Consent obtained from other (indicate) Procedure Narrative: Preoperative diagnosis: 1. Acute renal failure requiring dialysis 2. Poor peripheral venous access requiring central venous access for infusions Postop diagnosis: Same Procedure: 1. Exchange of central venous catheter to temporary dialysis catheter in the right internal jugular vein 2. Placement of central venous triple-lumen catheter in the left subclavian vein Anesthesia: Local/sedation Surgeon: Leonidas Description of the procedure: The patient's left chest was prepped and draped in a sterile manner. 10 mL of 1% lidocaine was infiltrated under the subclavian vein on the right side at the site of planned entry. An introducer needle was used to access the right subclavian vein, a guidewire passed through the introducer needle and the needle was removed. Using 11 blade, a skin incision was made at the guidewire entry site. Dilator was passed over the guidewire and a 7 Kyr[place] triple-lumen central venous catheter was passed over the guidewire and the guidewire was removed. The catheter was sutured to the skin at 15 cm. All 3 ports clarence blood and flushed easily. Sterile dressings were applied. The patient had a triple-lumen catheter in the right internal jugular vein. The area around the catheter was prepped and draped in a sterile manner. A guidewire was passed through the existing catheter in the right internal jugular vein and the triple-lumen catheter was removed. Serial dilators were passed over the guidewire after the skin incision had been extended using 11 blade. 12 [place] temporary dialysis catheter was placed over the guidewire and the guidewire was removed. Both ports withdrew blood and flushed easily. The catheter was sutured to the skin using 2-0 silk sutures. Sterile dressings were applied Postprocedure chest x-ray confirmed good position of the catheters. Acute Procedures Epistaxis Control: Time out performed: Yes
--- NOTE | 2021-05-31 16:05 | P.CONIM_ITS ---
Providers/Reason For Consult Consulting Physician/Specialty*: General Surgery Dr. Lauren Reason for Consult*: acute renal failure requiring dialysis Attending Physician: Reynaldo Palmer History of Present Illness History of Present Illness Mike Carvalho is a 50 year old male with COVID-19, multiorgan failure on ventilator since 05/19/2021, who has now developed acute renal failure. Information was obtained from patient's chart. Patient has a triple-lumen catheter in the right internal jugular vein. No history of catheter placements in the past Review of Systems General: Reports: ROS unobtainable due to endotracheal tube Medications/Allergies Home Medications Medication Instructions Recorded Confirmed Last Taken Type aspirin 81 mg PO DAILY 05/11/21 05/11/21 05/11/21 History bumetanide 1 mg PO DAILY 05/11/21 05/11/21 05/07/21 History clindamycin HCl 300 mg PO TID 05/11/21 05/11/21 05/09/21 History lisinopril 20 mg PO BID 05/11/21 05/11/21 05/11/21 History omeprazole 20 mg PO DAILY 05/11/21 05/11/21 05/11/21 History Allergies Allergy/AdvReac Type Severity Reaction Status Date / Time sildenafil [From Viagra] Allergy ADR-Confusi Verified 05/11/21 10:03 on Current Medications Generic Name Dose Route Start Last Admin Trade Name Freq PRN Reason Stop Dose Admin Acetaminophen 650 mg 05/11/21 22:20 05/29/21 20:09 Acetaminophen 325 Mg Tablet PO 650 mg Q6H PRN Administration Mild/Mod Pain Or Temp >/= 101 Albuterol/Ipratropium 3 ml 05/11/21 16:00 05/31/21 15:08 Ipratropium-Albuterol 3 Ml Neb INHALATION 3 ml Q4H.RESPIRATORY AASHISH Administration Aspirin 81 mg 05/12/21 09:00 05/31/21 08:25 Aspirin 81 Mg Chew Tablet PO 81 mg DAILY AASHISH Administration Enoxaparin Sodium 30 mg 05/31/21 12:30 05/31/21 11:37 Enoxaparin 30 Mg/0.3 Ml Syringe SUBCUT 30 mg Q24H AASHISH Administration Famotidine 20 mg 05/11/21 12:30 05/31/21 11:37 Famotidine 20 Mg/2 Ml Inj IVP 20 mg Q12H AASHISH Administration Propofol 1,000 mg in 100 mls @ 0 mls/hr 05/17/21 22:00 05/30/21 09:38 Diprivan IV Infused .Q0M PRN Titration ALCOHOL WITHDRAWAL Protocol Per Protocol Midazolam HCl 100 mg/ Sodium 100 mls @ 0 mls/hr 05/19/21 07:45 05/30/21 19:59 Chloride IV 5 mg/hr .Q0M AASHISH 5 mls/hr Administration Protocol Per Protocol Fentanyl 2,500 mcg/ Sodium 250 mls @ 0 mls/hr 05/22/21 05:30 05/31/21 11:39 Chloride IV 100 mcg/hr .Q0M AASHISH 10 mls/hr Administration Protocol Per Protocol dexmedeTOMIDine 0.9 % NaCL 400 mcg in 100 mls @ 0 mls/hr 05/23/21 14:15 05/23/21 19:25 Precedex IV 0 mcg/kg/hr .Q0M AASHISH 0 mls/hr Titration Protocol Per Protocol Fluconazole 100 mg/ N/A 50 mls @ 50 mls/hr 05/28/21 12:30 05/31/21 13:20 IV Infused Q24H AASHISH Infusion Cisatracurium Besylate 100 mg/ 100 mls @ 0 mls/hr 05/28/21 15:15 05/31/21 04:28 Sodium Chloride IV 1 mcg/kg/min .Q0M AASHISH 6.8 mls/hr Administration Protocol Per Protocol Norepinephrine Bitartrate 4 mg 254 mls @ 0 mls/hr 05/29/21 10:30 05/31/21 07:00 / Dextrose IV 2 mcg/min .Q0M AASHISH 7.62 mls/hr Titration Protocol Per Protocol Linezolid 600 mg in 300 mls @ 300 mls/hr 05/29/21 12:00 05/31/21 12:27 Zyvox Premix IV Infused Q12H AASHISH Infusion Protocol Amiodarone HCl 900 mg/ 518 mls @ 17.267 mls/hr 05/30/21 06:30 05/31/21 04:29 Dextrose/ IV Miscellaneous IV 0.5 mg/min Supplies CONT AASHISH 17.27 mls/hr Administration 0.5 MG/MIN Norepinephrine Bitartrate 8 mg 508 mls @ 0 mls/hr 05/30/21 06:30 05/31/21 00:07 / Dextrose IV Infused .Q0M AASHISH Titration Protocol Per Protocol Imipenem/Cilastatin Sodium 250 100 mls @ 200 mls/hr 05/30/21 17:00 05/31/21 10:50 mg/ Sodium Chloride IV Infused Q6H AASHISH Infusion Protocol Lanolin 1 applic 05/12/21 10:54 05/12/21 21:59 Lanolin Oint 7 Gm TOPICAL 1 tube PRN PRN Administration DRYNESS Morphine Sulfate 4 mg 05/23/21 14:04 05/28/21 17:26 Morphine 4 Mg/Ml Sdv 1 Ml IVP 4 mg Q4H PRN Administration SEVERE PAIN Polyethylene Glycol 17 gm 05/15/21 18:00 05/31/21 08:26 Polyethylene Glycol 3350 Pkt 17 Gm PO Not Given BID AASHISH Senna/Docusate Sodium 1 tab 05/20/21 09:00 05/31/21 08:26 Sennosides-Docusate Tablet PO 1 tab DAILY AASHISH Administration Sodium Polystyrene Sulfonate 15 gm 05/30/21 01:00 05/31/21 12:11 Sodium Polystyrene Sulfonate 15 Gm/60 Ml Btl PO 15 gm Q6H AASHISH Administration PFSH Acute PFSH: Medical History CAD (coronary artery disease) Hypertension Surgical History No significant past surgical history Social History Smoking and tobacco status: former smoker Alcohol intake: never Substance/Drug Use: never Lives independently: Yes Household members: spouse Housing: House Marital status: Vitals/I&O/Wt Last Vital Signs Temp 99.0 F 05/31/21 08:00 Pulse 93 05/31/21 15:17 Resp 28 H 05/31/21 15:14 BP 109/58 05/31/21 14:30 Pulse Ox 90 05/31/21 15:14 05/31/21 05/31/21 05/31/21 06:59 14:59 22:59 Intake Total 785.951 / 9963.853 937.734 / 937.734 Balance 785.951 / 2283.853 937.734 / 937.734 Weight last 48 hrs Weight 266 lb 8 oz Weight 259 lb 14.4 oz Physical Exam Narrative: EXAM NARRATIVE: HEENT: Normocephalic, right IJ triple-lumen catheter Eye: Sclera /conjunctiva normal Respiratory and chest: Intubated on the ventilator Neurological: Oriented to place person and time Skin: Intact, no lesions appreciated on gross exam dated on the ventilator Urinary Catheter Management^: [place]: Cath Placed During This Visit: yes, but has since been removed by the nurse Reason for Continuing Indwelling Catheter: Decision to DC Catheter Urinary Catheter Date of Insertion: 05/11/21 Urinary Catheter Time of Insertion: 13:39 Date Urinary Catheter Removed: 05/22/21 Time Urinary Catheter Discontinued: 11:20 2-way Urethral: Cath Placed During This Visit: yes Reason for Continuing Indwelling Catheter: Accurate Measurement of Urinary Output in Critically Ill Patients Urinary Catheter Date of Insertion: 05/22/21 Data Micro: Micro: Microbiology 05/29/21 12:40 Urine Culture - Fi nal Urine,Clean Catch 05/29/21 10:57 Blood Culture - Pr eliminary Blood NEGATIVE TO LINDA E 05/29/21 10:52 Blood Culture - Pr eliminary Blood NEGATIVE TO LINDA E A&P Assessment and plan (1) SONIA (acute kidney injury): Patient has acute renal failure and we will plan for placement of temporary dialysis catheter in the right internal jugular vein after exchanging it with the existing triple-lumen catheter Status: Acute (2) Hypotension: 50 old male with multiorgan failure on pressor support who has poor peripheral access and therefore requires central venous catheter for infusion. Patient has a right IJ triple-lumen catheter which will be exchanged for a dialysis catheter and I will place a new triple-lumen catheter in the subclavian vein. Status: Acute Consult Attestations Medical Necessity Statement: As per attending physician Coding Level of Care Code Acute Farm General Manager for [facility] Tabitha Diagnoses SONIA (acute kidney injury) N17.9 Hypotension I95.9
[2021-05-31 18:14] LABS: Hepatitis B Surface AB 3.5 (11.5-1000)
[2021-05-31] MEDS: metoprolol tartrate 1 mg/1 mL SDV 5 mL 5 MG IVP (18:35)
[2021-05-31] MEDS: cisatracurium 100 MG in sodium chloride 0.9% 50 ML 8.17 MG IV (18:37)
--- NOTE | 2021-05-31 18:50 | PM.PN ---
Subjective Subjective: Interval history: Intubated, sedated. Not restless. Vitals/I&O/Wt Last Vital Signs Temp 100.0 F H 05/31/21 16:20 Pulse 132 H 05/31/21 18:30 Resp 30 H 05/31/21 18:09 BP 111/67 05/31/21 18:30 Pulse Ox 98 05/31/21 18:30 05/31/21 05/31/21 05/31/21 06:59 14:59 22:59 Intake Total 785.951 / 2596.119 937.734 / 937.734 409.385 / 1347.119 Output Total 589 / 589 Balance 785.951 / 2126.119 937.734 / 937.734 -179.615 / 758.119 Weight last 48 hrs Weight 120.882 kg Weight 117.889 kg Physical Exam Const: COMMON NORMALS: no acute distress GENERAL APPEARANCE: ill appearing HENMT: COMMON NORMALS: oropharynx normal OTHER: No oral secretions Neck/C-Spine: COMMON NORMALS: no JVD Resp: COMMON NORMALS: normal respiratory effort AUSCULTATION: crackles Laterality: left (improved) Cardio: COMMON NORMALS: no JVD, regular rhythm, S1 normal heart sound present, S2 normal heart sound present and No murmurs present (Cardio) RATE: tachycardic RHYTHM: regular rhythm HEART SOUNDS: S1 normal heart sound present and S2 normal heart sound present GI: COMMON NORMALS: Normal to inspection, nondistended, normoactive bowel sounds present and Soft to palpation PALPATION: Yes Soft to palpation Extremity: COMMON NORMALS: no joint enlargement and no pedal edema Neuro: COMMON NORMALS: moves all extremities Skin: COMMON NORMALS: no rashes or lesions noted GENERAL SKIN EXAM: no rashes or lesions noted Urinary Catheter Management^: [place]: Cath Placed During This Visit: yes, but has since been removed by the nurse Reason for Continuing Indwelling Catheter: Decision to DC Catheter Urinary Catheter Date of Insertion: 05/11/21 Urinary Catheter Time of Insertion: 13:39 Date Urinary Catheter Removed: 05/22/21 Time Urinary Catheter Discontinued: 11:20 2-way Urethral: Cath Placed During This Visit: yes Reason for Continuing Indwelling Catheter: Accurate Measurement of Urinary Output in Critically Ill Patients Urinary Catheter Date of Insertion: 05/22/21 Data : 05/31/21 04:18 05/31/21 04:18 Micro: Microbiology 05/29/21 12:40 Urine Culture - Final Urine,Clean Catch A&P Assessment and plan (1) Hypotension: Overnight improving blood pressures. Weaning down on Levophed support. Renal function unimproved, without any significant urine produced, however, transaminitis is better today, AST down to 2716, ALT down to 2988. Worsened renal function significantly as well as worsened liver parameters with multiorgan injury. Family requested that we call [facility] to see if beds are open, we did, they are on ICU divert. Family working with to see if other beds may be opening in [place] or [place]. Continue empiric antibiotic coverage with Primaxin, linezolid. Diflucan. Maintain mean arterial pressures. Wean off pressors tolerating. Continue to revisit goals of care. Status: Acute (2) SONIA (acute kidney injury): Worsened renal function, persistent anuria/oliguria. Nephrology recommendations appreciated. Requested hemodialysis catheter placement. Initiate hemodialysis (with improved blood pressures and limited staffing). Status: Acute (3) Paroxysmal atrial fibrillation with RVR: Additional 5 mg IV metoprolol push due to tachycardia this evening. Continue amiodarone infusion. Hyperkalemia had shown partial improvement with Kayexalate. Dialysis today. Status: Acute (4) Respiratory failure with hypoxia: Continue mechanical ventilatory support. Now condition has been complicated by anuric/oliguric SONIA. Dialysis today. Continue sedation, continue paralytic at this time given in case of loss of pressures takes him a very long time to recover resulting in severe hypoxia and near maximum oxygen requirements. No ECMO beds have been available, although his situation would longer allow for this, and he would also be out of the window. Empiric antimicrobials agents as above. For severe COVID-19 received decadron x 13 days, remdesivir and actemra CTA no PE D-dimer level came down. Prophylactic Lovenox. Status: Acute (5) Transaminitis: Shock liver with improvement. Improvement in transaminitis. INR 1.26. Secondary to COVID-19, shock liver. Status: Acute (6) COVID-19: as noted above Status: Acute (7) Hypertension: Status: Chronic (8) CAD (coronary artery disease): Status: Chronic Qualifiers: Associated angina: unspecified whether angina present Coronary Disease-Associated Artery/Lesion type: [place] artery [place] vs. transplanted heart: lumbee heart Qualified Code(s): I25.10 - Atherosclerotic heart disease of lum[place] coronary artery without angina pectoris (9) Hyperkalemia: HD today Status: Acute Additional A&P Information Discussed with nephro, nursing staff, CM, family. Attestations Medical Necessity Statement*: Continue admission for assessment and management of septic shock, hypoxic respiratory failure worsening renal failure, multiorgan injury in setting of severe COVID-19. Critical Care Time: The high probability of a clinically significant, sudden or life threatening deterioration of the patient's hemodynamic, respiratory, renal system(s) required my full and direct attention, intervention and personal management. The critical care time is as shown. This time is in addition to time spent performing any reported procedures but includes the following: x Data and vital sign review and interpretation x Patient assessment, examination and intervention x Documentation x Medication orders and management Critical Care Time (min): 45 Coding Level of Care Code Acute Gas Pump Attendant for [facility] Fwd Diagnoses Hypotension I95.9 SONIA (acute kidney injury) N17.9 Paroxysmal atrial fibrillation with RVR I48.0 Respiratory failure with hypoxia J96.91 Transaminitis R74.01 COVID-19 U07.1 Hypertension I10 CAD (coronary artery disease) I25.10 Associated angina: unspecified whether angina present Coronary Disease-Associated Artery/Lesion type: [place] artery [place] vs. transplanted heart: lumbee heart Hyperkalemia E87.5
--- NOTE | 2021-05-31 18:50 | PC.NURSE ---
Pt finished HD. Hr elevated at one point to 130's and 140's. 5 mg metoprolol IVP given per orders. HR down to low 100's at this time. Gtts infusing per orders. Tube feeds infusing. Minimal UOP today, aware. Spoke with family and facetimed. Several hospitals called for placement. No beds available. VSS. Will monitor.
[2021-05-31] MEDS: norepinephrine 8 MG in dextrose 5 % 500 ML 22.86 MG IV (22:45)
[2021-06-01] VITALS (104 sets, daily range): BP systolic 94–132; BP diastolic 55–76; PULSE 77–132; RESP 28–47; TEMP 36.3–37.8; O2SAT 92–100
--- NOTE | 2021-06-01 00:09 | PC.NURSE ---
Shift Note Frequent safety and comfort rounds continue. Orders and/or nursing care completed as indicated. Patient monitored for response to intervention and treatment(s). Isabella called, this nurse provided update per phone than Facetimed with family. Education provided includes medications with side effects, HD treatment. Patient and/or customer support representative verbalized understanding. Patient converted into Afib during HD treamtent with HR 120-130's. GTT's titrated per protocol. Patient developed tachypea, MD notified, orders received. Will continue to monitor.
[2021-06-01] MEDS: linezolid premix 600 MG/300 ML PREMIX 300 MG IV ×2 (00:28→12:56)
[2021-06-01] MEDS: famotidine 20 mg/2 mL INJ IVP ×3 (00:29→23:43)
[2021-06-01] MEDS: propofol 1,000 MG/100 ML INJ 3.63 MG IV (00:30)
--- NOTE | 2021-06-01 01:01 | PC.NURSE ---
01:01 Isabella () called, this nurse provided update as requested.
[2021-06-01 02:40] LABS: Basophils # 0.1 10^3/uL (0.0-0.1); Basophils % 0.5 %; Eosinophils # 0.1 10^3/uL (0.0-0.8); Eosinophils % 0.6 %; Hematocrit 34.1 % (42.0-52.0); Hemoglobin 10.9 g/dL (11.7-16.6); Lymphocytes # 1.1 10^3/uL (0.8-4.8); Lymphocytes % 5.1 %; Mean Corpuscular Hemoglobin 30.3 pg (28.0-34.0); Mean Corpuscular Volume 94.7 fl (80-94); Monocytes # 2.2 10^3/uL (0.2-0.9); Monocytes % 10.6 %; Neutrophils # 16.45 10^3/uL (1.8-7.7); Neutrophils % 78.3 %; Nucleated Red Blood Cells # 0.1 /100WBC; Nucleated Red Blood Cells % 0.5 %; Platelet Count 155 10^3/cmm (130-400); Red Cell Distribution Width 15.5 % (12.1-15.1)
[2021-06-01 02:59] LABS: D Dimer 6.59 ug/mIFEU (0-0.59)
[2021-06-01 03:02] LABS: Albumin Level 2.6 g/dL (3.5-5.2); Alkaline Phosphatase 272 IU/L (40-130); Anion Gap 23.1 (5-19); Blood Urea Nitrogen 61 mg/dL (6-20); Carbon Dioxide 20 mmol/L (22-29); Chloride 90 mmol/L (98-107); Globulin 3.4 g/dL (1.3-4.6); Glomerular Filtration Rate 15.5 mL/min (90-130); Glucose 139 mg/dL (65-115); Osmolality Calculated 288 mOsm/kg (285-295); Potassium 4.1 mmol/L (3.5-5.1); Sodium 129 mmol/L (136-145); Total Bilirubin 0.8 mg/dL (0.15-1.2)
[2021-06-01 03:13] LABS: Alanine Aminotransferase 1204 U/L (0-41)
[2021-06-01 03:18] LABS: Aspartate Amino Transferase 1155 U/L (0-40)
--- NOTE | 2021-06-01 04:00 | XRR_ITS ---
PROCEDURE INFORMATION: Exam: XR Chest Exam date and time: 06/01/2021 4:00 AM Age: 50 years old Clinical indication: Shortness of breath; Patient HX: F/u resp failure. Pneumonia. Intubated. Post covid. ; Additional info: Pna TECHNIQUE: Imaging protocol: XR of the chest. Views: 1 view. COMPARISON: CR XR chest 1V portable [id number] 05/31/2021 2:05 PM FINDINGS: Tubes, catheters and devices: An endotracheal tube is placed with its tip 4.3 cm from the regina. A right internal jugular vein central venous line is placed with its tip at the level of the superior vena cava. Catheter is placed via the left subclavian vein with its tip at the level of the superior vena cava. A nasogastric tube is present with its tip at least in the proximal stomach. EKG leads overlie the chest. Lungs: There are bilateral interstitial opacities seen predominately within the lower hemithoraces compatible with a bilateral interstitial pneumonia. Pleural spaces: There is indistinctness of the hemidiaphragms likely secondary to small bilateral pleural effusions. Heart/Mediastinum: Unremarkable. No cardiomegaly. Bones/joints: Unremarkable. XR/XR chest 1V portable [id number] IMPRESSION: 1. Endotracheal tube tip 4.3 cm from the regina. Otherwise stable life support tubing. 2. Bilateral interstitial opacities are again seen most notably within the lower hemithoraces compatible with a bilateral interstitial pneumonia. There is little change compared with 05/31/2021. 3. Probable small bilateral pleural effusions
[2021-06-01] MEDS: ipratropium-albuterol 3 mL Neb INHALATION ×5 (04:29→20:00)
[2021-06-01 05:00] LABS: ABG PCO2 55.9 mmHg (35-45); ABG PH Result 7.25 (7.35-7.45); Alveolar-Arterial Oxygen Gradi 51.2 mmHg (5-10); Arterial Blood Gas Hematocrit 51.4 % (42-52); Blood Gas Allen Test Pos; Blood Gas Operator Identificat JB; Blood Gas Sample Site Radial, right; Blood Gas Sample Type Arterial; Blood Gas Tidal Volume 0.43; HCO3 ABG 24.4 mmol/L (22-26); HGB O2 Sat 96.5 % (95-100); Ionized Calcium Level - ABG 1.1 mmol/L (1.1-1.4); Methemoglobin 0.9 % (0.4-1.5); Oxygen Device VENT; Oxygen Saturation ABG 98.3; Total Hemoglobin 16.8 g/dL (14-18)
--- NOTE | 2021-06-01 07:38 | P.PN_ITS ---
Subjective Subjective: Interval history: remains paralyzed on ventilator Medications: Reviewed: Yes Vitals/I&O/Wt Last Vital Signs Temp 100.0 F H 06/01/21 04:00 Pulse 77 06/01/21 06:30 Resp 28 H 06/01/21 06:12 BP 102/58 06/01/21 06:30 Pulse Ox 95 06/01/21 06:30 05/31/21 06/01/21 06/01/21 22:59 06:59 14:59 Intake Total 645.651 / 1583.385 642.469 / 2225.854 Output Total 589 / 589 Balance 56.651 / 994.385 642.469 / 1636.854 Weight last 48 hrs Weight 121.971 kg Weight 120.882 kg Physical Exam Extremity: GENERAL: Yes edema Urinary Catheter Management^: [place]: Cath Placed During This Visit: yes, but has since been removed by the nurse Reason for Continuing Indwelling Catheter: Decision to DC Catheter Urinary Catheter Date of Insertion: 05/11/21 Urinary Catheter Time of Insertion: 13:39 Date Urinary Catheter Removed: 05/22/21 Time Urinary Catheter Discontinued: 11:20 2-way Urethral: Cath Placed During This Visit: yes Reason for Continuing Indwelling Catheter: Accurate Measurement of Urinary Output in Critically Ill Patients Urinary Catheter Date of Insertion: 05/22/21 Data : 06/01/21 02:22 06/01/21 02:22 Micro: Microbiology 05/29/21 12:40 Urine Culture - Final Urine,Clean Catch ABG Interpretation 1: 7.25/56/117 80%FIO2 A&P Additional A&P Information seen and examined via telehealth with assistance of RN at bedside 1. Acute oligoanuric kidney injury, volume overload, hyperkalemia required kayexylate, metabolic acidosis. Tolerated 3h HD yesterday with net 400 ml fluid removal. Currently hemodynamically stable on 4 mcg levophed 2. VDRF, COVID ARDS, sepsis 3. Shock Liver 4. Hypervolemic hyponatremia Rec: Prognosis remains poor. HD again today. 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
--- NOTE | 2021-06-01 07:45 | PC.NURSE ---
noted pressure ulcer to the lower tip of the urinary meatus. site cleaned, catheter repositioned away fro the wound and telfa applied to protect the area. Will speak with physician during rounds.
[2021-06-01] MEDS: cisatracurium 100 MG in sodium chloride 0.9% 50 ML 6.12 MG IV (09:35)
[2021-06-01] MEDS: polyethylene glycol 3350 Pkt 17 gm PO ×2 (09:41→17:52)
[2021-06-01] MEDS: sennosides-docusate Tablet 1 TAB PO (09:41)
[2021-06-01] MEDS: enoxaparin 30 mg/0.3 mL Syringe SUBCUT (12:56)
[2021-06-01] MEDS: fluconazole premix 100 MG in empty flexible container 1 EACH 50 MG IV (12:58)
--- NOTE | 2021-06-01 13:58 | P.PN_ITS ---
Subjective Subjective: Interval history: Intubated, sedated, reported to have had a difficult night. Restless. With episodes of tachycardia, hypotension. Propofol added back on overnight and paralytic increased. Vitals/I&O/Wt Last Vital Signs Temp 99.0 F 06/01/21 08:00 Pulse 80 06/01/21 12:00 Resp 33 H 06/01/21 11:45 BP 117/65 06/01/21 12:00 Pulse Ox 94 06/01/21 12:00 05/31/21 06/01/21 06/01/21 22:59 06:59 14:59 Intake Total 645.651 / 1583.385 642.469 / 2225.854 16.955 / 16.955 Output Total 589 / 589 Balance 56.651 / 994.385 642.469 / 1636.854 16.955 / 16.955 Weight last 48 hrs Weight 121.971 kg Weight 120.882 kg Physical Exam Const: COMMON NORMALS: no acute distress GENERAL APPEARANCE: ill appearing HENMT: COMMON NORMALS: oropharynx normal OTHER: No oral secretions Neck/C-Spine: COMMON NORMALS: no JVD Resp: COMMON NORMALS: normal respiratory effort AUSCULTATION: crackles Laterality: left (improved), rhonchi and wheezes Cardio: COMMON NORMALS: no JVD, regular rhythm, S1 normal heart sound present, S2 normal heart sound present and No murmurs present (Cardio) RATE: tachycardic RHYTHM: regular rhythm HEART SOUNDS: S1 normal heart sound present and S2 normal heart sound present GI: COMMON NORMALS: Normal to inspection, nondistended, normoactive bowel sounds present and Soft to palpation PALPATION: Yes Soft to palpation : OTHER: Inferior urethra erosion at exit of urinary catheter. Catheter repositioned to avoid pressure. Extremity: COMMON NORMALS: no joint enlargement and no pedal edema Skin: COMMON NORMALS: no rashes or lesions noted GENERAL SKIN EXAM: no rashes or lesions noted Urinary Catheter Management^: [place]: Cath Placed During This Visit: yes, but has since been removed by the nurse Reason for Continuing Indwelling Catheter: Decision to DC Catheter Urinary Catheter Date of Insertion: 05/11/21 Urinary Catheter Time of Insertion: 13:39 Date Urinary Catheter Removed: 05/22/21 Time Urinary Catheter Discontinued: 11:20 2-way Urethral: Cath Placed During This Visit: yes Reason for Continuing Indwelling Catheter: Accurate Measurement of Urinary Output in Critically Ill Patients Urinary Catheter Date of Insertion: 05/22/21 Data : 06/01/21 02:22 06/01/21 02:22 Micro: Microbiology 05/29/21 12:40 Urine Culture - Final Urine,Clean Catch A&P Assessment and plan (1) Hypotension: Difficult night, episodes of hypotension, restlessness, tachycardia. Sedation escalated, paralytic dose increased. Doing better this morning. Continues on Levophed at 4 MCG per minute. Wean down as tolerating. Maintain blood pressure. Shock liver continues to improve. No improvement in renal function or urine output. Additional hemodialysis today. Sputum culture collection will be reattempted today. Continue empiric antibiotic coverage with Primaxin, linezolid. Diflucan. [facility] [place] contacted per request, no beds available. Continue to revisit goals of care. Status: Acute (2) SONIA (acute kidney injury): HD started on 05/31. Additional HD attempted today. Persistent anuria. Only 30 cc of urine produced overnight. Nephrology recommendations appreciated. Requested hemodialysis catheter placement. Initiate hemodialysis (with improved blood pressures and limited staffing). Status: Acute (3) Paroxysmal atrial fibrillation with RVR: Heart rate is improved, today are much better after metoprolol last night, subsequently escalation of sedation, paralytic. For now continue amiodarone infusion. Hyperkalemia resolved with dialysis. Status: Acute (4) Respiratory failure with hypoxia: Some additional improvement in hypoxia, weaning down to 60% FiO2. Likely additional benefit from hemodialysis with oliguric renal failure. Last night difficult night, sedation, paralytic had to be escalated due to restlessness, with that episodes of tachycardia, A. fib, worsened hypotension. If oxygenation continues to improve, and hemodynamically becomes more stable, consider weaning trial. No success in finding ECMO bed and now is out of the window. With improving oxygenation, hemodynamically stabilizing, further care at LTAC may be a consideration in which family have been interested as well. Continue empiric Primaxin, linezolid, Diflucan. For severe COVID-19 received decadron x 13 days, remdesivir and actemra CTA no PE D-dimer level came down. Prophylactic Lovenox. Status: Acute (5) Transaminitis: Shock liver with improvement. Improvement in transaminitis. INR 1.26. Secondary to COVID-19, shock liver. Status: Acute (6) COVID-19: as noted above Status: Acute (7) Hypertension: Status: Chronic (8) CAD (coronary artery disease): Status: Chronic Qualifiers: Associated angina: unspecified whether angina present Coronary Disease- Associated Artery/Lesion type: [place] artery [place] vs. transplanted heart: [place] heart Qualified Code(s): I25.10 - Atherosclerotic heart disease of [place] coronary artery without angina pectoris (9) Hyperkalemia: HD today Status: Acute (10) Urethral erosion by catheter: Inferior pole of meatus. Catheter repositioned in a way to offload repeat pressure. Topical antibiotic oint. In case of further erosion consider urologic assessment. Status: Acute Attestations Medical Necessity Statement*: Continue admission for assessment management of hypoxic respiratory failure with severe COVID-19, septic shock, multiorgan injury.. Critical Care Time: The high probability of a clinically significant, sudden or life threatening deterioration of the patient's respiratory, system(s) septic shock, hemodynamic instability required my full and direct attention, intervention and personal management. The critical care time is as shown. 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 transplanted heart: [place] heart Hyperkalemia E87.5 Urethral erosion by catheter T83.89XA; N36.8
--- NOTE | 2021-06-01 14:38 | PM.CONSULT ---
Providers/Reason For Consult Attending Physician: Reynaldo Palmer Medications/Allergies Home Medications Medication Instructions Recorded Confirmed Last Taken Type aspirin 81 mg PO DAILY 05/11/21 05/11/21 05/11/21 History bumetanide 1 mg PO DAILY 05/11/21 05/11/21 05/07/21 History clindamycin HCl 300 mg PO TID 05/11/21 05/11/21 05/09/21 History lisinopril 20 mg PO BID 05/11/21 05/11/21 05/11/21 History omeprazole 20 mg PO DAILY 05/11/21 05/11/21 05/11/21 History Allergies Allergy/AdvReac Type Severity Reaction Status Date / Time sildenafil [From Viagra] Allergy ADR-Confusi Verified 05/11/21 10:03 on Current Medications Generic Name Dose Route Start Last Admin Trade Name Freq PRN Reason Stop Dose Admin Acetaminophen 650 mg 05/11/21 22:20 05/29/21 20:09 Acetaminophen 325 Mg Tablet PO 650 mg Q6H PRN Administration Mild/Mod Pain Or Temp >/= 101 Albuterol/Ipratropium 3 ml 05/11/21 16:00 06/01/21 11:43 Ipratropium-Albuterol 3 Ml Neb INHALATION 3 ml Q4H.RESPIRATORY AASHISH Administration Enoxaparin Sodium 30 mg 05/31/21 12:30 06/01/21 12:56 Enoxaparin 30 Mg/0.3 Ml Syringe SUBCUT 30 mg Q24H AASHISH Administration Famotidine 20 mg 05/11/21 12:30 06/01/21 12:55 Famotidine 20 Mg/2 Ml Inj IVP 20 mg Q12H AASHISH Administration Propofol 1,000 mg in 100 mls @ 0 mls/hr 05/17/21 22:00 05/30/21 09:38 Diprivan IV Infused .Q0M PRN Titration ALCOHOL WITHDRAWAL Protocol Per Protocol Midazolam HCl 100 mg/ Sodium 100 mls @ 0 mls/hr 05/19/21 07:45 06/01/21 05:01 Chloride IV 5 mg/hr .Q0M AASHISH 5 mls/hr Titration Protocol Per Protocol Fentanyl 2,500 mcg/ Sodium 250 mls @ 0 mls/hr 05/22/21 05:30 05/31/21 11:39 Chloride IV 100 mcg/hr .Q0M AASHISH 10 mls/hr Administration Protocol Per Protocol dexmedeTOMIDine 0.9 % NaCL 400 mcg in 100 mls @ 0 mls/hr 05/23/21 14:15 05/23/21 19:25 Precedex IV 0 mcg/kg/hr .Q0M AASHISH 0 mls/hr Titration Protocol Per Protocol Fluconazole 100 mg/ N/A 50 mls @ 50 mls/hr 05/28/21 12:30 06/01/21 12:58 IV 50 mls/hr Q24H AASHISH Administration Cisatracurium Besylate 100 mg/ 100 mls @ 0 mls/hr 05/28/21 15:15 06/01/21 09:35 Sodium Chloride IV 0.9 mcg/kg/min .Q0M AASHISH 6.12 mls/hr Administration Protocol Per Protocol Norepinephrine Bitartrate 4 mg 254 mls @ 0 mls/hr 05/29/21 10:30 05/31/21 22:46 / Dextrose IV Infused .Q0M AASHISH Titration Protocol Per Protocol Linezolid 600 mg in 300 mls @ 300 mls/hr 05/29/21 12:00 06/01/21 12:56 Zyvox Premix IV 300 mls/hr Q12H AASHISH Administration Protocol Amiodarone HCl 900 mg/ 518 mls @ 17.267 mls/hr 05/30/21 06:30 05/31/21 04:29 Dextrose/ IV Miscellaneous IV 0.5 mg/min Supplies CONT AASHISH 17.27 mls/hr Administration 0.5 MG/MIN Norepinephrine Bitartrate 8 mg 508 mls @ 0 mls/hr 05/30/21 06:30 05/31/21 22:45 / Dextrose IV 6 mcg/min .Q0M AASHISH 22.86 mls/hr Administration Protocol Per Protocol Imipenem/Cilastatin Sodium 250 100 mls @ 200 mls/hr 05/30/21 17:00 06/01/21 11:27 mg/ Sodium Chloride IV 200 mls/hr Q6H AASHISH Administration Protocol Propofol 1,000 mg in 100 mls @ 0 mls/hr 06/01/21 00:30 06/01/21 01:04 Diprivan IV 10 mcg/kg/min .Q0M AASHISH 7.25 mls/hr Titration Protocol Per Protocol Morphine Sulfate 4 mg 05/23/21 14:04 05/28/21 17:26 Morphine 4 Mg/Ml Sdv 1 Ml IVP 4 mg Q4H PRN Administration SEVERE PAIN Polyethylene Glycol 17 gm 05/15/21 18:00 06/01/21 09:41 Polyethylene Glycol 3350 Pkt 17 Gm PO 17 gm BID AASHISH Administration Senna/Docusate Sodium 1 tab 05/20/21 09:00 06/01/21 09:41 Sennosides-Docusate Tablet PO 1 tab DAILY AASHISH Administration PFSH Acute PFSH: Medical History CAD (coronary artery disease) Hypertension Surgical History No significant past surgical history Social History Smoking and tobacco status: former smoker Alcohol intake: never Substance/Drug Use: never Lives independently: Yes Household members: spouse Housing: House Marital status: Vitals/I&O/Wt Last Vital Signs Temp 99.0 F 06/01/21 08:00 Pulse 78 06/01/21 14:00 Resp 28 H 06/01/21 14:00 BP 131/64 06/01/21 14:00 Pulse Ox 94 06/01/21 14:00 05/31/21 06/01/21 06/01/21 22:59 06:59 14:59 Intake Total 645.651 / 1583.385 642.469 / 2225.854 16.955 / 16.955 Output Total 589 / 589 Balance 56.651 / 994.385 642.469 / 1636.854 16.955 / 16.955 Weight last 48 hrs Weight 121.971 kg Weight 120.882 kg Physical Exam Urinary Catheter Management^: [place]: Cath Placed During This Visit: yes, but has since been removed by the nurse Reason for Continuing Indwelling Catheter: Decision to DC Catheter Urinary Catheter Date of Insertion: 05/11/21 Urinary Catheter Time of Insertion: 13:39 Date Urinary Catheter Removed: 05/22/21 Time Urinary Catheter Discontinued: 11:20 2-way Urethral: Cath Placed During This Visit: yes Reason for Continuing Indwelling Catheter: Accurate Measurement of Urinary Output in Critically Ill Patients Urinary Catheter Date of Insertion: 05/22/21 Data Micro: Micro: Microbiology 05/29/21 12:40 Urine Culture - Fi nal Urine,Clean Catch Coding Level of Care Code Acute Concessions Manager for [facility]
[2021-06-01] MEDS: propofol 1,000 MG/100 ML INJ 7.25 MG IV ×2 (14:40→23:43)
[2021-06-01] MEDS: neomycin-poly-bacitracin oint 28 gm 1 APPLIC TOPICAL (17:42)
--- NOTE | 2021-06-01 19:14 | PC.NURSE ---
Shift Note Frequent safety and comfort rounds continue. Pt is very sensitive to any positioning changes, becoming hypoxic and has increased respirations. Pt continues to require nimbex, levophed, versed, fentanyl, propofol and amiodarone. FIO2 was decreased from 70% to 60%. 20 ml noted of urine output. triple antibiotic ointment and telfa applied to ulceration on the penis tip. will closely monitor. Pt remains very edematous to all extremities. Family updated throughout the shift. Orders and/or nursing care completed as indicated. Patient monitored for response to intervention and treatment(s). Will continue to monitor.
[2021-06-01] MEDS: heparin, porcine 1,000 unit/mL INJ 10 mL 2200 UNIT HE ×2 (21:43)
--- NOTE | 2021-06-01 21:45 | PC.NURSE ---
Heparin orders given to Al Soriano RN, dialysis nurse per Dr. Burks. Orders corrected, scanned and witness with dialysis nurse.
[2021-06-01] MEDS: cisatracurium 100 MG in sodium chloride 0.9% 50 ML 8.17 MG IV (23:35)
[2021-06-02] VITALS (112 sets, daily range): BP systolic 105–134; BP diastolic 53–66; PULSE 65–89; RESP 26–44; TEMP 36.4–36.9; O2SAT 83–100
[2021-06-02] MEDS: ipratropium-albuterol 3 mL Neb INHALATION ×6 (00:04→20:12)
[2021-06-02] MEDS: linezolid premix 600 MG/300 ML PREMIX 300 MG IV ×3 (01:24→23:43)
--- NOTE | 2021-06-02 01:24 | PC.NURSE ---
Hemodialysis completed at 01:20, 2L removed per dialysis nurse. Heart rate remained 80-90's, in and out of Afib/SR. BP WNL with levophed gtt unchanged, with rate at 4mcg.
[2021-06-02] MEDS: norepinephrine 8 MG in dextrose 5 % 500 ML 15.24 MG IV ×2 (01:30→16:18)
[2021-06-02 04:25] LABS: ABG PCO2 55.3 mmHg (35-45); Alveolar-Arterial Oxygen Gradi 35.4 mmHg (5-10); Base Excess ABG -0.5 mmol/L (-2.0-2.0); Blood Gas Allen Test Pos; Blood Gas Operator Identificat glc; Blood Gas Sample Site Radial, right; Blood Gas Sample Type Arterial; Blood Gas Tidal Volume 0.48; Carboxyhemoglobin 1.4 %THgb (0.4-20.1); HCO3 ABG 26.9 mmol/L (22-26); HGB O2 Sat 94.8 % (95-100); Ionized Calcium Level - ABG 1.1 mmol/L (1.1-1.4); Methemoglobin 0.8 % (0.4-1.5); Oxygen Device VENT; Oxygen Saturation ABG 96.9; PO2 ABG 89.1 mmHg (80.0-100.0); Potassium Level - ABG 3.1 mmol/L (3.5-5.0); Total Hemoglobin 13.1 g/dL (14-18)
[2021-06-02 05:24] LABS: Basophils # 0.1 10^3/uL (0.0-0.1); Basophils % 0.5 %; Eosinophils # 0.8 10^3/uL (0.0-0.8); Eosinophils % 4.8 %; Hematocrit 32.9 % (42.0-52.0); Hemoglobin 10.5 g/dL (11.7-16.6); Lymphocytes % 5.6 %; Mean Corpuscular HGB Conc 31.9 g/dL (30.0-36.0); Mean Corpuscular Hemoglobin 30.2 pg (28.0-34.0); Mean Corpuscular Volume 94.5 fl (80-94); Mean Platelet Volume 10.9 fL (7.4-10.4); Monocytes # 1.5 10^3/uL (0.2-0.9); Monocytes % 8.9 %; Neutrophils # 12.91 10^3/uL (1.8-7.7); Neutrophils % 74.8 %; Nucleated Red Blood Cells # 0.2 /100WBC; Platelet Count 151 10^3/cmm (130-400); Red Blood Count 3.48 10^6/uL (4.1-5.3); Red Cell Distribution Width 15.7 % (12.1-15.1); White Blood Count 17.3 10^3/uL (4.0-10.0)
[2021-06-02 05:45] LABS: Alanine Aminotransferase 385 U/L (0-41); Albumin Level 2.6 g/dL (3.5-5.2); Alkaline Phosphatase 268 IU/L (40-130); Anion Gap 19.2 (5-19); Aspartate Amino Transferase 457 U/L (0-40); Blood Urea Nitrogen 45 mg/dL (6-20); Calcium 7.4 mg/dL (8.5-10.5); Carbon Dioxide 24 mmol/L (22-29); Chloride 91 mmol/L (98-107); Globulin 3.1 g/dL (1.3-4.6); Glomerular Filtration Rate 16.4 mL/min (90-130); Glucose 102 mg/dL (65-115); Osmolality Calculated 284 mOsm/kg (285-295); Potassium 3.2 mmol/L (3.5-5.1); Sodium 131 mmol/L (136-145); Total Bilirubin 0.7 mg/dL (0.15-1.2); Total Protein 5.7 g/dL (6.6-8.7)
--- NOTE | 2021-06-02 07:43 | P.PN_ITS ---
Subjective Subjective: Interval history: no change, remains paralyzed, on levophed 4 mcg Medications: Reviewed: Yes Vitals/I&O/Wt Last Vital Signs Temp 97.6 F 06/02/21 04:00 Pulse 74 06/02/21 06:00 Resp 30 H 06/02/21 06:33 BP 123/60 06/02/21 06:00 Pulse Ox 97 06/02/21 06:33 06/01/21 06/02/21 06/02/21 22:59 06:59 14:59 Intake Total 651.180 / 2058.025 812.201 / 2870.226 Output Total 75 / 75 Balance 651.180 / 8.025 737.201 / 2795.226 Weight last 48 hrs Weight 120.701 kg Weight 121.971 kg Physical Exam Urinary Catheter Management^: [place]: Cath Placed During This Visit: yes, but has since been removed by the nurse Reason for Continuing Indwelling Catheter: Decision to DC Catheter Urinary Catheter Date of Insertion: 05/11/21 Urinary Catheter Time of Insertion: 13:39 Date Urinary Catheter Removed: 05/22/21 Time Urinary Catheter Discontinued: 11:20 2-way Urethral: Cath Placed During This Visit: yes Reason for Continuing Indwelling Catheter: Accurate Measurement of Urinary Outpu t in Critically Ill Patients Urinary Catheter Date of Insertion: 05/22/21 Data : 06/02/21 04:43 06/02/21 04:43 A&P Additional A&P Information Seen via telehealth with assistance of RN at bedside 1. Acute oligoanuric kidney injury, volume overload. Hyperkalemia and metabolic acidosis resolved 2. VDRF, COVID ARDS, sepsis 3. Shock Liver 4. Hypervolemic hyponatremia, improved 5. Hypokalemia Rec: Prognosis remains poor. Replace KCl oral. HD today, UF as BP tolerates Attestations Medical Necessity Statement*: see above Time Spent in Patient Care: 16 - 35 minutes Coding Level of Care Code Acute Airline Operations Agent for [facility]
[2021-06-02] MEDS: neomycin-poly-bacitracin oint 28 gm 1 APPLIC TOPICAL ×2 (09:19→18:29)
[2021-06-02] MEDS: propofol 1,000 MG/100 ML INJ 10.88 MG IV ×2 (09:34→18:37)
[2021-06-02] MEDS: potassium chloride oral liq 20 mEq/15 mL UDC 40 MEQ NG-TUBE (12:31)
[2021-06-02] MEDS: enoxaparin 30 mg/0.3 mL Syringe SUBCUT (12:32)
[2021-06-02] MEDS: famotidine 20 mg/2 mL INJ IVP ×2 (12:32→23:42)
[2021-06-02] MEDS: fluconazole premix 100 MG in empty flexible container 1 EACH 50 MG IV (12:58)
--- NOTE | 2021-06-02 14:42 | PM.PN ---
Subjective Subjective: Interval history: Intubated, sedated. Reported to have had a difficult night, with restlessness, respiratory distress with trying to wean sedation and paralytics last night. Sedation and paralytics had to be reescalated, Vitals/I&O/Wt Last Vital Signs Temp 97.8 F 06/02/21 07:15 Pulse 69 06/02/21 14:00 Resp 28 H 06/02/21 11:52 BP 122/60 06/02/21 14:00 Pulse Ox 92 06/02/21 14:00 06/01/21 06/02/21 06/02/21 22:59 06:59 14:59 Intake Total 651.180 / 2058.025 812.201 / 2870.226 469.103 / 469.103 Output Total 75 / 75 Balance 651.180 / 2058.025 737.201 / 2795.226 469.103 / 469.103 Weight last 48 hrs Weight 120.701 kg Weight 121.971 kg Physical Exam Const: COMMON NORMALS: no acute distress GENERAL APPEARANCE: ill appearing HENMT: COMMON NORMALS: oropharynx normal OTHER: No oral secretions Neck/C-Spine: COMMON NORMALS: no JVD Resp: COMMON NORMALS: normal respiratory effort AUSCULTATION: wheezes Cardio: COMMON NORMALS: no JVD, regular rhythm, S1 normal heart sound present, S2 normal heart sound present and No murmurs present (Cardio) RATE: tachycardic RHYTHM: regular rhythm HEART SOUNDS: S1 normal heart sound present and S2 normal heart sound present GI: COMMON NORMALS: Normal to inspection, nondistended, normoactive bowel sounds present and Soft to palpation PALPATION: Yes Soft to palpation : OTHER: Inferior urethra erosion at exit of urinary catheter. Catheter repositioned to avoid pressure. Extremity: COMMON NORMALS: no joint enlargement and no pedal edema Neuro: COMMON NORMALS: moves all extremities Skin: COMMON NORMALS: no rashes or lesions noted GENERAL SKIN EXAM: no rashes or lesions noted Urinary Catheter Management^: [place]: Cath Placed During This Visit: yes, but has since been removed by the nurse Reason for Continuing Indwelling Catheter: Decision to DC Catheter Urinary Catheter Date of Insertion: 05/11/21 Urinary Catheter Time of Insertion: 13:39 Date Urinary Catheter Removed: 05/22/21 Time Urinary Catheter Discontinued: 11:20 2-way Urethral: Cath Placed During This Visit: yes Reason for Continuing Indwelling Catheter: Accurate Measurement of Urinary Output in Critically Ill Patients Urinary Catheter Date of Insertion: 05/22/21 Data : 06/02/21 04:43 06/02/21 04:43 A&P Assessment and plan (1) Hypotension: Gradually improving, slowly weaning off pressor, additional hemodialysis today through which I expect will require pressor. Hopefully subsequently will wean further. Heart rates so far remain in 70s. Shock liver continues to improve. No improvement in renal function or urine output. Additional hemodialysis today. Continue empiric antibiotic coverage with Primaxin, linezolid. Diflucan. Status: Acute (2) SONIA (acute kidney injury): HD started on 05/31. Additional HD today. Persistent anuria. Nephrology recommendations appreciated. Requested hemodialysis catheter placement. Initiate hemodialysis (with improved blood pressures and limited staffing). Status: Acute (3) Paroxysmal atrial fibrillation with RVR: Heart rate is improved, today are much better after metoprolol last night, subsequently escalation of sedation, paralytic. For now continue amiodarone infusion. Hyperkalemia resolved with dialysis. Status: Acute (4) Respiratory failure with hypoxia: Some additional improvement in hypoxia, weaning down to 60% FiO2. Likely additional benefit from hemodialysis with oliguric renal failure. Last night difficult night, sedation, paralytic had to be escalated due to restlessness, with that episodes of tachycardia, A. fib, worsened hypotension. If oxygenation continues to improve, and hemodynamically becomes more stable, consider weaning trial. No success in finding ECMO bed and now is out of the window. With improving oxygenation, hemodynamically stabilizing, further care at LTAC may be a consideration in which family have been interested as well. Continue empiric Primaxin, linezolid, Diflucan. For severe COVID-19 received decadron x 13 days, remdesivir and actemra CTA no PE D-dimer level came down. Prophylactic Lovenox. Yesterday tube feeds with withheld due to elevated residuals. Can attempt to restart, monitor tolerance. Status: Acute (5) Transaminitis: Shock liver. COVID-19. Transaminitis continuing to improve. Status: Acute (6) COVID-19: as noted above Status: Acute (7) Hypertension: Status: Chronic (8) CAD (coronary artery disease): Status: Chronic Qualifiers: Associated angina: unspecified whether angina present Coronary Disease-Associated Artery/Lesion type: [place] artery [place] vs. transplanted heart: [place] heart Qualified Code(s): I25.10 - Atherosclerotic heart disease of [place] coronary artery without angina pectoris (9) Hyperkalemia: Resolved with HD. Now hypokalemic. Status: Acute (10) Urethral erosion by catheter: Inferior pole of meatus. Catheter repositioned in a way to offload repeat pressure. Topical antibiotic oint. In case of further erosion consider urologic assessment. Status: Acute Additional A&P Information Hypokalemia: Replaced Attestations Medical Necessity Statement*: Continue admission for assessment management of hypoxic respite failure with severe COVID-19, multiorgan injury, improving sepsis, renal failure requiring dialysis, weaning of pressor, sedation and mechanical ventilatory support. Critical Care Time: The high probability of a clinically significant, sudden or life threatening deterioration of the patient's hemodynamic, respiratory, renal system(s) required my full and direct attention, intervention and personal management. The critical care time is as shown. This time is in addition to time spent performing any reported procedures but includes the following: x Data and vital sign review and interpretation x Patient assessment, examination and intervention x Documentation x Medication orders and management Critical Care Time (min): 40 Coding Level of Care Code Acute Chainer for g Fwd Diagnoses Hypotension I95.9 SONIA (acute kidney injury) N17.9 Paroxysmal atrial fibrillation with RVR I48.0 Respiratory failure with hypoxia J96.91 Transaminitis R74.01 COVID-19 U07.1 Hypertension I10 CAD (coronary artery disease) I25.10 Associated angina: unspecified whether angina present Coronary Disease-Associated Artery/Lesion type: [place] artery [place] vs. transplanted heart: [place] heart Hyperkalemia E87.5 Urethral erosion by catheter T83.89XA; N36.8
--- NOTE | 2021-06-02 18:17 | PC.HD ---
Arterial port would not draw pre-treatment but flushed well. Lines reversed. Art pressure was high throughout treatment and occasionally spiked, shutting off blood pump and required flushing to realease and restart. Fluid removal rate increased in anticipation of having to give significant fluid to keep pt running, but in reality not much additional fluid was given resulting in net fluid removal greater than ordered. Pt tolerated well.
[2021-06-02] MEDS: heparin, porcine 1,000 unit/mL INJ 10 mL 1000 UNIT IV (18:31)
--- NOTE | 2021-06-02 19:24 | PC.NURSE ---
06/01/2021 0700 Patient competed HD successfully. After HD this nurse was able to wean both sedation and paralytics without having to turn them back up at end of shift. See GTT titrations. GTT's titrated per protocol.
[2021-06-02] MEDS: cisatracurium 100 MG in sodium chloride 0.9% 50 ML IV (19:47)
[2021-06-03] VITALS (89 sets, daily range): BP systolic 90–132; BP diastolic 50–70; PULSE 67–86; RESP 25–32; TEMP 36.4–36.8; O2SAT 84–96
[2021-06-03] MEDS: ipratropium-albuterol 3 mL Neb INHALATION ×7 (00:18→23:54)
--- NOTE | 2021-06-03 02:49 | PC.NURSE ---
Patient completed HD 06/02/21 at 20:22 with 1500ml total fluid removal without incident. Lungs remain coarse.
[2021-06-03] MEDS: propofol 1,000 MG/100 ML INJ 10.88 MG IV (03:11)
[2021-06-03 03:49] LABS: Basophils # 0.1 10^3/uL (0.0-0.1); Basophils % 0.7 %; Eosinophils % 6.9 %; Hematocrit 31.3 % (42.0-52.0); Hemoglobin 9.9 g/dL (11.7-16.6); Lymphocytes # 0.7 10^3/uL (0.8-4.8); Lymphocytes % 4.5 %; Mean Corpuscular HGB Conc 31.6 g/dL (30.0-36.0); Mean Corpuscular Hemoglobin 29.3 pg (28.0-34.0); Mean Corpuscular Volume 92.6 fl (80-94); Mean Platelet Volume 10.6 fL (7.4-10.4); Monocytes # 1.1 10^3/uL (0.2-0.9); Monocytes % 7.5 %; Neutrophils # 11.49 10^3/uL (1.8-7.7); Neutrophils % 76.4 %; Nucleated Red Blood Cells # 0.1 /100WBC; Nucleated Red Blood Cells % 0.5 %; Platelet Count 135 10^3/cmm (130-400); Red Blood Count 3.38 10^6/uL (4.1-5.3); Red Cell Distribution Width 15.7 % (12.1-15.1)
[2021-06-03 04:04] LABS: D Dimer 16.86 ug/mIFEU (0-0.59)
[2021-06-03 04:05] LABS: Alanine Aminotransferase 191 U/L (0-41); Albumin Level 2.4 g/dL (3.5-5.2); Alkaline Phosphatase 219 IU/L (40-130); Aspartate Amino Transferase 327 U/L (0-40); Blood Urea Nitrogen 31 mg/dL (6-20); Carbon Dioxide 23 mmol/L (22-29); Chloride 94 mmol/L (98-107); Globulin 3.3 g/dL (1.3-4.6); Glomerular Filtration Rate 21.3 mL/min (90-130); Glucose 84 mg/dL (65-115); Osmolality Calculated 280 mOsm/kg (285-295); Phosphorus 2.8 mg/dL (2.5-4.5); Sodium 132 mmol/L (136-145); Total Bilirubin 0.6 mg/dL (0.15-1.2); Total Protein 5.7 g/dL (6.6-8.7)
[2021-06-03 04:07] LABS: ABG PCO2 51.7 mmHg (35-45); ABG PH Result 7.34 (7.35-7.45); Alveolar-Arterial Oxygen Gradi 37.6 mmHg (5-10); Base Excess ABG 1.5 mmol/L (-2.0-2.0); Blood Gas Allen Test Pos; Blood Gas Operator Identificat JB; Blood Gas Sample Site Radial, left; Blood Gas Sample Type Arterial; Blood Gas Tidal Volume 0.48; Carboxyhemoglobin 1.7 %THgb (0.4-20.1); HGB O2 Sat 92.7 % (95-100); Ionized Calcium Level - ABG 1.1 mmol/L (1.1-1.4); Methemoglobin 0.9 % (0.4-1.5); Oxygen Device VENT; Oxygen Saturation ABG 95.2; PO2 ABG 72.8 mmHg (80.0-100.0); Potassium Level - ABG 2.6 mmol/L (3.5-5.0); Total Hemoglobin 11.1 g/dL (14-18)
--- NOTE | 2021-06-03 06:27 | PC.NURSE ---
Shift Note Frequent safety and comfort rounds continue. Orders and/or nursing care completed as indicated. Patient monitored for response to intervention and treatment(s). Education provided includes medication with side effects, falls. Knife Sharpener verbalized understanding. GTT's titrated per protocol. Lines and tubes patent. Patient tolerating decrease in sedation and paralytic. Will continue to monitor.
[2021-06-03] MEDS: potassium chloride premix 100 ML 50 MEQ IV (06:40)
--- NOTE | 2021-06-03 07:31 | P.PN_ITS ---
Subjective Subjective: Interval history: Hospital course, labs appreciated. Patient lying comfortably in bed. Overnight as per the nurse patient was restarted on paralytics because of overbreathing on the vent. Currently he is on fentanyl 100, propofol, Versed, Nimbex, amiodarone drip and Levophed of 4. He is on 60% of FiO2. He is to undergo dialysis today with target 2 L of net volume withdrawal. Mean arterial pressures have remained over 65 on Levophed. Tube feeds have been withheld because of high residuals for last 2 days as per the nurse. Patient has been having occasional episodes of greenish diarrheal bowel movements for last 5 days. Medications: Reviewed: Yes Vitals/I&O/Wt Last Vital Signs I&Os 24hr/Weight 06/03/21 06:59 Intake Total 2027.198 / 2027.198 Output Total 0 / 0 Balance 2027.198 / 2027.198 Urine Output (Average ml/kg/hr) 0.00 Weight 121.971 kg Temp 98.2 F 06/03/21 20:01 Pulse 76 06/03/21 06:00 Resp 32 H 06/03/21 06:16 BP 98/62 06/03/21 06:00 Pulse Ox 94 06/03/21 06:16 Weight last 48 hrs Weight 121.109 kg Weight 121.971 kg Physical Exam Narrative: EXAM NARRATIVE: General: Intubated, paralyzed, HEENT: PERRLA, pupils bilaterally equal and reactive Chest: Bilateral bronchial breath sounds, coarse crackles present bilaterally, equal good air entry bilaterally CVS: S1-S2 regular, no murmurs, no tachycardia, no gallops, no rubs Abdomen: Soft, distended no organomegaly, bowel sounds present but sluggish Neuro: Intubated, paralyzed, Urinary Catheter Management^: [place]: Cath Placed During This Visit: yes, but has since been removed by the nurse Reason for Continuing Indwelling Catheter: Decision to DC Catheter Urinary Catheter Date of Insertion: 05/11/21 Urinary Catheter Time of Insertion: 13:39 Date Urinary Catheter Removed: 05/22/21 Time Urinary Catheter Discontinued: 11:20 2-way Urethral: Cath Placed During This Visit: yes Reason for Continuing Indwelling Catheter: Accurate Measurement of Urinary Output in Critically Ill Patients Urinary Catheter Date of Insertion: 05/22/21 Data : 06/04/21 04:09 06/04/21 04:09 Micro: Microbiology 05/29/21 10:57 Blood Culture - Final Blood NO GROWTH AFTER 5 DAYS 05/29/21 10:52 Blood Culture - Final Blood NO GROWTH AFTER 5 DAYS 06/02/21 16:20 Gram Stain - Final Sputum - Endotracheal Tube Aspirate Sputum Culture - Preliminary A&P Assessment and plan (1) Hypotension: Gradually improving, slowly weaning off pressor, additional hemodialysis today through which I expect will require pressor. Hopefully subsequently will wean further. Heart rates so far remain in 70s. Shock liver continues to improve. No improvement in renal function or urine output. Additional hemodialysis today . Continue empiric antibiotic coverage with Primaxin, linezolid. Diflucan. Status: Acute (2) SONIA (acute kidney injury): HD started on 05/31. Additional HD today. Persistent anuria. Nephrology recommendations appreciated. Requested hemodialysis catheter placement. Initiate hemodialysis (with improved blood pressures and limited staffing). Status: Acute (3) Paroxysmal atrial fibrillation with RVR: Heart rate is improved, today are much better after metoprolol last night, subsequently escalation of sedation, paralytic. For now continue amiodarone infusion. Hyperkalemia resolved with dialysis. Status: Acute (4) Respiratory failure with hypoxia: Some additional improvement in hypoxia, weaning down to 60% FiO2. Likely additional benefit from hemodialysis with oliguric renal failure. Last night difficult night, sedation, paralytic had to be escalated due to restlessness, with that episodes of tachycardia, A. fib, worsened hypotension. If oxygenation continues to improve, and hemodynamically becomes more stable, consider weaning trial. No success in finding ECMO bed and now is out of the window. With improving oxygenation, hemodynamically stabilizing, further care at LTAC may be a consideration in which family have been interested as well. Continue empiric Primaxin, linezolid, Diflucan. For severe COVID-19 received decadron x 13 days, remdesivir and actemra CTA no PE D-dimer level came down. Prophylactic Lovenox. Yesterday tube feeds with withheld due to elevated residuals. Can attempt to restart, monitor tolerance. Status: Acute (5) Transaminitis: Shock liver. COVID-19. Transaminitis continuing to improve. Status: Acute (6) COVID-19: as noted above Status: Acute (7) Hypertension: Status: Chronic (8) CAD (coronary artery disease): Status: Chronic Qualifiers: Associated angina: unspecified whether angina present Coronary Disease- Associated Artery/Lesion type: [place] artery [place] vs. transplanted heart: [place] heart Qualified Code(s): I25.10 - Atherosclerotic heart disease of [place] coronary artery without angina pectoris (9) Hyperkalemia: Resolved with HD. Now hypokalemic. Status: Acute (10) Urethral erosion by catheter: Inferior pole of meatus. Catheter repositioned in a way to offload repeat pressure. Topical antibiotic oint. In case of further erosion consider urologic assessment. Status: Acute Plan Plan for day: For sedation we will stop propofol as patient was already on Versed, fentanyl. Switch to Precedex. Wean off Nimbex. Get CT head to rule out stroke. Get CT abdomen pelvis given abdominal distention and diarrhea to rule out bowel obstruction versus ileus. Get CT chest for further evaluation. Check D-dimer and CRP every 48 hourly. As patient has been on antibiotics for more than 1 week we will stop vancomycin and Levaquin. For now continue with imipenem. Will dose antibiotics as per creatinine clearance. Continue with amiodarone drip. Once Nimbex is stopped we will try to resume tube feeds and sw itch IV to oral. 1 more session of dialysis as per nephrology. Will confirm with pulmonology regarding further sedation and vent settings. Follow-up blood cultures. Attestations Medical Necessity Statement*: Requires further hospitalization for management of ventilator dependence, hypoxic respiratory failure/ARDS secondary COVID-19 pneumonia, SONIA requiring hemodialysis, shock liver Critical Care Time: The high probability of a clinically significant, sudden or life threatening deterioration of the patient's [renal, cardiac, neurologic al, pulmonary, GI system(s) required my full and direct attention, intervention and personal management. The critical care time is as shown. This time is in addition to time spent performing any reported procedures but includes the following: [x] Data and vital sign review and interpretation [x] Patient assessment, examination and intervention [x] Documentation [x] Medication orders and management Coding Level of Care Code Acute Manufacturing Technician for [facility] Fwd Diagnoses Hypotension I95.9 SONIA (acute kidney injury) N17.9 Paroxysmal atrial fibrillation with RVR I48.0 Respiratory failure with hypoxia J96.91 Transaminitis R74.01 COVID-19 U07.1 Hypertension I10 CAD (coronary artery disease) I25.10 Associated angina: unspecified whether angina present Coronary Disease-Associated Artery/Lesion type: [place] artery [place] vs. transplanted heart: [place] heart Hyperkalemia E87.5 Urethral erosion by catheter T83.89XA; N36.8
[2021-06-03] MEDS: polyethylene glycol 3350 Pkt 17 gm PO (08:19)
[2021-06-03] MEDS: neomycin-poly-bacitracin oint 28 gm 1 APPLIC TOPICAL ×2 (08:19→16:51)
[2021-06-03] MEDS: sennosides-docusate Tablet 1 TAB PO (08:19)
--- NOTE | 2021-06-03 09:41 | PM.PN ---
Subjective Subjective: Interval history: intubated, sedated. can not obtain a ROS- due to clinical condition Medications: Reviewed: Yes Medication Review Details: Current Medications Acetaminophen (Acetaminophen 325 Mg Tablet) 650 mg PO Q6H PRN PRN Reason: Mild/Mod Pain Or Temp >/= 101 Last Admin: 05/29/21 20:09 Dose: 650 mg Documented by: Albuterol Sulfate (Albuterol 2.5 Mg/0.5 Ml Neb) 2.5 mg INHALATION Q4H.RESPIRATORY PRN PRN Reason: SHORTNESS OF BREATH Albuterol/Ipratropium (Ipratropium-Albuterol 3 Ml Neb) 3 ml INHALATION Q4H.RESPIRATORY AASHISH Last Admin: 06/03/21 07:40 Dose: 3 ml Documented by: Artificial Tears (Artificial Tears Op Oint 3.5 Gm) 1 applic EYE-BOTH PRN PRN PRN Reason: DRY EYE(S) Enoxaparin Sodium (Enoxaparin 30 Mg/0.3 Ml Syringe) 30 mg SUBCUT Q24H AASHISH Last Admin: 06/02/21 12:32 Dose: 30 mg Documented by: Famotidine (Famotidine 20 Mg/2 Ml Inj) 20 mg IVP Q12H AASHISH Last Admin: 06/02/21 23:42 Dose: 20 mg Documented by: Propofol (Diprivan) 1,000 mg in 100 mls @ 0 mls/hr IV .Q0M PRN; Protocol PRN Reason: ALCOHOL WITHDRAWAL Last Titration: 05/30/21 09:38 Dose: Infused Documented by: Midazolam HCl 100 mg/ Sodium (Chloride) 100 mls @ 0 mls/hr IV .Q0M AASHISH; Protocol Last Titration: 06/03/21 02:47 Dose: 3 mg/hr, 3 mls/hr Documented by: Fentanyl 2,500 mcg/ Sodium (Chloride) 250 mls @ 0 mls/hr IV .Q0M AASHISH; Protocol Last Admin: 06/02/21 16:31 Dose: 100 mcg/hr, 10 mls/hr Documented by: dexmedeTOMIDine 0.9 % NaCL (Precedex) 400 mcg in 100 mls @ 0 mls/hr IV .Q0M AASHISH; Protocol Last Titration: 05/23/21 19:25 Dose: 0 mcg/kg/hr, 0 mls/hr Documented by: Cisatracurium Besylate 100 mg/ (Sodium Chloride) 100 mls @ 0 mls/hr IV .Q0M AASHISH; Protocol Last Titration: 06/03/21 04:10 Dose: 0.3 mcg/kg/min, 2.04 mls/hr Documented by: Norepinephrine Bitartrate 4 mg (/ Dextrose) 254 mls @ 0 mls/hr IV .Q0M AASHISH; Protocol Last Titration: 05/31/21 22:46 Dose: Infused Documented by: Linezolid (Zyvox Premix) 600 mg in 300 mls @ 300 mls/hr IV Q12H AASHISH; Protocol Last Infusion: 06/03/21 00:45 Dose: Infused Documented by: Amiodarone HCl 900 mg/Dextrose/ IV Miscellaneous Supplies 518 mls @ 17.267 mls/hr IV CONT [facility] Last Admin: 06/02/21 08:00 Dose: 0.5 mg/min, 17.27 mls/hr Documented by: Norepinephrine Bitartrate 8 mg (/ Dextrose) 508 mls @ 0 mls/hr IV .Q0M AASHISH; Protocol Last Admin: 06/02/21 16:18 Dose: 4 mcg/min, 15.24 mls/hr Documented by: Imipenem/Cilastatin Sodium 250 (mg/ Sodium Chloride) 100 mls @ 200 mls/hr IV Q6H AASHISH; Protocol Last Infusion: 06/03/21 04:40 Dose: Infused Documented by: Sodium Chloride (Sodium Chloride 0.9%) 1,000 mls @ 0 mls/hr IV .Q0M PRN PRN Reason: hypotension or symptomatic Propofol (Diprivan) 1,000 mg in 100 mls @ 0 mls/hr IV .Q0M AASHISH; Protocol Last Admin: 06/03/21 03:11 Dose: 15 mcg/kg/min, 10.88 mls/hr Documented by: Sodium Chloride (Sodium Chloride 0.9%) 1,000 mls @ 0 mls/hr IV .Q0M PRN PRN Reason: hypotension or symptomatic Sodium Chloride (Sodium Chloride 0.9%) 1,000 mls @ 0 mls/hr IV .Q0M PRN PRN Reason: hypotension or symptomatic Fluconazole 100 mg/ N/A 50 mls @ 50 mls/hr IV Q24H AASHISH Morphine Sulfate (Morphine 4 Mg/Ml Sdv 1 Ml) 4 mg IVP Q4H PRN PRN Reason: SEVERE PAIN Last Admin: 05/28/21 17:26 Dose: 4 mg Documented by: Neomycin/Polymyxin/Bacitracin (Utcdwlaj-Cnjh-Zvifdnljdr Oint 28 Gm) 1 applic TOPICAL BID [facility] Last Admin: 06/03/21 08:19 Dose: 1 applic Documented by: Polyethylene Glycol (Polyethylene Glycol 3350 Pkt 17 Gm) 17 gm PO BID [facility] Last Admin: 06/03/21 08:19 Dose: 17 gm Documented by: Senna/Docusate Sodium (Sennosides-Docusate Tablet) 1 tab PO DAILY [facility] Last Admin: 06/03/21 08:19 Dose: 1 tab Documented by: Vitals/I&O/Wt Last Vital Signs Temp 97.9 F 06/03/21 04:00 Pulse 72 06/03/21 09:00 Resp 28 H 06/03/21 07:30 BP 118/59 06/03/21 09:00 Pulse Ox 94 06/03/21 09:00 06/02/21 06/03/21 06/03/21 22:59 06:59 14:59 Intake Total 626.968 / 1446.071 582.127 / 2027.198 50 / 50 Output Total 0 / 0 Balance 626.968 / 1446.071 582.127 / 2027.198 50 / 50 Weight last 48 hrs Weight 121.971 kg Weight 120.701 kg Weight 121.2 kg Physical Exam Narrative: EXAM NARRATIVE: remains in icu on vent and pressers vent- fio2 60%, tv 480- rr 26, peep 10 heent- nc/at, eomi lungs wheezes, coarse heart reg abd soft, nt ext edema neuro sedated Urinary Catheter Management^: [place]: Cath Placed During This Visit: yes, but has since been removed by the nurse Reason for Continuing Indwelling Catheter: Decision to DC Catheter Urinary Catheter Date of Insertion: 05/11/21 Urinary Catheter Time of Insertion: 13:39 Date Urinary Catheter Removed: 05/22/21 Time Urinary Catheter Discontinued: 11:20 2-way Urethral: Cath Placed During This Visit: yes Reason for Continuing Indwelling Catheter: Accurate Measurement of Urinary Output in Critically Ill Patients Urinary Catheter Date of Insertion: 05/22/21 Data : 06/03/21 03:15 06/03/21 03:15 A&P Additional A&P Information Seen via telehealth with assistance of RN at bedside 1. Acute oligoanuric kidney injury, volume overload. Hyperkalemia and metabolic acidosis resolved -SUF today 2.5 hrs, remove 2l -full HD in am 2. VDRF, COVID ARDS, sepsis- renal dose meds 3. Shock Liver improving 4. Hyponatremia- from SONIA 5. Hypokalemia- replete gently 6. resp acidosis as per medicine seen and examined w/ RN- telehealth visit time spent 30 min Attestations Medical Necessity Statement*: vdrf, sonia, pressors Time Spent in Patient Care: 16 - 35 minutes (>than 50% of time spent in counselling and/or direct pt care on unit). 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
--- NOTE | 2021-06-03 10:06 | PC.CHAP ---
Pastoral Care Encounter/Spiritual Assessment Type of Contact [] Declined pet handler visit [] Patient/Family/Request visit [] Outpatient visit [] Follow-up visit [] Physician referral [] Code/Alert [x] Routine visit [] Staff referral [] Actively dying [x] Patient sleeping [] Family support [] [] Out of room [] Palliative care [] [] Receiving care in room [] Pre-surgical visit [] Trauma [] Long length of stay [x] ICU visit [x] Other: vent,,, entered room and prayed with patient... Relational/Emotional Strength [] Patient feels connected with others/family/visitors/staff [] Distress [] Loneliness/isolation [] Abandonment Spirituality of Patient [] Person of Jessica [] Attends Mosque of their Jessica [] Believes in Prayer [] Reads Bible or Religion materials [] There are Spiritual issues to be addressed Principal Web Developer Interventions [x] Prayer [] Active listening [] Non-anxious presence [] Spiritual/emotional support [] Crisis/trauma care [] Spiritual counseling [] Bereavement support [] Provided bereavement packet [] Provided Bible/devotional materials [] Provided toy/stuffed animal, coloring book to patient or family member [] Provided Communion [] Anointing/Etters [] Salvation [x] Completed spiritual assessment [] Other: Impact on Illness or Injury [] Angry [] Fearful [] Anxious [] Often cries [] Exhaustion [] Unable to work [] Unable to attend roman catholic [] Unable to walk/stand [] Unable to read [] Unable to drive [] Unable to eat/drink [] Unable to sleep [] Unable to be with family [] Patient intubated [] Other: Summary Time spent with patient
[2021-06-03 10:08] LABS: Uric Acid 5.5 mg/dL (3.4-7.0)
--- NOTE | 2021-06-03 10:22 | CT_ITS ---
WS: [id number] CT HEAD NONCONTRAST HISTORY: possible anoxia TECHNIQUE: Contiguous axial imaging performed through the brain in 2.5 mm imaging. Bone and soft tiss ue windows. Sagittal and coronal reformats reviewed. All CT scans at [facility] use at least one of these dose optimization techniques: automated exposure control; mA and/or kV adjustment per pa tient size (includes targeted exams where dose is matched to clinical indication); or iterative recon struction. DLP: 937.41 mGy.cm COMPARISON: None available. No acute intracranial hemorrhage, midline shift or mass effect. No significant atrophy. No occlusion of the ventricles. There is significant artifact through the sku ll base obscuring detail and possible edema. Ventricles: Normal size with no hydrocephalus. Paranasal sinuses: Limited by motion. Mucoperiosteal thickening to moderate throughout the ethmoid ai r cells and mild in the sphenoid sinuses. Mastoid air cells: Fluid in the mastoid air cells bilaterally. Calvarium and scalp: Significant artifact through the skull base. CT/CT head wo con* [id number] IMPRESSION: 1. Quality of this examination is limited by motion artifact and artifact from the skull base. 2. No hemorrhage or edema or midline shift evident.
--- NOTE | 2021-06-03 10:22 | CT_ITS ---
WS: [id number] CT CHEST, ABDOMEN AND PELVIS WITHOUT CONTRAST. HISTORY: covid, diarrhea TECHNIQUE: Contiguous 5 mm axial imaging performed through the chest, abdomen and pelvis without IV c ontrast, oral contrast has been No osteoblastic or osteolytic bone disease. No fractures. been provided. Coronal and sagittal reforma ts chest. Coronal and sagittal reformats through the abdomen and pelvis. All CT scans at [facility] use at least one of these dose optimization techniques: automated exposure control; mA and/or kV adjustment per patient size (includes targeted exams where dose is matched to clinical indication) ; or iterative reconstruction. CONTRAST: None DLP: 2666.86 mGy.cm COMPARISON: None available. Chest CT: Patient is intubated. Nasogastric tube in good position with tip terminating in the stomach . There is extensive consolidations and groundglass attenuation throughout both lobes. No significant amount of normal lung tissue is evident. No pneumothorax or pneumomediastinum. Mildly enlarged pulmo nary artery. No enlargement of the aorta. No significant adenopathy identified on this unenhanced exa mination. Heart is moderately enlarged. No pericardial or pleural effusion. Abdomen CT: Small amount of ascites adjacent to the liver. Liver and spleen are normal size. Negativ e gallbladder. Negative pancreas. No adrenal mass. No renal obstruction. Normal aorta. No GI tract ob struction or adenopathy. Pelvic CT: Nondistended urinary bladder. There is a [place] catheter in the urinary bladder. Small amou nt of free fluid. No adenopathy. Soft tissue anasarca greatest involving the RIGHT pelvis. CT/CT chest abd pel wo con IMPRESSION: 1. Severe dense opacifications throughout both lungs. Consistent with severe p neumonia. No pneumothorax or pneumomediastinum. 2. Small amount of ascites adjacent to the liver. Small amount of free fluid i n the pelvis. 3. Nasogastric and endotracheal tubes are in good position. 4. [place] catheter in a nondistended bladder. 5. Mild soft tissue anasarca in the pelvis, asymmetric to the RIGHT.
[2021-06-03] MEDS: enoxaparin 30 mg/0.3 mL Syringe SUBCUT (12:45)
[2021-06-03] MEDS: pantoprazole 40 mg SDV IVP (12:48)
[2021-06-03] MEDS: dexmedeTOMIDine 0.9 % NaCL 400 MCG/100 ML PREMIX 11.2 MCG IV (14:30)
[2021-06-03] MEDS: dexmedeTOMIDine 0.9 % NaCL 400 MCG/100 ML PREMIX 16.79 MCG IV ×2 (17:49→23:13)
[2021-06-03 20:44] LABS: Magnesium 2.1 mg/dL (1.7-2.3); Potassium 3.3 mmol/L (3.5-5.1)
[2021-06-03] MEDS: potassium chloride oral liq 20 mEq/15 mL UDC PO (21:05)
[2021-06-04] VITALS (82 sets, daily range): BP systolic 86–140; BP diastolic 45–73; PULSE 68–83; RESP 18–38; TEMP 36.6–38.7; O2SAT 81–96
[2021-06-04] MEDS: ipratropium-albuterol 3 mL Neb INHALATION ×4 (03:00→20:12)
[2021-06-04] MEDS: norepinephrine 8 MG in dextrose 5 % 500 ML 15.24 MG IV (03:58)
[2021-06-04] MEDS: dexmedeTOMIDine 0.9 % NaCL 400 MCG/100 ML PREMIX 16.79 MCG IV (05:24)
[2021-06-04 05:28] LABS: Calcium 7.8 mg/dL (8.5-10.5)
[2021-06-04 05:36] LABS: Parathyroid Hormone 181.5 pg/mL (15-65)
[2021-06-04 05:40] LABS: Basophils # 0.1 10^3/uL (0.0-0.1); Basophils % 0.4 %; Eosinophils # 0.9 10^3/uL (0.0-0.8); Eosinophils % 6.9 %; Hemoglobin 9.9 g/dL (11.7-16.6); Lymphocytes # 0.8 10^3/uL (0.8-4.8); Lymphocytes % 6.1 %; Mean Corpuscular HGB Conc 31.9 g/dL (30.0-36.0); Mean Corpuscular Hemoglobin 29.6 pg (28.0-34.0); Mean Corpuscular Volume 92.8 fl (80-94); Mean Platelet Volume 10.2 fL (7.4-10.4); Monocytes % 7.6 %; Neutrophils # 10.33 10^3/uL (1.8-7.7); Neutrophils % 76.3 %; Nucleated Red Blood Cells # 0.1 /100WBC; Nucleated Red Blood Cells % 0.4 %; Platelet Count 144 10^3/cmm (130-400); Red Blood Count 3.34 10^6/uL (4.1-5.3); White Blood Count 13.5 10^3/uL (4.0-10.0)
[2021-06-04 05:49] LABS: 25 Hydroxy Vitamin D 9 ng/mL (30-100); Alanine Aminotransferase 73 U/L (0-41); Albumin Level 2.4 g/dL (3.5-5.2); Alkaline Phosphatase 199 IU/L (40-130); Anion Gap 21.5 (5-19); Aspartate Amino Transferase 175 U/L (0-40); Blood Urea Nitrogen 44 mg/dL (6-20); Calcium 8.1 mg/dL (8.5-10.5); Carbon Dioxide 20 mmol/L (22-29); Chloride 93 mmol/L (98-107); Globulin 3.4 g/dL (1.3-4.6); Glomerular Filtration Rate 13.9 mL/min (90-130); Glucose 83 mg/dL (65-115); Magnesium 2.2 mg/dL (1.7-2.3); Osmolality Calculated 282 mOsm/kg (285-295); Phosphorus 4.2 mg/dL (2.5-4.5); Potassium 3.5 mmol/L (3.5-5.1); Sodium 131 mmol/L (136-145); Total Bilirubin 0.6 mg/dL (0.15-1.2); Total Protein 5.8 g/dL (6.6-8.7)
--- NOTE | 2021-06-04 07:34 | P.PN_ITS ---
Subjective Subjective: Interval history: No events overnight. Has remained hemodynamically stable. Currently on 2 mics of Levophed. Currently on fentanyl of 150, Versed of 6, pressure 1.2, amio darone 0.5, Levophed of 2. Ventilator settings appreciated. FiO2 turned down to 70%. Tolerating tube feeds at 20 cc/h with residuals of 100 cc. Had moderate-sized bowel movement today. Multiple goals of care discussion done over the phone in person with patient's mother and son. [place] catheter replaced yesterday. Vitals/I&O/Wt Last Vital Signs Temp 98.2 F 06/03/21 20:01 Pulse 76 06/04/21 06:00 Resp 32 H 06/04/21 06:16 BP 98/62 06/04/21 06:00 Pulse Ox 94 06/04/21 06:16 06/03/21 06/04/21 06/04/21 22:59 06:59 14:59 Intake Total 282.089 / 1060.169 898.666 / 1958.835 Output Total 47 / 47 Balance 282.089 / 1060.169 851.666 / 1911.835 Weight last 48 hrs Weight 121.109 kg Weight 121.971 kg Physical Exam Narrative: EXAM NARRATIVE: General: Intubated, paralyzed, HEENT: PERRLA, pupils bilaterally equal and reactive Chest: Bilateral bronchial breath sounds, coarse crackles present bilaterally, equal good air entry bilaterally CVS: S1-S2 regular, no murmurs, no tachycardia, no gallops, no rubs Abdomen: Soft, distended no organomegaly, bowel sounds present but sluggish Neuro: Intubated, paralyzed, Urinary Catheter Management^: [place]: Cath Placed During This Visit: yes, but has since been removed by the nurse Reason for Continuing Indwelling Catheter: Decision to DC Catheter Urinary Catheter Date of Insertion: 05/11/21 Urinary Catheter Time of Insertion: 13:39 Date Urinary Catheter Removed: 05/22/21 Time Urinary Catheter Discontinued: 11:20 2-way Urethral: Cath Placed During This Visit: yes Reason for Continuing Indwelling Catheter: Accurate Measurement of Urinary Output in Critically Ill Patients Urinary Catheter Date of Insertion: 05/22/21 Data : 06/05/21 03:13 06/05/21 03:13 Micro: Microbiology 05/29/21 10:57 Blood Culture - Final Blood NO GROWTH AFTER 5 DAYS 05/29/21 10:52 Blood Culture - Final Blood NO GROWTH AFTER 5 DAYS 06/02/21 16:20 Gram Stain - Final Sputum - Endotracheal Tube Aspirate Sputum Culture - Preliminary A&P Assessment and plan (1) Acute respiratory distress syndrome (ARDS) due to 2019 novel coronavirus: ARDS secondary to COVID-19 pneumonia. Prolonged intubation. Ventilator dependent. Has finished treatment for severe COVID-19 pneumonia with Decadron, remdesivir, Actemra. Continue with current ventilator settings. Maintain saturation over 88%. Follow-up sputum culture. Continue with Primaxin for now and stop after 7 days. Sputum culture growing rare yeast. Start on Diflucan for 7-day course. Continue with full dose Lovenox at 1 mg perKG body weight once daily as per creatinine clearance. Monitor for anemia or signs of pulmonary hemorrhage. Restart tube feeds with Nepro 10 cc every hour, increase every 6 hours x 10 cc with target of 40. Stop if high residuals. 100 cc free water flush every 6 hours. Status: Acute (2) Ventilator dependent: Status: Acute (3) COVID-19: as noted above Status: Acute (4) Acute renal failure on dialysis: Status: Acute (5) SONIA (acute kidney injury): HD started on 05/31. Persistent anuria. Nephrology recommendations appreciated. No plan for dialysis as per nephrology. IV Lasix 100 mg once. Status: Acute (6) Hypotension: Septic shock. Currently on Levophed of 2. Will try to wean off keeping mean arterial pressure over 65. Antimicrobials as above. Recheck echocardiogram. Check random cortisol level tomorrow morning to rule out adrenal insufficiency. Blood cultures so far negative. Repeat blood cultures today. Status: Acute (7) Paroxysmal atrial fibrillation with RVR: Rate controlled. Continue amiodarone drip. We will transition to oral once able to tolerate orally through NG tube. Status: Acute (8) Transaminitis: Shock liver. COVID-19. Transaminitis continuing to improve. Status: Acute (9) Hypertension: Status: Chronic (10) CAD (coronary artery disease): Status: Chronic Qualifiers: Associated angina: unspecified whether angina present Coronary Disease- Associated Artery/Lesion type: [place] artery [place] vs. transplanted heart: [place] heart Qualified Code(s): I25.10 - Atherosclerotic heart disease of [place] coronary artery without angina pectoris (11) Hyperkalemia: Resolved with HD. Now hypokalemic. 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 Catheter repositioned in a way to offload repeat pressure. Topical antibiotic oint. In case of further erosion consider urologic assessment. Status: Acute (13) Goals of care, counseling/discussion: Status: Acute Plan DNR/DNI Chronic suppurative prophylaxis. Lovenox for DVT prophylaxis. Restart tube feeds with Nepro 10 cc every hour, increase every 6 hours x 10 cc with target of 40. Stop if high residuals. 100 cc free water flush every 6 hours. Goals of care discussion: Have multiple doses also after discussion with the patient's mother Ms. Garza over the phone, son at bedside today. We discussed that unfortunately patient has remained intubated for over 2 weeks currently with high FiO2 requirement, kidney dysfunction needing hemodialysis, need of pressors, multiple sedation medication and inability to come down on sedation or FiO2 as it leads to hypoventilation and desaturation. We discussed unfortunately patient is not improving and continues to remain critically ill with multiple organ dysfunction. We also discussed unfortunately patient currently does not meet criteria to be transferred to LTAC requiring high FiO2, multiple sedation medications and pressors. We also discussed unfortunately patient currently does not meet criteria to get tracheostomy requiring high PEEP and FiO2. Patient's son asks for patient to be transferred to [facility] where he thinks the beds are available. We did tell him that we had spoken to site safety representative at [facility] today and they were at a bed hold for ICU beds for now. Patient's son wants to go ahead with present care for now but does not want any escalation. Later in the day RN taking care of patient tells me that he has had conversation with the patient's family again and they want to escalate care if and when needed. Discharge planning: We will try to transition over to LTAC if able to calm down oxygen supplementation. We will speak with family in detail regarding further goals of care. Attestations Medical Necessity Statement*: requires further hospitalization for management of ARDS secondary COVID-19 pneumonia, ventilator dependent, SONIA on the hemodialysis, septic shock Critical Care Time: The high probability of a clinically significant, sudden or life threatening deterioration of the patient's cardiac, renal, pulmonary, GI, social system(s) required my full and direct attention, intervention and p ersonal management. The critical care time is as shown. 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 transplanted heart: [place] heart Hyperkalemia E87.5 Urethral erosion by catheter T83.89XA; N36.8 Goals of care, counseling/discussion Z71.89 Acute renal failure on dialysis N17.9; Z99.2
--- NOTE | 2021-06-04 08:10 | PM.PN ---
Subjective Subjective: Interval history: intubated, sedated, pressers Medications: Reviewed: Yes Medication Review Details: Current Medications Acetaminophen (Acetaminophen 325 Mg Tablet) 650 mg PO Q6H PRN PRN Reason: Mild/Mod Pain Or Temp >/= 101 Last Admin: 05/29/21 20:09 Dose: 650 mg Documented by: Albuterol Sulfate (Albuterol 2.5 Mg/0.5 Ml Neb) 2.5 mg INHALATION Q4H.RESPIRATORY PRN PRN Reason: SHORTNESS OF BREATH Albuterol/Ipratropium (Ipratropium-Albuterol 3 Ml Neb) 3 ml INHALATION Q4H.RESPIRATORY AASHISH Last Admin: 06/04/21 03:00 Dose: 3 ml Documented by: Artificial Tears (Artificial Tears Op Oint 3.5 Gm) 1 applic EYE-BOTH PRN PRN PRN Reason: DRY EYE(S) Enoxaparin Sodium (Enoxaparin 30 Mg/0.3 Ml Syringe) 30 mg SUBCUT Q24H AASHISH Last Admin: 06/03/21 12:45 Dose: 30 mg Documented by: Propofol (Diprivan) 1,000 mg in 100 mls @ 0 mls/hr IV .Q0M PRN; Protocol PRN Reason: ALCOHOL WITHDRAWAL Last Titration: 05/30/21 09:38 Dose: Infused Documented by: Midazolam HCl 100 mg/ Sodium (Chloride) 100 mls @ 0 mls/hr IV .Q0M AASHISH; Protocol Last Titration: 06/03/21 22:30 Dose: 6 mg/hr, 6 mls/hr Documented by: dexmedeTOMIDine 0.9 % NaCL (Precedex) 400 mcg in 100 mls @ 0 mls/hr IV .Q0M AASHISH; Protocol Last Admin: 06/04/21 05:24 Dose: 0.6 mcg/kg/hr, 16.79 mls/hr Documented by: Cisatracurium Besylate 100 mg/ (Sodium Chloride) 100 mls @ 0 mls/hr IV .Q0M AASHISH; Protocol Last Titration: 06/03/21 10:45 Dose: 0 mcg/kg/min, 0 mls/hr Documented by: Amiodarone HCl 900 mg/Dextrose/ IV Miscellaneous Supplies 518 mls @ 17.267 mls/hr IV CONT AASHISH Last Admin: 06/03/21 14:52 Dose: 0.5 mg/min, 17.27 mls/hr Documented by: Norepinephrine Bitartrate 8 mg (/ Dextrose) 508 mls @ 0 mls/hr IV .Q0M [facility]; Protocol Last Admin: 06/04/21 03:58 Dose: 4 mcg/min, 15.24 mls/hr Documented by: Imipenem/Cilastatin Sodium 250 (mg/ Sodium Chloride) 100 mls @ 200 mls/hr IV Q6H [facility]; Protocol Last Infusion: 06/04/21 06:23 Dose: Infused Documented by: Albumin Human (Albumin) 12.5 gm in 50 mls @ 60 mls/hr IV PRN PRN PRN Reason: Hypotension and/or symptomatic Fentanyl 2,500 mcg/ Sodium (Chloride) 250 mls @ 0 mls/hr IV .Q0M [facility]; Protocol Last Titration: 06/03/21 22:29 Dose: 150 mcg/hr, 15 mls/hr Documented by: Morphine Sulfate (Morphine 4 Mg/Ml Sdv 1 Ml) 4 mg IVP Q4H PRN PRN Reason: SEVERE PAIN Last Admin: 05/28/21 17:26 Dose: 4 mg Documented by: Neomycin/Polymyxin/Bacitracin (Fihphsvc-Ovzu-Ocbxgbjrer Oint 28 Gm) 1 applic TOPICAL BID [facility] Last Admin: 06/03/21 16:51 Dose: 1 applic Documented by: Pantoprazole Sodium (Pantoprazole 40 Mg Sdv) 40 mg IVP DAILY [facility] Last Admin: 06/03/21 12:48 Dose: 40 mg Documented by: Polyethylene Glycol (Polyethylene Glycol 3350 Pkt 17 Gm) 17 gm PO BID [facility] Last Admin: 06/03/21 16:51 Dose: Not Given Documented by: Senna/Docusate Sodium (Sennosides-Docusate Tablet) 1 tab PO DAILY [facility] Last Admin: 06/03/21 08:19 Dose: 1 tab Documented by: Vitals/I&O/Wt Last Vital Signs Temp 98.2 F 06/03/21 20:01 Pulse 76 06/04/21 06:00 Resp 32 H 06/04/21 06:16 BP 98/62 06/04/21 06:00 Pulse Ox 94 06/04/21 06:16 06/03/21 06/04/21 06/04/21 22:59 06:59 14:59 Intake Total 282.089 / 1060.169 898.666 / 8.835 Output Total 47 / 47 Balance 282.089 / 1060.169 851.666 / 1911.835 Weight last 48 hrs Weight 121.109 kg Weight 121.971 kg Physical Exam Narrative: EXAM NARRATIVE: remains in icu on vent and pressers -levo 4 vent- fio2 80%, tv 480- rr 26, peep 10 heent- nc/at, eomi lungs wheezes, coarse heart reg abd soft, nt ext edema neuro sedated Urinary Catheter Management^: [place]: Cath Placed During This Visit: yes, but has since been removed by the nurse Reason for Continuing Indwelling Catheter: Decision to DC Catheter Urinary Catheter Date of Insertion: 05/11/21 Urinary Catheter Time of Insertion: 13:39 Date Urinary Catheter Removed: 05/22/21 Time Urinary Catheter Discontinued: 11:20 2-way Urethral: Cath Placed During This Visit: yes Reason for Continuing Indwelling Catheter: Accurate Measurement of Urinary Output in Critically Ill Patients Urinary Catheter Date of Insertion: 05/22/21 Data : 06/04/21 04:09 06/04/21 04:09 Micro: Microbiology 05/29/21 10:57 Blood Culture - Final Blood NO GROWTH AFTER 5 DAYS 05/29/21 10:52 Blood Culture - Final Blood NO GROWTH AFTER 5 DAYS 06/02/21 16:20 Gram Stain - Final Sputum - Endotracheal Tube Aspirate Sputum Culture - Preliminary A&P Assessment and plan (1) SONIA (acute kidney injury): Seen via telehealth with assistance of RN at bedside 1. Acute oligoanuric kidney injury, volume overload. Hyperkalemia and metabolic acidosis resolved -S/p SUF yesterday -full HD today- 3.5 hr, 3 k, remove 2+ l 2. VDRF, COVID ARDS, sepsis- renal dose meds 3. Shock Liver improving 4. monitor electrolytes- replce k as needed 5. resp acidosis as per medicine seen and examined w/ RN- telehealth visit time spent 30 min Status: Acute Attestations Medical Necessity Statement*: sonia, vdrf Time Spent in Patient Care: 16 - 35 minutes (>than 50% of time spent in counselling and/or direct pt care on unit). Coding Level of Care Code Acute Authorizer for [facility]a Diagnoses SONIA (acute kidney injury) N17.9
[2021-06-04] MEDS: polyethylene glycol 3350 Pkt 17 gm PO ×2 (09:58→17:11)
[2021-06-04] MEDS: sennosides-docusate Tablet 1 TAB PO (09:58)
[2021-06-04] MEDS: acetaminophen 325 mg Tablet 650 MG PO (09:58)
[2021-06-04] MEDS: pantoprazole 40 mg SDV IVP (09:59)
[2021-06-04] MEDS: neomycin-poly-bacitracin oint 28 gm 1 APPLIC TOPICAL ×2 (10:01→17:13)
[2021-06-04] MEDS: dexmedeTOMIDine 0.9 % NaCL 400 MCG/100 ML PREMIX 27.99 MCG IV (10:26)
[2021-06-04] MEDS: FUROsemide 10 mg/mL SDV 10mL 80 MG IVP (10:49)
[2021-06-04] MEDS: enoxaparin 30 mg/0.3 mL Syringe SUBCUT (11:59)
[2021-06-04] MEDS: morphine 4 mg/mL SDV 1 mL IVP ×2 (12:59→23:20)
--- NOTE | 2021-06-04 13:31 | P.PN_ITS ---
Subjective Subjective: Interval history: No events overnight. Sedation is been changed. Propofol was stopped, Nimbex was stopped. Patient is currently on fentanyl of 150, Versed, amnio drip, Le vophed of 4. Patient is overbreathing the vent. Had to go up on FiO2 1 sedation was off currently on 80% of FiO2. Otherwise has remained hemodynamically stable. T-max in last 24 hours 101.7 Fahrenheit. Vitals/I&O/Wt Last Vital Signs Temp 100.9 F H 06/04/21 11:30 Pulse 76 06/04/21 12:30 Resp 38 H 06/04/21 12:59 BP 112/60 06/04/21 12:00 Pulse Ox 95 06/04/21 12:59 06/03/21 06/04/21 06/04/21 22:59 06:59 14:59 Intake Total 282.089 / 1060.169 898.666 / 1958.835 84.51 / 84.51 Output Total 47 / 47 Balance 282.089 / 1060.169 851.666 / 1911.835 59.51 / 59.51 Weight last 48 hrs Weight 121.109 kg Weight 121.971 kg Physical Exam Narrative: EXAM NARRATIVE: General: Intubated, paralyzed, HEENT: PERRLA, pupils bilaterally equal and reactive Chest: Bilateral bronchial breath sounds, coarse crackles present bilaterally, equal good air entry bilaterally CVS: S1-S2 regular, no murmurs, no tachycardia, no gallops, no rubs Abdomen: Soft, distended no organomegaly, bowel sounds present but sluggish Neuro: Intubated, paralyzed, Urinary Catheter Management: [place]: Cath Placed During This Visit: yes, but has since been removed by the nurse Reason for Continuing Indwelling Catheter: Decision to DC Catheter Urinary Catheter Date of Insertion: 05/11/21 Urinary Catheter Time of Insertion: 13:39 Date Urinary Catheter Removed: 05/22/21 Time Urinary Catheter Discontinued: 11:20 2-way Urethral: Cath Placed During This Visit: yes Reason for Continuing Indwelling Catheter: Accurate Measurement of Urinary Outpu t in Critically Ill Patients Urinary Catheter Date of Insertion: 05/22/21 Data : 06/04/21 04:09 06/04/21 04:09 Micro: Microbiology 06/02/21 16:20 Gram Stain - Final Sputum - Endotracheal Tube Aspirate Sputum Culture - Final 05/29/21 10:57 Blood Culture - Final Blood NO GROWTH AFTER 5 DAYS 05/29/21 10:52 Blood Culture - Final Blood NO GROWTH AFTER 5 DAYS A&P Assessment and plan (1) Acute respiratory distress syndrome (ARDS) due to 2019 novel coronavirus: ARDS secondary to COVID-19 pneumonia. Prolonged intubation. Ventilator dependent. Has finished treatment for severe COVID-19 pneumonia with Decadron, remdesivir, Actemra. Continue with current ventilator settings. Maintain saturation over 88%. Follow-up sputum culture. Continue with Primaxin for now. D-dimer elevated again yesterday. We will transition over to full dose Lovenox 1 mg/kg body weight once daily. Will monitor for anemia or pulmonary hemorrhage. Restart tube feeds with Nepro 10 cc every hour, increase every 6 hours x 10 cc with target of 40. Stop if high residuals. 100 cc free water flush every 6 hours. Status: Acute (2) Ventilator dependent: Status: Acute (3) COVID-19: as noted above Status: Acute (4) SONIA (acute kidney injury): HD started on 05/31. Persistent anuria. Nephrology recommendations appreciated. IV Lasix 80 mg once. Status: Acute (5) Hypotension: Septic shock. Currently on Levophed of 4. Will try to wean off keeping mean arterial pressure over 65. Linezolid and Diflucan along with Levaquin discontinued yesterday as has been more than 10 days. Continue with Primaxin and will finish off 10-day course. We will follow up sputum culture sent 2 days ago. Will change antibiotics accordingly. Blood cultures so far negative. Repeat blood cultures today. Status: Acute (6) Paroxysmal atrial fibrillation with RVR: Rate controlled. Continue amiodarone drip. We will transition to oral once able to tolerate orally through NG tube. Status: Acute (7) Transaminitis: Shock liver. COVID-19. Transaminitis continuing to improve. Status: Acute (8) Hypertension: Status: Chronic (9) CAD (coronary artery disease): Status: Chronic Qualifiers: Associated angina: unspecified whether angina present Coronary Disease- Associated Artery/Lesion type: [place] artery [place] vs. transplanted heart: [place] heart Qualified Code(s): I25.10 - Atherosclerotic heart disease of [place] coronary artery without angina pectoris (10) Hyperkalemia: Resolved with HD. Now hypokalemic. 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 Catheter repositioned in a way to offload repeat pressure. Topical antibiotic oint. In case of further erosion consider urologic assessment. Status: Acute Plan DNR/DNI Chronic suppurative prophylaxis. Lovenox for DVT prophylaxis. Restart tube feeds with Nepro 10 cc every hour, increase every 6 hours x 10 cc with target of 40. Stop if high residuals. 100 cc free water flush every 6 hours. Discharge planning: We will try to transition over to LTAC if able to calm down oxygen supplementation. We will speak with family in detail regarding further goals of care. Attestations Medical Necessity Statement*: Requires further hospitalization for management of ARDS, ventilator dependent, shock liver, SONIA on hemodialysis secondary to COVID-19 pneumonia Critical Care Time: The high probability of a clinically significant, sudden or life threatening deterioration of the patient's [cardiac, renal, GI, pulmonary system(s) required my full and direct attention, intervention and personal management. The critical care time is as shown. 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 transplanted heart: [place] heart Hyperkalemia E87.5 Urethral erosion by catheter T83.89XA; N36.8 Ventilator dependent Z99.11 Acute respiratory distress syndrome (ARDS) due to 2019 novel coronavirus U07.1; J80
[2021-06-04] MEDS: dexmedeTOMIDine 0.9 % NaCL 400 MCG/100 ML PREMIX 33.58 MCG IV ×4 (13:57→22:30)
--- NOTE | 2021-06-04 14:38 | CT_ITS ---
WS: [id number] CT ANGIOGRAM CEREBRAL AND CAROTID ARTERIES HISTORY: stroke possible TECHNIQUE: CT angiogram is performed of the carotid and cerebral arteries. During arterial injection imaging is obtained from the skull vertex to the aortic arch in 1.25 mm imaging. Coronal and sagittal reformats are submitted. Additional multi planar reformats of the carotid and cerebral arteries are submitted, MIP imaging also reviewed. NASCET criteria utilized. All CT scans at [facility] us e at least one of these dose optimization techniques: automated exposure control; mA and/or kV adjust ment per patient size (includes targeted exams where dose is matched to clinical indication); or iter ative reconstruction. CONTRAST: Visipaque 320; 95 mL IV. DLP: 2256.9 mGy.cm COMPARISON: 06/03/2021. No midline shift. There is continued extensive artifact through the brain from the patient's overlyin g catheters and lead wires. Ventricles are slitlike. No herniation of the cerebellar tonsils. Carotid Angiogram: Right carotid: Common carotid artery: Arises normally from the innominate artery. No significant plaque or stenosis. Internal carotid artery: No plaque or stenosis. External carotid artery: Patent. Left carotid: Common carotid artery: Arises normally from the aorta. No significant plaque or stenosis. Internal carotid artery: No plaque or stenosis. External carotid artery: Patent. Right vertebral artery: Unremarkable. Left vertebral artery: Unremarkable. Arises normally from the subclavian artery. Subclavian arteries: No stenosis or significant abnormality. Upper thorax: Extensive groundglass attenuation with scattered focal irregular consolidations at the apices. No pneumothorax. Mildly reactive lymph nodes in the paratracheal regions. Patient is intubate d. Nasogastric tube is also present. Thyroid gland: Normal. Osseous structures: Cervical spondylosis. CEREBRAL ANGIOGRAM: Intracranial vertebral arteries: Normal with no significant atherosclerosis. Basilar artery: No significant stenosis or occlusion. No aneurysm. Intracranial Internal carotid arteries: Opacification of the carotid arteries through the [place] is limited. The opacification becomes improved through the cavernous sinuses. There is mild athero sclerotic plaque but no occlusion. Middle cerebral arteries: Normal. Anterior cerebral arteries and ACOM: Normal. Posterior cerebral arteries and PCOM's: Normal posterior cerebral arteries. Posterior communicating a rteries are very small caliber. Dural venous sinuses are normally enhancing. Mastoid air cells: There is a large amount of fluid essentially filling the mastoid air cells bilater ally. Fluid extends into the internal auditory canals surrounding the inner ear ossicles. Paranasal sinuses: Mild mucoperiosteal thickening in the RIGHT maxillary sinus and in the ethmoid air cells bilaterally. Calvarium: Normal. RIGHT IJ line is noted. CT/CT angio headneck* [id number] IMPRESSION: 1. No high-grade cervical carotid artery stenosis. Mild plaque and intimal thi ckening. 2. Poor visualization and evaluation of the petrous carotid arteries. 3. No occlusions or aneurysms within the [place]. 4. There is a large amount of fluid filling the mastoid air cells and extendin g into the internal auditory canals. 5. Nasogastric and endotracheal tubes are in good position. 6. Apical groundglass attenuation and scattered opacifications consistent with Covid pneumonia. 7. Unremarkable [place].
--- NOTE | 2021-06-04 15:26 | PM.PN ---
Subjective Subjective: Interval history: -Patient seen today at bedside -Overall clinically unchanged and remains critical -Yesterday overnight was able to taper down paralytic and Versed but patient again desaturated and SPO2 has to be increased to 80%-still requiring Versed 6 mg/fentanyl and Precedex -On Levophed 4 MCG/hour -We will get another session of dialysis today as well -Other labs and imaging reviewed Medications: Reviewed: Yes Vitals/I&O/Wt Last Vital Signs Temp 100.9 F H 06/04/21 11:30 Pulse 76 06/04/21 12:30 Resp 38 H 06/04/21 12:59 BP 112/60 06/04/21 12:00 Pulse Ox 95 06/04/21 12:59 06/04/21 06/04/21 06/04/21 06:59 14:59 22:59 Intake Total 898.666 / 1958.835 438.000 / 438.000 Output Total 47 / 47 Balance 851.666 / 1911.835 413.000 / 413.000 Weight last 48 hrs Weight 267 lb Weight 268 lb 14.4 oz Physical Exam Narrative: EXAM NARRATIVE: PHYSICAL EXAM: General: lying in bed, sedated and intubated. HEENT:NCAT, PERRLA, EOMI Neck: Supple Lungs: Bilateral diffuse coarse crackles Heart: s1/s2, RRR Abd: soft, NT, ND, BS + Normoactive Extremities: No edema NUCLEAR MONITORING TECHNICIAN: sedated and limited NUCLEAR MONITORING TECHNICIAN exam possible. SKIN: no rash LDA: # CVC: Left subclavian 05/31/2021 #HD catheter: 05/31/2021 right IJ Urinary Catheter Management: [place]: Cath Placed During This Visit: yes, but has since been removed by the nurse Reason for Continuing Indwelling Catheter: Decision to DC Catheter Urinary Catheter Date of Insertion: 05/11/21 Urinary Catheter Time of Insertion: 13:39 Date Urinary Catheter Removed: 05/22/21 Time Urinary Catheter Discontinued: 11:20 2-way Urethral: Cath Placed During This Visit: yes Reason for Continuing Indwelling Catheter: Accurate Measurement of Urinary Output in Critically Ill Patients Urinary Catheter Date of Insertion: 05/22/21 Data : 06/04/21 04:09 06/04/21 04:09 Other Labs: Radiology Impressions Chest X-Ray 06/01/21 04:00 IMPRESSION: 1. Endotracheal tube tip 4.3 cm from the regina. Otherwise stable life support tubing. 2. Bilateral interstitial opacities are again seen most notably within the lower hemithoraces compatible with a bilateral interstitial pneumonia. There is little change compared with 05/31/2021. 3. Probable small bilateral pleural effusions Chest/Abdomen/Pelvis CT 06/03/21 10:22 IMPRESSION: 1. Severe dense opacifications throughout both lungs. Consistent with severe pneumonia. No pneumothorax or pneumomediastinum. 2. Small amount of ascites adjacent to the liver. Small amount of free fluid in the pelvis. 3. Nasogastric and endotracheal tubes are in good position. 4. [place] catheter in a nondistended bladder. 5. Mild soft tissue anasarca in the pelvis, asymmetric to the RIGHT. Head CT 06/03/21 10:22 IMPRESSION: 1. Quality of this examination is limited by motion artifact and artifact from the skull base. 2. No hemorrhage or edema or midline shift evident. Laboratory Results WBC 13.5 10^3/uL (4.0-10.0) H 06/04/21 04:09 Corrected WBC Cancelled 05/29/21 04:33 RBC 3.34 10^6/uL (4.1-5.3) L 06/04/21 04:09 Hgb 9.9 g/dL (11.7-16.6) L 06/04/21 04:09 Hct 31.0 % (42.0-52.0) L 06/04/21 04:09 MCV 92.8 fl (80-94) 06/04/21 04:09 MCH 29.6 pg (28.0-34.0) 06/04/21 04:09 MCHC 31.9 g/dL (30.0-36.0) 06/04/21 04:09 RDW 16.0 % (12.1-15.1) H 06/04/21 04:09 Plt Count 144 10^3/cmm (130-400) 06/04/21 04:09 MPV 10.2 fL (7.4-10.4) 06/04/21 04:09 Gran % Cancelled 05/29/21 04:33 Neut % (Auto) 76.3 % 06/04/21 04:09 Lymph % (Auto) 6.1 % 06/04/21 04:09 [place] % (Auto) 7.6 % 06/04/21 04:09 Eos % (Auto) 6.9 % 06/04/21 04:09 Baso % (Auto) 0.4 % 06/04/21 04:09 Neut # (Auto) 10.33 10^3/uL (1.8-7.7) H 06/04/21 04:09 Lymph # (Auto) 0.8 10^3/uL (0.8-4.8) 06/04/21 04:09 [place] # (Auto) 1.0 10^3/uL (0.2-0.9) H 06/04/21 04:09 Eos # (Auto) 0.9 10^3/uL (0.0-0.8) H 06/04/21 04:09 Baso # (Auto) 0.1 10^3/uL (0.0-0.1) 06/04/21 04:09 Absolute Gran (auto) Cancelled 05/29/21 04:33 Nucleated RBC % (auto) 0.4 % 06/04/21 04:09 Total Counted 100 (0-100) 05/14/21 02:58 Atypical Lymphs % 2.0 % (0-5) 05/14/21 02:58 Segmented Neutrophils 81 % 05/14/21 02:58 Band Neutrophils 1.0 % 05/14/21 02:58 Lymphocytes (Manual) 7 % 05/14/21 02:58 Monocytes (Manual) 9.0 % 05/14/21 02:58 Eosinophils (Manual) 0 % 05/14/21 02:58 Basophils (Manual) 0.0 % 05/14/21 02:58 Nucleated RBCs Hydrogeologist 05/14/21 02:58 Nucleated RBCs # 0.1 /100WBC 06/04/21 04:09 Platelet Estimate Normal (Normal) 05/14/21 02:58 ESR 29 mm/hr (0-10) H 05/11/21 10:00 PT 16.20 SECONDS (12.1-14.9) H 05/31/21 09:20 INR 1.26 (0.8-1.2) H 05/31/21 09:20 APTT 29.3 SECONDS (23.9-36.7) 05/31/21 09:20 Fibrinogen 415 mg/dL (174-498) 05/21/21 11:05 Fibrin Degrad Products Pos, >=40 ug/mL (NEG) H 05/21/21 11:05 D-Dimer 16.86 ug/mIFEU (0-0.59) H 06/03/21 03:15 Specimen Type Arterial 06/03/21 03:54 Sample Site Radial, left 06/03/21 03:54 ABG pH 7.34 (7.35-7.45) L 06/03/21 03:54 ABG pCO2 51.7 mmHg (35-45) H 06/03/21 03:54 ABG pO2 72.8 mmHg (80.0-100.0) L 06/03/21 03:54 ABG HCO3 28.0 mmol/L (22-26) H 06/03/21 03:54 ABG O2 Saturation 95.2 06/03/21 03:54 ABG Base Excess 1.5 mmol/L (-2.0-2.0) 06/03/21 03:54 Maurice Test Pos 06/03/21 03:54 A-a O2 Gradient 37.6 mmHg (5-10) H 06/03/21 03:54 Hematocrit 34.0 % (42-52) L 06/03/21 03:54 Hgb O2 Saturation 92.7 % (95-100) L 06/03/21 03:54 Carboxyhemoglobin 1.7 %THgb (0.4-20.1) 06/03/21 03:54 Methemoglobin 0.9 % (0.4-1.5) 06/03/21 03:54 Total Hemoglobin 11.1 g/dL (14-18) L 06/03/21 03:54 Sodium 133.0 mmol/L (131-143) 06/03/21 03:54 Potassium 2.6 mmol/L (3.5-5.0) L 06/03/21 03:54 Glucose 90.0 mg/dL (70-115) 06/03/21 03:54 Ionized Calcium 1.1 mmol/L (1.1-1.4) 06/03/21 03:54 O2 Delivery Device Vent 06/03/21 03:54 O2 Liters/Min 50.0 % 05/16/21 04:40 Vent Mode Cmv 05/19/21 13:11 FiO2 60.0 % 06/03/21 03:54 Tidal Volume 0.48 06/03/21 03:54 PEEP 10.0 cmH20 06/03/21 03:54 Dietary Manager ID Rashard 06/03/21 03:54 Sodium 131 mmol/L (136-145) L 06/04/21 04:09 Potassium 3.5 mmol/L (3.5-5.1) 06/04/21 04:09 Chloride 93 mmol/L (98-107) L 06/04/21 04:09 Carbon Dioxide 20 mmol/L (22-29) L 06/04/21 04:09 Anion Gap 21.5 (5-19) H 06/04/21 04:09 BUN 44 mg/dL (6-20) H 06/04/21 04:09 Creatinine 4.5 mg/dL (0.7-1.2) H 06/04/21 04:09 GFR Calculation 13.9 mL/min (90-130) L 06/04/21 04:09 Glucose 83 mg/dL (65-115) 06/04/21 04:09 POC Glucose 206 mg/dL (70-110) H 05/30/21 02:27 Estimat Average Glucose 137 05/12/21 06:07 Hemoglobin A1c 6.4 % (4.0-6.0) H 05/12/21 06:07 Calculated Osmolality 282 mOsm/kg (285-295) L 06/04/21 04:09 Lactic Acid 1.3 mmol/L (0.5-2.2) 05/11/21 10:00 Uric Acid 5.5 mg/dL (3.4-7.0) 06/03/21 03:15 Calcium 8.1 mg/dL (8.5-10.5) L 06/04/21 04:09 Phosphorus 4.2 mg/dL (2.5-4.5) 06/04/21 04:09 Magnesium 2.2 mg/dL (1.7-2.3) 06/04/21 04:09 Iron 31 ug/dL (59-158) L 05/11/21 10:00 TIBC 156 mcg/dl 05/11/21 10:00 % Saturation 19.8 % (20-50) L 05/11/21 10:00 Unsat Iron Binding 125 ug/dL (112-347) 05/11/21 10:00 Total Bilirubin 0.6 mg/dL (0.15-1.2) 06/04/21 04:09 AST 175 U/L (0-40) H 06/04/21 04:09 ALT 73 U/L (0-41) H 06/04/21 04:09 Alkaline Phosphatase 199 IU/L (40-130) H 06/04/21 04:09 C-Reactive Protein 4.0 mg/L (0.0-4.9) 05/23/21 03:25 NT-Pro-B Natriuret Pep 567 pg/mL (0-125) H 05/20/21 04:59 Total Protein 5.8 g/dL (6.6-8.7) L 06/04/21 04:09 Albumin 2.4 g/dL (3.5-5.2) L 06/04/21 04:09 Globulin 3.4 g/dL (1.3-4.6) 06/04/21 04:09 Triglycerides 386 mg/dL (0-150) H 05/29/21 08:51 Cholesterol 130 mg/dL (0-200) 05/12/21 06:07 LDL Cholesterol, Calc 79 mg/dL (50-129) 05/12/21 06:07 Total VLDL Cholesterol 16 mg/dL (0-30) 05/12/21 06:07 HDL Cholesterol 35 mg/dL (60-100) L 05/12/21 06:07 Cholesterol/HDL Ratio 3.71 mg/dL (1.0-5.00) 05/12/21 06:07 Lipase 20 U/L (13-60) 05/29/21 10:45 25-OH Vitamin D Total 9 ng/mL (30-100) L 06/04/21 04:09 Procalcitonin 0.31 ng/mL (0-0.5) 05/20/21 04:59 TSH 2.08 uIU/mL (0.27-4.20) 05/11/21 10:00 PTH Intact 181.5 pg/mL (15-65) H 06/04/21 04:09 Calcium (PTH Intact) 7.8 mg/dL (8.5-10.5) L 06/04/21 04:09 Random Cortisol 51.93 ug/dL (2.47-19.5) H 05/29/21 10:45 Urine Color Yellow (Yellow) 05/29/21 12:40 Urine Appearance Cloudy (CLEAR) 05/29/21 12:40 Urine pH 5 (5-7) 05/29/21 12:40 Ur Specific [place] 1.025 (1.005-1.030) 05/29/21 12:40 Urine Protein 2+ (Negative) H 05/29/21 12:40 Urine Glucose (UA) Norm (Normal) 05/29/21 12:40 Urine Ketones 1+ (Negative) H 05/29/21 12:40 Urine Blood 3+ (Negative) H 05/29/21 12:40 Urine Nitrate Negative (Negative) 05/29/21 12:40 Urine Bilirubin 1+ (Negative) H 05/29/21 12:40 Urine Urobilinogen 4 mg/dL (Negative) H 05/29/21 12:40 Ur Leukocyte Esterase 2+ (Negative) H 05/29/21 12:40 Urine RBC 5-10 /hpf (0-2) H 05/29/21 12:40 Urine WBC 25-40 /hpf (0-5) H 05/29/21 12:40 Ur Squamous Epith Cells 0-4 /hpf (0-5) H 05/29/21 12:40 Calcium Oxalate Crystal 20 /hpf 05/29/21 12:40 Amorphous Sediment 1+ /hpf 05/29/21 12:40 Urine Bacteria 3+ /hpf (NONE) H 05/29/21 12:40 Urine Mucus 2+ /hpf 05/29/21 12:40 Ur Random Sodium < 10 mmol/L 05/11/21 12:11 Ur Random Potassium 18 mmol/L 05/11/21 12:11 Ur Random Chloride < 10 mmol/L 05/11/21 12:11 Digoxin 0.7 ng/mL (0.6-1.2) 05/17/21 05:04 Hep Bs Antigen Cancelled 05/30/21 16:00 Hep Bs Antigen Non-reactive (Nonreactive) 05/30/21 16:00 Hep Bs Antibody 3.5 (11.5-1000) L 05/30/21 16:00 Hepatitis C Antibody Cancelled 05/30/21 16:00 Hepatitis C Antibody Non-reactive (Nonreactive) 05/30/21 16:00 SARS-CoV-2 Ag (Rapid) Positive (Negative) H 05/11/21 10:36 Micro: Microbiology 06/04/21 14:32 Blood Culture - Preliminary Blood SPECIMEN COLLECTED 06/02/21 16:20 Gram Stain - Final Sputum - Endotracheal Tube Aspirate Sputum Culture - Final 05/29/21 10:57 Blood Culture - Final Blood NO GROWTH AFTER 5 DAYS 05/29/21 10:52 Blood Culture - Final Blood NO GROWTH AFTER 5 DAYS A&P Assessment and plan (1) Acute respiratory failure with hypoxia: Status: Acute (2) Acute respiratory distress syndrome (ARDS) due to 2019 novel coronavirus: Status: Acute (3) Paroxysmal atrial fibrillation with RVR: Status: Acute (4) Transaminitis: Status: Acute (5) CAD (coronary artery disease): Status: Chronic Qualifiers: Associated angina: unspecified whether angina present Coronary Disease-Associated Artery/Lesion type: [place] artery [place] vs. transplanted heart: [place] heart Qualified Code(s): I25.10 - Atherosclerotic heart disease of [place] coronary artery without angina pectoris (6) Acute renal failure on dialysis: Status: Acute (7) Goals of care, counseling/discussion: Status: Acute Plan #Acute hypoxic respiratory failure secondary to ARDS due to COVID-19 pneumonia-intubated 05/19/2021 #A. fib RVR-on amiodarone drip #Hypotension-currently on Levophed #Deranged LFTs-secondary to COVID-19 pneumonitis and later shock liver #Renal failure secondary to COVID-19 pneumonia currently on hemodialysis -Admitted 05/11/2021, COVID-19 positive test 05/11/2021 -S/p 4 proning sessions, remdesivir, dexamethasone -ABG 7.3 /51/72/20/94% on CMV 480/10/60 % FiO2 -Tapered off paralytics, still requiring Versed, fentanyl, Precedex -Plan is to taper off sedation and do awakening trial-which has been ongoing challenge since accompanied by proning sessions as patient coughs violently loses his FRC while taking off sedation and desaturates; today FiO2 went up to 80% -We will continue to follow ARDS lung protective strategies-low tidal volume and high PEEP -CT chest yesterday showed severe dense opacification throughout both lungs consistent with severe pneumonia. -So far all cultures have been negative -Is currently receiving imipenem since 05/30/2020-we will discontinue after completing 7 days as all cultures are negative so far -Lower extremity Doppler negative for DVT but with significantly elevated D-dimers-on therapeutic Lovenox -On amiodarone drip for atrial fibrillation -Echo 05/11/2021: Normal LV size and systolic function with EF 69%. Mild LVH. Small pericardial effusion. -We will repeat echocardiogram to assess LV function given his persistent hypotension -LFTs improving-since having hypotensive insult on 05/29/21-monitor -miralax/senna for bowel regimen;- -tf nephro @10 cc -dialysis as per renal -Sugars well controlled -DVT prophylaxis: Lovenox -Prognosis critical -Family updated-patient wants his mom and ex- to make decisions for him; patient's mom along with patient's elder son are making decisions together. I updated patient's clinical condition in detail over the phone to the patient's ex- Ms. Isabella Brooke who is listed as next of kin in [place]. Also updated patient's mom Ms. Kayla Brooke and patient's elder son as well. I informed them today is day 17 of intubation-patient still requiring sedation and desaturates with any attempt to taper off Versed. His FiO2 requirements went up to 80% and he still requires ventilator support for his oxygenation, dependent on dialysis for his renal functions, amiodarone drip for his atrial fibrillation, pressor support for his hemodynamic stability, yesterday CT chest showed severe pneumonia. Considering overall picture, patient has severe COVID-19 pneumonia dependent on ventilator, SONIA dependent on hemodialysis, pressor support- explained his prognosis remains grave and meaningful recovery remains unrealistic at this point. Family to wants to continue care and we agreed to continue supportive care and hope he will make recovery. They verbalized understanding and agreed with the plan. Son has concerns that they have been getting mixed messages that he is improving on one day and worsening on other day. Explained that he may have had temporary improvement in labs and FIO2 on few days, but considering his overall course he is currently not doing good. Recommendations conveyed to hospitalist, RT, RN taking care of the patient Attestations Medical Necessity Statement*: Acute hypoxic respiratory failure secondary to COVID-19 pneumonia ventilator dependent, SONIA due to COVID-19 pneumonia and hypotension-currently dependent on dialysis, requiring pressor support and amiodarone drip for atrial fibrillation-remains critical-needs close ICU monitoring Critical Care Time: The high probability of a clinically significant, sudden or life threatening deterioration of the patient's [neurological, pulmonary, cardiac, renal, goals of care system(s) required my full and direct attention, intervention and personal management. The critical care time is as shown. This time is in addition to time spent performing any reported procedures but includes the following: [x] Data and vital sign review and interpretation [x] Patient assessment, examination and intervention [x] Documentation [x] Medication orders and management Critical Care Time (min): 76 Coding Level of Care Code Established Pt Acute Global Cmo for Chg Fwd Patient Type Established History Comprehensive Exam Comprehensive Medical Decision Making High Complexity Diagnoses Acute respiratory failure with hypoxia J96.01 Acute respiratory distress syndrome (ARDS) due to 2019 novel coronavirus U07.1; J80 Paroxysmal atrial fibrillation with RVR I48.0 Transaminitis R74.01 CAD (coronary artery disease) I25.10 Associated angina: unspecified whether angina present Coronary Disease-Associated Artery/Lesion type: [place] post[place] artery [place] vs. transplanted heart: [place] post[place] heart Acute renal failure on dialysis N17.9; Z99.2 Goals of care, counseling/discussion Z71.89 Time Spent (min) 76
[2021-06-04] MEDS: iodixanol 320 mg/mL 100mL Btl IV (15:40)
[2021-06-04] MEDS: heparin, porcine 1,000 unit/mL INJ 10 mL HE (16:57)
[2021-06-04] MEDS: enoxaparin 120 mg/0.8 mL Syringe SUBCUT (20:20)
[2021-06-04] MEDS: metoclopramide 5 mg/mL SDV 2 mL IVP (20:22)
--- NOTE | 2021-06-04 21:16 | PC.NURSE ---
Shift SUmmary: Day was uneventful. Patient rested in bed throughout shift. Taken to CT for CT angiogram of the head, tolerated movement well. Patient had dialysis which he tolerated well, he had 2500mL removed. Dialysis occured after CT. Central line dressing changed. [place] replaced today. No urine output.
[2021-06-05] VITALS (98 sets, daily range): BP systolic 82–135; BP diastolic 37–72; PULSE 71–132; RESP 22–34; TEMP 37.7–39.1; O2SAT 84–100
[2021-06-05] MEDS: ipratropium-albuterol 3 mL Neb INHALATION ×6 (00:20→20:20)
[2021-06-05] MEDS: dexmedeTOMIDine 0.9 % NaCL 400 MCG/100 ML PREMIX 33.58 MCG IV ×8 (01:40→20:51)
[2021-06-05 03:49] LABS: Basophils % 0.3 %; Eosinophils # 0.9 10^3/uL (0.0-0.8); Eosinophils % 7.3 %; Hematocrit 28.6 % (42.0-52.0); Lymphocytes # 0.9 10^3/uL (0.8-4.8); Lymphocytes % 7.3 %; Mean Corpuscular HGB Conc 31.5 g/dL (30.0-36.0); Mean Corpuscular Hemoglobin 29.7 pg (28.0-34.0); Mean Corpuscular Volume 94.4 fl (80-94); Mean Platelet Volume 9.9 fL (7.4-10.4); Monocytes % 8.6 %; Neutrophils # 8.62 10^3/uL (1.8-7.7); Neutrophils % 73.4 %; Nucleated Red Blood Cells % 0 %; Platelet Count 148 10^3/cmm (130-400); Red Blood Count 3.03 10^6/uL (4.1-5.3); Red Cell Distribution Width 16.9 % (12.1-15.1); White Blood Count 11.7 10^3/uL (4.0-10.0)
[2021-06-05 04:11] LABS: Alanine Aminotransferase 27 U/L (0-41); Albumin Level 2.9 g/dL (3.5-5.2); Alkaline Phosphatase 157 IU/L (40-130); Anion Gap 20.1 (5-19); Aspartate Amino Transferase 82 U/L (0-40); Blood Urea Nitrogen 31 mg/dL (6-20); Calcium 8.4 mg/dL (8.5-10.5); Carbon Dioxide 21 mmol/L (22-29); Chloride 97 mmol/L (98-107); Globulin 3.1 g/dL (1.3-4.6); Glomerular Filtration Rate 16.9 mL/min (90-130); Glucose 93 mg/dL (65-115); Osmolality Calculated 286 mOsm/kg (285-295); Phosphorus 3.7 mg/dL (2.5-4.5); Potassium 3.1 mmol/L (3.5-5.1); Sodium 135 mmol/L (136-145); Total Bilirubin 0.5 mg/dL (0.15-1.2)
[2021-06-05] MEDS: metoclopramide 5 mg/mL SDV 2 mL IVP ×3 (04:18→19:39)
[2021-06-05 05:11] LABS: ABG PCO2 52.3 mmHg (35-45); ABG PH Result 7.29 (7.35-7.45); Alveolar-Arterial Oxygen Gradi 55.8 mmHg (5-10); Arterial Blood Gas Hematocrit 27.5 % (42-52); Base Excess ABG -1.4 mmol/L (-2.0-2.0); Blood Gas Allen Test Pos; Blood Gas Operator Identificat glc; Blood Gas Sample Site Radial, right; Blood Gas Sample Type Arterial; Blood Gas Tidal Volume 0.48; Carboxyhemoglobin 1.9 %THgb (0.4-20.1); HCO3 ABG 25.4 mmol/L (22-26); HGB O2 Sat 96.4 % (95-100); Ionized Calcium Level - ABG 1.1 mmol/L (1.1-1.4); Methemoglobin 0.8 % (0.4-1.5); Oxygen Device VENT; Oxygen Saturation ABG 99.1
--- NOTE | 2021-06-05 06:00 | USCV_ITS ---
Mike Carvalho Age: 50 Gender: M : 1970 Exam Date: 06/05/2021 07:04 Ordering Phys: Kj Mckinnon MD Technologist: JENNIFER Exam Location: [facility] [place] Indication: LV FUNCTION BP: 108 / 55 HR: 79 Rhythm: Other Technical Quality: Technically difficult study MEASUREMENTS (Male / Female) Normal Values 2D ECHO LVOT Diameter 2.1 cm LV Ejection Fraction MOD 2C 65.6 % LV Ejection Fraction 2C AL 64.7 % LA Diameter 3.3 cm LA Width 2.8 cm LA Height 4.6 cm RA Width 2.9 cm RA Height 4.4 cm Aorta at Sinotubular Diameter 2.7 cm M-MODE Aortic Annulus Diameter 2.4 cm LA Ao Ratio MM 1.3 MV E Point Septal Separation 0.4 cm DOPPLER Right Atrial Pressure 15.0 mmHg FINDINGS Left Ventricle Normal left ventricular cavity size and systolic function. Left ventricular ejection fraction is estimated at 55 %. Although no diagnostic regional wall motion could be identified, this possibility could not be excluded. Flattened septum in systole and diastole consistent with right ventricle volume and pressure overload. Right Ventricle Moderately dilated right ventricle and moderately decreased right ventricular systolic function. Right Atrium Mildly increased right atrial size. Right atrial pressure estimated at 15 mm Hg. Left Atrium Mildly increased left atrial size. Mitral Valve Mildly thickened mitral valve. Aortic Valve Aortic valve not well visualized. Tricuspid Valve Tricuspid valve not well visualized. Pulmonic Valve Pulmonic valve not well visualized. Pericardium Possible small pericardial effusion. Aorta Aorta not well visualized. Dilated inferior vena cava with less than 50% respiratory variation. CONCLUSIONS 1. This is a technically difficult study. 2. Normal left ventricular cavity size and systolic function. Left ventricular ejection fraction is estimated at 55 %. Although no diagnostic regional wall motion could be identified, this possibility could not be excluded. Flattened septum in systole and diastole consistent with right ventricle volume and pressure overload. 3. Moderately dilated right ventricle and moderately decreased right ventricular systolic function. 4. Right atrial pressure estimated at 15 mm Hg. Denise Gibson MD (Electronically Signed) Final Date: 07 June 2021 09:05 S
--- NOTE | 2021-06-05 07:43 | XR_ITS ---
WS: [id number] Portable AP semiupright chest, 06/05/2021 Clinical Data: pneumonia Comparison: Portable chest, 06/01/2021. Findings: The bilateral pulmonary opacities remain unchanged. The endotracheal tube, nasogastric tube , left subclavian catheter and right internal jugular venous catheter remain in the same position. Th e heart is enlarged. Monitor leads are on the chest wall. No nodules or masses are seen. XR/XR chest 1V portable [id number] Impression: 1. No change in diffuse bilateral interstitial pulmonary opacities consistent w ith pneumonia. 2. No change in position of multiple tubes.
[2021-06-05] MEDS: polyethylene glycol 3350 Pkt 17 gm PO ×2 (08:09→17:04)
[2021-06-05] MEDS: sennosides-docusate Tablet 1 TAB PO (08:09)
[2021-06-05] MEDS: acetaminophen 325 mg Tablet 650 MG PO ×2 (08:10→19:39)
[2021-06-05] MEDS: pantoprazole 40 mg SDV IVP (08:18)
[2021-06-05] MEDS: neomycin-poly-bacitracin oint 28 gm 1 APPLIC TOPICAL ×2 (08:21→17:04)
--- NOTE | 2021-06-05 08:51 | P.PN_ITS ---
Subjective Subjective: Interval history: sedated, vent, levo- not able to get a ROS Medications: Reviewed: Yes Medication Review Details: Current Medications Acetaminophen (Acetaminophen 325 Mg Tablet) 650 mg PO Q6H PRN PRN Reason: Mild/Mod Pain Or Temp >/= 101 Last Admin: 06/05/21 08:10 Dose: 650 mg Documented by: Albuterol Sulfate (Albuterol 2.5 Mg/0.5 Ml Neb) 2.5 mg INHALATION Q4H.RESPIRATORY PRN PRN Reason: SHORTNESS OF BREATH Albuterol/Ipratropium (Ipratropium-Albuterol 3 Ml Neb) 3 ml INHALATION Q4H.RESPIRATORY AASHISH Last Admin: 06/05/21 07:52 Dose: 3 ml Documented by: Artificial Tears (Artificial Tears Op Oint 3.5 Gm) 1 applic EYE-BOTH PRN PRN PRN Reason: DRY EYE(S) Enoxaparin Sodium (Enoxaparin 120 Mg/0.8 Ml Syringe) 120 mg SUBCUT Q24H AASHISH Last Admin: 06/04/21 20:20 Dose: 120 mg Documented by: dexmedeTOMIDine 0.9 % NaCL (Precedex) 400 mcg in 100 mls @ 0 mls/hr IV .Q0M AASHISH; Protocol Last Admin: 06/05/21 06:58 Dose: 1.2 mcg/kg/hr, 33.58 mls/hr Documented by: Cisatracurium Besylate 100 mg/ (Sodium Chloride) 100 mls @ 0 mls/hr IV .Q0M AASHISH; Protocol Last Titration: 06/03/21 10:45 Dose: 0 mcg/kg/min, 0 mls/hr Documented by: Amiodarone HCl 900 mg/Dextrose/ IV Miscellaneous Supplies 518 mls @ 17.267 mls/hr IV CONT AASHISH Last Admin: 06/04/21 23:54 Dose: 0.5 mg/min, 17.27 mls/hr Documented by: Norepinephrine Bitartrate 8 mg (/ Dextrose) 508 mls @ 0 mls/hr IV .Q0M AASHISH; Protocol Last Titration: 06/04/21 23:33 Dose: 2 mcg/min, 7.62 mls/hr Documented by: Imipenem/Cilastatin Sodium 250 (mg/ Sodium Chloride) 100 mls @ 200 mls/hr IV Q6H AASHISH; Protocol Last Infusion: 06/05/21 04:50 Dose: Infused Documented by: Albumin Human (Albumin) 12.5 gm in 50 mls @ 60 mls/hr IV PRN PRN PRN Reason: Hypotension and/or symptomatic Fentanyl 2,500 mcg/ Sodium (Chloride) 250 mls @ 0 mls/hr IV .Q0M [facility]; Protocol Last Admin: 06/05/21 06:19 Dose: 150 mcg/hr, 15 mls/hr Documented by: Albumin Human (Albumin) 25 gm in 100 mls @ 60 mls/hr IV Q8H [facility] Stop: 06/05/21 09:59 Last Infusion: 06/05/21 04:10 Dose: Infused Documented by: Metoclopramide HCl (Metoclopramide 5 Mg/Ml Sdv 2 Ml) 5 mg IVP Q8H [facility] Last Admin: 06/05/21 04:18 Dose: 5 mg Documented by: Morphine Sulfate (Morphine 4 Mg/Ml Sdv 1 Ml) 4 mg IVP Q4H PRN PRN Reason: SEVERE PAIN Last Admin: 06/04/21 23:20 Dose: 4 mg Documented by: Neomycin/Polymyxin/Bacitracin (Bbnqkzap-Gxsv-Lefeekwehe Oint 28 Gm) 1 applic TOPICAL BID [facility] Last Admin: 06/05/21 08:21 Dose: 1 applic Documented by: Pantoprazole Sodium (Pantoprazole 40 Mg Sdv) 40 mg IVP DAILY [facility] Last Admin: 06/05/21 08:18 Dose: 40 mg Documented by: Polyethylene Glycol (Polyethylene Glycol 3350 Pkt 17 Gm) 17 gm PO BID [facility] Last Admin: 06/05/21 08:09 Dose: 17 gm Documented by: Senna/Docusate Sodium (Sennosides-Docusate Tablet) 1 tab PO DAILY [facility] Last Admin: 06/05/21 08:09 Dose: 1 tab Documented by: Vitals/I&O/Wt Last Vital Signs Temp 97.8 F 06/04/21 18:00 Pulse 74 06/05/21 07:55 Resp 28 H 06/05/21 07:52 BP 91/58 06/05/21 06:00 Pulse Ox 93 06/05/21 07:52 06/04/21 06/05/21 06/05/21 22:59 06:59 14:59 Intake Total 854.819 / 6153.188 7468.224 / 3252.043 Output Total 75 / 100 Balance 854.819 / 8832.593 3758.224 / 3152.043 Weight last 48 hrs Weight 121.336 kg Weight 121.109 kg Physical Exam Narrative: EXAM NARRATIVE: remains in icu on vent and pressers -levo2 vent- fio2 80%, tv 480- rr 26, peep 10 heent- nc/at, eomi lungs wheezes, coarse heart irreg irreg abd soft, nt ext edema neuro sedated Urinary Catheter Management: [place]: Cath Placed During This Visit: yes, but has since been removed by the nurse Reason for Continuing Indwelling Catheter: Accurate Measurement of Urinary Output in Critically Ill Patients Urinary Catheter Date of Insertion: 06/04/21 Urinary Catheter Time of Insertion: 14:00 Date Urinary Catheter Removed: 05/22/21 Time Urinary Catheter Discontinued: 11:20 2-way Urethral: Cath Placed During This Visit: yes, but has since been removed by the nurse Reason for Continuing Indwelling Catheter: Accurate Measurement of Urinary Output in Critically Ill Patients Urinary Catheter Date of Insertion: 05/22/21 Date Urinary Catheter Removed: 06/04/21 Time Urinary Catheter Discontinued: 14:00 Data : 06/05/21 03:13 06/05/21 03:13 Micro: Microbiology 06/04/21 16:37 Blood Culture - Preliminary Blood SPECIMEN COLLECTED 06/04/21 14:32 Blood Culture - Preliminary Blood SPECIMEN COLLECTED 06/02/21 16:20 Gram Stain - Final Sputum - Endotracheal Tube Aspirate Sputum Culture - Final A&P Assessment and plan (1) SONIA (acute kidney injury): Seen via telehealth with assistance of RN at bedside 1. Acute oligoanuric kidney injury, volume overload. -S/p HD last 2 days -repeat HD in aml 2. VDRF, COVID ARDS, sepsis- renal dose meds - ct chest w/ severe dense opacifications/ b/l pna 3. a fib on amio 4.anemia 5. resp acidosis as per medicine 6. replete k 7. replete vitamin d seen and examined w/ RN- telehealth visit time spent 30 min Status: Acute Plan as above Attestations Medical Necessity Statement*: vdrf, covid pna, sonia Time Spent in Patient Care: 16 - 35 minutes (>than 50% of time spent in counselling and/or direct pt care on unit) . 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
--- NOTE | 2021-06-05 10:37 | PC.CHAP ---
Pastoral Care Encounter/Spiritual Assessment Type of Contact [] Declined magnetic prospecting operator visit [] Patient/Family/Request visit [] Outpatient visit [] Follow-up visit [] Physician referral [] Code/Alert [x] Routine visit [] Staff referral [] Actively dying [x] Patient sleeping [] Family support [] [] Out of room [] Palliative care [] [] Receiving care in room [] Pre-surgical visit [] Trauma [] Long length of stay [x] ICU visit [x] Other: patient still on vent,,. continue to pray for healing and strength Relational/Emotional Strength [] Patient feels connected with others/family/visitors/staff [] Distress [] Loneliness/isolation [] Abandonment Spirituality of Patient [] Person of Jessica [] Attends Taoism of their Jessica [] Believes in Prayer [] Reads Bible or Latter Day materials [] There are Spiritual issues to be addressed Vp Director Of Finance Interventions [x] Prayer [] Active listening [] Non-anxious presence [] Spiritual/emotional support [] Crisis/trauma care [] Spiritual counseling [] Bereavement support [] Provided bereavement packet [] Provided Bible/devotional materials [] Provided toy/stuffed animal, coloring book to patient or family member [] Provided Communion [] Anointing/[place] [] Salvation [x] Completed spiritual assessment [] Other: Impact on Illness or Injury [] Angry [] Fearful [] Anxious [] Often cries [] Exhaustion [] Unable to work [] Unable to attend christian [] Unable to walk/stand [] Unable to read [] Unable to drive [] Unable to eat/drink [] Unable to sleep [] Unable to be with family [] Patient intubated [] Other: Summary Time spent with patient
[2021-06-05] MEDS: FUROsemide 10 mg/mL SDV 10mL 100 MG IVP (11:25)
[2021-06-05] MEDS: potassium chloride oral liq 20 mEq/15 mL UDC 40 MEQ PO ×2 (11:25→14:08)
[2021-06-05] MEDS: ergocalciferol (vitamin D2) 50,000 Unit Capsule 50000 UNIT PO ×2 (11:25→14:08)
[2021-06-05] MEDS: enoxaparin 120 mg/0.8 mL Syringe SUBCUT (17:04)
--- NOTE | 2021-06-05 18:34 | PC.NURSE ---
Patient's son: Gregory: [phone]
[2021-06-05] MEDS: fluconazole premix 100 MG in empty flexible container 1 EACH 50 MG IV (19:30)
--- NOTE | 2021-06-05 19:36 | PC.NURSE ---
SHift Summary: Uneventful shift. Unable to significantly wean down FIO2. Started at 80%, currently at 75%. 25mL of tea colored urine output. Nurse was unable to make necessary position changes. Patient only tolerates left side lying, or else oxygen saturation drops into the high 70%'s. WHen placed back into the left side position to allow recovery, it takes up to 3 hours reach 90% again. Large amounts of thick white sputum were regularly suctioned throughout the day.
[2021-06-06] VITALS (75 sets, daily range): BP systolic 92–149; BP diastolic 48–84; PULSE 67–82; RESP 26–60; TEMP 36.6–37.4; O2SAT 87–100
[2021-06-06] MEDS: norepinephrine 8 MG in dextrose 5 % 500 ML 7.62 MG IV (00:24)
[2021-06-06] MEDS: dexmedeTOMIDine 0.9 % NaCL 400 MCG/100 ML PREMIX 33.58 MCG IV ×8 (00:24→20:24)
[2021-06-06] MEDS: ipratropium-albuterol 3 mL Neb INHALATION ×6 (00:44→20:51)
[2021-06-06 03:46] LABS: Basophils # 0.1 10^3/uL (0.0-0.1); Basophils % 0.3 %; Eosinophils # 1.3 10^3/uL (0.0-0.8); Eosinophils % 8.4 %; Hematocrit 30.9 % (42.0-52.0); Hemoglobin 9.6 g/dL (11.7-16.6); Lymphocytes # 1.4 10^3/uL (0.8-4.8); Lymphocytes % 8.8 %; Mean Corpuscular HGB Conc 31.1 g/dL (30.0-36.0); Mean Corpuscular Hemoglobin 30.3 pg (28.0-34.0); Mean Corpuscular Volume 97.5 fl (80-94); Mean Platelet Volume 9.7 fL (7.4-10.4); Monocytes # 1.6 10^3/uL (0.2-0.9); Monocytes % 10.3 %; Neutrophils # 10.83 10^3/uL (1.8-7.7); Nucleated Red Blood Cells % 0 %; Platelet Count 181 10^3/cmm (130-400); Red Blood Count 3.17 10^6/uL (4.1-5.3); Red Cell Distribution Width 17.2 % (12.1-15.1); White Blood Count 15.7 10^3/uL (4.0-10.0)
[2021-06-06 04:20] LABS: Alanine Aminotransferase 14 U/L (0-41); Albumin Level 2.8 g/dL (3.5-5.2); Alkaline Phosphatase 151 IU/L (40-130); Anion Gap 21.6 (5-19); Aspartate Amino Transferase 53 U/L (0-40); Blood Urea Nitrogen 45 mg/dL (6-20); Calcium 8.7 mg/dL (8.5-10.5); Carbon Dioxide 19 mmol/L (22-29); Chloride 95 mmol/L (98-107); Globulin 3.4 g/dL (1.3-4.6); Glomerular Filtration Rate 11.5 mL/min (90-130); Glucose 108 mg/dL (65-115); Magnesium 2.3 mg/dL (1.7-2.3); Osmolality Calculated 286 mOsm/kg (285-295); Phosphorus 5.9 mg/dL (2.5-4.5); Potassium 3.6 mmol/L (3.5-5.1); Sodium 132 mmol/L (136-145); Total Bilirubin 0.5 mg/dL (0.15-1.2); Total Protein 6.2 g/dL (6.6-8.7)
[2021-06-06 04:23] LABS: Cortisol Random 7.56 ug/dL (2.47-19.5)
[2021-06-06] MEDS: metoclopramide 5 mg/mL SDV 2 mL IVP ×3 (05:29→20:24)
--- NOTE | 2021-06-06 05:53 | PC.NURSE ---
Shift Note Frequent safety and comfort rounds continue. Orders and/or nursing care completed as indicated. Patient monitored for response to intervention and treatment(s). Education provided includes restraint use, medications with side effects. Spoke with patient's ex- provided requested update x2 and video chat via [employer]. GTT's titrated per protocol. [facility] vent managed by RT. Will continue to monitor.
[2021-06-06 06:02] LABS: ABG PCO2 57.9 mmHg (35-45); ABG PH Result 7.22 (7.35-7.45); Alveolar-Arterial Oxygen Gradi 61.3 mmHg (5-10); Arterial Blood Gas Hematocrit 42.4 % (42-52); Blood Gas Allen Test Pos; Blood Gas Operator Identificat JB; Blood Gas Sample Site Radial, right; Blood Gas Sample Type Arterial; Blood Gas Tidal Volume 0.48; Carboxyhemoglobin 1.9 %THgb (0.4-20.1); HCO3 ABG 23.6 mmol/L (22-26); HGB O2 Sat 90.7 % (95-100); Ionized Calcium Level - ABG 1.1 mmol/L (1.1-1.4); Oxygen Device VENT; Oxygen Saturation ABG 93.4; PO2 ABG 70.7 mmHg (80.0-100.0); Potassium Level - ABG 3.4 mmol/L (3.5-5.0); Total Hemoglobin 13.8 g/dL (14-18)
--- NOTE | 2021-06-06 07:28 | PM.PN ---
Subjective Subjective: Interval history: intubated, sedated, pressors -remains in ICU Medications: Reviewed: Yes Medication Review Details: Current Medications Acetaminophen (Acetaminophen 325 Mg Tablet) 650 mg PO Q6H PRN PRN Reason: Mild/Mod Pain Or Temp >/= 101 Last Admin: 06/05/21 19:39 Dose: 650 mg Documented by: Albuterol Sulfate (Albuterol 2.5 Mg/0.5 Ml Neb) 2.5 mg INHALATION Q4H.RESPIRATORY PRN PRN Reason: SHORTNESS OF BREATH Albuterol/Ipratropium (Ipratropium-Albuterol 3 Ml Neb) 3 ml INHALATION Q4H.RESPIRATORY AASHISH Last Admin: 06/06/21 03:05 Dose: 3 ml Documented by: Artificial Tears (Artificial Tears Op Oint 3.5 Gm) 1 applic EYE-BOTH PRN PRN PRN Reason: DRY EYE(S) Enoxaparin Sodium (Enoxaparin 120 Mg/0.8 Ml Syringe) 120 mg SUBCUT Q24H AASHISH Last Admin: 06/05/21 17:04 Dose: 120 mg Documented by: Ergocalciferol (Ergocalciferol (Vitamin D2) 50,000 Unit Capsule) 50,000 unit PO Q7D AASHISH Last Admin: 06/05/21 14:08 Dose: 50,000 unit Documented by: dexmedeTOMIDine 0.9 % NaCL (Precedex) 400 mcg in 100 mls @ 0 mls/hr IV .Q0M AASHISH; Protocol Last Admin: 06/06/21 05:59 Dose: 1.2 mcg/kg/hr, 33.58 mls/hr Documented by: Amiodarone HCl 900 mg/Dextrose/ IV Miscellaneous Supplies 518 mls @ 17.267 mls/hr IV CONT AASHISH Last Admin: 06/04/21 23:54 Dose: 0.5 mg/min, 17.27 mls/hr Documented by: Norepinephrine Bitartrate 8 mg (/ Dextrose) 508 mls @ 0 mls/hr IV .Q0M AASHISH; Protocol Last Admin: 06/06/21 00:24 Dose: 2 mcg/min, 7.62 mls/hr Documented by: Imipenem/Cilastatin Sodium 250 (mg/ Sodium Chloride) 100 mls @ 200 mls/hr IV Q6H AASHISH; Protocol Stop: 06/06/21 16:59 Last Infusion: 06/06/21 06:00 Dose: Infused Documented by: Albumin Human (Albumin) 12.5 gm in 50 mls @ 60 mls/hr IV PRN PRN PRN Reason: Hypotension and/or symptomatic Fentanyl 2,500 mcg/ Sodium (Chloride) 250 mls @ 0 mls/hr IV .Q0M [facility]; Protocol Last Admin: 06/06/21 00:24 Dose: 150 mcg/hr, 15 mls/hr Documented by: Albumin Human (Albumin) 12.5 gm in 50 mls @ 60 mls/hr IV PRN PRN PRN Reason: Hypotension and/or symptomatic Fluconazole 100 mg/ N/A 50 mls @ 50 mls/hr IV Q24H [facility] Last Infusion: 06/05/21 20:30 Dose: Infused Documented by: Midazolam HCl 100 mg/ Sodium (Chloride) 100 mls @ 0 mls/hr IV .Q0M [facility]; Protocol Last Admin: 06/06/21 01:47 Dose: 5 mg/hr, 5 mls/hr Documented by: Metoclopramide HCl (Metoclopramide 5 Mg/Ml Sdv 2 Ml) 5 mg IVP Q8H [facility] Last Admin: 06/06/21 05:29 Dose: 5 mg Documented by: Morphine Sulfate (Morphine 4 Mg/Ml Sdv 1 Ml) 4 mg IVP Q4H PRN PRN Reason: SEVERE PAIN Last Admin: 06/04/21 23:20 Dose: 4 mg Documented by: Neomycin/Polymyxin/Bacitracin (Nzkhcpwi-Goyw-Yucmagzoor Oint 28 Gm) 1 applic TOPICAL BID [facility] Last Admin: 06/05/21 17:04 Dose: 1 applic Documented by: Pantoprazole Sodium (Pantoprazole 40 Mg Sdv) 40 mg IVP DAILY [facility] Last Admin: 06/05/21 08:18 Dose: 40 mg Documented by: Polyethylene Glycol (Polyethylene Glycol 3350 Pkt 17 Gm) 17 gm PO BID [facility] Last Admin: 06/05/21 17:04 Dose: 17 gm Documented by: Senna/Docusate Sodium (Sennosides-Docusate Tablet) 1 tab PO DAILY [facility] Last Admin: 06/05/21 08:09 Dose: 1 tab Documented by: Vitals/I&O/Wt Last Vital Signs Temp 99.4 F 06/06/21 04:15 Pulse 74 01/27/22 06:00 Resp 33 H 06/06/21 06:41 BP 105/65 06/06/21 06:00 Pulse Ox 93 06/06/21 06:41 06/05/21 06/06/21 06/06/21 22:59 06:59 14:59 Intake Total 745.999 / 5864.326 3017.867 / Output Total Balance 720.999 / 564.453 1186.867 / Weight last 48 hrs Weight 126.462 kg Weight 121.336 kg Physical Exam Narrative: EXAM NARRATIVE: remains in icu on vent and pressers -levo2 vent- fio2 85%, tv 480- rr 30, peep 10 heent- nc/at, eomi lungs wheezes, coarse, crackles b/l heart- reg, + s1, s2 abd soft, nt, nd ext edema b/l legs neuro sedated Urinary Catheter Management: [place]: Cath Placed During This Visit: yes, but has since been removed by the nurse Reason for Continuing Indwelling Catheter: Accurate Measurement of Urinary Output in Critically Ill Patients Urinary Catheter Date of Insertion: 05/11/21 Urinary Catheter Time of Insertion: 13:39 Date Urinary Catheter Removed: 05/22/21 Time Urinary Catheter Discontinued: 11:20 2-way Urethral: Cath Placed During This Visit: yes, but has since been removed by the nurse Reason for Continuing Indwelling Catheter: Accurate Measurement of Urinary Output in Critically Ill Patients Urinary Catheter Date of Insertion: 05/22/21 Date Urinary Catheter Removed: 06/04/21 Time Urinary Catheter Discontinued: 14:00 Data : 06/06/21 03:05 06/06/21 03:05 Micro: Microbiology 06/04/21 16:37 Blood Culture - Preliminary Blood NEGATIVE TO DATE 06/04/21 14:32 Blood Culture - Preliminary Blood NEGATIVE TO DATE A&P Assessment and plan (1) SONIA (acute kidney injury): Seen via telehealth with assistance of RN at bedside 1. Acute oligoanuric kidney injury, volume overload. -repeat HD now, and assess in am for extra HD -challenge volume removal, 3 k bath 2. VDRF, COVID ARDS, sepsis- renal dose meds - ct chest w/ severe dense opacifications/ b/l pna -wbc upto 15.7 3. a fib on amio -now in NSRF 4.anemia -hgb > 9, has covid- limit elver 5. resp acidosis and hypoxic- attempt daily HD. however, likely severe lung disease from COVID 6. replete k 7. replete vitamin d 8. phos binder w/ meals seen and examined w/ RN- telehealth visit time spent 30 min Status: Acute Plan as above Attestations Medical Necessity Statement*: covid-19 pna, renal failure, pressors, hypoxemia Time Spent in Patient Care: 16 - 35 minutes (>than 50% of time spent in counselling and/or direct pt care on unit). Coding Level of Care Code Acute Security Shift Manager for Manuel Lu Diagnoses SONIA (acute kidney injury) N17.9
[2021-06-06] MEDS: pantoprazole 40 mg SDV IVP (08:44)
[2021-06-06] MEDS: potassium chloride oral liq 20 mEq/15 mL UDC PO (08:44)
--- NOTE | 2021-06-06 08:58 | PC.NUTR ---
Received consult for TF recommendation. Currently Pt is receiving Nepro 1.8 @ 20 mls/hr, flushes 100 mls Q6H with a goal rate of 40 mls/hr. Recommend consideration of Nepro 1.8, flushes 150 mls Q4H or per MD discretion, with a goal rate of 50 mls/hr. Details in RD assessment.
--- NOTE | 2021-06-06 09:40 | P.PN_ITS ---
Subjective Subjective: Interval history: -Clinically unchanged -No overnight events -Requiring hemodialysis on daily basis -ABG pH 7.22 and PCO2 57 and saturation 93% on CMV 480/PEEP 10/FiO2 85%; reduced I time to 0.80 -still requiring versed 5 mg/h fentanyl and precedex - still requiring amiodarone drip for A fib and Levophed 2 mg.hr - has diarrhea since yesterday - will send for stool studies -Grave prognosis and notified to family-they verbalized understanding but want to continue supportive care -Today is day 19 of intubation and still requiring 85% FiO2 ; resp score -8-risk of class [id number] survival 18%-not an ECMO candidate and his BMI 37 and encephalopathy-patient is not a lung transplant candidate as well -Other labs and imaging reviewed Medications: Reviewed: Yes Vitals/I&O/Wt Last Vital Signs Temp 99.4 F 06/06/21 04:15 Pulse 74 06/06/21 08:33 Resp 29 H 06/06/21 08:33 BP 105/65 06/06/21 06:00 Pulse Ox 93 06/06/21 08:33 06/05/21 06/06/21 06/06/21 22:59 06:59 14:59 Intake Total 745.999 / 8913.631 1281.867 / 2022. 510.905 / 510.905 Output Total Balance 720.999 / 475.285 6262.867 / 74 510.905 / 510.905 Weight last 48 hrs Weight 278 lb 12.8 oz Weight 267 lb 8 oz Physical Exam Narrative: EXAM NARRATIVE: General: lying in bed, sedated and intubated. HEENT:NCAT, PERRLA, EOMI Neck: Supple Lungs: Bilateral diffuse coarse crackles Heart: s1/s2, RRR Abd: soft, NT, ND, BS + Normoactive Extremities: No edema RESET MERCHANDISER: sedated and limited RESET MERCHANDISER exam possible. SKIN: no rash LDA: # CVC: Left subclavian 05/31/2021 #HD catheter: 05/31/2021 right IJ Urinary Catheter Management: [place]: Cath Placed During This Visit: yes, but has since been removed by the nurse Reason for Continuing Indwelling Catheter: Accurate Measurement of Urinary Output in Critically Ill Patients Urinary Catheter Date of Insertion: 05/11/21 Urinary Catheter Time of Insertion: 13:39 Date Urinary Catheter Removed: 05/22/21 Time Urinary Catheter Discontinued: 11:20 2-way Urethral: Cath Placed During This Visit: yes, but has since been removed by the nurse Reason for Continuing Indwelling Catheter: Accurate Measurement of Urinary Output in Critically Ill Patients Urinary Catheter Date of Insertion: 05/22/21 Date Urinary Catheter Removed: 06/04/21 Time Urinary Catheter Discontinued: 14:00 Data : 06/06/21 03:05 06/06/21 03:05 Other Labs: Radiology Impressions Chest/Abdomen/Pelvis CT 06/03/21 10:22 IMPRESSION: 1. Severe dense opacifications throughout both lungs. Consistent with severe pneumonia. No pneumothorax or pneumomediastinum. 2. Small amount of ascites adjacent to the liver. Small amount of free fluid in the pelvis. 3. Nasogastric and endotracheal tubes are in good position. 4. [place] catheter in a nondistended bladder. 5. Mild soft tissue anasarca in the pelvis, asymmetric to the RIGHT. Head CT 06/03/21 10:22 IMPRESSION: 1. Quality of this examination is limited by motion artifact and artifact from the skull base. 2. No hemorrhage or edema or midline shift evident. Head/Neck CTA 06/04/21 14:38 IMPRESSION: 1. No high-grade cervical carotid artery stenosis. Mild plaque and intimal thickening. 2. Poor visualization and evaluation of the [place] carotid arteries. 3. No occlusions or aneurysms within the [place]. 4. There is a large amount of fluid filling the mastoid air cells and extending into the internal auditory canals. 5. Nasogastric and endotracheal tubes are in good position. 6. Apical groundglass attenuation and scattered opacifications consistent with Covid pneumonia. 7. Unremarkable [place]. Chest X-Ray 06/05/21 07:43 Impression: 1. No change in diffuse bilateral interstitial pulmonary opacities consistent with pneumonia. 2. No change in position of multiple tubes. Laboratory Results WBC 15.7 10^3/uL (4.0-10.0) H 06/06/21 03:05 Corrected WBC Cancelled 05/29/21 04:33 RBC 3.17 10^6/uL (4.1-5.3) L 06/06/21 03:05 Hgb 9.6 g/dL (11.7-16.6) L 06/06/21 03:05 Hct 30.9 % (42.0-52.0) L 06/06/21 03:05 MCV 97.5 fl (80-94) H 06/06/21 03:05 MCH 30.3 pg (28.0-34.0) 06/06/21 03:05 MCHC 31.1 g/dL (30.0-36.0) 06/06/21 03:05 RDW 17.2 % (12.1-15.1) H 06/06/21 03:05 Plt Count 181 10^3/cmm (130-400) 06/06/21 03:05 MPV 9.7 fL (7.4-10.4) 06/06/21 03:05 Gran % Cancelled 05/29/21 04:33 Neut % (Auto) 69.0 % 06/06/21 03:05 Lymph % (Auto) 8.8 % 06/06/21 03:05 [place] % (Auto) 10.3 % 06/06/21 03:05 Eos % (Auto) 8.4 % 06/06/21 03:05 Baso % (Auto) 0.3 % 06/06/21 03:05 Neut # (Auto) 10.83 10^3/uL (1.8-7.7) H 06/06/21 03:05 Lymph # (Auto) 1.4 10^3/uL (0.8-4.8) 06/06/21 03:05 [place] # (Auto) 1.6 10^3/uL (0.2-0.9) H 06/06/21 03:05 Eos # (Auto) 1.3 10^3/uL (0.0-0.8) H 06/06/21 03:05 Baso # (Auto) 0.1 10^3/uL (0.0-0.1) 06/06/21 03:05 Absolute Gran (auto) Cancelled 05/29/21 04:33 Nucleated RBC % (auto) 0 % 06/06/21 03:05 Total Counted 100 (0-100) 05/14/21 02:58 Atypical Lymphs % 2.0 % (0-5) 05/14/21 02:58 Segmented Neutrophils 81 % 05/14/21 02:58 Band Neutrophils 1.0 % 05/14/21 02:58 Lymphocytes (Manual) 7 % 05/14/21 02:58 Monocytes (Manual) 9.0 % 05/14/21 02:58 Eosinophils (Manual) 0 % 05/14/21 02:58 Basophils (Manual) 0.0 % 05/14/21 02:58 Nucleated RBCs Photographic Press Screwmaker 05/14/21 02:58 Nucleated RBCs # 0.0 /100WBC 06/06/21 03:05 Platelet Estimate Normal (Normal) 05/14/21 02:58 ESR 29 mm/hr (0-10) H 05/11/21 10:00 PT 16.20 SECONDS (12.1-14.9) H 05/31/21 09:20 INR 1.26 (0.8-1.2) H 05/31/21 09:20 APTT 29.3 SECONDS (23.9-36.7) 05/31/21 09:20 Fibrinogen 415 mg/dL (174-498) 05/21/21 11:05 Fibrin Degrad Products Pos, >=40 ug/mL (NEG) H 05/21/21 11:05 D-Dimer 16.86 ug/mIFEU (0-0.59) H 06/03/21 03:15 Specimen Type Arterial 06/06/21 05:47 Sample Site Radial, right 06/06/21 05:47 ABG pH 7.22 (7.35-7.45) L 06/06/21 05:47 ABG pCO2 57.9 mmHg (35-45) H 06/06/21 05:47 ABG pO2 70.7 mmHg (80.0-100.0) L 06/06/21 05:47 ABG HCO3 23.6 mmol/L (22-26) 06/06/21 05:47 ABG O2 Saturation 93.4 06/06/21 05:47 ABG Base Excess -5.0 mmol/L (-2.0-2.0) L 06/06/21 05:47 [place] Test Pos 06/06/21 05:47 A-a O2 Gradient 61.3 mmHg (5-10) H 06/06/21 05:47 Hematocrit 42.4 % (42-52) 06/06/21 05:47 Hgb O2 Saturation 90.7 % (95-100) L 06/06/21 05:47 Carboxyhemoglobin 1.9 %THgb (0.4-20.1) 06/06/21 05:47 Methemoglobin 1.0 % (0.4-1.5) 06/06/21 05:47 Total Hemoglobin 13.8 g/dL (14-18) L 06/06/21 05:47 Sodium 135.0 mmol/L (131-143) 06/06/21 05:47 Potassium 3.4 mmol/L (3.5-5.0) L 06/06/21 05:47 Glucose 122.0 mg/dL (70-115) H 06/06/21 05:47 Ionized Calcium 1.1 mmol/L (1.1-1.4) 06/06/21 05:47 O2 Delivery Device Vent 06/06/21 05:47 O2 Liters/Min 50.0 % 05/16/21 04:40 Vent Mode Cmv 05/19/21 13:11 FiO2 85.0 % 06/06/21 05:47 Tidal Volume 0.48 06/06/21 05:47 PEEP 10.0 cmH20 06/06/21 05:47 Sleeve Machine Tender ID Rashard 06/06/21 05:47 Sodium 132 mmol/L (136-145) L 06/06/21 03:05 Potassium 3.6 mmol/L (3.5-5.1) 06/06/21 03:05 Chloride 95 mmol/L (98-107) L 06/06/21 03:05 Carbon Dioxide 19 mmol/L (22-29) L 06/06/21 03:05 Anion Gap 21.6 (5-19) H 06/06/21 03:05 BUN 45 mg/dL (6-20) H 06/06/21 03:05 Creatinine 5.3 mg/dL (0.7-1.2) H 06/06/21 03:05 GFR Calculation 11.5 mL/min (90-130) L 06/06/21 03:05 Glucose 108 mg/dL (65-115) 06/06/21 03:05 POC Glucose 206 mg/dL (70-110) H 05/30/21 02:27 Estimat Average Glucose 137 05/12/21 06:07 Hemoglobin A1c 6.4 % (4.0-6.0) H 05/12/21 06:07 Calculated Osmolality 286 mOsm/kg (285-295) 06/06/21 03:05 Lactic Acid 1.3 mmol/L (0.5-2.2) 05/11/21 10:00 Uric Acid 5.5 mg/dL (3.4-7.0) 06/03/21 03:15 Calcium 8.7 mg/dL (8.5-10.5) 06/06/21 03:05 Phosphorus 5.9 mg/dL (2.5-4.5) H D 06/06/21 03:05 Magnesium 2.3 mg/dL (1.7-2.3) 06/06/21 03:05 Iron 31 ug/dL (59-158) L 05/11/21 10:00 TIBC 156 mcg/dl 05/11/21 10:00 % Saturation 19.8 % (20-50) L 05/11/21 10:00 Unsat Iron Binding 125 ug/dL (112-347) 05/11/21 10:00 Total Bilirubin 0.5 mg/dL (0.15-1.2) 06/06/21 03:05 AST 53 U/L (0-40) H 06/06/21 03:05 ALT 14 U/L (0-41) 06/06/21 03:05 Alkaline Phosphatase 151 IU/L (40-130) H 06/06/21 03:05 C-Reactive Protein 4.0 mg/L (0.0-4.9) 05/23/21 03:25 NT-Pro-B Natriuret Pep 567 pg/mL (0-125) H 05/20/21 04:59 Total Protein 6.2 g/dL (6.6-8.7) L 06/06/21 03:05 Albumin 2.8 g/dL (3.5-5.2) L 06/06/21 03:05 Globulin 3.4 g/dL (1.3-4.6) 06/06/21 03:05 Triglycerides 386 mg/dL (0-150) H 05/29/21 08:51 Cholesterol 130 mg/dL (0-200) 05/12/21 06:07 LDL Cholesterol, Calc 79 mg/dL (50-129) 05/12/21 06:07 Total VLDL Cholesterol 16 mg/dL (0-30) 05/12/21 06:07 HDL Cholesterol 35 mg/dL (60-100) L 05/12/21 06:07 Cholesterol/HDL Ratio 3.71 mg/dL (1.0-5.00) 05/12/21 06:07 Lipase 20 U/L (13-60) 05/29/21 10:45 25-OH Vitamin D Total 9 ng/mL (30-100) L 06/04/21 04:09 Procalcitonin 0.31 ng/mL (0-0.5) 05/20/21 04:59 TSH 2.08 uIU/mL (0.27-4.20) 05/11/21 10:00 PTH Intact 181.5 pg/mL (15-65) H 06/04/21 04:09 Calcium (PTH Intact) 7.8 mg/dL (8.5-10.5) L 06/04/21 04:09 Random Cortisol 7.56 ug/dL (2.47-19.5) 06/06/21 03:05 Urine Color Yellow (Yellow) 05/29/21 12:40 Urine Appearance Cloudy (CLEAR) 05/29/21 12:40 Urine pH 5 (5-7) 05/29/21 12:40 Ur Specific [place] 1.025 (1.005-1.030) 05/29/21 12:40 Urine Protein 2+ (Negative) H 05/29/21 12:40 Urine Glucose (UA) Norm (Normal) 05/29/21 12:40 Urine Ketones 1+ (Negative) H 05/29/21 12:40 Urine Blood 3+ (Negative) H 05/29/21 12:40 Urine Nitrate Negative (Negative) 05/29/21 12:40 Urine Bilirubin 1+ (Negative) H 05/29/21 12:40 Urine Urobilinogen 4 mg/dL (Negative) H 05/29/21 12:40 Ur Leukocyte Esterase 2+ (Negative) H 05/29/21 12:40 Urine RBC 5-10 /hpf (0-2) H 05/29/21 12:40 Urine WBC 25-40 /hpf (0-5) H 05/29/21 12:40 Ur Squamous Epith Cells 0-4 /hpf (0-5) H 05/29/21 12:40 Calcium Oxalate Crystal 20 /hpf 05/29/21 12:40 Amorphous Sediment 1+ /hpf 05/29/21 12:40 Urine Bacteria 3+ /hpf (NONE) H 05/29/21 12:40 Urine Mucus 2+ /hpf 05/29/21 12:40 Ur Random Sodium < 10 mmol/L 05/11/21 12:11 Ur Random Potassium 18 mmol/L 05/11/21 12:11 Ur Random Chloride < 10 mmol/L 05/11/21 12:11 Digoxin 0.7 ng/mL (0.6-1.2) 05/17/21 05:04 Hep Bs Antigen Cancelled 05/30/21 16:00 Hep Bs Antigen Non-reactive (Nonreactive) 05/30/21 16:00 Hep Bs Antibody 3.5 (11.5-1000) L 05/30/21 16:00 Hepatitis C Antibody Cancelled 05/30/21 16:00 Hepatitis C Antibody Non-reactive (Nonreactive) 05/30/21 16:00 SARS-CoV-2 Ag (Rapid) Positive (Negative) H 05/11/21 10:36 Micro: Microbiology 06/05/21 17:25 C.difficile Toxin B Gene (PCR) - Final Stool - Stool Aspirate 06/04/21 16:37 Blood Culture - Preliminary Blood NEGATIVE TO DATE 06/04/21 14:32 Blood Culture - Preliminary Blood NEGATIVE TO DATE A&P Assessment and plan (1) Acute respiratory failure with hypoxia: Status: Acute (2) Acute respiratory distress syndrome (ARDS) due to 2019 novel coronavirus: Status: Acute (3) Paroxysmal atrial fibrillation with RVR: Status: Acute (4) Transaminitis: Status: Acute (5) CAD (coronary artery disease): Status: Chronic Qualifiers: Associated angina: unspecified whether angina present Coronary Disease- Associated Artery/Lesion type: [place] artery [place] vs. transplanted heart: [place] heart Qualified Code(s): I25.10 - Atherosclerotic heart disease of [place] coronary artery without angina pectoris (6) Acute renal failure on dialysis: Status: Acute Plan #Acute hypoxic respiratory failure secondary to ARDS due to COVID-19 pneumonia- intubated 05/19/2021 #A. fib RVR-on amiodarone drip #Hypotension-currently on Levophed #Deranged LFTs-secondary to COVID-19 pneumonitis and later shock liver #Renal failure secondary to COVID-19 pneumonia currently on hemodialysis -Admitted 05/11/2021, COVID-19 positive test 05/11/2021 -S/p 4 proning sessions, remdesivir, dexamethasone -ABG 7.2 2/57/70/23/93% on CMV 480/10/85 % FiO2-adjusted I time patient already overbreathing vent on Versed 5 mg, fentanyl and Precedex-unable to wean off sedation as patient desaturates immediately - been ongoing challenge since completing proning sessions as patient coughs violently loses his FRC while taking off sedation and desaturates; today FiO2 went up to 80% -We will continue to follow ARDS lung protective strategies-low tidal volume and high PEEP -Today is day 19 of intubation and still requiring 85% FiO2 ; resp score -8-risk of class NT-ab-ubvqulet survival 18%-not an ECMO candidate and his BMI 37 and encephalopathy-patient is not a lung transplant candidate as well -CT chest yesterday showed severe dense opacification throughout both lungs consistent with severe pneumonia. -So far all cultures have been negative -Is currently receiving imipenem since 05/30/2020-we will discontinue after comp leting 10 days as all cultures are negative so far -Lower extremity Doppler negative for DVT but with significantly elevated D-dimers-on therapeutic Lovenox -On amiodarone drip for atrial fibrillation and Levophed 2 mics -Echo 05/11/2021: Normal LV size and systolic function with EF 69%. Mild LVH. Small pericardial effusion. -We will repeat echocardiogram to assess LV function given his persistent hypotension -LFTs improving-since having hypotensive insult on 05/29/21-monitor -miralax/senna for bowel regimen;- -tf nephro @10 cc -dialysis as per renal -Sugars well controlled -DVT prophylaxis: Lovenox -Prognosis critical -Family updated-patient wants his mom and ex- to make decisions for him; patient's mom along with patient's elder son are making decisions together. I updated patient's clinical condition in detail over the phone to the patient's ex- Ms. Isabella Brooke who is listed as next of kin in [employer]. Also updated patient's mom Ms. Kayla Brooke and patient's elder son as well. Family were made aware about the grim prognosis and I told them considering overall picture, patient has severe COVID-19 pneumonia dependent on ventilator, SONIA dependent on hemodialysis, pressor support- explained his prognosis remains grave and meaningful recovery remains unrealistic at this point. Family wants to continue care and we agreed to continue supportive care and hope he will make recovery. They verbalized understanding and agreed with the plan. Son has concerns that they have been getting mixed messages that he is improving on one day and worsening on other day. Explained that he may have had temporary improvement in labs and FIO2 on few days, but considering his overall course he is currently not doing good. Recommendations conveyed to hospitalist, RT, RN taking care of the patient Attestations Medical Necessity Statement*: Acute hypoxic respiratory failure secondary to COVID-19 pneumonia ventilator dependent, SONIA due to COVID-19 pneumonia and hypotension-currently dependent on dialysis, requiring pressor support and amiodarone drip for atrial fibrillation-remains critical-needs close ICU monitoring Critical Care Time: The high probability of a clinically significant, sudden or life threatening deterioration of the patient's [neurological, pulmonary, cardiac, renal, goals of care system(s) required my full and direct attention, intervention and personal management. The critical care time is as shown. This time is in addition to time spent performing any reported procedures but includes the following: [x] Data and vital sign review and interpretation [x] Patient assessment, examination and intervention [x] Documentation [x] Medication orders and management Critical Care Time (min): 76 Coding Level of Care Code Established Pt Acute Therapy Assistant for Chg Fwd Patient Type Established History Comprehensive Exam Comprehensive Medical Decision Making High Complexity Diagnoses Acute respiratory failure with hypoxia J96.01 Acute respiratory distress syndrome (ARDS) due to 2019 novel coronavirus U07.1; J80 Paroxysmal atrial fibrillation with RVR I48.0 Transaminitis R74.01 CAD (coronary artery disease) I25.10 Associated angina: unspecified whether angina present Coronary Disease-Associated Artery/Lesion type: [place] artery [place] vs. transplanted heart: [place] heart Acute renal failure on dialysis N17.9; Z99.2 Time Spent (min) 45
--- NOTE | 2021-06-06 10:39 | PC.NURSE ---
Gregory , son, called wants to try [facility], explained to him that His father was on a waiting list there already when ECMO was being considered,, the waiting list is long. Discussed with him pt's progress, explained multi-organ failure, and prognosis, as I had discussed with Dr Gallardo earlier this am.
[2021-06-06] MEDS: neomycin-poly-bacitracin oint 28 gm 1 APPLIC TOPICAL ×2 (11:55→19:31)
--- NOTE | 2021-06-06 14:00 | PC.NURSE ---
Family: Pt's Dad and son: gregory here at bedside. Long discussion about plan of care and prognosis. Dad and Gregory verbalized understanding.
--- NOTE | 2021-06-06 15:11 | P.PN_ITS ---
Subjective Subjective: Interval history: No acute events overnight. Patient has remained hemodynamically stable. T-max in last 24 hours 102 Fahrenheit. Ventilator settings appreciated. FiO2 at 85% saturating 94%. Overbreathing the vent. Desaturation noted on minimal stimulus. Desaturation even with suctioning. Technically replaced because of diarrhea yesterday. C. difficile negative. Medications: Reviewed: Yes Vitals/I&O/Wt Last Vital Signs Temp 98.4 F 06/06/21 07:31 Pulse 70 06/06/21 11:35 Resp 27 H 06/06/21 11:35 BP 107/58 06/06/21 10:30 Pulse Ox 94 06/06/21 11:35 06/06/21 06/06/21 06/06/21 06:59 14:59 22:59 Intake Total 1003.867 / 2022.742 1057.947 / 1057.947 Balance 1003.867 / 1606.507 4486.947 / 1057.947 Weight last 48 hrs Weight 126.462 kg Weight 121.336 kg Physical Exam Narrative: EXAM NARRATIVE: General: Intubated, paralyzed, HEENT: PERRLA, pupils bilaterally equal and reactive Chest: Bilateral bronchial breath sounds, coarse crackles present bilaterally, equal good air entry bilaterally CVS: S1-S2 regular, no murmurs, no tachycardia, no gallops, no rubs Abdomen: Soft, distended no organomegaly, bowel sounds present but sluggish Neuro: Intubated, paralyzed, Urinary Catheter Management: [place]: Cath Placed During This Visit: yes, but has since been removed by the nurse Reason for Continuing Indwelling Catheter: Accurate Measurement of Urinary Output in Critically Ill Patients Urinary Catheter Date of Insertion: 05/11/21 Urinary Catheter Time of Insertion: 13:39 Date Urinary Catheter Removed: 05/22/21 Time Urinary Catheter Discontinued: 11:20 2-way Urethral: Cath Placed During This Visit: yes, but has since been removed by the nurse Reason for Continuing Indwelling Catheter: Accurate Measurement of Urinary Out put in Critically Ill Patients Urinary Catheter Date of Insertion: 05/22/21 Date Urinary Catheter Removed: 06/04/21 Time Urinary Catheter Discontinued: 14:00 Data : 06/06/21 03:05 06/06/21 03:05 Micro: Microbiology 06/05/21 17:25 C.difficile Toxin B Gene (PCR) - Final Stool - Stool Aspirate 06/04/21 16:37 Blood Culture - Preliminary Blood NEGATIVE TO DATE 06/04/21 14:32 Blood Culture - Preliminary Blood NEGATIVE TO DATE A&P Assessment and plan (1) Acute respiratory distress syndrome (ARDS) due to 2019 novel coronavirus: ARDS secondary to COVID-19 pneumonia. Prolonged intubation. Ventilator dependent. Has finished treatment for severe COVID-19 pneumonia with Decadron, remdesivir, Actemra. Continue with current ventilator settings. Maintain saturation over 88%. Final sputum culture results awaited. Continue with Primaxin to finish 7-day course. Last dose on 06/06. Continue with fluconazole. Day 06/17. Continue with full dose Lovenox at 1 mg perKG body weight once daily as per creatinine clearance. Monitor for anemia or signs of pulmonary hemorrhage. Restart tube feeds with Nepro 10 cc every hour, increase every 6 hours x 10 cc with target of 40. Stop if high residuals. 100 cc free water flush every 6 hours. Status: Acute (2) Ventilator dependent: Worsening hypercapnia noted on the ABG today. I: E ratio changed on the ventilator as per pulmonology. Most likely secondary to worsening compliance and space ventilation. Status: Acute (3) COVID-19: as noted above Status: Acute (4) Acute renal failure on dialysis: Status: Acute (5) SONIA (acute kidney injury): HD started on 05/31. Persistent anuria. Nephrology recommendations appreciated. Repeat dialysis today. Status: Acute (6) Hypotension: Septic shock. Currently on Levophed of 2. Being weaned off Will try to wean off keeping mean arterial pressure over 65. Antimicrobials as above. Recheck echocardiogram results pending. Random cortisol level within normal limits. Repeat blood cultures so far negative, sputum culture noted. Urine culture negative. C. difficile negative. Status: Acute (7) Paroxysmal atrial fibrillation with RVR: Rate controlled. Continue amiodarone drip. We will transition to oral once able to tolerate orally through NG tube. Status: Acute (8) Transaminitis: Shock liver. COVID-19. Transaminitis continuing to improve. Status: Acute (9) Hypertension: Status: Chronic (10) CAD (coronary artery disease): Status: Chronic Qualifiers: Associated angina: unspecified whether angina present Coronary Disease- Associated Artery/Lesion type: nez perce artery [place] vs. transplanted heart: nez [place] heart Qualified Code(s): I25.10 - Atherosclerotic heart disease of [place] coronary artery without angina pectoris (11) Hyperkalemia: Resolved with HD. Now hypokalemic. 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 Catheter repositioned in a way to offload repeat pressure. Topical antibiotic oint. In case of further erosion consider urologic assessment. Status: Acute (13) Goals of care, counseling/discussion: Status: Acute Plan DNR/DNI Chronic suppurative prophylaxis. Lovenox for DVT prophylaxis. Restart tube feeds with Nepro 10 cc every hour, increase every 6 hours x 10 cc with target of 40. Stop if high residuals. 100 cc free water flush every 6 hours. Goals of care discussion: Have multiple doses also after discussion with the patient's mother Ms. Garza over the phone, son at bedside today. We discussed that unfortunately patient has remained intubated for over 2 weeks currently with high FiO2 requirement, kidney dysfunction needing hemodialysis, need of pressors, multiple sedation medication and inability to come down on sedation or FiO2 as it leads to hypoventilation and desaturation. We discussed unfortunately patient is not improving and continues to remain critically ill with multiple organ dysfunction. We also discussed unfortunately patient currently does not meet criteria to be transferred to LTAC requiring high FiO2, multiple sedation medications and pressors. We also discussed unfortunately patient currently does not meet criteria to get tracheostomy requiring high PEEP and FiO2. Patient's son asks for patient to be transferred to [facility] where he thinks the beds are available. We did tell him that we had spoken to digital sales representative at [facility] today and they were at a bed hold for ICU beds for now. Patient's son wants to go ahead with present care for now but does not want any escalation. Later in the day RN taking care of patient tells me that he has had conversation with the patient's family again and they want to escalate care if and when needed. Discharge planning: We will try to transition over to LTAC if able to calm down oxygen supplementation. We will speak with family in detail regarding further goals of care. Plan for day: Continue mechanical ventilation. Continue with current ventilator settings. Try to wean Levophed keeping mean arterial pressure over 65. 1 more session of hemo dialysis. Attestations 2 Medical Necessity Statement*: Requires further hospitalization for management of ventilator dependent ARDS secondary COVID-19 pneumonia, kidney dysfunction needing maintenance hemodialysis Critical Care Time: The high probability of a clinically significant, sudden or life threatening deterioration of the patient's [cardiac, renal, pulmonary system(s) required my full and direct attention, intervention and personal management. The critical care time is as shown. This time is in addition to time spent performing any reported procedures but includes the following: [x] Data and vital sign review and interpretation [x] Patient assessment, examination and intervention [x] Documentation [x] Medication orders and management Critical Care Time (min): 50 Coding Level of Care Code Acute Gravity Manager for [facility] Fwd Diagnoses Acute respiratory distress syndrome (ARDS) due to 2019 novel coronavirus U07.1; J80 Ventilator dependent Z99.11 COVID-19 U07.1 Acute renal failure on dialysis N17.9; Z99.2 SONIA (acute kidney injury) N17.9 Hypotension I95.9 Paroxysmal atrial fibrillation with RVR I48.0 Transaminitis R74.01 Hypertension I10 CAD (coronary artery disease) I25.10 Associated angina: unspecified whether angina present Coronary Disease-Associated Artery/Lesion type: nez perce artery [place] vs. transplanted heart: nez [place] heart Hyperkalemia E87.5 Urethral erosion by catheter T83.89XA; N36.8 Goals of care, counseling/discussion Z71.89
[2021-06-06] MEDS: enoxaparin 120 mg/0.8 mL Syringe SUBCUT (17:48)
--- NOTE | 2021-06-06 18:31 | PC.NURSE ---
Shift Note; Pt remains intubated and sedated. Precedex , Fentanyl and Versed no changes in rates. Amiodarone still infusing at 0.5 mg/min. Levophed now at 3mcg/min, increased due to hemodialysis. He had hemodialysis today: 2419 ml removed. No changes in vent setting. After repositioning this evening, he has been using accessory muscles and breathing shallow. Urine output of 100 ml pink tinged yellow urine. Frequent safety and comfort rounds continue. Orders and/or nursing care completed as indicated. Patient monitored for response to intervention and treatment(s). Education provided includes multi-organ failure, prognoses, Amiodarone, Levophed, Kidney failure, Lung failure andplan of care Patient's sales representative girls' apparel son Gregory and Pt's Dad verbalized understanding but reinforcement still needed. . Will continue to monitor.
[2021-06-06] MEDS: fluconazole premix 100 MG in empty flexible container 1 EACH 50 MG IV (19:29)
[2021-06-07] VITALS (66 sets, daily range): BP systolic 94–136; BP diastolic 47–81; PULSE 10–87; RESP 16–38; TEMP 36.5–37.3; O2SAT 87–99
[2021-06-07] MEDS: dexmedeTOMIDine 0.9 % NaCL 400 MCG/100 ML PREMIX 27.99 MCG IV ×8 (00:05→23:58)
[2021-06-07] MEDS: ipratropium-albuterol 3 mL Neb INHALATION ×7 (00:08→23:57)
[2021-06-07] MEDS: metoclopramide 5 mg/mL SDV 2 mL IVP ×3 (03:14→20:02)
[2021-06-07 03:36] LABS: Basophils % 0.3 %; Eosinophils # 1.4 10^3/uL (0.0-0.8); Eosinophils % 8.9 %; Hematocrit 30.5 % (42.0-52.0); Hemoglobin 9.6 g/dL (11.7-16.6); Lymphocytes % 6.1 %; Mean Corpuscular HGB Conc 31.5 g/dL (30.0-36.0); Mean Corpuscular Hemoglobin 30.6 pg (28.0-34.0); Mean Corpuscular Volume 97.1 fl (80-94); Mean Platelet Volume 9.4 fL (7.4-10.4); Monocytes # 1.6 10^3/uL (0.2-0.9); Monocytes % 10.3 %; Neutrophils # 11.28 10^3/uL (1.8-7.7); Neutrophils % 71.8 %; Nucleated Red Blood Cells % 0 %; Platelet Count 194 10^3/cmm (130-400); Red Blood Count 3.14 10^6/uL (4.1-5.3); Red Cell Distribution Width 17.4 % (12.1-15.1); White Blood Count 15.7 10^3/uL (4.0-10.0)
[2021-06-07 04:06] LABS: Alanine Aminotransferase 8 U/L (0-41); Albumin Level 2.5 g/dL (3.5-5.2); Alkaline Phosphatase 147 IU/L (40-130); Anion Gap 18.2 (5-19); Aspartate Amino Transferase 35 U/L (0-40); Blood Urea Nitrogen 38 mg/dL (6-20); Calcium 7.9 mg/dL (8.5-10.5); Carbon Dioxide 22 mmol/L (22-29); Chloride 97 mmol/L (98-107); Globulin 3.7 g/dL (1.3-4.6); Glomerular Filtration Rate 13.2 mL/min (90-130); Glucose 113 mg/dL (65-115); Magnesium 2.2 mg/dL (1.7-2.3); Osmolality Calculated 288 mOsm/kg (285-295); Potassium 3.2 mmol/L (3.5-5.1); Sodium 134 mmol/L (136-145); Total Bilirubin 0.5 mg/dL (0.15-1.2); Total Protein 6.2 g/dL (6.6-8.7)
[2021-06-07 05:01] LABS: ABG PH Result 7.23 (7.35-7.45); Alveolar-Arterial Oxygen Gradi 46.9 mmHg (5-10); Arterial Blood Gas Hematocrit 42.6 % (42-52); Base Excess ABG -2.8 mmol/L (-2.0-2.0); Blood Gas Allen Test Pos; Blood Gas Operator Identificat JB; Blood Gas Sample Site Radial, right; Blood Gas Sample Type Arterial; Carboxyhemoglobin 2.1 %THgb (0.4-20.1); HCO3 ABG 25.9 mmol/L (22-26); HGB O2 Sat 90.7 % (95-100); Ionized Calcium Level - ABG 1.2 mmol/L (1.1-1.4); Methemoglobin 1.1 % (0.4-1.5); Oxygen Device VENT; Oxygen Saturation ABG 93.7; PO2 ABG 69.6 mmHg (80.0-100.0); Total Hemoglobin 13.9 g/dL (14-18)
[2021-06-07 05:04] LABS: ABG PCO2 61.9 mmHg (35-45)
[2021-06-07] MEDS: pantoprazole 40 mg SDV IVP (10:04)
--- NOTE | 2021-06-07 10:05 | PC.NURSE ---
MAR delays related to dialysis finishing prior to medical staff credentialing coordinator. Pressure injury noted on right buttock .
[2021-06-07] MEDS: neomycin-poly-bacitracin oint 28 gm 1 APPLIC TOPICAL ×2 (10:06→18:12)
[2021-06-07] MEDS: heparin, porcine 1,000 unit/mL INJ 10 mL 10000 UNIT HE (10:17)
--- NOTE | 2021-06-07 10:18 | PC.NURSE ---
Heparin, Porcine 10, 00 units scanned. Administered per HD nurse, BUDDY Armendariz.
[2021-06-07 10:52] LABS: Bacillus cereus group Not Detected (NOT DETECT); Bacillus subtillis group Not Detected (NOT DETECT); Corynebacterium Not Detected (NOT DETECT); Cutibacterium acnes (P.acnes) Not Detected (NOT DETECT); Enterococcus Detected (NOT DETECT); Enterococcus faecalis Not Detected (NOT DETECT); Enterococcus faecium Detected (NOT DETECT); Lactobacillus species Not Detected (NOT DETECT); Listeria Not Detected (NOT DETECT); Listeria monocytogenes Not Detected (NOT DETECT); Micrococcus Not Detected (NOT DETECT); Pan Candida Not Detected (NOT DETECT); Pan Gram-Negative Not Detected (NOT DETECT); Staphylococcus epidermidis Not Detected (NOT DETECT); Staphylococcus lugdunensis Not Detected (NOT DETECT); Staphylococcus species Not Detected (NOT DETECT); Streptococcus agalactiae Not Detected (NOT DETECT); Streptococcus anginosus group Not Detected (NOT DETECT); Streptococcus pneumoniae Not Detected (NOT DETECT); Streptococcus pyogenes Not Detected (NOT DETECT); Streptococcus species Not Detected (NOT DETECT); vanA Not Detected ` (NOT DETECT); vanC Not Detected (NOT DETECT)
--- NOTE | 2021-06-07 11:48 | P.PN_ITS ---
Subjective Subjective: Interval history: Mr. Carvalho is seen and examined on hemodialysis today. Remains on low-dose Levophed. Tolerating dialysis reasonably well. Remains critically sick in the I CU, high vent settings. Minimal urine output. Vitals/I&O/Wt Last Vital Signs Temp 98.4 F 06/07/21 04:01 Pulse 87 06/07/21 11:29 Resp 31 H 06/07/21 11:32 BP 124/64 06/07/21 06:01 Pulse Ox 92 06/07/21 11:32 06/06/21 06/07/21 06/07/21 22:59 06:59 14:59 Intake Total 935.558 / 1993.505 266.541 / 2260.046 100 / 100 Output Total 100 / 100 350 / 450 Balance 835.558 / 1893.505 -83.459 / 1810.046 100 / 100 Weight last 48 hrs Weight 124.42 kg Weight 126.462 kg Physical Exam Narrative: EXAM NARRATIVE: Constitutional: Sedated and vented HEENT: Wet mucosa, no jvp, non icteric Lungs: Bilaterally poor bilateral air entry CVS: S1 S2, no murmurs Abdo: Soft, BS ok Ext 4: Minimal edema, peripheral perfusion with no cyanosis Neurological: Sedated l Urinary Catheter Management: [place]: Cath Placed During This Visit: yes, but has since been removed by the nurse Reason for Continuing Indwelling Catheter: Accurate Measurement of Urinary Output in Critically Ill Patients Urinary Catheter Date of Insertion: 05/11/21 Urinary Catheter Time of Insertion: 13:39 Date Urinary Catheter Removed: 05/22/21 Time Urinary Catheter Discontinued: 11:20 2-way Urethral: Cath Placed During This Visit: yes, but has since been removed by the nurse Reason for Continuing Indwelling Catheter: Accurate Measurement of Urinary Output in Critically Ill Patients Urinary Catheter Date of Insertion: 05/22/21 Date Urinary Catheter Removed: 06/04/21 Time Urinary Catheter Discontinued: 14:00 Data : 06/07/21 03:28 06/07/21 03:28 Micro: Microbiology 06/06/21 13:29 Blood Culture - Preliminary Blood Enterococcus faecium 06/06/21 15:27 Blood Culture - Preliminary Blood SPECIMEN COLLECTED 06/05/21 17:25 C.difficile Toxin B Gene (PCR) - Final Stool - Stool Aspirate A&P Assessment and plan (1) Acute renal failure on dialysis: 1. Acute renal failure Covid nephropathy (multifactorial pathophysiology) Daily evaluation for need for dialysis dose meds for eGFR< 15 2. Covid pneumonitis Doing poorly, high vent settings Has finished treatment for severe COVID-19 pneumonia with Decadron, remdesivir, Actemra. 3. Hemodynamics on vasopressor agents, titrate per ICU team Gaurded prognosis Sanjiv Gentile MD Nephrology [phone] Patient seen and examined via telemedicine, with the assistance of the bedside RN > 25 min spent in evaluation and mgmt of patient Status: Acute Attestations Medical Necessity Statement*: eval for renal failure Coding Level of Care Code Acute International Account Representative for [facility] Fwd Diagnoses Acute renal failure on dialysis N17.9; Z99.2
[2021-06-07] MEDS: linezolid premix 600 MG/300 ML PREMIX 300 MG IV ×2 (13:40→23:58)
--- NOTE | 2021-06-07 15:30 | PM.PN ---
Subjective Subjective: Interval history: Overnight patient having episodes of desaturation for which he was put on pressure control. Plateau pressures on CMV going upto 40-50 overnight. Today morning's ABG shows worsening hypercapnia and hypoxia. Current ventilator settings Requiring Versed of 5, fentanyl 150, Precedex. He will requiring amiodarone drip and Levophed. Minimal urine output continued on tube feeds at 10 cc/h with residuals of around 50 cc Medications: Reviewed: Yes Vitals/I&O/Wt Last Vital Signs Temp 98.4 F 06/07/21 04:01 Pulse 68 06/07/21 15:29 Resp 26 H 06/07/21 15:29 BP 124/64 06/07/21 06:01 Pulse Ox 92 06/07/21 15:29 06/07/21 06/07/21 06/07/21 06:59 14:59 22:59 Intake Total 266.541 / 2260.046 466.5 / 466.5 Output Total 350 / 450 Balance -83.459 / 1810.046 466.5 / 466.5 Weight last 48 hrs Weight 124.42 kg Weight 126.462 kg Physical Exam Narrative: EXAM NARRATIVE: General: Intubated, paralyzed, HEENT: PERRLA, pupils bilaterally equal and reactive Chest: Bilateral bronchial breath sounds, coarse crackles present bilaterally, equal good air entry bilaterally CVS: S1-S2 regular, no murmurs, no tachycardia, no gallops, no rubs Abdomen: Soft, distended no organomegaly, bowel sounds present but sluggish Neuro: Intubated, paralyzed, LDA: # CVC: Left subclavian 05/31/2021 #HD catheter: 05/31/2021 right IJ Urinary Catheter Management: [place]: Cath Placed During This Visit: yes, but has since been removed by the nurse Reason for Continuing Indwelling Catheter: Accurate Measurement of Urinary Output in Critically Ill Patients Urinary Catheter Date of Insertion: 05/11/21 Urinary Catheter Time of Insertion: 13:39 Date Urinary Catheter Removed: 05/22/21 Time Urinary Catheter Discontinued: 11:20 2-way Urethral: Cath Placed During This Visit: yes, but has since been removed by the nurse Reason for Continuing Indwelling Catheter: Accurate Measurement of Urinary Output in Critically Ill Patients Urinary Catheter Date of Insertion: 05/22/21 Date Urinary Catheter Removed: 06/04/21 Time Urinary Catheter Discontinued: 14:00 Sepsis: Is patient septic: Yes Data : 06/07/21 03:28 06/07/21 03:28 Micro: Microbiology 06/06/21 13:29 Blood Culture - Preliminary Blood Enterococcus faecium 06/06/21 15:27 Blood Culture - Preliminary Blood SPECIMEN COLLECTED A&P Assessment and plan (1) Bacteremia due to Enterococcus: Blood culture from negative. 1 from 06/06 2 out of 4 bottles positive for Enterococcus faecalis Last dose of Primaxin on 06/06. Continued on fluconazole for now. Day 07/15. Vancomycin was stopped on 06/03. Start on linezolid 600 mg twice daily. Status: Acute (2) Acute respiratory distress syndrome (ARDS) due to 2019 novel coronavirus: ARDS secondary to COVID-19 pneumonia. Prolonged intubation. Ventilator dependent. Worsening oxygenation and hypercapnia. Change to pressure control. Has finished treatment for severe COVID-19 pneumonia with Decadron, remdesivir, Actemra. Continue with current ventilator settings. Maintain saturation over 88%. Continue with full dose Lovenox at 1 mg perKG body weight once daily as per creatinine clearance. Monitor for anemia or signs of pulmonary hemorrhage. Restart tube feeds with Nepro 10 cc every hour, increase every 6 hours x 10 cc with target of 40. Stop if high residuals. 100 cc free water flush every 6 hours. Status: Acute (3) Ventilator dependent: Worsening hypercapnia noted on the ABG today. Put on pressure control. Most likely secondary to worsening compliance and space ventilation. Status: Acute (4) COVID-19: as noted above Status: Acute (5) Acute renal failure on dialysis: Status: Acute (6) SONIA (acute kidney injury): HD started on 05/31. Persistent anuria. Nephrology recommendations appreciated. Repeat dialysis today. Status: Acute (7) Hypotension: Septic shock. Currently on Levophed of 2. Being weaned off Will try to wean off keeping mean arterial pressure over 65. Antimicrobials as above. Recheck echocardiogram results pending. Random cortisol level within normal limits. Repeat blood cultures so far negative, sputum culture noted. Urine culture negative. C. difficile negative. Status: Acute (8) Paroxysmal atrial fibrillation with RVR: Rate controlled. Continue amiodarone drip. We will transition to oral once able to tolerate orally through NG tube. Status: Acute (9) Transaminitis: Shock liver. COVID-19. Transaminitis continuing to improve. Status: Acute (10) Hypertension: Status: Chronic (11) CAD (coronary artery disease): Status: Chronic Qualifiers: Associated angina: unspecified whether angina present Coronary Disease-Associated Artery/Lesion type: [place] dehe artery [place] vs. transplanted heart: [place] de[place] heart Qualified Code(s): I25.10 - Atherosclerotic heart disease of [place] coronary artery without angina pectoris (12) Hyperkalemia: Resolved with HD. Now hypokalemic. Status: Acute (13) Urethral erosion by catheter: Inferior pole of meatus. Catheter repositioned in a way to offload repeat pressure. Topical antibiotic oint. In case of further erosion consider urologic assessment. Status: Acute (14) Goals of care, counseling/discussion: Status: Acute Plan DNR/DNI Chronic suppurative prophylaxis. Lovenox for DVT prophylaxis. Continue tube feeds with Nepro 10 cc every hour, .Stop if high residuals. 100 cc free water flush every 6 hours. Please discussed in detail with line maintenance. Appreciate recommendations Goals of care discussion: Have multiple doses also after discussion with the patient's mother Ms. Garza over the phone, son at bedside today. We discussed that unfortunately patient has remained intubated for over 2 weeks currently with high FiO2 requirement, kidney dysfunction needing hemodialysis, need of pressors, multiple sedation medication and inability to come down on sedation or FiO2 as it leads to hypoventilation and desaturation. We discussed unfortunately patient is not improving and continues to remain critically ill with multiple organ dysfunction. We also discussed unfortunately patient currently does not meet criteria to be transferred to LTAC requiring high FiO2, multiple sedation medications and pressors. We also discussed unfortunately patient currently does not meet criteria to get tracheostomy requiring high PEEP and FiO2. Patient's son asks for patient to be transferred to [facility] where he thinks the beds are available. We did tell him that we had spoken to customer field representative at [facility] today and they were at a bed hold for ICU beds for now. Patient's son wants to go ahead with present care for now but does not want any escalation. Later in the day RN taking care of patient tells me that he has had conversation with the patient's family again and they want to escalate care if and when needed. Discharge planning: We will try to transition over to LTAC if able to calm down oxygen supplementation. We will speak with family in detail regarding further goals of care. Plan for day: Try to maintain ventilation. Change ventilator settings to get maximum compliance. Start linezolid. Session of hemodialysis. Maintain arterial pressure over 65. Goals of care discussion. Grave prognosis Attestations Medical Necessity Statement*: Requires further hospitalization for ARDS secondary COVID-19 pneumonia, ventilator dependence, SONIA on maintenance hemodialysis Critical Care Time: The high probability of a clinically significant, sudden or life threatening deterioration of the patient's [pulmonary, cardiac, renal, ID system(s) required my full and direct attention, intervention and personal management. The critical care time is as shown. This time is in addition to time spent performing any reported procedures but includes the following: [x] Data and vital sign review and interpretation [x] Patient assessment, examination and intervention [x] Documentation [x] Medication orders and management Critical Care Time (min): 90 Coding Level of Care Code Acute Disc Pad Plate Filler for [facility] Fwd Diagnoses Acute respiratory distress syndrome (ARDS) due to 2019 novel coronavirus U07.1; J80 Ventilator dependent Z99.11 COVID-19 U07.1 Acute renal failure on dialysis N17.9; Z99.2 SONIA (acute kidney injury) N17.9 Hypotension I95.9 Paroxysmal atrial fibrillation with RVR I48.0 Transaminitis R74.01 Hypertension I10 CAD (coronary artery disease) I25.10 Associated angina: unspecified whether angina present Coronary Disease-Associated Artery/Lesion type: y[place] dehe artery [place] vs. transplanted heart: y[place] dehe heart Hyperkalemia E87.5 Urethral erosion by catheter T83.89XA; N36.8 Goals of care, counseling/discussion Z71.89 Bacteremia due to Enterococcus R78.81; B95.2
--- NOTE | 2021-06-07 16:08 | PC.NURSE ---
Multiple family members in to visit pt. Per Gregory, oldest son, they want to continue the care as is. Isabella, ex- in room video calling with a daughter. Other staff noticed pictures being taking by Isabella, requested it to stop, she stormed ot of unit.
[2021-06-07] MEDS: enoxaparin 120 mg/0.8 mL Syringe SUBCUT (18:11)
[2021-06-07] MEDS: fluconazole premix 100 MG in empty flexible container 1 EACH 50 MG IV (18:11)
--- NOTE | 2021-06-07 18:32 | PC.NURSE ---
Shift Note: Pt remains sedated and intubated. Bloody secretions suctioned from his mouth. No changes in vent settings. Pt uses accessory muscles to breath. He does not tolerated repositioned well, his O2 sats drop to 80-82% and working of breathing increases and crowing noises noted around ETT. Daily dialysis done today, 2000ml removed. BP pressures softened afterwards, so Levophed increased to 4 mcg/min. No changes in rates on Amiodarone, Versed, Precedex and Fentanyl. Numerous famiy in to visist. today. Urine output even less today at 25ml. Frequent safety and comfort rounds continue. Orders and/or nursing care completed as indicated. Patient monitored for response to intervention and treatment(s). Education provided includes Linezolid, pt's prognosis, and plan of care. . Patient and/or medical collections representative verbalized understanding of medications, plan of care. Will continue to monitor.
[2021-06-08] VITALS (76 sets, daily range): BP systolic 72–122; BP diastolic 43–60; PULSE 73–83; RESP 25–39; TEMP 37.2–38.5; O2SAT 82–96
[2021-06-08] MEDS: norepinephrine 8 MG in dextrose 5 % 500 ML 19.05 MG IV (02:39)
[2021-06-08] MEDS: dexmedeTOMIDine 0.9 % NaCL 400 MCG/100 ML PREMIX 27.99 MCG IV ×7 (02:43→23:34)
[2021-06-08] MEDS: ipratropium-albuterol 3 mL Neb INHALATION ×5 (03:23→19:55)
--- NOTE | 2021-06-08 03:56 | PC.NURSE ---
Shift Note Frequent safety and comfort rounds continue. Orders and/or nursing care completed as indicated. Patient monitored for response to intervention and treatment(s). Education provided includes mech vent, medications with side effects. Geospatial Imagery Intelligence Analyst verbalized understanding. Line and tubes patent. GTT's titrated per protocol. Mech vent managed by RT. Approx 20:00 spoke with Isabella with family on speaker phone, provided update and Facetimed with patient. Approx 00:30 spoke with Isabella with family on speaker phone, provided update and answered all questions. Patient required increased titration on levophed (done per protocol). Current gtt's hanging during shift include Amiodarone, Levophed, Precedex, Fentanyl and Versed, see MAR for rates and titration. Will continue to monitor.
[2021-06-08] MEDS: metoclopramide 5 mg/mL SDV 2 mL IVP ×3 (04:24→21:23)
[2021-06-08 05:58] LABS: Basophils # 0.1 10^3/uL (0.0-0.1); Basophils % 0.5 %; Eosinophils # 1.3 10^3/uL (0.0-0.8); Eosinophils % 8.4 %; Hematocrit 31.1 % (42.0-52.0); Hemoglobin 9.4 g/dL (11.7-16.6); Lymphocytes # 1.2 10^3/uL (0.8-4.8); Lymphocytes % 7.9 %; Mean Corpuscular HGB Conc 30.2 g/dL (30.0-36.0); Mean Corpuscular Hemoglobin 29.8 pg (28.0-34.0); Mean Corpuscular Volume 98.7 fl (80-94); Mean Platelet Volume 10.2 fL (7.4-10.4); Monocytes # 1.8 10^3/uL (0.2-0.9); Monocytes % 11.6 %; Neutrophils # 10.75 10^3/uL (1.8-7.7); Neutrophils % 69.5 %; Nucleated Red Blood Cells % 0.3 %; Platelet Count 260 10^3/cmm (130-400); Red Blood Count 3.15 10^6/uL (4.1-5.3); Red Cell Distribution Width 17.5 % (12.1-15.1); White Blood Count 15.4 10^3/uL (4.0-10.0)
[2021-06-08 06:28] LABS: Alanine Aminotransferase 6 U/L (0-41); Albumin Level 2.4 g/dL (3.5-5.2); Alkaline Phosphatase 171 IU/L (40-130); Anion Gap 19.5 (5-19); Aspartate Amino Transferase 40 U/L (0-40); Blood Urea Nitrogen 48 mg/dL (6-20); Calcium 8.7 mg/dL (8.5-10.5); Carbon Dioxide 20 mmol/L (22-29); Chloride 93 mmol/L (98-107); Glomerular Filtration Rate 11.3 mL/min (90-130); Glucose 110 mg/dL (65-115); Magnesium 2.2 mg/dL (1.7-2.3); Osmolality Calculated 281 mOsm/kg (285-295); Phosphorus 5.7 mg/dL (2.5-4.5); Potassium 3.5 mmol/L (3.5-5.1); Sodium 129 mmol/L (136-145); Total Bilirubin 0.4 mg/dL (0.15-1.2); Total Protein 6.4 g/dL (6.6-8.7)
--- NOTE | 2021-06-08 08:04 | PM.PN ---
Subjective Subjective: Interval history: No new issues per se, critically sick, remains on low dose vasopressors, FiO2 80%, PEEP 10, minimal urine output Dialysis went well yesterday Medications: Reviewed: Yes Medication Review Details: Current Medications Acetaminophen (Acetaminophen 325 Mg Tablet) 650 mg PO Q6H PRN PRN Reason: Mild/Mod Pain Or Temp >/= 101 Last Admin: 06/05/21 19:39 Dose: 650 mg Documented by: Albuterol Sulfate (Albuterol 2.5 Mg/0.5 Ml Neb) 2.5 mg INHALATION Q4H.RESPIRATORY PRN PRN Reason: SHORTNESS OF BREATH Albuterol/Ipratropium (Ipratropium-Albuterol 3 Ml Neb) 3 ml INHALATION Q4H.RESPIRATORY [facility] Last Admin: 06/06/21 03:05 Dose: 3 ml Documented by: Artificial Tears (Artificial Tears Op Oint 3.5 Gm) 1 applic EYE-BOTH PRN PRN PRN Reason: DRY EYE(S) Enoxaparin Sodium (Enoxaparin 120 Mg/0.8 Ml Syringe) 120 mg SUBCUT Q24H [facility] Last Admin: 06/05/21 17:04 Dose: 120 mg Documented by: Ergocalciferol (Ergocalciferol (Vitamin D2) 50,000 Unit Capsule) 50,000 unit PO Q7D [facility] Last Admin: 06/05/21 14:08 Dose: 50,000 unit Documented by: dexmedeTOMIDine 0.9 % NaCL (Precedex) 400 mcg in 100 mls @ 0 mls/hr IV .Q0M [facility]; Protocol Last Admin: 06/06/21 05:59 Dose: 1.2 mcg/kg/hr, 33.58 mls/hr Documented by: Amiodarone HCl 900 mg/Dextrose/ IV Miscellaneous Supplies 518 mls @ 17.267 mls/hr IV CONT [facility] Last Admin: 06/04/21 23:54 Dose: 0.5 mg/min, 17.27 mls/hr Documented by: Norepinephrine Bitartrate 8 mg (/ Dextrose) 508 mls @ 0 mls/hr IV .Q0M [facility]; Protocol Last Admin: 06/06/21 00:24 Dose: 2 mcg/min, 7.62 mls/hr Documented by: Imipenem/Cilastatin Sodium 250 (mg/ Sodium Chloride) 100 mls @ 200 mls/hr IV Q6H [facility]; Protocol Stop: 06/06/21 16:59 Last Infusion: 06/06/21 06:00 Dose: Infused Documented by: Albumin Human (Albumin) 12.5 gm in 50 mls @ 60 mls/hr IV PRN PRN PRN Reason: Hypotension and/or symptomatic Fentanyl 2,500 mcg/ Sodium (Chloride) 250 mls @ 0 mls/hr IV .Q0M [facility]; Protocol Last Admin: 06/06/21 00:24 Dose: 150 mcg/hr, 15 mls/hr Documented by: Albumin Human (Albumin) 12.5 gm in 50 mls @ 60 mls/hr IV PRN PRN PRN Reason: Hypotension and/or symptomatic Fluconazole 100 mg/ N/A 50 mls @ 50 mls/hr IV Q24H [facility] Last Infusion: 06/05/21 20:30 Dose: Infused Documented by: Midazolam HCl 100 mg/ Sodium (Chloride) 100 mls @ 0 mls/hr IV .Q0M [facility]; Protocol Last Admin: 06/06/21 01:47 Dose: 5 mg/hr, 5 mls/hr Documented by: Metoclopramide HCl (Metoclopramide 5 Mg/Ml Sdv 2 Ml) 5 mg IVP Q8H [facility] Last Admin: 06/06/21 05:29 Dose: 5 mg Documented by: Morphine Sulfate (Morphine 4 Mg/Ml Sdv 1 Ml) 4 mg IVP Q4H PRN PRN Reason: SEVERE PAIN Last Admin: 06/04/21 23:20 Dose: 4 mg Documented by: Neomycin/Polymyxin/Bacitracin (Ghfjqrcw-Eats-Khxykyecda Oint 28 Gm) 1 applic TOPICAL BID [facility] Last Admin: 06/05/21 17:04 Dose: 1 applic Documented by: Pantoprazole Sodium (Pantoprazole 40 Mg Sdv) 40 mg IVP DAILY [facility] Last Admin: 06/05/21 08:18 Dose: 40 mg Documented by: Polyethylene Glycol (Polyethylene Glycol 3350 Pkt 17 Gm) 17 gm PO BID [facility] Last Admin: 06/05/21 17:04 Dose: 17 gm Documented by: Senna/Docusate Sodium (Sennosides-Docusate Tablet) 1 tab PO DAILY [facility] Last Admin: 06/05/21 08:09 Dose: 1 tab Documented by: Vitals/I&O/Wt Last Vital Signs Temp 98.9 F 06/08/21 04:00 Pulse 79 06/08/21 07:35 Resp 29 H 06/08/21 07:37 BP 109/53 06/08/21 06:00 Pulse Ox 91 06/08/21 07:37 06/07/21 06/08/21 06/08/21 22:59 06:59 14:59 Intake Total 1246.092 / 2011.592 1351.826 / 3364.418 Output Total 2024 Balance -778.908 / -12.408 1351.826 / 1339.418 Weight last 48 hrs Weight 130 kg Weight 124.42 kg Physical Exam Narrative: EXAM NARRATIVE: Constitutional: Sedated and vented HEENT: Wet mucosa, no jvp, non icteric Lungs: Bilaterally poor bilateral air entry CVS: S1 S2, no murmurs Abdo: Soft, BS ok Ext 4: Minimal edema, peripheral perfusion with no cyanosis Neurological: Sedated l Urinary Catheter Management: [place]: Cath Placed During This Visit: yes, but has since been removed by the nurse Reason for Continuing Indwelling Catheter: Accurate Measurement of Urinary Output in Critically Ill Patients Urinary Catheter Date of Insertion: 05/11/21 Urinary Catheter Time of Insertion: 13:39 Date Urinary Catheter Removed: 05/22/21 Time Urinary Catheter Discontinued: 11:20 2-way Urethral: Cath Placed During This Visit: yes, but has since been removed by the nurse Reason for Continuing Indwelling Catheter: Accurate Measurement of Urinary Output in Critically Ill Patients Urinary Catheter Date of Insertion: 05/22/21 Date Urinary Catheter Removed: 06/04/21 Time Urinary Catheter Discontinued: 14:00 Data : 06/08/21 04:42 06/08/21 04:42 Micro: Microbiology 06/06/21 15:27 Blood Culture - Preliminary Blood NEGATIVE TO DATE 06/06/21 13:29 Blood Culture - Preliminary Blood Enterococcus faecium A&P Assessment and plan (1) Acute renal failure on dialysis: 1. Acute renal failure Covid nephropathy (multifactorial pathophysiology) Daily evaluation for need for dialysis I see no benefit for dialysis today, eval in am dose meds for eGFR< 15 2. Covid pneumonitis Doing poorly, high vent settings Has finished treatment for severe COVID-19 pneumonia with Decadron, remdesivir, Actemra. 3. Hemodynamics on vasopressor agents, titrate per ICU team Gaurded prognosis Sanjiv Gentile MD Nephrology [phone] Patient seen and examined via telemedicine, with the assistance of the bedside RN > 13 min spent in evaluation and mgmt of patient Status: Acute Attestations Medical Necessity Statement*: mgmt of renal failure and dialysis Coding Level of Care Code Acute Director Of Product Design for [facility] Fwd Diagnoses Acute renal failure on dialysis N17.9; Z99.2
[2021-06-08] MEDS: pantoprazole 40 mg SDV IVP (08:59)
[2021-06-08] MEDS: acetaminophen 325 mg Tablet 650 MG PO ×2 (09:12→19:13)
[2021-06-08] MEDS: neomycin-poly-bacitracin oint 28 gm 1 APPLIC TOPICAL ×2 (09:21→18:36)
[2021-06-08] MEDS: linezolid premix 600 MG/300 ML PREMIX 300 MG IV ×2 (12:54→23:33)
[2021-06-08] MEDS: enoxaparin 120 mg/0.8 mL Syringe SUBCUT (18:34)
[2021-06-08] MEDS: fluconazole premix 100 MG in empty flexible container 1 EACH 50 MG IV (18:34)
--- NOTE | 2021-06-08 19:17 | PC.NURSE ---
Shift Note: Pt remains sedated and intubated. He does not gag during oral suctioning. Amiodarone, Versed, Fentanyl and Precedex gtts no rate changes. Levophed has been increased to 10mcg/min. due to SBP dropping into the 70's this afternoon. Vent remains on PC-AC with FIO2 at 80%. Pt has a shallow, irregular breathing pattern. He remains edematous. WBC remain elevated with no improvements. ABGs and BMP continue to worsen. Urine output of 50ml of tea-colored urine. Mother has been updated several times today by this nurse and Dr Gallardo. Frequent safety and comfort rounds continue. Orders and/or nursing care completed as indicated. Patient monitored for response to intervention and treatment(s). Education provided includes comfort care, Antibiotics and c ontinued plan of care. Patient's insurance claim representative verbalized plan of care, pt's condition and medications. Will continue to monitor.
[2021-06-08] MEDS: norepinephrine 8 MG in dextrose 5 % 500 ML 38.1 MG IV (20:34)
[2021-06-09] VITALS (46 sets, daily range): BP systolic 101–136; BP diastolic 48–73; PULSE 61–88; RESP 28–52; TEMP 37.8–37.9; O2SAT 96–99
[2021-06-09] MEDS: ipratropium-albuterol 3 mL Neb INHALATION ×3 (00:12→07:48)
[2021-06-09] MEDS: dexmedeTOMIDine 0.9 % NaCL 400 MCG/100 ML PREMIX 27.99 MCG IV ×2 (02:34→06:15)
[2021-06-09 03:24] LABS: Basophils # 0.1 10^3/uL (0.0-0.1); Basophils % 0.6 %; Eosinophils # 0.9 10^3/uL (0.0-0.8); Hematocrit 30.9 % (42.0-52.0); Hemoglobin 9.4 g/dL (11.7-16.6); Lymphocytes # 1.3 10^3/uL (0.8-4.8); Lymphocytes % 7.6 %; Mean Corpuscular HGB Conc 30.4 g/dL (30.0-36.0); Mean Corpuscular Hemoglobin 29.7 pg (28.0-34.0); Mean Corpuscular Volume 97.8 fl (80-94); Mean Platelet Volume 9.8 fL (7.4-10.4); Monocytes # 2.2 10^3/uL (0.2-0.9); Monocytes % 12.4 %; Neutrophils # 12.53 10^3/uL (1.8-7.7); Neutrophils % 71.6 %; Nucleated Red Blood Cells # 0.1 /100WBC; Nucleated Red Blood Cells % 0.3 %; Platelet Count 339 10^3/cmm (130-400); Red Blood Count 3.16 10^6/uL (4.1-5.3); Red Cell Distribution Width 17.2 % (12.1-15.1); White Blood Count 17.5 10^3/uL (4.0-10.0)
[2021-06-09 04:09] LABS: Alanine Aminotransferase < 5 U/L (0-41); Albumin Level 2.6 g/dL (3.5-5.2); Alkaline Phosphatase 227 IU/L (40-130); Anion Gap 16.9 (5-19); Aspartate Amino Transferase 35 U/L (0-40); Blood Urea Nitrogen 55 mg/dL (6-20); Calcium 7.7 mg/dL (8.5-10.5); Carbon Dioxide 21 mmol/L (22-29); Chloride 94 mmol/L (98-107); Globulin 4.1 g/dL (1.3-4.6); Glomerular Filtration Rate 8.9 mL/min (90-130); Glucose 149 mg/dL (65-115); Magnesium 2.5 mg/dL (1.7-2.3); Osmolality Calculated 284 mOsm/kg (285-295); Phosphorus 6.9 mg/dL (2.5-4.5); Potassium 3.9 mmol/L (3.5-5.1); Sodium 128 mmol/L (136-145); Total Bilirubin 0.4 mg/dL (0.15-1.2); Total Protein 6.7 g/dL (6.6-8.7)
[2021-06-09] MEDS: metoclopramide 5 mg/mL SDV 2 mL IVP (05:01)
--- NOTE | 2021-06-09 08:39 | P.PN_ITS ---
Subjective Subjective: Interval history: No new issues. Remains extremely tachypneic, extremely fragile, critically sick. Minimal urine output, vasopressor needs slightly higher than yesterday. FiO2 80%, PEEP of 10. Medications: Reviewed: Yes Medication Review Details: Current Medications Acetaminophen (Acetaminophen 325 Mg Tablet) 650 mg PO Q6H PRN PRN Reason: Mild/Mod Pain Or Temp >/= 101 Last Admin: 06/05/21 19:39 Dose: 650 mg Documented by: Albuterol Sulfate (Albuterol 2.5 Mg/0.5 Ml Neb) 2.5 mg INHALATION Q4H.RESPIRATORY PRN PRN Reason: SHORTNESS OF BREATH Albuterol/Ipratropium (Ipratropium-Albuterol 3 Ml Neb) 3 ml INHALATION Q4H.RESPIRATORY [facility] Last Admin: 06/06/21 03:05 Dose: 3 ml Documented by: Artificial Tears (Artificial Tears Op Oint 3.5 Gm) 1 applic EYE-BOTH PRN PRN PRN Reason: DRY EYE(S) Enoxaparin Sodium (Enoxaparin 120 Mg/0.8 Ml Syringe) 120 mg SUBCUT Q24H [facility] Last Admin: 06/05/21 17:04 Dose: 120 mg Documented by: Ergocalciferol (Ergocalciferol (Vitamin D2) 50,000 Unit Capsule) 50,000 unit PO Q7D [facility] Last Admin: 06/05/21 14:08 Dose: 50,000 unit Documented by: dexmedeTOMIDine 0.9 % NaCL (Precedex) 400 mcg in 100 mls @ 0 mls/hr IV .Q0M [facility]; Protocol Last Admin: 06/06/21 05:59 Dose: 1.2 mcg/kg/hr, 33.58 mls/hr Documented by: Amiodarone HCl 900 mg/Dextrose/ IV Miscellaneous Supplies 518 mls @ 17.267 mls/hr IV CONT [facility] Last Admin: 06/04/21 23:54 Dose: 0.5 mg/min, 17.27 mls/hr Documented by: Norepinephrine Bitartrate 8 mg (/ Dextrose) 508 mls @ 0 mls/hr IV .Q0M [facility]; Protocol Last Admin: 06/06/21 00:24 Dose: 2 mcg/min, 7.62 mls/hr Documented by: Imipenem/Cilastatin Sodium 250 (mg/ Sodium Chloride) 100 mls @ 200 mls/hr IV Q6H [facility]; Protocol Stop: 06/06/21 16:59 Last Infusion: 06/06/21 06:00 Dose: Infused Documented by: Albumin Human (Albumin) 12.5 gm in 50 mls @ 60 mls/hr IV PRN PRN PRN Reason: Hypotension and/or symptomatic Fentanyl 2,500 mcg/ Sodium (Chloride) 250 mls @ 0 mls/hr IV .Q0M [facility]; Protocol Last Admin: 06/06/21 00:24 Dose: 150 mcg/hr, 15 mls/hr Documented by: Albumin Human (Albumin) 12.5 gm in 50 mls @ 60 mls/hr IV PRN PRN PRN Reason: Hypotension and/or symptomatic Fluconazole 100 mg/ N/A 50 mls @ 50 mls/hr IV Q24H [facility] Last Infusion: 06/05/21 20:30 Dose: Infused Documented by: Midazolam HCl 100 mg/ Sodium (Chloride) 100 mls @ 0 mls/hr IV .Q0M [facility]; Protocol Last Admin: 06/06/21 01:47 Dose: 5 mg/hr, 5 mls/hr Documented by: Metoclopramide HCl (Metoclopramide 5 Mg/Ml Sdv 2 Ml) 5 mg IVP Q8H [facility] Last Admin: 06/06/21 05:29 Dose: 5 mg Documented by: Morphine Sulfate (Morphine 4 Mg/Ml Sdv 1 Ml) 4 mg IVP Q4H PRN PRN Reason: SEVERE PAIN Last Admin: 06/04/21 23:20 Dose: 4 mg Documented by: Neomycin/Polymyxin/Bacitracin (Jjqnhcla-Ybhv-Thbsmqxuwv Oint 28 Gm) 1 applic TOPICAL BID [facility] Last Admin: 06/05/21 17:04 Dose: 1 applic Documented by: Pantoprazole Sodium (Pantoprazole 40 Mg Sdv) 40 mg IVP DAILY [facility] Last Admin: 06/05/21 08:18 Dose: 40 mg Documented by: Polyethylene Glycol (Polyethylene Glycol 3350 Pkt 17 Gm) 17 gm PO BID [facility] Last Admin: 06/05/21 17:04 Dose: 17 gm Documented by: Senna/Docusate Sodium (Sennosides-Docusate Tablet) 1 tab PO DAILY [facility] Last Admin: 06/05/21 08:09 Dose: 1 tab Documented by: Vitals/I&O/Wt Last Vital Signs Temp 100.0 F H 06/09/21 04:00 Pulse 79 06/09/21 07:59 Resp 42 H 06/09/21 07:50 BP 105/54 06/09/21 06:16 Pulse Ox 98 06/09/21 07:50 06/08/21 06/09/21 06/09/21 22:59 06:59 14:59 Intake Total 1883.918 / 2656.158 895.550 / 3551.708 Output Total 90 / 106 Balance 1793.918 / 2550.158 895.550 / 3445.708 Weight last 48 hrs Weight 130.453 kg Weight 130 kg Physical Exam Narrative: EXAM NARRATIVE: Constitutional: Sedated and vented HEENT: Wet mucosa, no jvp, non icteric Lungs: Bilaterally poor bilateral air entry CVS: S1 S2, no murmurs Abdo: Soft, BS ok Ext 4: Minimal edema, peripheral perfusion with no cyanosis Neurological: Sedated l Urinary Catheter Management: [place]: Cath Placed During This Visit: yes, but has since been removed by the nurse Reason for Continuing Indwelling Catheter: Accurate Measurement of Urinary Output in Critically Ill Patients Urinary Catheter Date of Insertion: 05/11/21 Urinary Catheter Time of Insertion: 13:39 Date Urinary Catheter Removed: 05/22/21 Time Urinary Catheter Discontinued: 11:20 2-way Urethral: Cath Placed During This Visit: yes, but has since been removed by the nurse Reason for Continuing Indwelling Catheter: Accurate Measurement of Urinary Outp ut in Critically Ill Patients Urinary Catheter Date of Insertion: 05/22/21 Date Urinary Catheter Removed: 06/04/21 Time Urinary Catheter Discontinued: 14:00 Data : 06/09/21 02:55 06/09/21 02:55 Micro: Microbiology 06/08/21 13:56 Blood Culture - Preliminary Blood SPECIMEN COLLECTED 06/08/21 13:48 Blood Culture - Preliminary Blood SPECIMEN COLLECTED A&P Assessment and plan (1) Acute renal failure on dialysis: 1. Acute renal failure Covid nephropathy (multifactorial pathophysiology) Daily evaluation for need for dialysis I see no benefit for dialysis today, eval in am dose meds for eGFR< 15 2. Covid pneumonitis Doing poorly, high vent settings Has finished treatment for severe COVID-19 pneumonia with Decadron, remdesivir, Actemra. 3. Hemodynamics on vasopressor agents, titrate per ICU team I appreciate there will be a family meeting today to discuss goals of care. At this time is prognosis is extremely poor for my own perspective. I agree with palliation at this time. Sanjiv Gentile MD Nephrology [phone] Patient seen and examined via telemedicine, with the assistance of the bedside RN > 13 min spent in evaluation and mgmt of patient Status: Acute Attestations Medical Necessity Statement*: Eval for renal failure Coding Level of Care Code Acute Fish Packer for [facility] Fwd Diagnoses Acute renal failure on dialysis N17.9; Z99.2
[2021-06-09] MEDS: dexmedeTOMIDine 0.9 % NaCL 400 MCG/100 ML PREMIX 33.58 MCG IV (09:00)
--- NOTE | 2021-06-09 10:45 | PC.NURSE ---
Fentanyl gtt wasted 163ml. Witness by BENJA Hurst RN.
--- NOTE | 2021-06-09 10:50 | PC.NURSE ---
Pt extubated and OG removed. Comfort care started. Over 10 family members in room with t.
--- NOTE | 2021-06-09 11:36 | PC.NURSE ---
Time of . NO respirations or heart tones auscultated.
--- NOTE | 2021-06-09 12:00 | PC.NURSE ---
MTS notified of .
--- NOTE | 2021-06-09 12:55 | PM.DDS ---
Discharge Providers DDS Date of Admission: 05/11/21 11:20 Date Summary Completed: 06/09/21 Attending Provider at Admission: Vicente Zapata MD Time of : 11:36 Attending Provider at Discharge: Vicente Zapata MD Consults: Pulmonology/trailer technician: Dr. Mills/Dr. Ruiz Telemetry nephrology DS Diagnoses Hospital Diagnoses (1) Acute renal failure on dialysis: Reason for Visit Reason for Visit RESP DISTRESS Summary Date and Time of Date of : 06/09/21 Time of : 11:36 Summary Summary: History as per H&P: Mike Carvalho is a 50 year old male with past medical history of hypertension, remote history of CAD no PCI presented to the ER on 05/11/2021 with having difficulty in breathing, myalgias, abdominal pain getting worse for last 4 days.? In the ER was found to be COVID-19 positive.? Other blood work showed a white count 6.4, hemoglobin 15,000, D-dimer 1.69, chemistry showing sodium 32, potassium of 3.4, creatinine 0.8, AST/ALT of 127/84, CRP of 107. Hospital course: Patient was admitted to the ICU for further management of hypoxic respiratory failure requiring heated high flow on admission secondary to COVID-19 pneumonia. He was started on treatment with IV remdesivir, dexamethasone, inhalation treatment and aggressive pulmonary toilet with I-S and Acapella. He was even given 1 dose of Actemra during hospitalization. Patient had a prolonged hospitalization because of respiratory failure for which trailer technician was also consulted. His hospital stay at start was complicated by him developing atrial fibrillation with rapid ventricular response which was treated on and off with IV amiodarone. Patient's respiratory status continued to worsen because of which he was advised for mechanical ventilation. At start patient and patient's family was reluctant and wanted to hold off on intubation for as long as possible. Eventually patient was intubated on 05/19. Post intubation patient underwent 4 cycles of proning without significant improvement in his oxygenation. During hospital stay patient also had an episode of hypotension along with tachycardia secondary to torsades after which he developed shock liver and acute kidney injury requiring hemodialysis. Patient had temporary dialysis catheter placed on 05/31 after which he received dialysis. His blood cultures on 27th came back positive for Enterococcus. During hospitalization he has had frequent rounds of antibiotics. Due to worsening respiratory status, blood cultures and persistent fevers and failure to wean off sedation patient underwent repeat CT scan of head chest abdomen pelvis that did not show any acute abnormality. Other than worsening consolidation from COVID-19. For last 48 hours patient's oxygenation and hypercapnia has continued to worsen even on maximum ventilator support with pressure control. Multiple goals of care discussions were done with family members over the course of hospitalization. Patient was made comfort measures on 06/09. Patient eventually on 06/09 at 11:36 AM with family at bedside with comfort measures status. Additional Data Confirmation of as documented by pronouncing clinician: no pulse and no respirations Family: at bedside Additional persons at bedside: nursing staff Attending/PCP notified?: I am attending Was code activated?: No Autopsy requested?: No Advance directives?: No Hospice patient?: No Discharge Plan Discharge Patient Disposition: Condition: Stable Prescriptions: No Action clindamycin HCl 300 mg capsule 300 mg PO TID 0RF lisinopril 20 mg tablet 20 mg PO BID 0RF omeprazole 20 mg capsule,delayed release(DR/EC) 20 mg PO DAILY 0RF aspirin 81 mg Tablet,Chewable 81 mg PO DAILY 0RF bumetanide 1 mg tablet 1 mg PO DAILY 0RF Discharge Orders: Discharge Order (Routine); Ordered 06/09/21 Ordered By: Vicente Zapata Patient Instructions: Opioid Safety Probable Cause of Probable cause of : COVID-19 DS Attestations Time Spent in /Discharge Care*: greater than 30 min Quality - AMI: AMI present?: No Quality - Stroke: CVA present?: No Quality - VTE: VTE present?: No Coding Level of Care Code Acute Merchandise Flow Team Member for [facility] Fwd History Comprehensive Exam Comprehensive Medical Decision Making High Complexity Diagnoses Acute renal failure on dialysis N17.9; Z99.2
--- NOTE | 2021-06-09 15:36 | PC.NURSE ---
Retail Salesworker from [place] here, body released.
--- NOTE | 2021-06-09 15:40 | PC.NURSE ---
Isabella took pt's cell phone and film reader today.
--- NOTE | 2021-06-09 17:30 | PC.NURSE ---
veryfied wasting fent.
== END 2021-06-09 15:36 | disposition expired | DRG 207 ==
LOC: ER 12:00 → ER IP 12:44 → ICU 05-12 14:34
PROVIDERS: Family Medicine; Hospitalist; Internal Medicine; Internal Medicine Critical Care Medicine; Internal Medicine Nephrology; Internal Medicine Pulmonary Disease; Admitting Provider Student in an Organized Health Care Education/Training Program; Emergency Provider Student in an Organized Health Care Education/Training Program; Visit Provider Student in an Organized Health Care Education/Training Program
DX: U07.1 COVID-19 (principal); J12.82 Pneumonia due to coronavirus disease 2019; J80 Acute respiratory distress syndrome; A41.9 Sepsis, unspecified organism; R65.21 Severe sepsis with septic shock; N17.0 Acute kidney failure with tubular necrosis; E87.4 Mixed disorder of acid-base balance; E87.1 Hypo-osmolality and hyponatremia; E66.9 Obesity, unspecified; Z68.39 Body mass index [BMI] 39.0-39.9, adult; I25.10 Atherosclerotic heart disease of native coronary artery without angina pectoris; I10 Essential (primary) hypertension; Z87.891 Personal history of nicotine dependence; I48.0 Paroxysmal atrial fibrillation; Z51.5 Encounter for palliative care; B95.2 Enterococcus as the cause of diseases classified elsewhere; Z66 Do not resuscitate; N36.8 Other specified disorders of urethra; T83.091A Other mechanical complication of indwelling urethral catheter, initial encounter; Y73.1 Therapeutic (nonsurgical) and rehabilitative gastroenterology and urology devices associated with adverse incidents; K72.90 Hepatic failure, unspecified without coma; E87.5 Hyperkalemia; I95.9 Hypotension, unspecified
CPT/HCPCS: 12345; 36415; 36416; 36592; 36600; 51702; 70450; 70496; 70498; 71045; 71250; 74176; 80048; 80051; 80053; 80061; 80162; 81001; 82306; 82310; 82330; 82436; 82533; 82803; 82805; 82962; 83036; 83540; 83550; 83605; 83690; 83735; 83880; 83970; 84100; 84132; 84133; 84145; 84300; 84443; 84478; 84550; 85007; 85025; 85362; 85378; 85384; 85610; 85651; 85730; 86140; 86403; 86706; 86803; 87040; 87070; 87077; 87086; 87150; 87186; 87205; 87340; 87426; 87449; 87493; 87641; 90935; 92523; 92610; 93005; 93306; 93308; 93970; 94002; 94003; 94640; 94660; 94664; 94799; 96365; 96366; 96367; 96372; 96375; 97161; 97530; 99291; 99292; C9113; J0153; J0282; J0610; J0692; J0743; J1100; J1160; J1450; J1644; J1650; J1815; J1940; J2020; J2060; J2250; J2270; J2405; J2543; J2704; J2765; J3010; J3262; J3480; J3490; J7050; J7060; J7626; P9047; Q3014; Q9967